=== PATIENT | male | born 1960 | race Hispanic/Latino ===

== ENCOUNTER 2019-04-02 10:08 | Emergency (ER) | payer BC, OTHER ==
--- OUTSIDE RECORDS SUMMARY | 2019-04-02 10:11 | XMS REPORT ---
:1960 [facility] Address [address] [place] [address] Care Team Providers Name Role Phone Unavailable Unavailable Unavailable Payers Payer Name Policy Type Policy Number Effective Date Expiration Date Problems This patient has no known problems. Allergies, Adverse Reactions, Alerts Allergy Allergy Status Severity Reaction(s) Onset Inactive Treating Comments Name Type Date Date Clinician No Known DA Active U 2019-02 00:00:0 0 NKDA DA Active U 2011-06 00:00:0 0 Medications This patient has no known medications. Results Test Description Test Time Test Comments Text Results Atomic Results Result Comments BASIC METABOLIC PANEL 2019-02-25 11:36:00 Test Item Value Reference Range Comments SODIUM (test code=NA) 140 MMOL/L 137-145 POTASSIUM (test code=K) 4.3 MMOL/L 3.5-5.1 CHLORIDE (test code=CL) 102 MMOL/L 98-107 CARBON DIOXIDE (test code=CO2) 27 MMOL/L 22-30 GLUCOSE (test code=GLU) 188 MG/DL 74-106 BLOOD UREA NITROGEN (test 18 MG/DL 9-20 code=BUN) GLOMERULAR FILTRATION RATE (test > 60 Reporting units: ml/min/1.73 m2 code=GFR) (Modified MDRD Formula)Reference Range: > or=60 ml/min/1.73 m2 CREATININE (test code=CREAT) 0.80 MG/DL 0.66-1.25 CALCIUM (test code=CA) 9.5 MG/DL 8.4-10.2 [id number] 11:36:00 Test Item Value Reference Range Comments MAGNESIUM (test code=MAG) 1.9 MG/DL 1.6-2.3 PROTHROMBIN [id number] 11:21:00 Test Item Value Reference Range Comments PROTHROMBIN TIME PATIENT (test 10.6 SECONDS 9.6-11.6 code=PTP) INTERNATIONAL NORMAL RATIO 1.0 0.8-1.1 The INR is to be used only (test code=INR) for monitoring oral anticoagulanttherapy. INDICATION INR VALUE 1. Prophylaxis, deep venous thrombosis, including high risk surgery. 2.0 - 3.0 2. Prophylaxis, deep venous thrombosis, hip surgery, treatment for deep venous thrombosis or pulmonary prevention of systemic embolism in patients with valvular heart disease, atrial fibrillation, tissue heart valve, or acute myocardial infarction. 2.0 - 3.0 3. Mechanical prosthesis heart valves, recurrent systemic embolism. 3.0 - 4.5 PTT [id number] 11:21:00 Test Item Value Reference Range Comments PTT ACTIVATED (test code=APTT) 29.4 SECONDS 22.0-33.0 CBC W/AUTO [id number] 11:07:00 Test Item Value Reference Range Comments WHITE BLOOD CELL (test code=WBC) 8.4 K/MM3 3.8-9.8 RED BLOOD CELL (test code=RBC) 5.14 M/MM3 3.95-5.67 HEMOGLOBIN (test code=HGB) 15.2 G/DL 12.4-16.7 HEMATOCRIT (test code=HCT) 44.4 % 35.9-49.5 MEAN CELL VOLUME (test code=MCV) 86 fL 81.7-96.1 MEAN CELL HGB (test code=MCH) 29.6 pg 27.6-33.2 MEAN CELL HGB CONCETRATION (test code=MCHC) 34.2 % 32.9-35.5 RED CELL DISTRIBUTION WIDTH (test code=RDW) 12.4 % 12.1-15.2 PLATELET COUNT (test code=PLT) 304 K/MM3 129-368 MEAN PLATELET VOLUME (test code=MPV) 9.8 fl 7.4-10.4 NEUTROPHIL % (test code=NT%) 76.5 % 43-75 IMMATURE GRANULOCYTE % (test code=IG%) 0.4 % 0.0-2.0 LYMPHOCYTE % (test code=LY%) 15.5 % 14-44 MONOCYTE % (test code=MO%) 5.8 % 4-13 EOSINOPHIL % (test code=EO%) 1.1 % 0-6 BASOPHIL % (test code=BA%) 0.7 % 0-2 NUCLEATED RBC % (test code=NRBC%) 0.0 % 0-1.0 NEUTROPHIL # (test code=NT#) 6.44 K/mm3 2.0-7.6 IMMATURE GRANULOCYTE # (test code=IG#) 0.03 x10 3/uL 0-0.03 LYMPHOCYTE # (test code=LY#) 1.30 K/mm3 1.0-3.8 MONOCYTE # (test code=MO#) 0.49 K/mm3 0.1-0.8 EOSINOPHIL # (test code=EO#) 0.09 K/mm3 0.0-0.2 BASOPHIL # (test code=BA#) 0.06 K/mm3 0.0-0.2 NUCLEATED RBC # (test code=NRBC#) 0.00 K/mm3 0.0-0.1
[2019-04-02] MEDS ORDERED: NA CHLORIDE 0.9% 1,000 ML ONE (11:48)
--- NOTE | 2019-04-02 11:49 | RAD REPORT ---
EXAM DESCRIPTION: RAD - Ankle Left 3 View -04/02/2019 11:41 am CLINICAL HISTORY: Left ankle pain FINDINGS: No fracture or dislocation is seen. Mild osteoarthritis involves the left ankle consisting joint space narrowing and small osteophytes No acute fracture or dislocation seen Deformity of the calcaneus may be secondary to an old fracture. A 1 centimeter bony density extends off of the mid inferior aspect of the calcaneus Bones appear somewhat osteoporotic.
[2019-04-02 11:56] LABS: Basophils % 0.5 % (0-1.3); Hematocrit 40.2 % (39.6-49.0); Lymphocytes % 10.6 % (15.3-44.8); MPV 8.1 fL (7.6-11.3); RBC Red Blood Cell Count 4.66 M/uL (4.33-5.43)
[2019-04-02 12:13] LABS: Albumin 3.2 g/dL (3.4-5.0); Bilirubin Direct 0.2 mg/dL (0-0.2); Bilirubin Total 0.5 mg/dL (0.2-1.0); Potassium 4.4 mmol/L (3.5-5.1)
[2019-04-02] MEDS ORDERED: HYDROCODONE/APAP 5/325 MG TAB ONE (12:45)
--- NOTE | 2019-04-02 12:53 | EDPHYS ---
Physician Documentation [facility] Name: Nicholas Ruiz Jr Age: 58 yrs Sex: Male : 1960 Arrival Date: 04/02/2019 Time: 10:14 Bed 5 Private MD: ED Physician Abhijeet Mittal HPI: 04/02 12:08 This 58 yrs old Male presents to ER via Ambulatory with complaints of body pm1 aches. 12:08 Generalized body aches. Onset: The symptoms/episode began/occurred 2 day(s) ago. pm1 Severity of symptoms: in the emergency department the symptoms are worse. The patient has not experienced similar symptoms in the past. The patient has not recently seen a physician. No cough, fever, abdominal pain, chest pain , shortness of breath, headache. Patient reports left ankle pain and swelling. Denies trauma or injury. Historical: - Allergies: 12:48 No Known Allergies; sv - PMHx: 11:52 Atrial Fib; Diabetes - NIDDM; High Cholesterol; Hypertension; sg - PSHx: 11:52 pacer/defib; back surg; ankle surg; sg ROS: 12:08 Eyes: Negative for injury, pain, redness, and discharge, ENT: Negative for injury, pm1 pain, and discharge, Neck: Negative for injury, pain, and swelling. 12:08 Cardiovascular: Negative for chest pain, palpitations, and edema, Respiratory: Negative for shortness of breath, cough, wheezing, and pleuritic chest pain, Abdomen/GI: Negative for abdominal pain, nausea, vomiting, diarrhea, and constipation, Back: Negative for injury and pain, : Negative for injury, bleeding, discharge, and swelling, Skin: Negative for injury, rash, and discoloration, Neuro: Negative for headache, weakness, numbness, tingling, and seizure. 12:08 Constitutional: Positive for body aches, Negative for fever, poor PO intake. 12:08 MS/extremity: Positive for pain, swelling, of the left ankle. Exam: 12:08 Constitutional: This is a well developed, well nourished patient who is awake, alert, pm1 and in no acute distress. Head/Face: Normocephalic, atraumatic. Eyes: Pupils equal round and reactive to light, extra-ocular motions intact. Lids and lashes normal. Conjunctiva and sclera are non-icteric and not injected. Cornea within normal limits. Periorbital areas with no swelling, redness, or edema. ENT: Nares patent. No nasal discharge, no septal abnormalities noted. Tympanic membranes are normal and external auditory canals are clear. Oropharynx with no redness, swelling, or masses, exudates, or evidence of obstruction, uvula midline. Mucous membranes moist. Neck: Trachea midline, no thyromegaly or masses palpated, and no cervical lymphadenopathy. Supple, full range of motion without nuchal rigidity, or vertebral point tenderness. No Meningismus. Chest/axilla: Normal chest wall appearance and motion. Nontender with no deformity. No lesions are appreciated. Cardiovascular: Regular rate and rhythm with a normal S1 and S2. No gallops, murmurs, or rubs. Normal PMI, no JVD. No pulse deficits. Respiratory: Lungs have equal breath sounds bilaterally, clear to auscultation and percussion. No rales, rhonchi or wheezes noted. No increased work of breathing, no retractions or nasal flaring. Abdomen/GI: Soft, non-tender, with normal bowel sounds. No distension or tympany. No guarding or rebound. No evidence of tenderness throughout. Back: No spinal tenderness. No costovertebral tenderness. Full range of motion. Skin: Warm, dry with normal turgor. Normal color with no rashes, no lesions, and no evidence of cellulitis. 12:08 Musculoskeletal/extremity: Extremities: grossly normal except: noted in the left ankle: swelling, tenderness, There is no evidence of deformity, ROM: intact in all extremities, Circulation is intact in all extremities. Vital Signs: 10:19 BP 157 / 106; Pulse 106; Resp 16; Temp 99.1(TE); Pulse Ox 98% on R/A; Weight 83.91 kg; ss Height 5 ft. 4 in. (162.56 cm); Pain 10/10; 10:19 Body Mass Index 31.75 (83.91 kg, 162.56 cm) ss MDM: 11:17 Patient medically screened. pm1 12:50 Data reviewed: vital signs. Data interpreted: Pulse oximetry: on room air is 98 %. pm1 Interpretation: normal. Counseling: I had a detailed discussion with the patient and/or guardian regarding: the historical points, exam findings, and any diagnostic results supporting the discharge/admit diagnosis, lab results, radiology results, the need for outpatient follow up, to return to the emergency department if symptoms worsen or persist or if there are any questions or concerns that arise at home. 04/02 10:21 Order name: Flu; Complete Time: 11:11 ss 04/02 11:18 Order name: Basic Metabolic Panel; Complete Time: 12:25 pm1 04/02 11:18 Order name: CBC with Diff; Complete Time: 12:02 pm1 04/02 11:18 Order name: Hepatic Function; Complete Time: 12:25 pm1 04/02 11:18 Order name: Ankle Left 3 View XRAY; Complete Time: 12:02 pm1 04/02 11:18 Order name: IV Saline Lock; Complete Time: 11:35 pm1 04/02 11:18 Order name: Labs collected and sent; Complete Time: 11:35 pm1 Administered Medications: 11:50 Drug: NS 0.9% 1000 ml Route: IV; Rate: 1000 ml; Site: right antecubital; 12:48 Drug: HYDROcodone-acetaminophen (5 mg-500 mg) 1 tabs {Note: RASS +1.} Route: PO; sv Disposition: 15:33 Co-signature as Attending Physician, Abhijeet Mittal MD I agree with the assessment and [facility] plan of care. Disposition: 04/02/19 12:51 Discharged to Home. Impression: Hyperglycemia, unspecified, Pain in left ankle and joints of left foot. - Condition is Stable. - Discharge Instructions: Joint Pain, Arthritis, Hyperglycemia, Blood Glucose Monitoring, Adult, Ankle Pain. - Prescriptions for Tylenol- Codeine #3 300-30 mg Oral Tablet - take 2 tablets by ORAL route every 6 hours As needed; 20 tablet. - Work release form, Medication Reconciliation Form, Thank You Letter, Antibiotic Education, Prescription Opioid Use form. - Follow up: Emergency Department; When: As needed; Reason: Worsening of condition. Follow up: Private Physician; When: 2 - 3 days; Reason: Recheck today's complaints, Continuance of care, Re-evaluation by your physician. - Problem is new. - Symptoms have improved. Signatures: Dispatcher [employer] Britt Bueno RN RN sv Gay, Steven, RN RN sg Anderson, Corey, MD MD cha Marinas, Patrick, WAITER/WAITRESS INFORMAL WAITER/WAITRESS INFORMAL pm1 Angela Rosen dh3 Corrections: (The following items were deleted from the chart) 13:35 12:51 04/02/2019 12:51 Discharged to Home. Impression: Hyperglycemia, unspecified; Pain dh3 in left ankle and joints of left foot. Condition is Stable. Forms are Medication Reconciliation Form, Thank You Letter, Antibiotic Education, Prescription Opioid Use. Follow up: Emergency Department; When: As needed; Reason: Worsening of condition. Follow up: Private Physician; When: 2 - 3 days; Reason: Recheck today's complaints, Continuance of care, Re-evaluation by your physician. Problem is new. Symptoms have improved. pm1
--- NOTE | 2019-04-02 12:53 | ER ---
Nurse's Notes [facility] Name: Nicholas Ruiz Jr Age: 58 yrs Sex: Male : 1960 Arrival Date: 04/02/2019 Time: 10:14 Bed 5 Private MD: Diagnosis: Hyperglycemia, unspecified;Pain in left ankle and joints of left foot Presentation: 04/02 10:19 Presenting complaint: Patient states: body aches that began 2 days ago. Denies fever. ss Transition of care: patient was not received from another setting of care. Onset of symptoms was March 31, 2019. Risk Assessment: Do you want to hurt yourself or someone else? Patient reports no desire to harm self or others. Initial Sepsis Screen: Does the patient meet any 2 criteria? HR > 90 bpm. Does the patient have a suspected source of infection? No. Patient's initial sepsis screen is negative. Care prior to arrival: None. 10:19 Method Of Arrival: Ambulatory 10:19 Acuity: DAVID 3 ss Historical: - Allergies: 12:48 No Known Allergies; sv - PMHx: 11:52 Atrial Fib; Diabetes - NIDDM; High Cholesterol; Hypertension; sg - PSHx: 11:52 pacer/defib; back surg; ankle surg; sg Assessment: 12:49 Reassessment: Patient appears in no apparent distress at this time. No changes from previously documented assessment. Patient and/or family updated on plan of care and expected duration. Pain level reassessed. Patient is alert, oriented x 3, equal unlabored respirations, skin warm/dry/pink. c/o bilateral shoulder pain x 6 weeks. Denies fall or recent injury. Informed Tonny ELLER. Vital Signs: 10:19 BP 157 / 106; Pulse 106; Resp 16; Temp 99.1(TE); Pulse Ox 98% on R/A; Weight 83.91 kg; ss Height 5 ft. 4 in. (162.56 cm); Pain 10/10; 10:19 Body Mass Index 31.75 (83.91 kg, 162.56 cm) ED Course: 10:14 Patient arrived in ED. cf2 10:19 Arm band placed on right wrist. ss 10:21 Triage completed. ss 10:25 Flu Sent. ss 11:09 Sebastian Pollard, NIKKO is Primary Nurse. sg 11:11 Tonny Soto NP is PHCP. pm1 11:11 Abhijeet Mittal MD is Attending Physician. pm1 11:40 X-ray completed. Portable x-ray completed in exam room. Patient tolerated procedure 1 well. 11:42 Ankle Left 3 View XRAY In Process Unspecified. EDMS 11:50 Initial lab(s) drawn, by me, sent to lab. Inserted saline lock: 20 gauge in right sg antecubital area, using aseptic technique. Administered Medications: 11:50 Drug: NS 0.9% 1000 ml Route: IV; Rate: 1000 ml; Site: right antecubital; sg 12:48 Drug: HYDROcodone-acetaminophen (5 mg-500 mg) 1 tabs {Note: RASS +1.} Route: PO; sv Outcome: 12:51 Discharge ordered by . pm1 13:35 Patient left the ED. 3 Signatures: Dispatcher [employer] EDBritt Gilliland RN RN Sebastian Pollard RN RN Zahraa Beasley [facility] Millicent Bruner RN RN Tonny Soto NP WASH[employer]ANKET 1 Angela Rosen 3 Michelet Martini 2 Corrections: (The following items were deleted from the chart) 12:50 12:48 HYDROcodone-acetaminophen (5 mg-500 mg) 1 tabs PO sv sv
== END 2019-04-02 13:35 | disposition home or self-care (01) ==
LOC: ER 10:08
DX: R73.9 Hyperglycemia, unspecified (principal); M25.572 Pain in left ankle and joints of left foot; Z95.0 Presence of cardiac pacemaker
CPT/HCPCS: 85025; 80048; 36415; 80076; 87804 ×2; 73610; 99284; J7030

== ENCOUNTER 2022-10-19 07:27 | Emergency (ER) | payer BC ==
--- OUTSIDE RECORDS SUMMARY | 2022-10-19 07:33 | XMS REPORT | Continuity of Care Document ---
:1960 Author Organization [facility] t Address [address] [facility]. [address] [place] [address] Care Team Providers Name Role Phone MICHELLE VAZQUEZ Primary Care Physician Unavailable Emmett Escalera Attending Clinician Unavailable REID MAURER Attending Clinician Unavailable Reid Maurer MD Attending Clinician Kanika Lee MD Attending Clinician Joselito EL, Susan Alcantara Attending Clinician Unavailable Reid Hollins Attending Clinician Unavailable KANIKA LEE Attending Clinician Unavailable Provider, [facility] Attending Clinician Unavailable Stacey Moreno Attending Clinician Lab, [facility] F[facility] Pob I Attending Clinician Unavailable Michelle Coleman Attending Clinician MICHELLE VAZQUEZ Attending Clinician Unavailable Doctor Unassigned, Cordry [place] Attending Clinician Unavailable Only, [facility] Test Attending Clinician Unavailable Reji Panda MD Attending Clinician BROOKS LINCOLN Attending Clinician Unavailable Emmett Escalera Admitting Clinician Unavailable REID MAURER Admitting Clinician Unavailable Reid Hollins Admitting Clinician Unavailable Payers Payer Name Policy Type Policy Number Effective Date Expiration Date S beti [facility] [id number] 2018 00:00:00 Problems Condition Condition Condition Status Onset Resolution Last Treating Co mments Source Name Details Category Date Date Treatment Clinician Date 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 2-28 ity of mellitus mellitus 00:00: [place] with with 00 Medical microalbum microalbum Br anch inuria, inuria, without without long-term long-term current current use of use of insulin insulin Other Other Disease Active 2017-08 Univers depression depression 2-28 it y of 00:00: Medical Branch Essential Essential Disease Active 2017-08 Uni vers hypertensi hypertensi 2-28 it y of on on 00:00: [place] [facility] Laceration Laceration Disease Active 2017-08 U nivers of left of left 2-28 ity of middle middle 00:00: [place] finger finger 00 Medical without without Branch damage to damage to nail, nail, foreign foreign body body presence presence unspecifie unspecifie d, initial d, initial encounter encounter 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 Added automatic ally from request for surgery [id number] Allergies, Adverse Reactions, Alerts Allergy Allergy Status Severity Reaction(s) Onset Inactive Treating Comm ents Source Name Type Date Date Clinician No Known DA Active U [facility] 00:00: [address] No Known DA Active U [facility] 00:00: [address] NKDA DA Active U 2010-08 [facility] 08-[facility] 00:00: [address] NO KNOWN Drug Active Univers ALLERGIE Class ity of S [facility] Social History Social Habit Start Date Stop Date Quantity Comments Source Exposure to 2022-05-03 2022-05-13 Not sure University of SARS-CoV-2 00:00:00 07:21:00 [facility] (event) Branch Alcohol intake 2022-05-13 2022-05-13 Current University of 00:00:00 00:00:00 non-drinker of [facility] alcohol (finding) [place] Tobacco use and 2018-03-17 2018-03-17 Smokeless tobacco Un iversity of exposure 00:00:00 00:00:00 non-user [facility] Sex Assigned At [birth year] Universit y of 00:00:00 00:00:00 [facility] Smoking Status Start Date Stop Date Source Never smoked tobacco [facility] Medications Ordered Filled Start Stop Current Ordering Indication Dosage Frequency Signature Comments Components Source Medication Medication Date Date Medication? Clinician (SIG) Name Name HEPARIN 2021-08 No 4000U 4,000 Univers SODIUM 0-03 10-03 Units, IV ity of (PORCINE) 14:15: 14:15 Push, [place] 1,000 00 :00 ONCE, 1 Medical UNIT/ML dose, On [place] BOLUS ACS Mon ORDER SET 05/13/22 at 0915, SANGEETHA furosemide 2021-08- No 20mg 20 mg, IV U nivers (LASIX) 0-03 10-03 Push, ity of injection 14:15: 14:34 ONCE, 1 [place] 20 mg 00 :00 dose, On Medical [facility] 05/13/22 at 0915, SANGEETHA heparin 2021-08 Yes 3000U FOR Univers (1,000 0-03 REBOLUSING ity of unit/mL, 10 14:10: , Starting [place] mL vial) 06 on [facility] for 05/13/22 at [place] Rebolusing 0910, Until Discontinu ed, Routine
Dosing based on aPPT testing parameters (refer to continuous heparin drip order).
heparin 2021-08 Yes 12U/kg/ 12 Univers 25,000 0-03 h Units/kg/h ity of Units/250 14:10: r ?79.4 kg [place] mL 06 (9.528 Medical (Premixed mL/hr, Branch Bag) in rounded to 0.45 % NS 9.53 mL/hr), IV Infusion, TITRATE, Parameters in Admin. Instr., Starting on [facility] 05/13/22 at 0910
CA UTION - If LMWH given in ER, AVOID bolus and start next dose/drip 12 hrs after ER dosage.&nb sp; M ust program rate using programmab le infusion pump.&nbsp ; May ck with the ordering provider first prior to any administra tion should the patient be on existing/a dditional anticoagul ant therapy. Rang e, Dosing and Testing: &nbs p;FOR [facility], [facility], AND [facility] ONLY &nbs p; - aPTT < 35: & nbsp;Bolus 5000 units, increase rate 300 units/hr&n bsp; - aPTT 35-44:&nbs p; Raphael sintia 3000 units, increase rate 200 units/hr&n bsp; - aPTT 45-54:&nbs p; In crease rate 100 units/hr&n bsp; - aPTT 55-85:&nbs p; NO CHANGE&nbs p; - aPTT 86-95:&nbs p; De crease rate 100 units/hr&n bsp; - aPTT 96-120:&nb sp; H old 30 minutes, decrease rate 150 units/hr&n bsp; - aPTT > 120: Hold 60 minutes, decrease rate 200 units/hr&n bsp; Check aPTT 6 hours after initiation , then Q6H after every change, aPTT Q12H once therapeuti c levels are reached.&n bsp; &nbs p; __ &n bsp;FOR [facility] ONLY - aPTT < 40: & nbsp;Bolus 5000 units, increase rate 300 units/hr&n bsp; - aPTT 40-49:&nbs p; Raphael sintia 3000 units, increase rate 200 units/hr&n bsp; - aPTT 50-59:&nbs p;&nbs p;Increase rate 100 units/hr&n bsp; - aPTT 60-85:&nbs p; NO CHANGE&nbs p; - aPTT 86-95:&nbs p; De crease rate 100 units/hr&n bsp; - aPTT 96-120:&nb sp; H old 30 minutes, decrease rate 150 units/hr&n bsp; - aPTT > 120: Hold 60 minutes, decrease rate 200 units/hr&n bsp; Check aPTT 6 hours after initiation , then Q6H after every change, aPTT Q12H once therapeuti c levels are reached.&n bsp; DO NOT ADJUST INITIAL BOLUS OR INITIAL INFUSION RATE.
aspirin 2021-08 Yes 325mg 325 mg, Univer s tablet 325 0-03 Oral, ity of mg 14:00: DAILY, [place] [id number] First dose Medical on Fri Branch 05/13/22 at 0900, Until Discontinu ed, Routine SERTRALINE Yes [id number] Take 1 U nivers 100 mg 5-16 tablet by ity of tablet 00:00: mouth once [place] 00 daily Medical Branch SERTRALINE Yes [id number] Take 1 U nivers 100 mg 5-16 tablet by ity of tablet 00:00: mouth once [place] 00 daily Medical Branch atorvastati Yes 40mg Take 40 mg Univers n 40 mg 6-29 by mouth ity of tablet 15:36: at [place] [address] bedtime. Medical Branch aspirin Yes 81mg Take 81 mg Univ ers (ASPIRIN 6-29 by mouth ity of LOW DOSE) 15:36: daily. [place] 81 mg 51 Medical tablet Branch lisinopril Yes 20mg Take 20 mg U nivers 20 mg 6-29 by mouth ity of tablet 15:36: daily. [place] [address] Medical Branch atorvastati 0 Yes 40mg Take 40 mg Univers n 40 mg 6-29 by mouth ity of tablet 15:36: at [place] [address] bedtime. Medical Branch aspirin 2020-0 Yes 81mg Take 81 mg Univ ers (ASPIRIN 6-29 by mouth ity of LOW DOSE) 15:36: daily. [place] 81 mg EC 51 Medical tablet Branch lisinopril 0 Yes 20mg Take 20 mg U nivers 20 mg 6-29 by mouth ity of tablet 15:36: daily. [place] [address] Medical Branch atorvastati 0 Yes 40mg Take 40 mg Univers n 40 mg 6-29 by mouth ity of tablet 10:36: at [place] [address] bedtime. Medical Branch aspirin 2020-0 Yes 81mg Take 81 mg Univ ers (ASPIRIN 6-29 by mouth ity of LOW DOSE) 10:36: daily. [place] 81 mg EC 51 Medical tablet Branch lisinopril 0 Yes 20mg Take 20 mg U nivers 20 mg 6-29 by mouth ity of tablet 10:36: daily. [place] [address] Medical Branch atorvastati 0 Yes 40mg Take 40 mg Univers n 40 mg 6-29 by mouth ity of tablet 10:36: at [place] [address] bedtime. Medical Branch aspirin 2020-0 Yes 81mg Take 81 mg Univ ers (ASPIRIN 6-29 by mouth ity of LOW DOSE) 10:36: daily. [place] 81 mg EC Medical tablet Branch lisinopril 0 Yes 20mg Take 20 mg U nivers 20 mg 6-29 by mouth ity of tablet 10:36: daily. [place] [address] Medical Branch atorvastati 0 Yes 40mg Take 40 mg Univers n 40 mg 6-29 by mouth ity of tablet 10:36: at [place] [address] bedtime. Medical Branch aspirin 2020-0 Yes 81mg Take 81 mg Univ ers (ASPIRIN 6-29 by mouth ity of LOW DOSE) 10:36: daily. [place] 81 mg EC 51 Medical tablet Branch lisinopril 0 Yes 20mg Take 20 mg U nivers 20 mg 6-29 by mouth ity of tablet 10:36: daily. [place] [address] Medical Branch SERTraline 0 Yes [id number] 100mg Take 1 Univers 100 mg 6-29 tablet by ity of tablet 00:00: mouth [place] 00 daily. Medical Branch SERTraline Yes [id number] 100mg Take 1 Univers 100 mg 6-29 tablet by ity of tablet 00:00: mouth [place] 00 daily. Medical Branch SERTraline Yes [id number] 100mg Take 1 Univers 100 mg 6-29 tablet by ity of tablet 00:00: mouth [place] 00 daily. Medical Branch SERTraline 2021- No [id number] 100mg Take 1 Univers 100 mg 6-29 05-16 tablet by ity of tablet 00:00: 00:00 mouth [place] 00 :00 daily. Medical Branch fluconazole 2020- No [id number] 150mg Take 1 Univers (DIFLUCAN) 6-29 06-30 tablet by ity of 150 mg 00:00: 04:59 [place] tablet 00 :00 now for 1 Medical dose. Branch Repeat dose in 7 days fluconazole 2020- No [id number] 150mg Take 1 Univers (DIFLUCAN) 6-29 06-30 tablet by ity of 150 mg 00:00: 04:59 mouth [place] tablet 00 :00 now for 1 Medical dose. Branch Repeat dose in 7 days SERTraline Yes [id number] 50mg Take 1 U nivers (ZOLOFT) 50 7-17 tablet by ity of mg tablet 00:00: mouth [place] 00 daily. Medical Follow-up Branch for refills SERTraline Yes [id number] 50mg Take 1 U nivers (ZOLOFT) 50 7-17 tablet by ity of mg tablet 00:00: mouth [place] 00 daily. Medical Follow-up Branch for refills SERTraline Yes [id number] 50mg Take 1 U nivers (ZOLOFT) 50 7-17 tablet by ity of mg tablet 00:00: mouth [place] 00 daily. Medical Follow-up Branch for refills SERTraline Yes [id number] 50mg Take 1 U nivers (ZOLOFT) 50 7-17 tablet by ity of mg tablet 00:00: mouth [place] 00 daily. Medical Follow-up Branch for refills SERTraline Yes [id number] 50mg Take 1 U nivers (ZOLOFT) 50 7-17 tablet by ity of mg tablet 00:00: mouth [place] 00 daily. Medical Follow-up Branch for refills SERTraline Yes [id number] 50mg Take 1 U nivers (ZOLOFT) 50 7-17 tablet by ity of mg tablet 00:00: mouth [place] 00 daily. Medical Follow-up Branch for refills SERTraline Yes [id number] 50mg Take 1 U nivers (ZOLOFT) 50 7-17 tablet by ity of mg tablet 00:00: mouth [place] 00 daily. Medical Follow-up Branch for refills SERTraline Yes [id number] 50mg Take 1 U nivers (ZOLOFT) 50 7-17 tablet by ity of mg tablet 00:00: mouth [place] 00 daily. Medical Follow-up Branch for refills SERTraline Yes [id number] 50mg Take 1 U nivers (ZOLOFT) 50 7-17 tablet by ity of mg tablet 00:00: mouth [place] 00 daily. Medical Follow-up Branch for refills SERTraline 2020- No [id number] 50mg Take 1 Univers (ZOLOFT) 50 7-17 06-29 tablet by it y of mg tablet 00:00: 00:00 mouth [place] 00 :00 daily. Medical Follow-up Branch for refills SERTraline 2020- No [id number] 50mg Take 1 Univers (ZOLOFT) 50 7-17 06-29 tablet by it y of mg tablet 00:00: 00:00 mouth [place] 00 :00 daily. Medical Follow-up Branch for refills lisinopril 2017-08 Yes 20mg Take 20 mg U nivers 20 mg 2-28 by mouth ity of tablet 19:10: daily. [address] lisinopril 2017-08 Yes 20mg Take 20 mg U nivers 20 mg 2-28 by mouth ity of tablet 19:10: daily. [address] lisinopril 2017-08 Yes 20mg Take 20 mg U nivers 20 mg 2-28 by mouth ity of tablet 19:10: daily. [address] lisinopril 2017-08 Yes 20mg Take 20 mg U nivers 20 mg 2-28 by mouth ity of tablet 19:10: daily. [address] lisinopril 2017-08 Yes 20mg Take 20 mg U nivers 20 mg 2-28 by mouth ity of tablet 19:10: daily. [address] lisinopril 2017-08 Yes 20mg Take 20 mg U nivers 20 mg 2-28 by mouth ity of tablet 19:10: daily. [address] lisinopril 2017-08 Yes 20mg Take 20 mg U nivers 20 mg 2-28 by mouth ity of tablet 19:10: daily. [address] lisinopril 2017-08 Yes 20mg Take 20 mg U nivers 20 mg 2-28 by mouth ity of tablet 19:10: daily. [address] lisinopril 2017-08 Yes 20mg Take 20 mg U nivers 20 mg 2-28 by mouth ity of tablet 19:10: daily. [address] ciclopirox 2017-08 Yes [id number] Apply to Univers 8 % 2-28 area(s) at ity of solution 00:00: bedtime. [place] 00 Apply to Medical Nails at Branch night. On day 7 clean with alcohol pad/trim nails. empaglifloz 2017-08 Yes [id number] 10mg Take 10 mg Univers in 2-28 by mouth ity of (JARDIANCE) 00:00: daily. [place] 10 mg Tab 00 [facility] metFORMIN 2017-08 Yes [id number] 1000mg Take 1 Univers 1,000 mg 2-28 tablet by ity of tablet 00:00: mouth 2 [place] (two) Medical times [place] daily with meals. mupirocin 2 2017-08 Yes [id number] Apply to Univers % ointment 2-28 [id number] area(s) 3 it y of 00:00: (three) [place] 00 times Medical daily. Branch ciclopirox 2017-08 Yes [id number] Apply to Univers 8 % 2-28 area(s) at ity of solution 00:00: bedtime. [place] 00 Apply to Medical Nails at Branch night. On day 7 clean with alcohol pad/trim nails. empaglifloz 2017-08 Yes [id number] 10mg Take 10 mg Univers in 2-28 by mouth ity of (JARDIANCE) 00:00: daily. [place] 10 mg Tab 00 [facility] metFORMIN 2017-08 Yes [id number] 1000mg Take 1 Univers 1,000 mg 2-28 tablet by ity of tablet 00:00: mouth 2 [place] 00 (two) Medical times [place] daily with meals. mupirocin 2 2017-08 Yes [id number] Apply to Univers % ointment 2-28 [id number] area(s) 3 it y of 00:00: (three) [place] 00 times Medical daily. Branch ciclopirox 2017-08 Yes [id number] Apply to Univers 8 % 2-28 area(s) at ity of solution 00:00: bedtime. [place] 00 Apply to Medical Nails at Branch night. On day 7 clean with alcohol pad/trim nails. empaglifloz 2017-08 Yes [id number] 10mg Take 10 mg Univers in 2-28 by mouth ity of (JARDIANCE) 00:00: daily. [place] 10 mg Tab 00 Medical Branch metFORMIN 2017-08 Yes [id number] 1000mg Take 1 Univers 1,000 mg 2-28 tablet by ity of tablet 00:00: mouth 2 00 (two) Medical times [place] daily with meals. mupirocin 2 2017-08 Yes [id number] Apply to Univers % ointment 2-28 [id number] area(s) 3 it y of 00:00: (three) [place] 00 times Medical daily. Branch ciclopirox 2017-08 Yes [id number] Apply to Univers 8 % 2-28 area(s) at ity of solution 00:00: bedtime. [place] 00 Apply to Medical Nails at Branch night. On day 7 clean with alcohol pad/trim nails. empaglifloz 2017-08 Yes [id number] 10mg Take 10 mg Univers in 2-28 by mouth ity of (J[place]IANCE) 00:00: daily. [place] 10 mg Tab 00 Medical Branch metFORMIN 2017-08 Yes [id number] 1000mg Take 1 Univers 1,000 mg 2-28 tablet by ity of tablet 00:00: mouth 2 [place] 00 (two) Medical times [place] daily with meals. mupirocin 2 2017-08 Yes [id number] Apply to Univers % ointment 2-28 [id number] area(s) 3 it y of 00:00: (three) [place] 00 times Medical daily. Branch ciclopirox 2017-08 Yes [id number] Apply to Univers 8 % 2-28 area(s) at ity of solution 00:00: bedtime. [place] 00 Apply to Medical Nails at Branch night. On day 7 clean with alcohol pad/trim nails. empaglifloz 2017- Yes [id number] 10mg Take 10 mg Univers in 2-28 by mouth ity of (J[place]) 00:00: daily. [place] 10 mg Tab 00 Medical Branch metFORMIN 2017-08 Yes [id number] 1000mg Take 1 Univers 1,000 mg 2-28 tablet by ity of tablet 00:00: mouth 2 [place] 00 (two) Medical times Branch daily with meals. mupirocin 2 2017-08 Yes [id number] Apply to Univers % ointment 2-28 [id number] area(s) 3 it y of 00:00: (three) [place] 00 times Medical daily. Branch ciclopirox 2017-08 Yes [id number] Apply to Univers 8 % 2-28 area(s) at ity of solution 00:00: bedtime. [place] 00 Apply to Medical Nails at Branch night. On day 7 clean with alcohol pad/trim nails. empaglifloz 2017-08 Yes [id number] 10mg Take 10 mg Univers in 2-28 by mouth ity of ([place]) 00:00: daily. [place] 10 mg Tab 00 Medical Branch metFORMIN 2017-08 Yes [id number] 1000mg Take 1 Univers 1,000 mg 2-28 tablet by ity of tablet 00:00: mouth 2 (two) Medical times [place] daily with meals. mupirocin 2 2017-08 Yes [id number] Apply to Univers % ointment 2-28 [id number] area(s) 3 it y of 00:00: (three) [place] 00 times Medical daily. Branch ciclopirox 2017-08 Yes [id number] Apply to Univers 8 % 2-28 area(s) at ity of solution 00:00: bedtime. [place] 00 Apply to Medical Nails at Branch night. On day 7 clean with alcohol pad/trim nails. empaglifloz 2017- Yes [id number] 10mg Take 10 mg Univers in 2-28 by mouth ity of ([place]) 00:00: daily. [place] 10 mg Tab 00 Medical Branch metFORMIN 2017- Yes [id number] 1000mg Take 1 Univers 1,000 mg 2-28 tablet by ity of tablet 00:00: mouth 2 [place] (two) Medical times [place] daily with meals. mupirocin 2 2017-08 Yes [id number] Apply to Univers % ointment 2-28 [id number] area(s) 3 it y of 00:00: (three) [place] 00 times Medical daily. Branch ciclopirox 2017-08 Yes [id number] Apply to Univers 8 % 2-28 area(s) at ity of solution 00:00: bedtime. 00 Apply to Medical Nails at Branch night. On day 7 clean with alcohol pad/trim nails. empaglifloz 2017-08 Yes [id number] 10mg Take 10 mg Univers in 2-28 by mouth ity of ([place]) 00:00: daily. [place] 10 mg Tab 00 Medical Branch metFORMIN 2017-08 Yes [id number] 1000mg Take 1 Univers 1,000 mg 2-28 tablet by ity of tablet 00:00: mouth 2 00 (two) Medical times [place] daily with meals. mupirocin 2 2017-08 Yes [id number] Apply to Univers % ointment 2-28 [id number] area(s) 3 it y of 00:00: (three) [place] 00 times Medical daily. Branch ciclopirox 2017-08 Yes [id number] Apply to Univers 8 % 2-28 area(s) at ity of solution 00:00: bedtime. [place] 00 Apply to Medical Nails at Branch night. On day 7 clean with alcohol pad/trim nails. empaglifloz 2017-08 Yes [id number] 10mg Take 10 mg Univers in 2-28 by mouth ity of ([place]) 00:00: daily. [place] 10 mg Tab 00 Medical Branch metFORMIN 2017-08 Yes [id number] 1000mg Take 1 Univers 1,000 mg 2-28 tablet by ity of tablet 00:00: mouth 2 [place] 00 (two) Medical times [place] daily with meals. mupirocin 2 2017-08 Yes [id number] Apply to Univers % ointment 2-28 area(s) 3 ity of 00:00: (three) [place] 00 times Medical daily. Branch ciclopirox 2017-08 Yes [id number] Apply to Univers 8 % 2-28 area(s) at ity of solution 00:00: bedtime. 00 Apply to Medical Nails at Branch night. On day 7 clean with alcohol pad/trim nails. empaglifloz 2017-08 Yes [id number] 10mg Take 10 mg Univers in 2-28 by mouth ity of ([place]) 00:00: daily. [place] 10 mg Tab 00 Medical Branch metFORMIN 2017-08 Yes [id number] 1000mg Take 1 Univers 1,000 mg 2-28 tablet by ity of tablet 00:00: mouth 2 [place] 00 (two) Medical times Branch daily with meals. mupirocin 2 2017-08 Yes [id number] Apply to Univers % ointment 2-28 area(s) 3 ity of 00:00: (three) [place] 00 times Medical daily. Branch ciclopirox 2017-08 Yes [id number] Apply to Univers 8 % 2-28 area(s) at ity of solution 00:00: bedtime. 00 Apply to Medical Nails at Branch night. On day 7 clean with alcohol pad/trim nails. empaglifloz 2017-08 Yes [id number] 10mg Take 10 mg Univers in 2-28 by mouth ity of ([place]) 00:00: daily. [place] 10 mg Tab 00 Medical Branch metFORMIN 2017-08 Yes [id number] 1000mg Take 1 Univers 1,000 mg 2-28 tablet by ity of tablet 00:00: mouth 2 (two) Medical times [place] daily with meals. mupirocin 2 2017-08 Yes [id number] Apply to Univers % ointment 2-28 [id number] area(s) 3 it y of 00:00: (three) [place] 00 times Medical daily. Branch ciclopirox 2017-08 Yes [id number] Apply to Univers 8 % 2-28 area(s) at ity of solution 00:00: bedtime. [place] 00 Apply to Medical Nails at Branch night. On day 7 clean with alcohol pad/trim nails. empaglifloz 2017-08 Yes [id number] 10mg Take 10 mg Univers in 2-28 by mouth ity of ([place]) 00:00: daily. [place] 10 mg Tab 00 Medical Branch metFORMIN 2017-08 Yes [id number] 1000mg Take 1 Univers 1,000 mg 2-28 tablet by ity of tablet 00:00: mouth 2 [place] 00 (two) Medical times Branch daily with meals. mupirocin 2 2017-08 Yes [id number] Apply to Univers % ointment 2-28 [id number] area(s) 3 it y of 00:00: (three) [place] 00 times Medical daily. Branch ciclopirox 2017-08 Yes [id number] Apply to Univers 8 % 2-28 area(s) at ity of solution 00:00: bedtime. [place] 00 Apply to Medical Nails at Branch night. On day 7 clean with alcohol pad/trim nails. empaglifloz 2017-08 Yes [id number] 10mg Take 10 mg Univers in 2-28 by mouth ity of ([place]) 00:00: daily. [place] 10 mg Tab 00 Medical Branch metFORMIN 2017-08 Yes [id number] 1000mg Take 1 Univers 1,000 mg 2-28 tablet by ity of tablet 00:00: mouth 2 00 (two) Medical times [place] daily with meals. mupirocin 2 2017-08 Yes [id number] Apply to Univers % ointment 2-28 [id number] area(s) 3 it y of 00:00: (three) [place] 00 times Medical daily. Branch ciclopirox 2017-08 Yes [id number] Apply to Univers 8 % 2-28 area(s) at ity of solution 00:00: bedtime. [place] 00 Apply to Medical Nails at Branch night. On day 7 clean with alcohol pad/trim nails. empaglifloz 2017-08 Yes [id number] 10mg Take 10 mg Univers in 2-28 by mouth ity of ([place]) 00:00: daily. [place] 10 mg Tab 00 Medical Branch metFORMIN 2017-08 Yes [id number] 1000mg Take 1 Univers 1,000 mg 2-28 tablet by ity of tablet 00:00: mouth 2 [place] 00 (two) Medical times [place] daily with meals. mupirocin 2 2017-08 Yes [id number] Apply to Univers % ointment 2-28 [id number] area(s) 3 it y of 00:00: (three) [place] 00 times Medical daily. Branch atorvastati Yes 40mg Take 40 mg Univers n 40 mg 9-11 by mouth ity of tablet 16:02: at [place] 12 bedtime. Medical Branch aspirin Yes 81mg Take 81 mg Univ ers (ASPIRIN 9-11 by mouth ity of LOW DOSE) 16:02: daily. [place] 81 mg EC 12 Medical tablet Branch atorvastati Yes 40mg Take 40 mg Univers n 40 mg 9-11 by mouth ity of tablet 16:02: at [place] [address] bedtime. Medical Branch aspirin 2018-0 Yes 81mg Take 81 mg Univ ers (ASPIRIN 9-11 by mouth ity of LOW DOSE) 16:02: daily. [place] 81 mg EC 12 Medical tablet Branch atorvastati 0 Yes 40mg Take 40 mg Univers n 40 mg 9-11 by mouth ity of tablet 16:02: at [place] [address] bedtime. Medical Branch aspirin 2018-0 Yes 81mg Take 81 mg Univ ers (ASPIRIN 9-11 by mouth ity of LOW DOSE) 16:02: daily. [place] 81 mg EC 12 Medical tablet Branch atorvastati 0 Yes 40mg Take 40 mg Univers n 40 mg 9-11 by mouth ity of tablet 16:02: at [place] [address] bedtime. Medical Branch aspirin 2018-0 Yes 81mg Take 81 mg Univ ers (ASPIRIN 9-11 by mouth ity of LOW DOSE) 16:02: daily. [place] 81 mg EC 12 Medical tablet Branch atorvastati Yes 40mg Take 40 mg Univers n 40 mg 9-11 by mouth ity of tablet 16:02: at [place] [address] bedtime. Medical Branch aspirin 2017-0 Yes 81mg Take 81 mg Univ ers (ASPIRIN 9-11 by mouth ity of LOW DOSE) 16:02: daily. [place] 81 mg EC 12 Medical tablet Branch atorvastati 0 Yes 40mg Take 40 mg Univers n 40 mg 9-11 by mouth ity of tablet 16:02: at [place] [address] bedtime. Medical Branch aspirin 2018-0 Yes 81mg Take 81 mg Univ ers (ASPIRIN 9-11 by mouth ity of LOW DOSE) 16:02: daily. [place] 81 mg EC 12 Medical tablet Branch atorvastati Yes 40mg Take 40 mg Univers n 40 mg 9-11 by mouth ity of tablet 16:02: at [place] [address] bedtime. Medical Branch aspirin 2018-0 Yes 81mg Take 81 mg Univ ers (ASPIRIN 9-11 by mouth ity of LOW DOSE) 16:02: daily. [place] 81 mg EC 12 Medical tablet Branch atorvastati Yes 40mg Take 40 mg Univers n 40 mg 9-11 by mouth ity of tablet 16:02: at [place] [address] bedtime. Medical Branch aspirin 2018-0 Yes 81mg Take 81 mg Univ ers (ASPIRIN 9-11 by mouth ity of LOW DOSE) 16:02: daily. [place] 81 mg EC 12 Medical tablet Branch atorvastati Yes 40mg Take 40 mg Univers n 40 mg 9-11 by mouth ity of tablet 16:02: at [place] 12 bedtime. Medical Branch aspirin Yes 81mg Take 81 mg Univ ers (ASPIRIN 9-11 by mouth ity of LOW DOSE) 16:02: daily. [place] 81 mg EC 12 Medical tablet Branch metoprolol 2016-08 Yes 50mg Take 1 Unive rs succinate 2-28 tablet by ity o f XL 50 mg 24 00:00: mouth [place] hr tablet 00 daily. Medical Branch metoprolol 2016-08 Yes 50mg Take 1 Unive rs succinate 2-28 tablet by ity o f XL 50 mg 24 00:00: mouth [place] hr tablet 00 daily. Medical Branch metoprolol 2016-08 Yes 50mg Take 1 Unive rs succinate 2-28 tablet by ity o f XL 50 mg 24 00:00: mouth [place] hr tablet 00 daily. Medical Branch metoprolol 2016-08 Yes 50mg Take 1 Unive rs succinate 2-28 tablet by ity o f XL 50 mg 24 00:00: mouth [place] hr tablet 00 daily. Medical Branch metoprolol 2016-08 Yes 50mg Take 1 Unive rs succinate 2-28 tablet by ity o f XL 50 mg 24 00:00: mouth [place] hr tablet 00 daily. Medical Branch metoprolol 2016-08 Yes 50mg Take 1 Unive rs succinate 2-28 tablet by ity o f XL 50 mg 24 00:00: mouth [place] hr tablet 00 daily. Medical Branch metoprolol 2016-08 Yes 50mg Take 1 Unive rs succinate 2-28 tablet by ity o f XL 50 mg 24 00:00: mouth [place] hr tablet 00 daily. Medical Branch metoprolol 2016-08 Yes 50mg Take 1 Unive rs succinate 2-28 tablet by ity o f XL 50 mg 24 00:00: mouth [place] hr tablet 00 daily. Medical Branch metoprolol 2016-08 Yes 50mg Take 1 Unive rs succinate 2-28 tablet by ity o f XL 50 mg 24 00:00: mouth [place] hr tablet 00 daily. Medical Branch metoprolol 2016-08 Yes 50mg Take 1 Unive rs succinate 2-28 tablet by ity o f XL 50 mg 24 00:00: mouth [place] hr tablet [address] [facility] Branch metoprolol 2016-08 Yes 50mg Take 1 Unive rs succinate 2-28 tablet by ity o f XL 50 mg 24 00:00: mouth [place] hr tablet 00 daily. [facility] metoprolol 2016-08 Yes 50mg Take 1 Unive rs succinate 2-28 tablet by ity o f XL 50 mg 24 00:00: mouth [place] hr tablet [address] [facility] Branch metoprolol 2016-08 Yes 50mg Take 1 Unive rs succinate 2-28 tablet by ity o f XL 50 mg 24 00:00: mouth [place] hr tablet [address] [facility] Branch metoprolol 2016-08 Yes 50mg Take 1 Unive rs succinate 2-28 tablet by ity o f XL 50 mg 24 00:00: mouth [place] hr tablet [address] [facility] Branch Immunizations Ordered Filled Immunization Date Status Comments [facility] e Immunization Name Name SARS-COV-2 COVID-19 2020-10-28 Completed Unive rsity of PFIZER VACCINE 00:00:00 [facility] [place] SARS-COV-2 COVID-19 2020-10-28 Completed Unive rsity of PFIZER VACCINE 00:00:00 [facility] [place] SARS-COV-2 COVID-19 2020-10-28 Completed Unive rsity of PFIZER VACCINE 00:00:00 [facility] [place] SARS-COV-2 COVID-19 2020-10-28 Completed Unive rsity of PFIZER VACCINE 00:00:00 [facility] [place] SARS-COV-2 COVID-19 2020-10-28 Completed Unive rsity of PFIZER VACCINE 00:00:00 [facility] [place] SARS-COV-2 COVID-19 2020-10-07 Completed Unive rsity of PFIZER VACCINE 00:00:00 [facility] [place] SARS-COV-2 COVID-19 2020-10-07 Completed Unive rsity of PFIZER VACCINE 00:00:00 [facility] [place] SARS-COV-2 COVID-19 2020-10-07 Completed Unive rsity of PFIZER VACCINE 00:00:00 [facility] [place] SARS-COV-2 COVID-19 2020-10-07 Completed Unive rsity of PFIZER VACCINE 00:00:00 [facility] [place] SARS-COV-2 COVID-19 2020-10-07 Completed Unive rsity of PFIZER VACCINE 00:00:00 [facility] [place] Vital Signs Vital Name Observation Time Observation Value Comments Source Systolic blood 2022-05-13 17:00:00 160 mm[Hg] Univer sity of pressure [facility] Branch Diastolic blood 2022-05-13 17:00:00 117 mm[Hg] Unive rsity of pressure [facility] Heart rate 2022-05-13 17:00:00 98 /min Universi ty of [facility] Respiratory rate 2022-05-13 17:00:00 15 /min Univ ersity of [facility] Branch Oxygen saturation in 2022-05-13 17:00:00 96 /min University of Arterial blood by [facility] Pulse oximetry Branch Body temperature 2022-05-13 12:23:00 36.89 Karon Univ ersity of [facility] Body height 2022-05-13 12:23:00 162.6 cm Universi ty of [facility] Body weight 2022-05-13 12:23:00 79.379 kg Universi ty of [facility] BMI 2022-05-13 12:23:00 30.04 kg/m2 [facility] [place] [facility] Systolic blood 2021-02-06 15:32:00 128 mm[Hg] Univer sity of pressure [facility] Diastolic blood 2021-02-06 15:32:00 79 mm[Hg] Unive rsity of pressure [facility] Heart rate 2021-02-06 15:32:00 75 /min Universi ty of [facility] Body temperature 2021-02-06 15:32:00 36.89 Karon Univ ersity of [facility] Branch Body height 2021-02-06 15:32:00 162.6 cm [facility] [place] [facility] Body weight 2021-02-06 15:32:00 84.823 kg [facility] [place] [facility] BMI 2021-02-06 15:32:00 32.10 kg/m2 Universi ty of [facility] Systolic blood 2020-08-25 20:10:00 181 mm[Hg] Univer sity of pressure [facility] Diastolic blood 2020-08-25 20:10:00 115 mm[Hg] Unive rsity of pressure [facility] Heart rate 2020-08-25 20:06:00 96 /min Universi ty of [facility] Body temperature 2020-08-25 20:06:00 37.17 Karon [facility] of [facility] Body height 2020-08-25 20:06:00 162.6 cm [facility]i ty [facility] [place] [facility] [place] Body weight 2020-08-25 20:06:00 88.905 kg Universi ty of [facility] BMI 2020-08-25 20:06:00 33.64 kg/m2 Universi ty [facility] Oxygen saturation in 2020-08-25 20:06:00 97 /min University of Arterial blood by [facility] Pulse oximetry Branch Systolic blood 2020-08-25 20:10:00 181 mm[Hg] Univer sity of pressure [facility] Diastolic blood 2020-08-25 20:10:00 115 mm[Hg] Unive [facility] Heart rate 2020-08-25 20:06:00 96 /min Universi ty [facility] Body temperature 2020-08-25 20:06:00 37.17 Karon [facility] Body height 2020-08-25 20:06:00 162.6 cm [facility] [place] [facility] [place] Body weight 2020-08-25 20:06:00 88.905 kg Universi ty of [facility] BMI 2020-08-25 20:06:00 33.64 kg/m2 Universi ty [facility] Oxygen saturation in 2020-08-25 20:06:00 97 /min University of Arterial blood by [facility] Pulse oximetry Branch Procedures Procedure Date / Time Performing Clinician Source Performed EKG-12 LEAD 2022-05-13 17:12:42 Reid Maurer [facility] PROTHROMBIN TIME / INR 2022-05-13 14:18:00 Reid Maurer [facility] ACTIVATED PARTIAL 2022-05-13 14:18:00 Reid Maurer [facility] XR CHEST 2 VW 2022-05-13 13:22:37 Reid Maurer [facility] TROPONIN I 2022-05-13 12:36:00 Reid Maurer [facility] COMP. METABOLIC PANEL 2022-05-13 12:36:00 Reid Maurer rsity of [place] ([id number]) [facility] CBC WITH DIFF 2022-05-13 12:36:00 Reid Maurer [facility] RAPID INFLUENZA A/B 2022-05-13 12:36:00 Reid Maurer [facility] N-TERMINAL PRO-BNP 2022-05-13 12:36:00 Reid Maureri ty [facility] COVID-19 (ID NOW RAPID 2022-05-13 12:36:00 Reid Maurer [facility] TESTING) [facility] CONSENT/REFUSAL FOR 2022-05-13 12:15:35 Doctor Unassigned, No [facility] DIAGNOSIS AND TREATMENT Name [facility] ASSIGNMENT OF BENEFITS 2020-06-21 15:09:24 Doctor Unassigned, No [facility] Name [facility] REFERRAL- 2020-03-03 05:01:00 Doctor Unassigned, No [facility] REQUEST/RESPONSE Name [facility] Encounters Start End Encounter Admission Attending Care Care Encounter Source Date/Time Date/Time Type Type Clinicians Facility Department ID 2022-05-13 2022-05-15 Inpatient UR [place], [facility]TE [id number] [facility] 13:36:00 19:42:[address] [facility] 2022-05-13 2022-05-13 Emergency X [facility] ERT [id number] Univers 07:20:00 14:02:00 REID fisher [facility] 2022-05-13 2022-05-13 Emergency [facility] [id number] Univers 07:20:00 14:02:00 Reid HOGAN [id number] ity of [place] [id number] [facility] [phone] [facility] daniela 084 Branch 2021-12-24 2021-12-24 Roseann Lee [facility] [id number] Univers 00:00:00 00:00:00 Kanika HOGAN [id number] i ty of [place] LAND[place] [id number] [facility] PROFESSIO [phone] Nv dical NAL 044 Branch BUILDING 2021-10-03 2021-10-03 Telephone BROOKS Yee [id number] Univers 00:00:00 00:00:00 Susan NUNO [id number] i [facility] [id number] [place] as [phone] [address] 2021-09-24 2021-09-25 Inpatient ABRAHAM GagnonMING TELE [id number] [facility] 08:08:00 11:25:[address] [facility] 2021-03-08 2021-03-08 [facility] [id number] Univers 09:00:00 09:00:00 KANIKA [facility] 2021-02-06 2021-02-[address] [facility] [id number] Univers 10:45:00 10:45:00 KANIKA [facility] 2021-02-06 2021-02-06 [facility] [id number] Univers 10:24:24 10:39:24 Visit [facility] [id number] it y of [place] 4.2.7.2.686 [place] as Professio [phone] [address] One 2020-10-28 2020-10-[address] [facility] [id number] Univers 12:40:00 12:40:[facility] 2020-10-07 2020-10-[address] [facility] [id number] Univers 13:45:00 13:45:00 [facility] 2020-08-25 2020-08-25 Urgent Provider, [facility] [id number] Univers 13:49:03 14:28:29 Care Stacey Holman [facility] [id number] ity of [place] [id number] [place] Professio [phone] [address] One 2020-08-25 2020-08-25 Urgent Provider, [facility] [id number] 13:49:03 14:28:29 Care [facility] [id number] Care [place] [id number] Professio [phone] [place] [address] [address] One 2020-08-25 2020-08-[address] [facility] [id number] Univers 14:00:00 14:00:00 ity [facility] 2020-06-29 2020-06-29 Laboratory Lab, [facility] Fam Pob I [facility] 1.2. [id number] [id number] Univers 09:59:06 10:19:06 Only [facility] [id number] ity of [place] [id number] [place] Professio [phone] Nv dical [address] Office Building [facility] 2020-06-29 2020-06-29 Laboratory Lab, [facility] [id number] 09:59:06 10:19:06 Only Fam Pob I Health 350.1.13.10 [place] 4.2.7.2.686 Professio [phone] [place] [address] [address] One 2020-06-29 2020-06-29 Outpatient R TAYLOR, [facility] [id number] Univers 10:00:00 10:00:00 MICHELLE itfarnaz [facility] 2020-06-29 2020-06-29 Letter Doctor GUY [id number] Univers 00:00:00 00:00:00 (Out) Unassigned, NURYS [id number] ity of [place] [facility] 4.2.7.2.686 [place] [phone] [address] 2020-06-29 2020-06-29 Letter Doctor GUY [id number] 00:00:00 00:00:00 (Out) Unassigned, NURYS 350.1.13.10 [place] [facility] 4.2.7.2.686 [id number] [facility] 2020-06-21 2020-06-21 Laboratory Only, [facility] Test [facility] 1.2.840. 114 [id number] Univers 09:06:45 09:21:45 Only Reji Panda 350.1.13.10 [place]2.686 [place] [phone] [address] 2020-06-21 2020-06-21 Laboratory Only, [facility] [id number] 09:06:45 09:21:45 Only Test [place] 350.1.13.10 [place] 4.2.7.2.686 [place] [id number] [id number] 2020-06-21 2020-06-[address] [facility] [id number] Univers 09:15:00 09:15:00 ity of [facility] 2020-06-21 2020-06-21 Orders Doctor BROOKS [id number] Univers 00:00:00 00:00:00 Only Unassigned, NURYS [id number] ity of [place] [facility] 4.2.7.2.686 [place] [phone] [address] 2020-03-06 2020-03-06 [facility] 1.2.840.114 [id number] Univers 00:00:00 00:00:00 Kanika [place] 350.1.13.10 i ty of [place] 4[place]7.2.686 [place] [facility] [phone] Nv dic[address] 2020-03-03 2020-03-03 Orders Doctor BROOKS 1.2.840.114 [id number] Univers 00:00:00 00:00:00 Only Unassigned, NURYS [id number] ity of [place] [facility] [id number] [place] [phone] [address] 2018-08-20 2018-08-20 [facility] [id number] Univers 08:30:00 08:30:00 BROOKS fisher [facility] Results Test Description Test Time Test Comments Results Result Comments Source GLUCOSE BEDSIDE TESTING 2022-05-15 12:23:00 Test Item Value Reference Range Interpretation Comme nts GLUCOSE BEDSIDE TESTING (test code = GLUBED) 223 MG/DL 60-99 H GLUCOSE BEDSIDE [id number] 07:07:00 Test Item Value Reference Range Interpretation Comments GLUCOSE BEDSIDE TESTING (test code 187 MG/DL 60-99 H = GLUBED) BASIC METABOLIC [id number] 05:42:00 Test Item Value Reference Range Interpretation Comments SODIUM (test code = 135 MMOL/L 137-145 L NA) POTASSIUM (test code = 3.9 MMOL/L 3.5-5.1 N K) CHLORIDE (test code = 100 MMOL/L 98-107 N CL) CARBON DIOXIDE (test 25 MMOL/L 22-30 N code = CO2) ANION GAP (test code = 14 MMOL/L 14-24 N GAP) GLUCOSE (test code = 152 MG/DL 74-106 H GLU) BLOOD UREA NITROGEN 34 MG/DL 9-20 H (test code = BUN) GLOMERULAR FILTRATION > 60 Report ing units: RATE (test code = GFR) ml/mi n/1.73 m2 (Modified MDRD Formula)Referen ce Range: > or = 6 0 ml/min/1.73 m2 CREATININE (test code 1.00 MG/DL 0.66-1.25 N = CREAT) CALCIUM (test code = 10.0 MG/DL 8.4-10.2 N CA) [id number] 05:42:00 Test Item Value Reference Range Interpretation Comments MAGNESIUM (test code = MAG) 2.0 MG/DL 1.6-2.3 N GLUCOSE BEDSIDE [id number] 19:04:00 Test Item Value Reference Range Interpretation Comments GLUCOSE BEDSIDE TESTING (test code 286 MG/DL 60-99 H = GLUBED) GLUCOSE BEDSIDE [id number] 17:13:00 Test Item Value Reference Range Interpretation Comments GLUCOSE BEDSIDE TESTING (test code 162 MG/DL 60-99 H = GLUBED) GLUCOSE BEDSIDE [id number] 15:12:00 Test Item Value Reference Range Interpretation Comments GLUCOSE BEDSIDE TESTING (test code = 80 MG/DL 60-99 N GLUBED) GLUCOSE BEDSIDE [id number] 11:21:00 Test Item Value Reference Range Interpretation Comments GLUCOSE BEDSIDE TESTING (test code 262 MG/DL 60-99 H = GLUBED) GLUCOSE BEDSIDE [id number] 09:03:00 Test Item Value Reference Range Interpretation Comments GLUCOSE BEDSIDE TESTING (test code 336 MG/DL 60-99 HH = GLUBED) COMPREHENSIVE METABOLIC [id number] 05:29:00 Test Item Value Reference Range Interpretation Comments SODIUM (test code 133 MMOL/L 137-145 L = NA) POTASSIUM (test 4.0 MMOL/L 3.5-5.1 N code = K) CHLORIDE (test 100 MMOL/L 98-107 N code = CL) CARBON DIOXIDE 28 MMOL/L 22-30 N (test code = CO2) ANION GAP (test 9 MMOL/L 14-24 L code = GAP) GLUCOSE (test 206 MG/DL 74-106 H code = GLU) BLOOD UREA 25 MG/DL 9-20 H NITROGEN (test code = BUN) GLOMERULAR > 60 Reporting units : FILTRATION RATE ml/min/1.73 m2 (Modified (test code = GFR) MDRD Formu la)Reference Range: > or = 6 0 ml/min/1.73 m2 CREATININE (test 1.00 MG/DL 0.66-1.25 N code = CREAT) TOTAL PROTEIN 6.6 G/DL 6.2-7.6 N [facility] Clinical Diagnostic (test code = has made us veronica re of PROT) newinformation regarding the potential i nterference ofEltrombopag ( a bone marrow stimulan t used to treatthrombocyt onmenia and aplastic anemia ) with specific assays on the Vitros 5600 of which Total Protein is one of thoseassays per formed in our lab.Interfe rence testing perform ed at Ortho determined that Eltrombopag does interfere with Vitros Total Protein asfollowsEltrom bopag Interference fo r Vitros Product Total Protein:======= Eltrombopag Max Observed Av g. BiasConcentrati on Concentration Concentration== ==== 2.5 mg/dl 6.0 g/dl +0.41 +0.34 3.5 mg/dl 6.0 g /dl +0.50 +0.45 5 mg/dl 6 .0 g/dl +0.73 +0.65 2.5 mg/dl 8.0 g/dl +0.44 +0.4 1 3.5 mg/dl 8.0 g/dl +0.55 +0.52 5 mg/dl 8.0 g/dl +0.86 +0.77 ALBUMIN (test 3.5 G/DL 3.5-5.0 N code = ALB) CALCIUM (test 9.0 MG/DL 8.4-10.2 N code = CA) BILIRUBIN TOTAL 0.7 MG/DL 0.2-1.3 N Eltrombopag Interference (test code = for Vitros Prod uct TBil, BILT) BuBc: Assa y Eltrombopag Radha lyte/ Max Observed Avg. B ias Concentration C oncentration Concentration== ====TBil 7mg/dl TBil/ 1. 2mg/dl +0.23mg.dl +0.2 0mg/dlBuBc 3.5mg/dl Bu/0.8 mg/dl +0.25mg/dl +0.2 4mg/dlBuBc 7 mg/dl Bu/14.2mg /dl +0.38mg/dl +0.2 5mg/dlBuBc 5mg/dl Bc/0mg/d l +0.25mg/dl +0.15mg/dlBuBc 3.5mg/dl Bc/2.8mg/dl +0. 25mg/dl +0.23mg/dl SGOT/AST (test 28 UNITS/L 17-59 N code = AST) SGPT/ALT (test 46 UNITS/L 0-49 N code = ALT) ALKALINE 117 UNITS/L 38-126 N PHOSPHATASE (test code = ALKP) [id number] 05:29:00 Test Item Value Reference Range Interpretation Comments TROPONIN-I (test code = TROPI) 0.042 NG/ML 0.012-0.033 H GLYCOSYLATED HEMOGLOBIN [id number] 05:17:00 Test Item Value Reference Range Interpretation Comments GLYCOSYLATED 10.9 % 4.8-5.9 H Any condition t hat HEMOGLOBIN (HA1C) shortens e rythocyte (test code = survival or dec reasesmean GLYHGB) erythrocyte age (e.g., recovery from a cute blood loss,hemolytic anemia) will falsely lo wer HGBA1c resultsregardle ss of the method used. HG BA1c results from brandin smith HbSS, HbCC, and HbSc must be interpreted with cautiongiven th e pathological pr ocesses, including anemia,increase d red cell turnover, trans fusion requirements, thatadversely i mpact HGBA1c as a mar ker of long-term glycemiccontrol . Alternative for ms of testing such as fructosaminesho uld be considered for these patients. MEAN BLOOD GLUCOSE 266 MG/DL 70-110 H (test code = MBG) CBC W/AUTO [id number] 05:04:00 Test Item Value Reference Range Interpretation Comments WHITE BLOOD CELL (test code = 6.9 K/MM3 3.8-9.8 N WBC) RED BLOOD CELL (test code = 4.95 M/MM3 3.95-5.67 N RBC) HEMOGLOBIN (test code = HGB) 14.7 G/DL 12.4-16.7 N HEMATOCRIT (test code = HCT) 42.7 % 35.9-49.5 N MEAN CELL VOLUME (test code = 86 fL 81.7-96.1 N MCV) MEAN CELL HGB (test code = MCH) 29.7 pg 27.6-33.2 N MEAN CELL HGB CONCETRATION 34.4 % 32.9-35.5 N (test code = MCHC) RED CELL DISTRIBUTION WIDTH 12.4 % 12.1-15.2 N (test code = RDW) PLATELET COUNT (test code = 244 K/MM3 129-368 N PLT) MEAN PLATELET VOLUME (test code 10.7 fl 7.4-10.4 H = MPV) NEUTROPHIL % (test code = NT%) 74.6 % 43-75 N IMMATURE GRANULOCYTE % (test 0.3 % 0.0-2.0 N code = IG%) LYMPHOCYTE % (test code = LY%) 15.6 % 14-44 N MONOCYTE % (test code = MO%) 6.8 % 4-13 N EOSINOPHIL % (test code = EO%) 1.7 % 0-6 N BASOPHIL % (test code = BA%) 1.0 % 0-2 N NUCLEATED RBC % (test code = 0.0 % 0-1.0 N NRBC%) NEUTROPHIL # (test code = NT#) 5.12 K/mm3 2.0-7.6 N IMMATURE GRANULOCYTE # (test 0.02 x10 3/uL 0-0.03 N code = IG#) LYMPHOCYTE # (test code = LY#) 1.07 K/mm3 1.0-3.8 N MONOCYTE # (test code = MO#) 0.47 K/mm3 0.1-0.8 N EOSINOPHIL # (test code = EO#) 0.12 K/mm3 0.0-0.2 N BASOPHIL # (test code = BA#) 0.07 K/mm3 0.0-0.2 N NUCLEATED RBC # (test code = 0.00 K/mm3 0.0-0.1 N NRBC#) [id number] 23:00:00 Test Item Value Reference Range Interpretation Comments TROPONIN-I (test code = TROPI) 0.042 NG/ML 0.012-0.033 H GLUCOSE BEDSIDE [id number] 22:05:00 Test Item Value Reference Range Interpretation Comments GLUCOSE BEDSIDE TESTING (test code 243 MG/DL 60-99 H = GLUBED) BASIC METABOLIC [id number] 18:14:00 Test Item Value Reference Range Interpretation Comments SODIUM (test code = 134 MMOL/L 137-145 L NA) POTASSIUM (test code = 4.0 MMOL/L 3.5-5.1 N K) CHLORIDE (test code = 99 MMOL/L 98-107 N CL) CARBON DIOXIDE (test 26 MMOL/L 22-30 N code = CO2) ANION GAP (test code = 13 MMOL/L 14-24 L GAP) GLUCOSE (test code = 273 MG/DL 74-106 H GLU) BLOOD UREA NITROGEN 20 MG/DL 9-20 (test code = BUN) GLOMERULAR FILTRATION > 60 Report ing units: RATE (test code = GFR) ml/mi n/1.73 m2 (Modified MDRD Formula)Referen ce Range: > or = 6 0 ml/min/1.73 m2 CREATININE (test code 0.90 MG/DL 0.66-1.25 N = CREAT) CALCIUM (test code = 8.8 MG/DL 8.4-10.2 N CA) [id number] 18:14:00 Test Item Value Reference Range Interpretation Comments MAGNESIUM (test code = MAG) 1.7 MG/DL 1.6-2.3 N NT PRO-BRAIN NATRIURETIC [id number] 18:14:00 Test Item Value Reference Range Interpretation Comments NT PRO-BRAIN NATRIURETIC PEPTI 875.0 pg/mL 0-125 H (test code = PROBNP) [id number] 18:14:00 Test Item Value Reference Range Interpretation Comments TROPONIN-I (test code = TROPI) 0.039 NG/ML 0.012-0.033 H GLUCOSE BEDSIDE [id number] 15:14:00 Test Item Value Reference Range Interpretation Comments GLUCOSE BEDSIDE TESTING (test code 194 MG/DL 60-99 H = GLUBED) N-TERMINAL [id number] 14:06:02 Test Item Value Reference Range Interpretation Comments NT-proBNP (test code 900 pg/mL See_Comment H [Autom ated = [id number]) message] The system which generated this result transmitted reference range : <=125. The reference range was not used to interpret this result as normal/abnormal . LILLIAN (test code = LILLIAN) Biotin has been reported to cause a negative bias, interpret results relative to patient's use of biotin. Lab Interpretation Abnormal (test code = 97025-7) [id number] 13:29:24 Test Item Value Reference Interpretation Comments Range TROPONIN I (test 0.047 ng/mL See_Comment H [Automated code = [id number]) message] The system which generated this result transmitted reference range : <=0.034. The reference range was not used to interpret this result as normal/abnormal . LILLIAN (test code = Reference (Normal) LILLIAN) Range (defined by the 99th percentile reference limit): <= 0.034 ng/mL Note: Cardiac troponin begins to rise 3-4 hours after the onset of ischemia. Repeat in 4-6 hours if the sample was drawn within 3-4 hours of the onset of the symptom and found normal. Diagnosis of myocardial injury is made with acute changes in cTn concentrations with at least one serial sample above the 99th percentile upper reference limit (URL), taken together with the patient's clinical presentation. Biotin has been reported to cause a negative bias, interpret results relative to patient's use of biotin. Lab Interpretation Abnormal (test code = 00207-6) [facility]. METABOLIC PANEL (07318)2022-05-13 13:24:24 Test Item Value Reference Range Interpretation Comments NA (test code = 135 mmol/L 135-145 [id number]) K (test code = 4.7 mmol/L 3.5-5 1083250055) CL (test code = 100 mmol/L 98-108 9121709580) CO2 TOTAL (test code = 25 mmol/L 23-31 9814348932) AGAP (test code = 2-16 [id number]) BUN (test code = 21 mg/dL 7-23 [id number]) GLUCOSE (test code = 284 mg/dL 70-110 H [id number]) CREATININE (test code = 0.89 mg/dL 0.6-1.25 1547737828) TOTAL BILI (test code = 0.8 mg/dL 0.1-1.3 1240411194) CALCIUM (test code = 8.9 mg/dL 8.6-10.6 2283887570) T PROTEIN (test code = 6.9 g/dL 6.3-8.2 7883520823) ALBUMIN (test code = 4.2 g/dL 3.5-5 6606879735) ALK PHOS (test code = 131 U/L 34-122 H [id number]) ALTv (test code = 65 U/L 5-50 H 1742-6) AST(SGOT) (test code = 43 U/L 13-40 H 6460897772) eGFR (test code = mL/min/1.73m2 9721882548) LILLIAN (test code = LILLIAN) Association of Glomerular Filtration Rate (GFR) and Staging of Kidney Disease* + --+ --+ ------+| GFR (mL/min/1.73 m2) ?| With Kidney Damage ?| ?Without Kidney Damage+ --------+ --------+ +| ?>90 ?| ?Stage one ?| ? Normal ?+ ---+ ---+ -------+| ?60-89 ?| ?Stage two ?| ? Decreased GFR ? + --+ --+ ------+| ?30-59 ?| ?Stage three ?| ? Stage three ? + --+ --+ ------+| ?15-29 ?| ?Stage four ? | ? Stage four ?+ ---+ ---+ -------+| ?<15 (or dialysis) ? ?| ?Stage five ? | ? Stage five ?+ ---+ ---+ -------+ *Each stage assumes the associated GFR level has been in effect for at least three months. ?Stages 1 to 5, with or without kidney disease, indicate chronic kidney disease. Notes: Determination of stages one and two (with eGFR >59mL/min/1.73 m2) requires estimation of kidney damage for at least three months as defined by structural or functional abnormalities of the kidney, manifested by either:Pathological abnormalities or Markers of kidney damage (including abnormalities in the composition of the blood or urine or abnormalities in imaging tests). Lab Interpretation Abnormal (test code = 62272-4) [facility] WITH [id number] 12:58:44 Test Item Value Reference Range Interpretation Comments WBC (test code = See_Comment [Automated message] 6690-2) The system [employer] generated this result transmitted ref erence range: 4.20 - 1 0.70 10*3/?L. The re ference range was not u sed to interpret this result as normal/abnor mal. RBC (test code = See_Comment [Automated message] 789-8) The system [employer] generated this result transmitted ref erence range: 4.26 - 5 .52 10*6/?L. The re ference range was not u sed to interpret this result as normal/abnor mal. HGB (test code = 15.6 g/dL 12.2-16.4 718-7) HCT (test code = 45.3 % 38.4-49.3 4544-3) MCV (test code = 87.3 fL 81.7-95.6 787-2) MCH (test code = 30.1 pg 26.1-32.7 785-6) MCHC (test code = 34.4 g/dL 31.2-35 786-4) RDW-SD (test code 39.0 fL 38.5-51.6 = 94523-3) RDW-CV (test code 12.3 % 12.1-15.4 = 788-0) PLT (test code = See_Comment [Automated message] 777-3) The system whic h generated this result transmitted ref erence range: 150 - 32 8 10*3/?L. The re ference range was not u sed to interpret this result as normal/abnor mal. MPV (test code = 10.3 fL 9.8-13 94302-4) NRBC/100 WBC (test See_Comment [Automat ed message] code = 3788172209) The syste m which generated this result transmitted ref erence range: 0.0 - 10 .0 /100 WBCs. The refer ence range was not u sed to interpret this result as normal/abnor mal. NRBC x10^3 (test See_Comment [Automated message] code = 8133471543) The syste m which generated this result transmitted ref erence range: 10*3/?L. The reference range was not used to interpr et this result as normal/abnormal . GRAN MAT (NEUT) % 77.0 % (test code = 770-8) IMM GRAN % (test 0.20 % code = 4758870670) LYMPH % (test code 14.8 % = 736-9) MONO % (test code 5.3 % = 5905-5) EOS % (test code = 1.6 % 713-8) BASO % (test code 1.1 % = 706-2) GRAN MAT 6.36 10*3/uL 1.99-6.95 x10^3(ANC) (test code = 9617867594) IMM GRAN x10^3 0-0.06 (test code = 1596431479) LYMPH x10^3 (test 1.22 10*3/uL 1.09-3.23 code = 731-0) MONO x10^3 (test 0.44 10*3/uL 0.36-1.02 code = 742-7) EOS x10^3 (test 0.13 10*3/uL 0.06-0.53 code = 711-2) BASO x10^3 (test 0.09 10*3/uL 0.01-0.09 code = 704-7) [facility] [id number] 07:21:00 Test Item Value Reference Range Interpretation Comments GLUCOSE BEDSIDE TESTING (test code 271 MG/DL 60-99 H = GLUBED) BASIC METABOLIC [id number] 06:36:00 Test Item Value Reference Range Interpretation Comments SODIUM (test code = 134 MMOL/L 137-145 L NA) POTASSIUM (test code = 4.6 MMOL/L 3.5-5.1 N K) CHLORIDE (test code = 101 MMOL/L 98-107 N CL) CARBON DIOXIDE (test 28 MMOL/L 22-30 N code = CO2) ANION GAP (test code = 10 MMOL/L 14-24 L GAP) GLUCOSE (test code = 195 MG/DL 74-106 H GLU) BLOOD UREA NITROGEN 24 MG/DL 9-20 H (test code = BUN) GLOMERULAR FILTRATION > 60 Report ing units: RATE (test code = GFR) ml/mi n/1.73 m2 (Modified MDRD Formula)Referen ce Range: > or = 6 0 ml/min/1.73 m2 CREATININE (test code 1.00 MG/DL 0.66-1.25 N = CREAT) CALCIUM (test code = 9.2 MG/DL 8.4-10.2 N CA) CBC W/AUTO [id number] 05:51:00 Test Item Value Reference Range Interpretation Comments WHITE BLOOD CELL (test code = 9.8 K/MM3 3.8-9.8 N WBC) RED BLOOD CELL (test code = 5.01 M/MM3 3.95-5.67 N RBC) HEMOGLOBIN (test code = HGB) 15.0 G/DL 12.4-16.7 N HEMATOCRIT (test code = HCT) 43.1 % 35.9-49.5 N MEAN CELL VOLUME (test code = 86 fL 81.7-96.1 N MCV) MEAN CELL HGB (test code = MCH) 29.9 pg 27.6-33.2 N MEAN CELL HGB CONCETRATION 34.8 % 32.9-35.5 N (test code = MCHC) RED CELL DISTRIBUTION WIDTH 13.2 % 12.1-15.2 N (test code = RDW) PLATELET COUNT (test code = 223 K/MM3 129-368 N PLT) MEAN PLATELET VOLUME (test code 10.3 fl 7.4-10.4 N = MPV) NEUTROPHIL % (test code = NT%) 79.1 % 43-75 H IMMATURE GRANULOCYTE % (test 0.3 % 0.0-2.0 N code = IG%) LYMPHOCYTE % (test code = LY%) 11.7 % 14-44 L MONOCYTE % (test code = MO%) 6.9 % 4-13 N EOSINOPHIL % (test code = EO%) 1.3 % 0-6 N BASOPHIL % (test code = BA%) 0.7 % 0-2 N NUCLEATED RBC % (test code = 0.0 % 0-1.0 N NRBC%) NEUTROPHIL # (test code = NT#) 7.72 K/mm3 2.0-7.6 H IMMATURE GRANULOCYTE # (test 0.03 x10 3/uL 0-0.03 N code = IG#) LYMPHOCYTE # (test code = LY#) 1.14 K/mm3 1.0-3.8 N MONOCYTE # (test code = MO#) 0.67 K/mm3 0.1-0.8 N EOSINOPHIL # (test code = EO#) 0.13 K/mm3 0.0-0.2 N BASOPHIL # (test code = BA#) 0.07 K/mm3 0.0-0.2 N NUCLEATED RBC # (test code = 0.00 K/mm3 0.0-0.1 N NRBC#) GLUCOSE BEDSIDE [id number] 20:19:00 Test Item Value Reference Range Interpretation Comments GLUCOSE BEDSIDE TESTING (test code 311 MG/DL 60-99 HH = GLUBED) GLUCOSE BEDSIDE [id number] 15:43:00 Test Item Value Reference Range Interpretation Comments GLUCOSE BEDSIDE TESTING (test code 268 MG/DL 60-99 H = GLUBED) - XR CHEST [id number] 13:54:00 [facility] : 1960 Sex: M Patient Name: WALTER WELCH Unit No: [id number] EXAMS: CPT CODE: [id number] XR CHEST 1V 28622 B2 EXAM: - XR CHEST 1V DATE: 09/24/2021 1:06 PM HISTORY: S/P ICD COMPARISON: Chest x-ray 06/25/2011 FINDINGS: No airspace consolidation or pleural effusions. No pneumothorax. The cardiovascular silhouette is within normal limits. No bony lesions. Left-sided pacemaker in place with intact leads. IMPRESSION: No acute cardiopulmonary abnormality. at 1354 Reported and signed by: Wolfgang Giang MD CC: Reid Hollins Technologist: Sammie Lanza, RT (R) Transcrpt Date/Tm/Trnsp: 09/24/2021 (6134) tVERA Orig Print D/T: S: 09/24/2021 (5316) [facility] NAME: WALTER WELCH [id number] [address] PHYS: [place] [address] : 1960 AGE: 61 SEX: M LOC: Z.DC5 A PHONE #: [phone] EXAM DATE: 09/24/2021 STATUS: ADM IN FAX #: [phone] RADIOLOGY NO: PAGE 1 Signed ReportCBC W/AUTO [id number] 09:06:00 Test Item Value Reference Range Interpretation Comments WHITE BLOOD CELL (test code = 8.6 K/MM3 3.8-9.8 N WBC) RED BLOOD CELL (test code = 5.38 M/MM3 3.95-5.67 N RBC) HEMOGLOBIN (test code = HGB) 15.9 G/DL 12.4-16.7 N HEMATOCRIT (test code = HCT) 46.7 % 35.9-49.5 N MEAN CELL VOLUME (test code = 87 fL 81.7-96.1 N MCV) MEAN CELL HGB (test code = MCH) 29.6 pg 27.6-33.2 N MEAN CELL HGB CONCETRATION 34.0 % 32.9-35.5 N (test code = MCHC) RED CELL DISTRIBUTION WIDTH 13.0 % 12.1-15.2 N (test code = RDW) PLATELET COUNT (test code = 228 K/MM3 129-368 N PLT) MEAN PLATELET VOLUME (test code 10.3 fl 7.4-10.4 N = MPV) NEUTROPHIL % (test code = NT%) 75.9 % 43-75 H IMMATURE GRANULOCYTE % (test 0.4 % 0.0-2.0 N code = IG%) LYMPHOCYTE % (test code = LY%) 14.8 % 14-44 N MONOCYTE % (test code = MO%) 6.5 % 4-13 N EOSINOPHIL % (test code = EO%) 1.3 % 0-6 N BASOPHIL % (test code = BA%) 1.1 % 0-2 N NUCLEATED RBC % (test code = 0.0 % 0-1.0 N NRBC%) NEUTROPHIL # (test code = NT#) 6.51 K/mm3 2.0-7.6 N IMMATURE GRANULOCYTE # (test 0.03 x10 3/uL 0-0.03 N code = IG#) LYMPHOCYTE # (test code = LY#) 1.27 K/mm3 1.0-3.8 N MONOCYTE # (test code = MO#) 0.56 K/mm3 0.1-0.8 N EOSINOPHIL # (test code = EO#) 0.11 K/mm3 0.0-0.2 N BASOPHIL # (test code = BA#) 0.09 K/mm3 0.0-0.2 N NUCLEATED RBC # (test code = 0.00 K/mm3 0.0-0.1 N NRBC#) PROTHROMBIN [id number] 08:59:00 Test Item Value Reference Range Interpretation Comments PROTHROMBIN TIME 11.1 SECONDS 9.5-12.7 N PATIENT (test code = PTP) INTERNATIONAL NORMAL 1.0 0.86-1.14 N The INR is to be RATIO (test code = used only for INR) monitoring oral anticoagulantth erap y. INDICATION I NR VALUE ---- ---- ---- -------1. Prophylaxis, de ep venous thrombos is, including high risk surgery. 2.0 - 3.0 2. Prophylaxis, deep venous thrombosis, hip surgery, treatm ent for deep venous thrombosis or pulmonary prevention of systemic emboli sm in patients wit h valvular heart disease, atrial fibrillation, tissue heart va lve, or acute myocar dial infarction. 2.0 - 3.0 3. Disaster Recovery Analyst al prosthesis hear t valves, recurre nt systemic emboli sm. 3.0 - 4.5 PTT [id number] 08:59:00 Test Item Value Reference Range Interpretation Comments PTT ACTIVATED (test code = APTT) 38.9 SECONDS 25.1-36.5 H BASIC METABOLIC [id number] 08:59:00 Test Item Value Reference Range Interpretation Comments SODIUM (test code = 135 MMOL/L 137-145 L NA) POTASSIUM (test code = 5.3 MMOL/L 3.5-5.1 H K) CHLORIDE (test code = 98 MMOL/L 98-107 N CL) CARBON DIOXIDE (test 31 MMOL/L 22-30 H code = CO2) GLUCOSE (test code = 258 MG/DL 74-106 H GLU) BLOOD UREA NITROGEN 18 MG/DL 9-20 N (test code = BUN) GLOMERULAR FILTRATION > 60 Report ing units: RATE (test code = GFR) ml/mi n/1.73 m2 (Modified MDRD Formula)Referen ce Range: > or = 6 0 ml/min/1.73 m2 CREATININE (test code 0.90 MG/DL 0.66-1.25 N = CREAT) CALCIUM (test code = 10.0 MG/DL 8.4-10.2 N CA) [id number] 08:59:00 Test Item Value Reference Range Interpretation Comments MAGNESIUM (test code = MAG) 1.8 MG/DL 1.6-2.3 N COVID 19 Asymptomatic IH [id number] 06:59:00 Test Item Value Reference Range Interpretation Comments COVID 19 NEGATIVE Negative "Negative resul ts from Asymptomatic IH AG patients with symptom (test code = onset beyondfiv e days, COVNONPUIAG) should be treat ed as presumptive, andconfirmation with a molecular assay , if necessary forpa tient management may be performed. Nega tive results do notr ule out COVID-19 and sh ould not be used as the sole basisfor treatm ent or patient managem ent decisions, includinginfect ion control decisio ns. Negative result s should beconsidered in the context of a pa tients recent exposure s,history, and the presenc e of clinical signs and symptomsconsist ent with COVID-19.This t est detects both vi able andnon-viable S ARS-CoV and SARS CoV-2. Test performance dep endson the amount of virus (antigen) in the sample." Spec Comments: PRE-OPBASIC METABOLIC [id number] 11:36:00 Test Item Value Reference Range Interpretation Comments SODIUM (test code = 140 MMOL/L 137-145 N NA) POTASSIUM (test code = 4.3 MMOL/L 3.5-5.1 N K) CHLORIDE (test code = 102 MMOL/L 98-107 N CL) CARBON DIOXIDE (test 27 MMOL/L 22-30 N code = CO2) GLUCOSE (test code = 188 MG/DL 74-106 H GLU) BLOOD UREA NITROGEN 18 MG/DL 9-20 N (test code = BUN) GLOMERULAR FILTRATION > 60 Report ing units: RATE (test code = GFR) ml/mi n/1.73 m2 (Modified MDRD Formula)Referen ce Range: > or = 6 0 ml/min/1.73 m2 CREATININE (test code 0.80 MG/DL 0.66-1.25 N = CREAT) CALCIUM (test code = 9.5 MG/DL 8.4-10.2 N CA) [id number] 11:36:00 Test Item Value Reference Range Interpretation Comments MAGNESIUM (test code = MAG) 1.9 MG/DL 1.6-2.3 N PROTHROMBIN [id number] 11:21:00 Test Item Value Reference Range Interpretation Comments PROTHROMBIN TIME 10.6 SECONDS 9.6-11.6 N PATIENT (test code = PTP) INTERNATIONAL NORMAL 1.0 0.8-1.1 N The INR is to be RATIO (test code = used only for INR) monitoring oral anticoagulantth erap y. INDICATION I NR VALUE ---- ---- ---- -------1. Prophylaxis, de ep venous thrombos is, including high risk surgery. 2.0 - 3.0 2. Prophylaxis, deep venous thrombosis, hip surgery, treatm ent for deep venous thrombosis or pulmonary prevention of systemic emboli sm in patients wit h valvular heart disease, atrial fibrillation, tissue heart va lve, or acute myocar dial infarction. 2.0 - 3.0 3. Disaster Recovery Analyst al prosthesis hear t valves, recurr ent systemic emboli sm. 3.0 - 4.5 PTT [id number] 11:21:00 Test Item Value Reference Range Interpretation Comments PTT ACTIVATED (test code = APTT) 29.4 SECONDS 22.0-33.0 N CBC W/AUTO [id number] 11:07:00 Test Item Value Reference Range Interpretation Comments WHITE BLOOD CELL (test code = 8.4 K/MM3 3.8-9.8 N WBC) RED BLOOD CELL (test code = 5.14 M/MM3 3.95-5.67 N RBC) HEMOGLOBIN (test code = HGB) 15.2 G/DL 12.4-16.7 N HEMATOCRIT (test code = HCT) 44.4 % 35.9-49.5 N MEAN CELL VOLUME (test code = 86 fL 81.7-96.1 N MCV) MEAN CELL HGB (test code = MCH) 29.6 pg 27.6-33.2 N MEAN CELL HGB CONCETRATION 34.2 % 32.9-35.5 N (test code = MCHC) RED CELL DISTRIBUTION WIDTH 12.4 % 12.1-15.2 N (test code = RDW) PLATELET COUNT (test code = 304 K/MM3 129-368 N PLT) MEAN PLATELET VOLUME (test code 9.8 fl 7.4-10.4 N = MPV) NEUTROPHIL % (test code = NT%) 76.5 % 43-75 H IMMATURE GRANULOCYTE % (test 0.4 % 0.0-2.0 N code = IG%) LYMPHOCYTE % (test code = LY%) 15.5 % 14-44 N MONOCYTE % (test code = MO%) 5.8 % 4-13 N EOSINOPHIL % (test code = EO%) 1.1 % 0-6 N BASOPHIL % (test code = BA%) 0.7 % 0-2 N NUCLEATED RBC % (test code = 0.0 % 0-1.0 N NRBC%) NEUTROPHIL # (test code = NT#) 6.44 K/mm3 2.0-7.6 N IMMATURE GRANULOCYTE # (test 0.03 x10 3/uL 0-0.03 N code = IG#) LYMPHOCYTE # (test code = LY#) 1.30 K/mm3 1.0-3.8 N MONOCYTE # (test code = MO#) 0.49 K/mm3 0.1-0.8 N EOSINOPHIL # (test code = EO#) 0.09 K/mm3 0.0-0.2 N BASOPHIL # (test code = BA#) 0.06 K/mm3 0.0-0.2 N NUCLEATED RBC # (test code = 0.00 K/mm3 0.0-0.1 N NRBC#)
[2022-10-19] MEDS ORDERED: ASPIRIN 81 MG CHEWABLE TABLET ONE (07:50)
[2022-10-19] MEDS ORDERED: NITROGLYCERIN 0.4 MG/TAB SL ONE (07:50)
[2022-10-19 08:02] LABS: Absolute Lymphocytes (CBC) 1.2 K/uL (0.7-4.9); Hematocrit 46.5 % (39.6-49.0); Lymphocytes % 15.8 % (15.3-44.8); MCV 86.7 fL (80-100); MPV 8.1 fL (7.6-11.3); RBC Red Blood Cell Count 5.36 M/uL (4.33-5.43)
[2022-10-19 08:20] LABS: Albumin 3.4 g/dL (3.4-5.0); Bilirubin Total 0.6 mg/dL (0.2-1.0); Protein, Total 6.9 g/dL (6.4-8.2); Troponin High Sensitivity 50.8 pg/mL (<58.9)
--- NOTE | 2022-10-19 08:52 | RAD REPORT ---
EXAM DESCRIPTION: RAD - Chest Single View - 10/19/2022 8:37 am CLINICAL HISTORY: CHEST PAIN COMPARISON: CHEST SINGLE VIEW dated 01/11/2014; CHEST PA AND LAT 2 VIEW dated 05/29/2011; CHEST SINGLE VIEW dated 05/28/2011; CHEST PA AND LAT 2 VIEW dated 10/05/2010 FINDINGS: Lines: None. Lungs: No evidence of edema or pneumonia. Pleural: No significant pleural effusions or pneumothorax. Cardiac: Mild cardiomegaly. Pacemaker/ICD. Mediastinum: Within normal limits. Bones: No acute fractures. Other: None IMPRESSION: No acute cardiopulmonary disease.
[2022-10-19 11:36] VITALS: TEMP 97.3
[2022-10-19 11:40] VITALS: BP 160/108; O2SAT 97
--- NOTE | 2022-10-21 13:08 | EKG ---
Test Date: 2022-10-19 Test Time: 09:29:56 [employer] Internship: RONALD MEASUREMENT RESULTS: Intervals: Rate: 63 [place]: 160 QRSD: 90 QT: 410 QTc: 419 [place]: P: 137 [place]: 160 QRS: 224 T: 161 INTERPRETIVE STATEMENTS: Suspect arm lead reversal, interpretation assumes no reversal Unusual P axis, possible ectopic atrial rhythm Lateral infarct, age undetermined Abnormal ECG Compared to ECG 10/19/2022 07:42:37 Myocardial infarct finding now present Ventricular-paced complex(es) or rhythm no longer present Electronically Signed On 10-21-22 13:05:05 CDT by Claus Parra
--- NOTE | 2022-10-21 13:08 | EKG ---
Test Date: 2022-10-19 Test Time: 07:42:37 Gear Machinist: RONALD MEASUREMENT RESULTS: Intervals: Rate: 97 [place]: 138 QRSD: 132 QT: 396 QTc: 502 [place]: P: 42 MN: 138 QRS: -25 T: 71 INTERPRETIVE STATEMENTS: Electronic ventricular pacemaker Compared to ECG 06/12/2017 08:55:43 No significant changes Electronically Signed On 10-21-22 13:05:07 CDT by Claus Parra
--- NOTE | 2022-11-01 16:18 | EDPHYS ---
Physician Documentation [facility] Name: Nicholas Ruiz Jr Age: 62 yrs Sex: Male : 1960 Arrival Date: 10/19/2022 Time: 07: Bed 5 Private MD: ED Physician Juan A Harper HPI: 10/19 07:46 This 62 yrs old Male presents to ER via Ambulatory with complaints of Chest rt Pain. 07:46 Patient presents to the ED with 4 days of intermittent chest pain, worsening today. He rt has associated shortness of breath. The patient does not typically chest pains. States that symptoms are worse with lying down. Denies other acute complaints at this time. Symptoms are aching nature, nonradiating, no other aggravating or alleviating factors.. Historical: - Allergies: 07:42 No Known Allergies; ld1 - PMHx: 07:42 Atrial Fib; Diabetes - NIDDM; High Cholesterol; Hypertension; ld1 - PSHx: 07:42 pacemaker; ld1 - Immunization history:: Adult Immunizations up to date, Client reports receiving the 2nd dose of the Covid vaccine. - Social history:: Smoking status: Patient denies any tobacco usage or history of. Patient/guardian denies using alcohol. - Family history:: not pertinent. ROS: 07:46 Constitutional: Negative for fever, chills, and weight loss, MS/Extremity: Negative for rt injury and deformity, Skin: Negative for injury, rash, and discoloration, Neuro: Negative for headache, weakness, numbness, tingling, and seizure, Psych: Negative for depression, anxiety, suicide ideation, homicidal ideation, and hallucinations. 07:46 Cardiovascular: Positive for chest pain, Negative for edema. 07:46 Respiratory: Positive for shortness of breath, Negative for cough. Exam: 07:46 Constitutional: This is a well developed, well nourished patient who is awake, alert, rt and in no acute distress. Head/Face: Normocephalic, atraumatic. Chest/axilla: Normal chest wall appearance and motion. Nontender with no deformity. No lesions are appreciated. Cardiovascular: Regular rate and rhythm with a normal S1 and S2. No gallops, murmurs, or rubs. Normal PMI, no JVD. No pulse deficits. Respiratory: Lungs have equal breath sounds bilaterally, clear to auscultation and percussion. No rales, rhonchi or wheezes noted. No increased work of breathing, no retractions or nasal flaring. Abdomen/GI: Soft, non-tender, with normal bowel sounds. No distension or tympany. No guarding or rebound. No evidence of tenderness throughout. Skin: Warm, dry with normal turgor. Normal color with no rashes, no lesions, and no evidence of cellulitis. MS/ Extremity: Pulses equal, no cyanosis. Neurovascular intact. Full, normal range of motion. Neuro: Awake and alert, GCS 15, oriented to person, place, time, and situation. Cranial nerves II-XII grossly intact. Motor strength 5/5 in all extremities. Sensory grossly intact. Cerebellar exam normal. Normal gait. Psych: Awake, alert, with orientation to person, place and time. Behavior, mood, and affect are within normal limits. 07:46 ECG was reviewed by the Attending Physician. Vital Signs: 07:41 BP 165 / 116; Pulse 97; Resp 18; Temp 97.3(O); Pulse Ox 98% on R/A; Weight 79.38 kg; ld1 Height 5 ft. 4 in. ; Pain 8/10; 08:36 BP 166 / 114; Pulse 72; Resp 20; Pulse Ox 97% on R/A; ld1 09:39 BP 167 / 117; Pulse 80; Resp 18; Pulse Ox 96% on R/A; ld1 09:45 BP 155 / 117; Pulse 94; Resp 21; Pulse Ox 99% on R/A; ld1 10:15 BP 160 / 108; Pulse 80; Resp 14; Pulse Ox 97% on R/A; ld1 07:41 Body Mass Index 30.04 (79.38 kg, 162.56 cm) ld1 07:41 Pain Scale: Adult ld1 MDM: 07:35 Patient medically screened. rt 10:41 Differential diagnosis: acute myocardial infarction, pneumonia, pneumothorax, pulmonary rt embolus, unstable angina. HEART Score: History: Moderately Suspicious (1), ECG: Non specific repolarization disturbance / LBTB / PM (1), Age: > 45 and < 65 years (1), Risk Factors: 1 or 2 risk factors (1), Troponin: < or = 1 x Normal Limit (0), Total Score = 4. The patient was given aspirin in the Emergency Department. Data reviewed: vital signs, nurses notes, lab test result(s), EKG, radiologic studies. Consideration of Admission/Observation Given her risk factors, description of the pain with resolution with nitro, I recommended that the patient be admitted for further restratification, the patient declined stating that he wishes to go home, repeat troponin was ordered, is negative. 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 Patient will return if he changes mind or if he has worsening symptoms. Verbalized understanding.. I considered the following discharge prescriptions or medication management in the emergency department Medications were administered in the Emergency Department. See MAR. Independent interpretation of the following test(s) in the Emergency Department X-Ray: My interpretation is No consolidation seen on my interpretation of the x-ray images. Test considered but Not performed: CT: Low suspicion for pulmonary embolism, CT angiogram not indicated. Care significantly affected by the following chronic conditions: Diabetes, Hypertension. Counseling: I had a detailed discussion with the patient and/or guardian regarding: the historical points, exam findings, and any diagnostic results supporting the discharge/admit diagnosis, lab results, radiology results, to return to the emergency department if symptoms worsen or persist or if there are any questions or concerns that arise at home. Response to treatment: the patient's symptoms have resolved after treatment. 10/19 07:41 Order name: CBC with Diff; Complete Time: 08:24 rt 10/19 07:41 Order name: CMP; Complete Time: 08:24 rt 10/19 07:41 Order name: Troponin High Sensitivity; Complete Time: 08:24 rt 10/19 07:41 Order name: Lipase; Complete Time: 08:24 rt 10/19 09:05 Order name: Troponin High Sensitivity; Complete Time: 10:30 rt 10/19 07:41 Order name: Chest Single View XRAY; Complete Time: 08:53 rt 10/19 07:43 Order name: EKG - Nurse/Tech; Complete Time: 07:43 ld1 EC:46 Rate is 97 beats/min. Rhythm is regular, Paced with ST, T waves, conduction consistent rt with ventricular paced rhythm. No acute ST changes. QT interval is prolonged at 502 msec. No Q waves. Administered Medications: 07:47 Drug: Nitroglycerin Sublingual 0.4 mg Route: Sublingual; ld1 07:47 Drug: Aspirin PO Chewable Tablet 324 mg Route: PO; ld1 Disposition Summary: 10/19/22 10:32 Discharge Ordered Location: Home rt Problem: new rt Symptoms: are resolved rt Condition: Stable rt Diagnosis - Chest pain, unspecified rt Followup: rt - With: Private Physician - When: 2 - 3 days - Reason: Discharge Instructions: - Discharge Summary Sheet rt - Nonspecific Chest Pain, Adult rt Forms: - Medication Reconciliation Form rt - Thank You Letter rt - Antibiotic Education rt - Prescription Opioid Use rt Prescriptions: - Nitrostat 0.4 mg Sublingual Tablet, Sublingual - place 1 tablet by SUBLINGUAL route one time As needed - at the first sign of an rt attack; no more than 3 tablets are recommended within a 15 minute period.; 15 tablet; Refills: 0, Product Selection Permitted Signatures: Dispatcher [employer] Jo Ann Palacios RN RN ld1 Juan A Harper MD MD rt
--- NOTE | 2022-11-01 16:18 | ER ---
Nurse's Notes [facility] Name: Nicholas Ruiz Jr Age: 62 yrs Sex: Male : 1960 Arrival Date: 10/19/2022 Time: 07: Bed 5 Private MD: Diagnosis: Chest pain, unspecified Presentation: 10/19 07:41 Chief complaint: Patient states: Chest pain with SOB x 2 days. Coronavirus screen: At ld1 this time, the client does not indicate any symptoms associated with coronavirus-19. Ebola Screen: No symptoms or risks identified at this time. Initial Sepsis Screen: Does the patient meet any 2 criteria? No. Patient's initial sepsis screen is negative. Does the patient have a suspected source of infection? No. Patient's initial sepsis screen is negative. Risk Assessment: Do you want to hurt yourself or someone else? Patient reports no desire to harm self or others. Onset of symptoms was October 19, 2022. 07:41 Method Of Arrival: Ambulatory ld1 07:41 Acuity: DAVID 3 ld1 Triage Assessment: 07:42 General: Appears in no apparent distress. uncomfortable, Behavior is calm, cooperative, ld1 appropriate for age. Pain: Complains of pain in chest Pain does not radiate. Pain currently is 8 out of 10 on a pain scale. Quality of pain is described as heavy, throbbing. EENT: No signs and/or symptoms were reported regarding the EENT system. Neuro: Level of Consciousness is awake, alert, obeys commands, Oriented to person, place, time, situation. Cardiovascular: Capillary refill < 3 seconds Patient's skin is warm and dry. Cardiovascular: Chest pain is described as mild. Respiratory: Airway is patent Respiratory effort is even, unlabored. GI: Abdomen is flat, non-distended. : No signs and/or symptoms were reported regarding the genitourinary system. Derm: No signs and/or symptoms reported regarding the dermatologic system. Musculoskeletal: Reports pain in chest. Historical: - Allergies: 07:42 No Known Allergies; ld1 - PMHx: :42 Atrial Fib; Diabetes - NIDDM; High Cholesterol; Hypertension; ld1 - PSHx: 07:42 pacemaker; ld1 - Immunization history:: Adult Immunizations up to date, Client reports receiving the 2nd dose of the Covid vaccine. - Social history:: Smoking status: Patient denies any tobacco usage or history of. Patient/guardian denies using alcohol. - Family history:: not pertinent. Screenin:44 [facility] ED Fall Risk Assessment (Adult) History of falling in the last 3 months, ld1 including since admission No falls in past 3 months (0 pts). Abuse screen: Denies threats or abuse. Denies injuries from another. Nutritional screening: No deficits noted. Tuberculosis screening: No symptoms or risk factors identified. Assessment: 07:44 Reassessment: See triage assessment. ERP at bedside assessing patient. ld1 10:43 Pain: Denies pain. Pain began gradually. ko1 Vital Signs: 07:41 BP 165 / 116; Pulse 97; Resp 18; Temp 97.3(O); Pulse Ox 98% on R/A; Weight 79.38 kg; ld1 Height 5 ft. 4 in. ; Pain 8/10; 08:36 BP 166 / 114; Pulse 72; Resp 20; Pulse Ox 97% on R/A; ld1 09:39 BP 167 / 117; Pulse 80; Resp 18; Pulse Ox 96% on R/A; ld1 09:45 BP 155 / 117; Pulse 94; Resp 21; Pulse Ox 99% on R/A; ld1 10:15 BP 160 / 108; Pulse 80; Resp 14; Pulse Ox 97% on R/A; ld1 07:41 Body Mass Index 30.04 (79.38 kg, 162.56 cm) ld1 07:41 Pain Scale: Adult ld1 ED Course: 07:29 Patient arrived in ED. mr 07:33 Juan A Harper MD is Attending Physician. rt 07:40 Jo Ann Rosen RN is Primary Nurse. ld1 07:42 Triage completed. ld1 07:42 Arm band placed on right wrist. EKG completed in triage. Results shown to MD. ld1 07:44 Patient has correct armband on for positive identification. Placed in gown. Bed in low ld1 position. Call light in reach. Side rails up X2. site monitor on. Pulse ox on. NIBP on. Door closed. Noise minimized. Warm blanket given. 07:44 No provider procedures requiring assistance completed. Patient maintains SpO2 ld1 saturation greater than 95% on room air. 07:48 Inserted saline lock: 20 gauge in right forearm, using aseptic technique. Blood ld1 collected. 08:39 Chest Single View XRAY In Process Unspecified. EDMS 10:09 Troponin High Sensitivity Sent. ko1 10:43 IV discontinued, intact, bleeding controlled, No redness/swelling at site. Pressure ko1 dressing applied. Administered Medications: 07:47 Drug: Nitroglycerin Sublingual 0.4 mg Route: Sublingual; ld1 07:47 Drug: Aspirin PO Chewable Tablet 324 mg Route: PO; ld1 Medication: 07:44 VIS not applicable for this client. ld1 Outcome: 10:32 Discharge ordered by . rt 10:43 Discharged to home ambulatory. ko1 10:43 Condition: improved 10:43 Discharge instructions given to patient, Instructed on discharge instructions, follow up and referral plans. medication usage, Demonstrated understanding of instructions, follow-up care, medications, Prescriptions given X 1. 10:53 Patient left the ED. ko1 Signatures: Dispatcher [employer] EDTX Rossy Morales Lauren, RN RN ld1 Lidia Levy RN RN ko1 Juan A Harper MD MD rt
== END 2022-10-19 10:53 | disposition home or self-care (01) ==
LOC: ER 07:27
DX: R07.89 Other chest pain (principal); I10 Essential (primary) hypertension; I48.91 Unspecified atrial fibrillation; Z95.0 Presence of cardiac pacemaker
CPT/HCPCS: 36415; 71045; 80053; 83690; 84484; 85025; 93005; 99285

== ENCOUNTER 2022-12-16 06:43 | Emergency (ER) | payer BC ==
--- OUTSIDE RECORDS SUMMARY | 2022-12-16 06:48 | XMS REPORT | Continuity of Care Document ---
:1960 Author Organization [facility] t Address [address] [place] [address] [address] [place] [address] Care Team Providers Name Role Phone MICHELLE VAZQUEZ Primary Care Physician Unavailable Emmett Escalera Attending Clinician Unavailable REID MAURER Attending Clinician Unavailable Reid Maurer MD Attending Clinician Kanika Lee MD Attending Clinician Susan Yee RN Attending Clinician Unavailable Reid Hollins Attending Clinician Unavailable KANIKA LEE Attending Clinician Unavailable Provider, [facility] Attending Clinician Unavailable Stacey Moreno Attending Clinician Lab, [facility] Attending Clinician Unavailable Michelle Coleman Attending Clinician MICHELLE VAZQUEZ Attending Clinician Unavailable Doctor Unassigned, [place] Attending Clinician Unavailable Only, [facility] Test Attending Clinician Unavailable Reji Panda MD Attending Clinician BROOKS LINCOLN Attending Clinician Unavailable Emmett Escalera Admitting Clinician Unavailable REID MAURER Admitting Clinician Unavailable Reid Hollins Admitting Clinician Unavailable Payers Payer Name Policy Type Policy Number Effective Date Expiration Date Eduin bang [facility] [id number] 2018 00:00:00 Problems Condition Condition Condition Status Onset Resolution Last Treating Co mments Source Name Details Category Date Date Treatment Clinician Date 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 2-28 ity of mellitus mellitus 00:00: [place] with with 00 Medical microalbum microalbum Br anch inuria, inuria, without without long-term long-term current current use of use of insulin insulin Other Other Disease Active 2017-08 Univers depression depression 2- it y of 00:00: [place] [address] Medical Branch Essential Essential Disease Active 2017-08 Uni vers hypertensi hypertensi 2-28 it y of on on 00:00: [place] [facility] Laceration Laceration Disease Active 2017-08 U nivers of left of left 2-28 ity of middle middle 00:00: [place] finger finger 00 Medical without without Branch damage to damage to nail, nail, foreign foreign body body presence presence unspecifie unspecifie d, initial d, initial encounter encounter 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 Added automatic ally from request for surgery [id number] Allergies, Adverse Reactions, Alerts Allergy Allergy Status Severity Reaction(s) Onset Inactive Treating Comm ents Source Name Type Date Date Clinician No Known DA Active U [facility] 00:00: [address] No Known DA Active U [facility] 00:00: [address] NKDA DA Active U 2010-08 [facility] 08[facility] 00:00: [address] NO KNOWN Drug Active Univers ALLERGIE Class ity of S [facility] Social History Social Habit Start Date Stop Date Quantity Comments Source Exposure to 2022-05-03 2022-05-13 Not sure University of SARS-CoV-2 00:00:00 07:21:00 [facility] (event) Branch Alcohol intake 2022-05-13 2022-05-13 Current University of 00:00:00 00:00:00 non-drinker of [facility] alcohol (finding) [place] Tobacco use and 2018-03-17 2018-03-17 Smokeless tobacco Un iversity of exposure 00:00:00 00:00:00 non-user [facility] Sex Assigned At [birth year] Universit y of 00:00:00 00:00:00 [facility] Smoking Status Start Date Stop Date Source Never smoked tobacco [facility] Medications Ordered Filled Start Stop Current Ordering Indication Dosage Frequency Signature Comments Components Source Medication Medication Date Date Medication? Clinician (SIG) Name Name HEPARIN 2021-08 4000U 4,000 Univers SODIUM 0-03 10-03 Units, IV ity of (PORCINE) 14:15: 14:15 Push, [place] 1,000 00 :00 ONCE, 1 Medical UNIT/ML dose, On [place] BOLUS [facility] ORDER SET 05/13/22 at 0915, SANGEETHA furosemide 2021-08- No 20mg 20 mg, IV U nivers (LASIX) 0-03 10-03 Push, ity of injection 14:15: 14:34 ONCE, 1 [place] 20 [place] 00 :00 dose, On [facility] 05/13/22 at 0915, SANGEETHA heparin 2021-08 Yes 3000U FOR Univers (1,000 0-03 REBOLUSING ity of unit/mL, 10 14:10: , Starting [place] mL vial) 06 on [facility] for 05/13/22 at [place] Rebolusing 0910, Until Discontinu ed, Routine
Dosing based on aPPT testing parameters (refer to continuous heparin drip order).
heparin 2021-08 Yes 12U/kg/ 12 Univers 25,000 0-03 h Units/kg/h ity of Units/250 14:10: r ?79.4 kg [place] mL 06 (9.528 Medical (Premixed mL/hr, Branch Bag) in rounded to 0.45 % NS 9.53 mL/hr), IV Infusion, TITRATE, Parameters in Admin. Instr., Starting on [facility] 05/13/22 at 0910
CA UTION - If LMWH given in ER, AVOID bolus and start next dose/drip 12 hrs after ER dosage.&nb sp; M ust program rate using programmab le infusion pump.&nbsp ; May ck with the ordering provider first prior to any administra tion should the patient be on existing/a dditional anticoagul ant therapy. Rang e, Dosing and Testing: &nbs p;FOR [facility] AND [facility] ONLY &nbs p; - aPTT < [...] 0-03 Oral, ity of mg 14:00: DAILY, [place] [address] First dose Medical on Fri Branch 05/13/22 at 0900, Until Discontinu ed, Routine SERTRALINE Yes [id number] Take 1 U nivers 100 mg 5-16 tablet by ity of tablet 00:00: mouth once [place] [address] daily Medical Branch SERTRALINE 0 Yes [id number] Take 1 U nivers 100 mg 5-16 tablet by ity of tablet 00:00: mouth once [place] [address] daily Medical Branch atorvastati Yes 40mg Take 40 mg Univers n 40 mg 6-29 by mouth ity of tablet 15:36: at [place] [address] bedtime. Medical Branch aspirin Yes 81mg Take 81 mg Univ ers (ASPIRIN 6-29 by mouth ity of LOW DOSE) 15:36: daily. [place] 81 mg 51 Medical tablet Branch lisinopril Yes 20mg Take 20 mg U nivers 20 mg 6-29 by mouth ity of tablet 15:36: daily. [place] [address] Medical Branch atorvastati 0 Yes 40mg Take 40 mg Univers n 40 mg 6-29 by mouth ity of tablet 15:36: at [place] [address] bedtime. Medical Branch aspirin 2020-0 Yes 81mg Take 81 mg Univ ers (ASPIRIN 6-29 by mouth ity of LOW DOSE) 15:36: daily. [place] 81 mg EC 51 Medical tablet Branch lisinopril 0 Yes 20mg Take 20 mg U nivers 20 mg 6-29 by mouth ity of tablet 15:36: daily. [place] [address] Medical Branch atorvastati 0 Yes 40mg Take 40 mg Univers n 40 mg 6-29 by mouth ity of tablet 10:36: at [place] [address] bedtime. Medical Branch aspirin 2020-0 Yes 81mg Take 81 mg Univ ers (ASPIRIN 6-29 by mouth ity of LOW DOSE) 10:36: daily. [place] 81 mg EC 51 Medical tablet Branch lisinopril 0 Yes 20mg Take 20 mg U nivers 20 mg 6-29 by mouth ity of tablet 10:36: daily. [place] [address] Medical Branch atorvastati 0 Yes 40mg Take 40 mg Univers n 40 mg 6-29 by mouth ity of tablet 10:36: at [place] [address] bedtime. Medical Branch aspirin 2020-0 Yes 81mg Take 81 mg Univ ers (ASPIRIN 6-29 by mouth ity of LOW DOSE) 10:36: daily. [place] 81 mg EC 51 Medical tablet Branch lisinopril 0 Yes 20mg Take 20 mg U nivers 20 mg 6-29 by mouth ity of tablet 10:36: daily. [place] [address] Medical Branch atorvastati 0 Yes 40mg Take 40 mg Univers n 40 mg 6-29 by mouth ity of tablet 10:36: at [place] [address] bedtime. Medical Branch aspirin 2020-0 Yes 81mg Take 81 mg Univ ers (ASPIRIN 6-29 by mouth ity of LOW DOSE) 10:36: daily. [place] 81 mg EC 51 Medical tablet Branch lisinopril 0 Yes 20mg Take 20 mg U nivers 20 mg 6-29 by mouth ity of tablet 10:36: daily. [place] [address] Medical Branch SERTraline 0 Yes [id number] 100mg Take 1 Univers 100 mg 6-29 tablet by ity of tablet 00:00: mouth [place] 00 daily. Medical Branch SERTraline Yes [id number] 100mg Take 1 Univers 100 mg 6-29 tablet by ity of tablet 00:00: mouth [place] 00 daily. Medical Branch SERTraline Yes [id number] 100mg Take 1 Univers 100 mg 6-29 tablet by ity of tablet 00:00: mouth [place] 00 daily. Medical Branch SERTraline 2021- No [id number] 100mg Take 1 Univers 100 mg 6-29 05-16 tablet by ity of tablet 00:00: 00:00 mouth [place] 00 :00 daily. Medical Branch fluconazole 2020- No [id number] 150mg Take 1 Univers (DIFLUCAN) 6-29 06-30 tablet by ity of 150 mg 00:00: 04:59 [place] tablet 00 :00 now for 1 Medical dose. Branch Repeat dose in 7 days fluconazole 2020- No [id number] 150mg Take 1 Univers (DIFLUCAN) 6-29 06-30 tablet by ity of 150 mg 00:00: 04:59 mouth [place] tablet 00 :00 now for 1 Medical dose. Branch Repeat dose in 7 days SERTraline Yes [id number] 50mg Take 1 U nivers (ZOLOFT) 50 7-17 tablet by ity of mg tablet 00:00: mouth [place] 00 daily. Medical Follow-up Branch for refills SERTraline Yes [id number] 50mg Take 1 U nivers (ZOLOFT) 50 7-17 tablet by ity of mg tablet 00:00: mouth [place] 00 daily. Medical Follow-up Branch for refills SERTraline Yes [id number] 50mg Take 1 U nivers (ZOLOFT) 50 7-17 tablet by ity of mg tablet 00:00: mouth [place] 00 daily. Medical Follow-up Branch for refills SERTraline Yes [id number] 50mg Take 1 U nivers (ZOLOFT) 50 7-17 tablet by ity of mg tablet 00:00: mouth [place] 00 daily. Medical Follow-up Branch for refills SERTraline Yes [id number] 50mg Take 1 U nivers (ZOLOFT) 50 7-17 tablet by ity of mg tablet 00:00: mouth [place] 00 daily. Medical Follow-up Branch for refills SERTraline Yes [id number] 50mg Take 1 U nivers (ZOLOFT) 50 7-17 tablet by ity of mg tablet 00:00: mouth [place] 00 daily. Medical Follow-up Branch for refills SERTraline Yes [id number] 50mg Take 1 U nivers (ZOLOFT) 50 7-17 tablet by ity of mg tablet 00:00: mouth [place] 00 daily. Medical Follow-up Branch for refills SERTraline Yes [id number] 50mg Take 1 U nivers (ZOLOFT) 50 7-17 tablet by ity of mg tablet 00:00: mouth [place] 00 daily. Medical Follow-up Branch for refills SERTraline Yes [id number] 50mg Take 1 U nivers (ZOLOFT) 50 7-17 tablet by ity of mg tablet 00:00: mouth [place] 00 daily. Medical Follow-up Branch for refills SERTraline 2020- No [id number] 50mg Take 1 Univers (ZOLOFT) 50 7-17 06-29 tablet by it y of mg tablet 00:00: 00:00 mouth [place] 00 :00 daily. Medical Follow-up Branch for refills SERTraline 2020- No [id number] 50mg Take 1 Univers (ZOLOFT) 50 7-17 06-29 tablet by it y of mg tablet 00:00: 00:00 mouth [place] 00 :00 daily. Medical Follow-up Branch for refills lisinopril 2017-08 Yes 20mg Take 20 mg U nivers 20 mg 2-28 by mouth ity of tablet 19:10: daily. [address] lisinopril 2017-08 Yes 20mg Take 20 mg U nivers 20 mg 2-28 by mouth ity of tablet 19:10: daily. [address] lisinopril 2017-08 Yes 20mg Take 20 mg U nivers 20 mg 2-28 by mouth ity of tablet 19:10: daily. [address] lisinopril 2017-08 Yes 20mg Take 20 mg U nivers 20 mg 2-28 by mouth ity of tablet 19:10: daily. [address] lisinopril 2017-08 Yes 20mg Take 20 mg U nivers 20 mg 2-28 by mouth ity of tablet 19:10: daily. [address] lisinopril 2017-08 Yes 20mg Take 20 mg U nivers 20 mg 2-28 by mouth ity of tablet 19:10: daily. [address] lisinopril 2017-08 Yes 20mg Take 20 mg U nivers 20 mg 2-28 by mouth ity of tablet 19:10: daily. [address] lisinopril 2017-08 Yes 20mg Take 20 mg U nivers 20 mg 2-28 by mouth ity of tablet 19:10: daily. [address] lisinopril 2017-08 Yes 20mg Take 20 mg U nivers 20 mg 2-28 by mouth ity of tablet 19:10: daily. [address] ciclopirox 2017-08 Yes [id number] Apply to Univers 8 % 2-28 area(s) at ity of solution 00:00: bedtime. [place] 00 Apply to Medical Nails at Branch night. On day 7 clean with alcohol pad/trim nails. empaglifloz 2017-08 Yes [id number] 10mg Take 10 mg Univers in 2-28 by mouth ity of (JARDIANCE) 00:00: daily. [place] 10 mg Tab 00 [facility] metFORMIN 2017-08 Yes [id number] 1000mg Take 1 Univers 1,000 mg 2-28 tablet by ity of tablet 00:00: mouth 2 [place] 00 (two) Medical times [place] daily with meals. mupirocin 2 2017-08 Yes [id number] Apply to Univers % ointment 2-28 [id number] area(s) 3 it y of 00:00: (three) [place] 00 times [facility] daily. Branch ciclopirox 2017-08 Yes [id number] Apply to Univers 8 % 2-28 area(s) at ity of solution 00:00: bedtime. [place] 00 Apply to Medical Nails at Branch night. On day 7 clean with alcohol pad/trim nails. empaglifloz 2017-08 Yes [id number] 10mg Take 10 mg Univers in 2-28 by mouth ity of (JARDIANCE) 00:00: daily. [place] 10 mg Tab 00 [facility] metFORMIN 2017-08 Yes [id number] 1000mg Take 1 Univers 1,000 mg 2-28 tablet by ity of tablet 00:00: mouth 2 [place] 00 (two) Medical times [place] daily with meals. mupirocin 2 2017-08 Yes [id number] Apply to Univers % ointment 2-28 [id number] area(s) 3 it y of 00:00: (three) [place] 00 times Medical daily. Branch ciclopirox 2017-08 Yes [id number] Apply to Univers 8 % 2-28 area(s) at ity of solution 00:00: bedtime. [place] 00 Apply to Medical Nails at Branch night. On day 7 clean with alcohol pad/trim nails. empaglifloz 2017-08 Yes [id number] 10mg Take 10 mg Univers in 2-28 by mouth ity of (JARDIANCE) 00:00: daily. [place] 10 mg Tab 00 Medical Branch metFORMIN 2017-08 Yes [id number] 1000mg Take 1 Univers 1,000 mg 2-28 tablet by ity of tablet 00:00: mouth 2 00 (two) Medical times [place] daily with meals. mupirocin 2 2017-08 Yes [id number] Apply to Univers % ointment 2-28 [id number] area(s) 3 it y of 00:00: (three) [place] 00 times Medical daily. Branch ciclopirox 2017-08 Yes [id number] Apply to Univers 8 % 2-28 area(s) at ity of solution 00:00: bedtime. [place] 00 Apply to Medical Nails at Branch night. On day 7 clean with alcohol pad/trim nails. empaglifloz 2017-08 Yes [id number] 10mg Take 10 mg Univers in 2-28 by mouth ity of (JARDIANCE) 00:00: daily. [place] 10 mg Tab 00 Medical Branch metFORMIN 2017-08 Yes [id number] 1000mg Take 1 Univers 1,000 mg 2-28 tablet by ity of tablet 00:00: mouth 2 00 (two) Medical times [place] daily with meals. mupirocin 2 2017-08 Yes [id number] Apply to Univers % ointment 2-28 [id number] area(s) 3 it y of 00:00: (three) [place] 00 times Medical daily. Branch ciclopirox 2017-08 Yes [id number] Apply to Univers 8 % 2-28 area(s) at ity of solution 00:00: bedtime. [place] 00 Apply to Medical Nails at Branch night. On day 7 clean with alcohol pad/trim nails. empaglifloz 2017-08 Yes [id number] 10mg Take 10 mg Univers in 2-28 by mouth ity of (JARDIANCE) 00:00: daily. [place] 10 mg Tab 00 Medical Branch metFORMIN 2017-08 Yes [id number] 1000mg Take 1 Univers 1,000 mg 2-28 tablet by ity of tablet 00:00: mouth 2 (two) Medical times [place] daily with meals. mupirocin 2 2017-08 Yes [id number] Apply to Univers % ointment 2-28 [id number] area(s) 3 it y of 00:00: (three) [place] 00 times Medical daily. Branch ciclopirox 2017-08 Yes [id number] Apply to Univers 8 % 2-28 area(s) at ity of solution 00:00: bedtime. [place] 00 Apply to Medical Nails at Branch night. On day 7 clean with alcohol pad/trim nails. empaglifloz 2017-08 Yes [id number] 10mg Take 10 mg Univers in 2-28 by mouth ity of (J[place]) 00:00: daily. [place] 10 mg Tab 00 Medical Branch metFORMIN 2017-08 Yes [id number] 1000mg Take 1 Univers 1,000 mg 2-28 tablet by ity of tablet 00:00: mouth 2 (two) Medical times [place] daily with meals. mupirocin 2 2017-08 Yes [id number] Apply to Univers % ointment 2-28 [id number] area(s) 3 it y of 00:00: (three) [place] 00 times Medical daily. Branch ciclopirox 2017-08 Yes [id number] Apply to Univers 8 % 2-28 area(s) at ity of solution 00:00: bedtime. 00 Apply to Medical Nails at Branch night. On day 7 clean with alcohol pad/trim nails. empaglifloz 2017-08 Yes [id number] 10mg Take 10 mg Univers in 2-28 by mouth ity of (J[place]ANCE) 00:00: daily. [place] 10 mg Tab 00 Medical Branch metFORMIN 2017-08 Yes [id number] 1000mg Take 1 Univers 1,000 mg 2-28 tablet by ity of tablet 00:00: mouth 2 (two) Medical times [place] daily with meals. mupirocin 2 2017-08 Yes [id number] Apply to Univers % ointment 2-28 [id number] area(s) 3 it y of 00:00: (three) [place] 00 times Medical daily. Branch ciclopirox 2017-08 Yes [id number] Apply to Univers 8 % 2-28 area(s) at ity of solution 00:00: bedtime. [place] 00 Apply to Medical Nails at Branch night. On day 7 clean with alcohol pad/trim nails. empaglifloz 2017-08 Yes [id number] 10mg Take 10 mg Univers in 2-28 by mouth ity of (J[place]ANCE) 00:00: daily. [place] 10 mg Tab 00 Medical Branch metFORMIN 2017-08 Yes [id number] 1000mg Take 1 Univers 1,000 mg 2-28 tablet by ity of tablet 00:00: mouth 2 (two) Medical times [place] daily with meals. mupirocin 2 2017-08 Yes [id number] Apply to Univers % ointment 2-28 [id number] area(s) 3 it y of 00:00: (three) [place] 00 times Medical daily. Branch ciclopirox 2017-08 Yes [id number] Apply to Univers 8 % 2-28 area(s) at ity of solution 00:00: bedtime. [place] 00 Apply to Medical Nails at Branch night. On day 7 clean with alcohol pad/trim nails. empaglifloz 2017-08 Yes [id number] 10mg Take 10 mg Univers in 2-28 by mouth ity of (J[place]) 00:00: daily. [place] 10 mg Tab 00 Medical Branch metFORMIN 2017- Yes [id number] 1000mg Take 1 Univers 1,000 mg 2-28 tablet by ity of tablet 00:00: mouth 2 [place] 00 (two) Medical times [place] daily with meals. mupirocin 2 2017-08 Yes [id number] Apply to Univers % ointment 2-28 area(s) 3 ity of 00:00: (three) [place] 00 times Medical daily. Branch ciclopirox 2017-08 Yes [id number] Apply to Univers 8 % 2-28 area(s) at ity of solution 00:00: bedtime. [place] 00 Apply to Medical Nails at Branch night. On day 7 clean with alcohol pad/trim nails. empaglifloz 2017-08 Yes [id number] 10mg Take 10 mg Univers in 2-28 by mouth ity of ([place]) 00:00: daily. [place] 10 mg Tab 00 Medical Branch metFORMIN 2017-08 Yes [id number] 1000mg Take 1 Univers 1,000 mg 2-28 tablet by ity of tablet 00:00: mouth 2 [place] 00 (two) Medical times [place] daily with meals. mupirocin 2 2017-08 Yes [id number] Apply to Univers % ointment 2-28 area(s) 3 ity of 00:00: (three) [place] 00 times Medical daily. Branch ciclopirox 2017-08 Yes [id number] Apply to Univers 8 % 2-28 area(s) at ity of solution 00:00: bedtime. [place] 00 Apply to Medical Nails at Branch night. On day 7 clean with alcohol pad/trim nails. empaglifloz 2017-08 Yes [id number] 10mg Take 10 mg Univers in 2-28 by mouth ity of ([place]) 00:00: daily. [place] 10 mg Tab 00 Medical Branch metFORMIN 2017-08 Yes [id number] 1000mg Take 1 Univers 1,000 mg 2-28 tablet by ity of tablet 00:00: mouth 2 [place] (two) Medical times [place] daily with meals. mupirocin 2 2017-08 Yes [id number] Apply to Univers % ointment 2-28 [id number] area(s) 3 it y of 00:00: (three) [place] 00 times Medical daily. Branch ciclopirox 2017-08 Yes [id number] Apply to Univers 8 % 2-28 area(s) at ity of solution 00:00: bedtime. [place] 00 Apply to Medical Nails at Branch night. On day 7 clean with alcohol pad/trim nails. empaglifloz 2017-08 Yes [id number] 10mg Take 10 mg Univers in 2-28 by mouth ity of ([place]) 00:00: daily. [place] 10 mg Tab 00 Medical Branch metFORMIN 2017-08 Yes [id number] 1000mg Take 1 Univers 1,000 mg 2-28 tablet by ity of tablet 00:00: mouth 2 [place] 00 (two) Medical times [place] daily with meals. mupirocin 2 2017-08 Yes [id number] Apply to Univers % ointment 2-28 [id number] area(s) 3 it y of 00:00: (three) [place] 00 times Medical daily. Branch ciclopirox 2017-08 Yes [id number] Apply to Univers 8 % 2-28 area(s) at ity of solution 00:00: bedtime. [place] 00 Apply to Medical Nails at Branch night. On day 7 clean with alcohol pad/trim nails. empaglifloz 2017-08 Yes [id number] 10mg Take 10 mg Univers in 2-28 by mouth ity of ([place]) 00:00: daily. [place] 10 mg Tab 00 Medical Branch metFORMIN 2017-08 Yes [id number] 1000mg Take 1 Univers 1,000 mg 2-28 tablet by ity of tablet 00:00: mouth 2 [place] 00 (two) Medical times [place] daily with meals. mupirocin 2 2017-08 Yes [id number] Apply to Univers % ointment 2-28 [id number] area(s) 3 it y of 00:00: (three) [place] 00 times Medical daily. Branch ciclopirox 2017-08 Yes [id number] Apply to Univers 8 % 2-28 area(s) at ity of solution 00:00: bedtime. [place] 00 Apply to Medical Nails at Branch night. On day 7 clean with alcohol pad/trim nails. empaglifloz 2017-08 Yes [id number] 10mg Take 10 mg Univers in 2-28 by mouth ity of ([place]) 00:00: daily. [place] 10 mg Tab 00 Medical Branch metFORMIN 2017-08 Yes [id number] 1000mg Take 1 Univers 1,000 mg 2-28 tablet by ity of tablet 00:00: mouth 2 [place] 00 (two) Medical times [place] daily with meals. mupirocin 2 2017-08 Yes [id number] Apply to Univers % ointment 2-28 [id number] area(s) 3 it y of 00:00: (three) [place] 00 times Medical daily. Branch atorvastati Yes 40mg Take 40 mg Univers n 40 mg 9-11 by mouth ity of tablet 16:02: at [place] 12 bedtime. Medical Branch aspirin Yes 81mg Take 81 mg Univ ers (ASPIRIN 9-11 by mouth ity of LOW DOSE) 16:02: daily. [place] 81 mg EC 12 Medical tablet Branch atorvastati Yes 40mg Take 40 mg Univers n 40 mg 9-11 by mouth ity of tablet 16:02: at [place] [address] bedtime. Medical Branch aspirin 2018-0 Yes 81mg Take 81 mg Univ ers (ASPIRIN 9-11 by mouth ity of LOW DOSE) 16:02: daily. [place] 81 mg EC 12 Medical tablet Branch atorvastati Yes 40mg Take 40 mg Univers n 40 mg 9-11 by mouth ity of tablet 16:02: at [place] [address] bedtime. Medical Branch aspirin 2018-0 Yes 81mg Take 81 mg Univ ers (ASPIRIN 9-11 by mouth ity of LOW DOSE) 16:02: daily. [place] 81 mg EC 12 Medical tablet Branch atorvastati Yes 40mg Take 40 mg Univers n 40 mg 9-11 by mouth ity of tablet 16:02: at [place] [address] bedtime. Medical Branch aspirin 2017-0 Yes 81mg Take 81 mg Univ ers (ASPIRIN 9-11 by mouth ity of LOW DOSE) 16:02: daily. [place] 81 mg EC 12 Medical tablet Branch atorvastati Yes 40mg Take 40 mg Univers n 40 mg 9-11 by mouth ity of tablet 16:02: at [place] [address] bedtime. Medical Branch aspirin 2017-0 Yes 81mg Take 81 mg Univ ers (ASPIRIN 9-11 by mouth ity of LOW DOSE) 16:02: daily. [place] 81 mg EC 12 Medical tablet Branch atorvastati Yes 40mg Take 40 mg Univers n 40 mg 9-11 by mouth ity of tablet 16:02: at [place] [address] bedtime. Medical Branch aspirin 2018-0 Yes 81mg Take 81 mg Univ ers (ASPIRIN 9-11 by mouth ity of LOW DOSE) 16:02: daily. [place] 81 mg EC 12 Medical tablet Branch atorvastati Yes 40mg Take 40 mg Univers n 40 mg 9-11 by mouth ity of tablet 16:02: at [place] [address] bedtime. Medical Branch aspirin 2018-0 Yes 81mg Take 81 mg Univ ers (ASPIRIN 9-11 by mouth ity of LOW DOSE) 16:02: daily. [place] 81 mg EC 12 Medical tablet Branch atorvastati Yes 40mg Take 40 mg Univers n 40 mg 9-11 by mouth ity of tablet 16:02: at [place] [address] bedtime. Medical Branch aspirin 2017-0 Yes 81mg Take 81 mg Univ ers (ASPIRIN 9-11 by mouth ity of LOW DOSE) 16:02: daily. [place] 81 mg EC 12 Medical tablet Branch atorvastati Yes 40mg Take 40 mg Univers n 40 mg 9-11 by mouth ity of tablet 16:02: at [place] 12 bedtime. Medical Branch aspirin 0 Yes 81mg Take 81 mg Univ ers [...] 00:00: mouth [place] hr tablet 00 daily. [facility] metoprolol 2016-08 Yes 50mg Take 1 Unive rs succinate 2-28 tablet by ity o f XL 50 mg 24 00:00: mouth [place] hr tablet 00 daily. [facility] metoprolol 2016-08 Yes 50mg Take 1 Unive rs succinate 2-28 tablet by ity o f XL 50 mg 24 00:00: mouth [place] hr tablet 00 daily. [facility] metoprolol 2016-08 Yes 50mg Take 1 Unive rs succinate 2-28 tablet by ity o f XL 50 mg 24 00:00: mouth [place] hr tablet 00 daily. [facility] metoprolol 2016-08 Yes 50mg Take 1 Unive rs succinate 2-28 tablet by ity o f XL 50 mg 24 00:00: mouth [place] hr tablet 00 daily. [facility] Immunizations Ordered Filled Immunization Date Status Comments [facility] e Immunization Name Name SARS-COV-2 COVID-19 2020-10-28 Completed Unive rsity of PFIZER VACCINE 00:00:00 [facility] SARS-COV-2 COVID-19 2020-10-28 Completed Unive rsity of PFIZER VACCINE 00:00:00 [facility] SARS-COV-2 COVID-19 2020-10-28 Completed Unive rsity of PFIZER VACCINE 00:00:00 [facility] SARS-COV-2 COVID-19 2020-10-28 Completed Unive rsity of PFIZER VACCINE [facility] [facility] SARS-COV-2 COVID-19 2020-10-28 Completed Unive rsity of PFIZER VACCINE 00:00:00 [facility] SARS-COV-2 COVID-19 2020-10-07 Completed Unive rsity of PFIZER VACCINE 00:00:00 [facility] SARS-COV-2 COVID-19 2020-10-07 Completed Unive rsity of PFIZER VACCINE 00:00:00 [facility] SARS-COV-2 COVID-19 2020-10-07 Completed Unive rsity of PFIZER VACCINE 00:00:00 [facility] SARS-COV-2 COVID-19 2020-10-07 Completed Unive rsity of PFIZER VACCINE 00:00:00 [facility] SARS-COV-2 COVID-19 2020-10-07 Completed Unive rsity of PFIZER VACCINE 00:00:00 [facility] Vital Signs Vital Name Observation Time Observation Value Comments Source Systolic blood 2022-05-13 17:00:00 160 mm[Hg] Univer sity of pressure [facility] Diastolic blood 2022-05-13 17:00:00 117 mm[Hg] Unive rsity of pressure [facility] Heart rate 2022-05-13 17:00:00 98 /min Universi ty of [facility] Respiratory rate 2022-05-13 17:00:00 15 /min Univ ersity of [facility] Oxygen saturation in 2022-05-13 17:00:00 96 /min University of Arterial blood by [facility] Pulse oximetry Branch Body temperature 2022-05-13 12:23:00 36.89 Karon Univ ersity of [facility] Body height 2022-05-13 12:23:00 162.6 cm [facility] Body weight 2022-05-13 12:23:00 79.379 kg Universi ty [facility] BMI 2022-05-13 12:23:00 30.04 kg/m2 [facility] Systolic blood 2021-02-06 15:32:00 128 mm[Hg] Univer sity of pressure [facility] Diastolic blood 2021-02-06 15:32:00 79 mm[Hg] Unive rsity of pressure [facility] Heart rate 2021-02-06 15:32:00 75 /min [facility] Body temperature 2021-02-06 15:32:00 36.89 Karon Univ ersity of [facility] Body height 2021-02-06 15:32:00 162.6 cm [facility]i [facility] Body weight 2021-02-06 15:32:00 84.823 kg [facility] BMI 2021-02-06 15:32:00 32.10 kg/m2 [facility] Systolic blood 2020-08-25 20:10:00 181 mm[Hg] Univer sity of pressure [facility] Diastolic blood 2020-08-25 20:10:00 115 mm[Hg] Unive rsity of pressure [facility] Heart rate 2020-08-25 20:06:00 96 /min [facility] Body temperature 2020-08-25 20:06:00 37.17 Karon [facility] Body height 2020-08-25 20:06:00 162.6 cm [facility] Body weight 2020-08-25 20:06:00 88.905 kg Universi ty of [facility] BMI 2020-08-25 20:06:00 33.64 kg/m2 Universi ty [facility] Oxygen saturation in 2020-08-25 20:06:00 97 /min University of Arterial blood by [facility] Pulse oximetry Branch Systolic blood 2020-08-25 20:10:00 181 mm[Hg] Univer sity of pressure [facility] Diastolic blood 2020-08-25 20:10:00 115 mm[Hg] [facility] Heart rate 2020-08-25 20:06:00 96 /min Universi ty [facility] Body temperature 2020-08-25 20:06:00 37.17 Karon [facility] Body height 2020-08-25 20:06:00 162.6 cm [facility] Body weight 2020-08-25 20:06:00 88.905 kg [facility] BMI 2020-08-25 20:06:00 33.64 kg/m2 Universi ty [facility] Oxygen saturation in 2020-08-25 20:06:00 97 /min University of Arterial blood by [facility] Pulse oximetry Branch Procedures Procedure Date / Time Performing Clinician Source Performed EKG-12 LEAD 2022-05-13 17:12:42 Reid Maurer [facility] PROTHROMBIN TIME / INR 2022-05-13 14:18:00 Reid Maurer [facility] ACTIVATED PARTIAL 2022-05-13 14:18:00 Reid Maurer [facility] XR CHEST 2 VW 2022-05-13 13:22:37 Reid Maurer [facility] TROPONIN I 2022-05-13 12:36:00 Reid Maurer [facility] COMP. METABOLIC PANEL 2022-05-13 12:36:00 Reid Maurer [facility] ([id number]) Medical Branch CBC WITH DIFF 2022-05-13 12:36:00 Reid Maurer [facility] RAPID INFLUENZA A/B 2022-05-13 12:36:00 Reid Maurer [facility] N-TERMINAL PRO-BNP 2022-05-13 12:36:00 Reid Maureri ty [facility] COVID-19 (ID NOW RAPID 2022-05-13 12:36:00 Reid Maurer [facility] TESTING) Medical Branch CONSENT/REFUSAL FOR 2022-05-13 12:15:35 Doctor Unassigned, No [facility] DIAGNOSIS AND TREATMENT Name [facility] ASSIGNMENT OF BENEFITS 2020-06-21 15:09:24 Doctor Unassigned, No [facility] Name [facility] Branch REFERRAL- 2020-03-03 05:01:00 Doctor Unassigned, No [facility] REQUEST/RESPONSE Name [facility] Encounters Start End Encounter Admission Attending Care Care Encounter Source Date/Time Date/Time Type Type Clinicians Facility Department ID 2022-05-13 2022-05-15 Inpatient UR Escalera, [facility] INTE [id number] [facility] 13:36:00 19:42:00 Emmett 82 [facility] 2022-05-13 2022-05-13 Emergency X [facility] ERT [id number] Univers 07:20:00 14:02:00 REID fisher [facility] 2022-05-13 2022-05-13 Emergency [facility] [id number] Univers 07:20:00 14:02:00 Reid HOGAN [id number] ity [place] [id number] [facility] 084 Branch 2021-12-24 2021-12-24 [facility] [id number] Univers 00:00:00 00:00:00 Kanika HOGAN [id number] i ty of [place] [id number] Ca dical NAL 044 Branch BUILDING 2021-10-03 2021-10-03 Telephone BROOKS Yee [id number] Univers 00:00:00 00:00:00 Juancynthiaamrit Alcantara NURYS 350.1.13.10 i ty [facility] 4.2.7.2.686 [place] [phone] [address] 2021-09-24 2021-09-25 Inpatient ABRAHAM GagnonWU TELE [id number] [facility] 08:08:00 11:25:00 Reid 40 [facility] 2021-03-08 2021-03-08 [facility] [id number] Univers 09:00:00 09:00:00 KANIKA [facility] 2021-02-06 2021-02-06 Outpatient Huma LEE [facility] [id number] Univers 10:45:00 10:45:00 KANIKA [facility] 2021-02-06 2021-02-06 [facility] [id number] Univers 10:24:24 10:39:24 Visit [facility] [id number] it y of [place] 4.2.7.2.686 [place] as Professio [id number] Ca dical [address] Office Building One 2020-10-28 2020-10-28 Outpatient [facility] [id number] Univers 12:40:00 12:40:00 [facility] 2020-10-07 2020-10-07 Outpatient [facility] [id number] Univers 13:45:00 13:45:00 [facility] 2020-08-25 2020-08-25 Urgent Provider, [facility] [id number] 13:49:03 14:28:29 Care [facility] [id number] [place] [id number] Professio [phone] nal [facility] Office Building One 2020-08-25 2020-08-25 Urgent Provider, [facility] [id number] Univers 13:49:03 14:28:29 Care Anene, [facility] 350.1.13.10 ity of [place] 4.2.7.2.686 [place] Professio [id number] [address] Office [facility] One 2020-08-25 2020-08-25 Outpatient R [facility] [id number] Univers 14:00:00 14:00:00 ity of [facility] 2020-06-29 2020-06-29 Laboratory Lab, [facility] Fam Pob I [facility] 1.2. [id number] Univers 09:59:06 10:19:06 Only Michelle Vazquez [facility] 350.1.13.10 ity of [place] 4.2.7.2.686 [place] Professio [phone] [address] Office [facility] 2020-06-29 2020-06-29 Laboratory Lab, [facility] 1.2.840.114 [id number] 09:59:06 10:19:06 Only Fam Pob I Health 350.1.13.[address] [place] 4.2.7.2.686 Professio [phone] [place] [address] Office [facility] 2020-06-29 2020-06-29 Outpatient R TAYLOR, [facility] [id number] Univers 10:00:00 10:00:00 MICHELLE ity [facility] 2020-06-29 2020-06-29 Letter Doctor GUY [id number] Univers 00:00:00 00:00:00 (Out) Unassigned, NURYS 350.1.13.10 ity of [place] [facility] 4.2.7.2.686 [place] [phone] [address] 2020-06-29 2020-06-29 Letter Doctor GUY 1.2.840.114 [id number] 00:00:00 00:00:00 (Out) Unassigned, NURYS 350.1.13.10 [place] [facility] 4.2.7.2.686 [phone] [facility] 2020-06-21 2020-06-21 Laboratory Only, [facility] Test [facility] 1.2.840. 114 [id number] Univers 09:06:45 09:21:45 Only Reji Panda 350.1.13.10 ity of [place] [phone] [address] 2020-06-21 2020-06-21 Laboratory Only, [facility] 1.2.840.114 [id number] 09:06:45 09:21:45 Only Test Geeta 350.1.13.10 [place] 4.2.7.2.686 Jean [phone] [id number] 2020-06-21 2020-06-21 Outpatient R [facility] [id number] Univers 09:15:00 09:15:00 ity [facility] 2020-06-21 2020-06-21 Orders Doctor BROOKS 1.2.840.114 [id number] Univers 00:00:00 00:00:00 Only Unassigned, NURYS 350.1.13.10 ity of [place] [facility] 4.2.7.2.686 [place] as [phone] [address] 2020-03-06 2020-03-06 [facility] 1.2.840.114 [id number] Univers 00:00:00 00:00:00 Kanika Geeta 350.1.13.10 i ty of [place] [facility] [phone] Ca dic[address] 2020-03-03 2020-03-03 Orders Doctor BROOKS 1.2.840.114 [id number] Univers 00:00:00 00:00:00 Only Unassigned, NURYS 350.1.13.10 ity of [place] [facility] 4.2.7.2.686 [place] [phone] [address] 2018-08-20 2018-08-20 Outpatient [facility] [id number] Univers 08:30:00 08:30:00 BROOKS fisher [facility] Results Test Description Test Time Test Comments Results Result Comments Source GLUCOSE BEDSIDE TESTING 2022-05-15 12:23:00 Test Item Value Reference Range Interpretation Comme nts GLUCOSE BEDSIDE TESTING (test code = GLUBED) 223 MG/DL 60-99 H GLUCOSE BEDSIDE [id number] 07:07:00 Test Item Value Reference Range Interpretation Comments GLUCOSE BEDSIDE TESTING (test code 187 MG/DL 60-99 H = GLUBED) BASIC METABOLIC [id number] 05:42:00 Test Item Value Reference Range Interpretation [...] code = 10.0 MG/DL 8.4-10.2 N CA) [id number] 05:42:00 Test Item Value Reference Range Interpretation Comments MAGNESIUM (test code = MAG) 2.0 MG/DL 1.6-2.3 N GLUCOSE BEDSIDE [id number] 19:04:00 Test Item Value Reference Range Interpretation Comments GLUCOSE BEDSIDE TESTING (test code 286 MG/DL 60-99 H = GLUBED) GLUCOSE BEDSIDE [id number] 17:13:00 Test Item Value Reference Range Interpretation Comments GLUCOSE BEDSIDE TESTING (test code 162 MG/DL 60-99 H = GLUBED) GLUCOSE BEDSIDE [id number] 15:12:00 Test Item Value Reference Range Interpretation Comments GLUCOSE BEDSIDE TESTING (test code = 80 MG/DL 60-99 N GLUBED) GLUCOSE BEDSIDE [id number] 11:21:00 Test Item Value Reference Range Interpretation Comments GLUCOSE BEDSIDE TESTING (test code 262 MG/DL 60-99 H = GLUBED) GLUCOSE BEDSIDE [id number] 09:03:00 Test Item Value Reference Range Interpretation Comments GLUCOSE BEDSIDE TESTING (test code 336 MG/DL 60-99 HH = GLUBED) COMPREHENSIVE METABOLIC [id number] 05:29:00 Test Item Value Reference Range Interpretation [...] 38-126 N PHOSPHATASE (test code = ALKP) [id number] 05:29:00 Test Item Value Reference Range Interpretation Comments TROPONIN-I (test code = TROPI) 0.042 NG/ML 0.012-0.033 H GLYCOSYLATED HEMOGLOBIN [id number] 05:17:00 Test Item Value Reference Range Interpretation [...] H (test code = MBG) CBC W/AUTO [id number] 05:04:00 Test Item Value Reference Range Interpretation [...] code = 0.00 K/mm3 0.0-0.1 N NRBC#) [id number] 23:00:00 Test Item Value Reference Range Interpretation Comments TROPONIN-I (test code = TROPI) 0.042 NG/ML 0.012-0.033 H GLUCOSE BEDSIDE [id number] 22:05:00 Test Item Value Reference Range Interpretation Comments GLUCOSE BEDSIDE TESTING (test code 243 MG/DL 60-99 H = GLUBED) BASIC METABOLIC [id number] 18:14:00 Test Item Value Reference Range Interpretation [...] code = 8.8 MG/DL 8.4-10.2 N CA) [id number] 18:14:00 Test Item Value Reference Range Interpretation Comments MAGNESIUM (test code = MAG) 1.7 MG/DL 1.6-2.3 N NT PRO-BRAIN NATRIURETIC [id number] 18:14:00 Test Item Value Reference Range Interpretation Comments NT PRO-BRAIN NATRIURETIC PEPTI 875.0 pg/mL 0-125 H (test code = PROBNP) [id number] 18:14:00 Test Item Value Reference Range Interpretation Comments TROPONIN-I (test code = TROPI) 0.039 NG/ML 0.012-0.033 H GLUCOSE BEDSIDE [id number] 15:14:00 Test Item Value Reference Range Interpretation Comments GLUCOSE BEDSIDE TESTING (test code 194 MG/DL 60-99 H = GLUBED) N-TERMINAL [id number] 14:06:02 Test Item Value Reference Range Interpretation Comments NT-proBNP (test code 900 pg/mL See_Comment H [Autom ated = 9775258744) message] The system which generated this result transmitted reference range : <=125. The reference range was not used to interpret this result as normal/abnormal . LILLIAN (test code = LILLIAN) Biotin has been reported to cause a negative bias, interpret results relative to patient's use of biotin. Lab Interpretation Abnormal (test code = 63761-8) [facility] [id number] 13:29:24 Test Item Value Reference Interpretation Comments Range TROPONIN I (test 0.047 ng/mL See_Comment H [Automated code = 7435091336) message] The system which generated this result [...] biotin. Lab Interpretation Abnormal (test code = 86136-0) [facility]. METABOLIC PANEL (76317)2022-05-13 13:24:24 Test Item Value Reference Range Interpretation Comments NA (test code = 135 mmol/L 135-145 5848586862) K (test code = 4.7 mmol/L 3.5-5 5242977776) CL (test code = 100 mmol/L 98-108 7878496757) CO2 TOTAL (test code = 25 mmol/L 23-31 3950096650) AGAP (test code = 2-16 0142772000) BUN (test code = 21 mg/dL 7-23 5150803003) GLUCOSE (test code = 284 mg/dL 70-110 H 0068310867) CREATININE (test code = 0.89 mg/dL 0.6-1.25 4652931823) TOTAL BILI (test code = 0.8 mg/dL 0.1-1.8 8709637757) CALCIUM (test code = 8.9 mg/dL 8.6-10.6 0735169663) T PROTEIN (test code = 6.9 g/dL 6.3-8.2 5677889846) ALBUMIN (test code = 4.2 g/dL 3.5-5 7531703672) ALK PHOS (test code = 131 U/L 34-122 H 3641055156) ALTv (test code = 65 U/L 5-50 H 1742-6) AST(SGOT) (test code = 43 U/L 13-40 H 3918996857) eGFR (test code = mL/min/1.73m2 3558060791) LILLIAN (test code = LILLIAN) Association of [...] tests). Lab Interpretation Abnormal (test code = 49649-3) [facility] WITH [id number] 12:58:44 Test Item Value Reference Range Interpretation Comments WBC (test code = See_Comment [Automated message] 6690-2) The system [employer] generated this result transmitted ref erence range: 4.20 - 1 0.70 10*3/?L. The re ference range was not u sed to interpret this result as normal/abnor mal. RBC (test code = See_Comment [Automated message] 789-8) The system [employer] generated this result transmitted ref erence range: [...] RDW-SD (test code 39.0 fL 38.5-51.6 = 18434-8) RDW-CV (test code 12.3 % 12.1-15.4 = 788-0) PLT (test code = See_Comment [Automated message] 777-3) The system whic h generated this result transmitted ref erence range: 150 - 32 8 10*3/?L. The re ference range was not u sed to interpret this result as normal/abnor mal. MPV (test code = 10.3 fL 9.8-13 44758-5) NRBC/100 WBC (test See_Comment [Automat ed message] code = 5546920157) The syste m which generated this result transmitted ref erence range: 0.0 - 10 .0 /100 WBCs. The refer ence range was not u sed to interpret this result as normal/abnor mal. NRBC x10^3 (test See_Comment [Automated message] code = 4883961719) The syste m which generated this result transmitted ref erence range: 10*3/?L. The reference range was not used to interpr et this result as normal/abnormal . GRAN MAT (NEUT) % 77.0 % (test code = 770-8) IMM GRAN % (test 0.20 % code = 5798604291) LYMPH % (test code 14.8 % = 736-9) MONO % (test code 5.3 % = 5905-5) EOS % (test code = 1.6 % 713-8) BASO % (test code 1.1 % = 706-2) GRAN MAT 6.36 10*3/uL 1.99-6.95 x10^3(ANC) (test code = 0358991188) IMM GRAN x10^3 0-0.06 (test code = 0285568029) LYMPH x10^3 (test 1.22 10*3/uL 1.09-3.23 code = 731-0) MONO x10^3 (test 0.44 10*3/uL 0.36-1.02 code = 742-7) EOS x10^3 (test 0.13 10*3/uL 0.06-0.53 code = 711-2) BASO x10^3 (test 0.09 10*3/uL 0.01-0.09 code = 704-7) [facility] [id number] 07:21:00 Test Item Value Reference Range Interpretation Comments GLUCOSE BEDSIDE TESTING (test code 271 MG/DL 60-99 H = GLUBED) BASIC METABOLIC [id number] 06:36:00 Test Item Value Reference Range Interpretation [...] 9.2 MG/DL 8.4-10.2 N CA) CBC W/AUTO [id number] 05:51:00 Test Item Value Reference Range Interpretation [...] 0.00 K/mm3 0.0-0.1 N NRBC#) GLUCOSE BEDSIDE [id number] 20:19:00 Test Item Value Reference Range Interpretation Comments GLUCOSE BEDSIDE TESTING (test code 311 MG/DL 60-99 HH = GLUBED) GLUCOSE BEDSIDE [id number] 15:43:00 Test Item Value Reference Range Interpretation Comments GLUCOSE BEDSIDE TESTING (test code 268 MG/DL 60-99 H = GLUBED) - XR CHEST [id number] 13:54:00 [facility] 1960 Sex: M Patient Name: WALTER WELCH Unit No: [id number] EXAMS: CPT CODE: [id number] XR CHEST 1V 42612 B2 EXAM: - XR CHEST 1V DATE: [...] Sammie Lanza, RT (R) Transcrpt Date/Tm/Trnsp: 09/24/2021 (0454) tCLAUDIAMOP Orig Print D/T: S: 09/24/2021 (9841) [facility] NAME: WALTER WELCH [address] PHYS: [place] [address] : 1960 AGE: 61 SEX: M LOC: Z.DC5 A PHONE #: [phone] EXAM DATE: 09/24/2021 STATUS: ADM IN FAX #: [phone] RADIOLOGY NO: PAGE 1 Signed ReportCBC W/AUTO [id number] 09:06:00 Test Item Value Reference Range Interpretation [...] = 0.00 K/mm3 0.0-0.1 N NRBC#) PROTHROMBIN [id number] 08:59:00 Test Item Value Reference Range Interpretation Comments PROTHROMBIN TIME 11.1 SECONDS 9.5-12.7 N PATIENT (test code = PTP) INTERNATIONAL NORMAL 1.0 0.86-1.14 N The INR is to be RATIO (test code = used only for INR) monitoring oral anticoagulantth erap y. INDICATION INR VALUE ---- ---- ---- -------1. Prophylaxis, de ep venous thrombos is, including high risk surgery. 2.0 - 3.0 2. Prophylaxis, deep venous thrombosis, hip surgery, treatm ent for deep venous thrombosis or pulmonary prevention of systemic emboli sm in patients wit h valvular heart disease, atrial fibrillation, tissue heart va lve, or acute myocar dial infarction. 2.0 - 3.0 3. Spider Assembler al prosthesis hear t valves, recurre nt systemic emboli sm. 3.0 - 4.5 PTT [id number] 08:59:00 Test Item Value Reference Range Interpretation Comments PTT ACTIVATED (test code = APTT) 38.9 SECONDS 25.1-36.5 H BASIC METABOLIC [id number] 08:59:00 Test Item Value Reference Range Interpretation [...] code = 10.0 MG/DL 8.4-10.2 N CA) [id number] 08:59:00 Test Item Value Reference Range Interpretation Comments MAGNESIUM (test code = MAG) 1.8 MG/DL 1.6-2.3 N COVID 19 Asymptomatic IH [id number] 06:59:00 Test Item Value Reference Range Interpretation [...] virus (antigen) in the sample." Spec Comments: [id number] 11:36:00 Test Item Value Reference Range Interpretation Comments MAGNESIUM (test code = MAG) 1.9 MG/DL 1.6-2.3 N BASIC METABOLIC [id number] 11:36:00 Test Item Value Reference Range Interpretation [...] code = 9.5 MG/DL 8.4-10.2 N CA) PROTHROMBIN [id number] 11:21:00 Test Item Value Reference Range Interpretation Comments PROTHROMBIN TIME 10.6 SECONDS 9.6-11.6 N PATIENT (test code = PTP) INTERNATIONAL NORMAL 1.0 0.8-1.1 N The INR is to be RATIO (test code = used only for INR) monitoring oral anticoagulantth erap y. INDICATION INR VALUE ---- ---- ---- -------1. Prophylaxis, de ep venous thrombos is, including high risk surgery. 2.0 - 3.0 2. Prophylaxis, deep venous thrombosis, hip surgery, treatm ent for deep venous thrombosis or pulmonary prevention of systemic emboli sm in patients wit h valvular heart disease, atrial fibrillation, tissue heart va lve, or acute myocar dial infarction. 2.0 - 3.0 3. Spider Assembler al prosthesis hear t valves, recurre nt systemic emboli sm. 3.0 - 4.5 PTT [id number] 11:21:00 Test Item Value Reference Range Interpretation Comments PTT ACTIVATED (test code = APTT) 29.4 SECONDS 22.0-33.0 N CBC W/AUTO [id number] 11:07:00 Test Item Value Reference Range Interpretation [...]
[2022-12-16 07:13] LABS: Absolute Lymphocytes (CBC) 1.4 K/uL (0.7-4.9); Hematocrit 42.9 % (39.6-49.0); Lymphocytes % 20.5 % (15.3-44.8); MCV 86.4 fL (80-100); MPV 8.1 fL (7.6-11.3); RBC Red Blood Cell Count 4.97 M/uL (4.33-5.43)
[2022-12-16 07:14] LABS: Protime INR 0.97
[2022-12-16 07:31] LABS: Albumin 3.5 g/dL (3.4-5.0); Bilirubin Direct 0.1 mg/dL (0-0.2); Bilirubin Total 0.4 mg/dL (0.2-1.0); Magnesium 1.7 mg/dL (1.6-2.4); Potassium 3.9 mEq/L (3.5-5.1); Protein, Total 6.8 g/dL (6.4-8.2)
--- NOTE | 2022-12-16 08:27 | RAD REPORT ---
EXAM DESCRIPTION: RAD - Chest Single View - 12/16/2022 7:36 am CLINICAL HISTORY: CHEST PAIN Chest pain. COMPARISON: Chest Single View dated 10/19/2022; CHEST SINGLE VIEW dated 01/11/2014; CHEST PA AND LAT 2 VIEW dated 05/29/2011; CHEST SINGLE VIEW dated 05/28/2011 FINDINGS: Portable technique limits examination quality. The lungs are grossly clear. The heart is normal in size. No displaced fractures.Multi lead pacer/def ibrillator device. IMPRESSION: No acute intrathoracic process suspected.
--- NOTE | 2022-12-16 10:38 | ER ---
Nurse's Notes [facility] Name: Nicholas Ruiz Jr Age: 62 yrs Sex: Male : 1960 Arrival Date: 12/16/2022 Time: 06:43 Bed 13 Private MD: Diagnosis: Chest pain, unspecified Presentation: 12/16 06:52 Chief complaint: Patient states: I have been having chest pain on and off. I have a kd3 defibrillator. It is like a 7 out of 10 for pain. Its in the center of my chest. Coronavirus screen: Vaccine status:. Ebola Screen: No symptoms or risks identified at this time. Initial Sepsis Screen: Does the patient meet any 2 criteria? No. Patient's initial sepsis screen is negative. Does the patient have a suspected source of infection? No. Patient's initial sepsis screen is negative. Risk Assessment: Do you want to hurt yourself or someone else? Patient reports no desire to harm self or others. Onset of symptoms was December 16, 2022. 06:52 Method Of Arrival: Ambulatory kd3 06:52 Acuity: DAVID 3 kd3 Triage Assessment: 06:55 General: Appears uncomfortable, Behavior is calm, cooperative. Pain: Complains of pain kd3 in chest. Cardiovascular: Patient's skin is warm and dry. Historical: - Allergies: 11:16 No Known Allergies; ld1 - PMHx: 06:55 Hypertension; High Cholesterol; Diabetes - NIDDM; Atrial Fib; kd3 - PSHx: 06:55 pacemaker; kd3 - Immunization history:: Adult Immunizations up to date. - Social history:: Smoking status: Patient denies any tobacco usage or history of. Screenin:10 [facility] ED Fall Risk Assessment (Adult) History of falling in the last 3 months, kc6 including since admission No falls in past 3 months (0 pts) Confusion or Disorientation No (0 pts) Intoxicated or Sedated No (0 pts) Impaired Gait No (0 pts) Mobility Assist Device Used No (0 pt) Altered Elimination No (0 pt) Score/Fall Risk Level 0 - 2 = Low Risk Oriented to surroundings, Maintained a safe environment, Educated pt \T\ family on fall prevention, incl call for assistance when getting out of bed, Assessed \T\ reinforced patient's understanding of fall precautions, Hourly rounding (assess needs \T\ fall precautionary measures) done. Abuse screen: Denies threats or abuse. Denies injuries from another. Nutritional screening: No deficits noted. Tuberculosis screening: No symptoms or risk factors identified. Assessment: 07:10 General: Appears in no apparent distress. comfortable, Behavior is calm, cooperative, kc6 appropriate for age. Pain: Complains of pain in chest Pain does not radiate. Pain began 2-3 days ago. Neuro: Connors Agitation-Sedation Scale (RASS): 0 - Alert and Calm Level of Consciousness is awake, alert, obeys commands, Oriented to person, place, time, situation, Appropriate for age. Cardiovascular: Reports chest pain, Heart tones S1 S2 present Capillary refill < 3 seconds Rhythm is sinus rhythm. Respiratory: Airway is patent Trachea midline Respiratory effort is even, unlabored, Respiratory pattern is regular, symmetrical, Denies shortness of breath. GI: No signs and/or symptoms were reported involving the gastrointestinal system. : No signs and/or symptoms were reported regarding the genitourinary system. EENT: No signs and/or symptoms were reported regarding the EENT system. Derm: No signs and/or symptoms reported regarding the dermatologic system. Skin is intact, Skin is pink, warm \T\ dry. Musculoskeletal: No signs and/or symptoms reported regarding the musculoskeletal system. Circulation, motion, and sensation intact. Capillary refill < 3 seconds, Range of motion: intact in all extremities. 08:10 Reassessment: Patient appears in no apparent distress at this time. No changes from kc6 previously documented assessment. Patient and/or family updated on plan of care and expected duration. Pain level reassessed. Patient is alert, oriented x 3, equal unlabored respirations, skin warm/dry/pink. 09:10 Reassessment: Patient appears in no apparent distress at this time. No changes from kc6 previously documented assessment. Patient and/or family updated on plan of care and expected duration. Pain level reassessed. Patient is alert, oriented x 3, equal unlabored respirations, skin warm/dry/pink. 11:15 Reassessment: Patient appears in no apparent distress at this time. No changes from ld1 previously documented assessment. Patient and/or family updated on plan of care and expected duration. Pain level reassessed. Patient is alert, oriented x 3, equal unlabored respirations, skin warm/dry/pink. Patient denies pain at this time. Vital Signs: 06:52 BP 129 / 87; Pulse 65; Resp 19; Temp 98.2(O); Pulse Ox 99% on R/A; Weight 74.84 kg; kd3 Height 5 ft. 4 in. ; 07:53 BP 122 / 79; Pulse 60; Resp 13; Pulse Ox 99% on R/A; kc6 08:59 BP 137 / 88; Pulse 69; Resp 18 S; Pulse Ox 98% on R/A; kc6 09:56 BP 146 / 88; Pulse 60; Resp 14 S; Pulse Ox 97% on R/A; kc6 11:15 BP 165 / 84; Pulse 63; Resp 18; Pulse Ox 100% on R/A; Pain 0/10; ld1 06:52 Body Mass Index 28.32 (74.84 kg, 162.56 cm) kd3 11:15 Pain Scale: Adult ld1 ED Course: 06:44 Patient arrived in ED. ja2 06:54 Triage completed. kd3 06:55 Arm band placed on right wrist. kd3 06:57 Finesse Adams MD is Attending Physician. sp4 06:59 Inserted saline lock: 20 gauge in right forearm, using aseptic technique. Blood lg3 collected. Patient maintains SpO2 saturation greater than 95% on room air. 07:00 Magnesium Sent. lg3 07:00 Basic Metabolic Panel Sent. lg3 07:00 CBC with Diff Sent. lg3 07:00 LFT's Sent. lg3 07:00 Magnesium Sent. lg3 07:00 NT PRO-BNP Sent. lg3 07:00 PT-INR Sent. lg3 07:00 Troponin HS Sent. lg3 07:10 Patient has correct armband on for positive identification. Placed in gown. Bed in low kc6 position. Call light in reach. Side rails up X 1. Client placed on continuous cardiac and pulse oximetry monitoring. NIBP monitoring applied. monitoring analyst on. 07:19 Shamika Coleman, NIKKO is Primary Nurse. kc6 07:23 Attending Physician role handed off by Finesse Adams MD kdr 07:23 Daniel Howard MD is Attending Physician. kdr 07:38 XRAY Chest (1 view) In Process Unspecified. EDMS 07:57 EKG done, by ED staff, reviewed by Daniel Howard MD. ap3 10:05 Primary Nurse role handed off by Shamika Coleman RN ld1 10:05 Jo Ann Oswald, RN is Primary Nurse. ld1 11:15 No provider procedures requiring assistance completed. IV discontinued, intact, ld1 bleeding controlled, No redness/swelling at site. Administered Medications: No medications were administered Medication: 11:15 VIS not applicable for this client. ld1 Outcome: 10:37 Discharge ordered by . kdr 11:15 Discharged to home ambulatory. ld1 11:15 Condition: stable 11:15 Discharge instructions given to patient, Instructed on discharge instructions, follow up and referral plans. Demonstrated understanding of instructions, follow-up care. 11:16 Patient left the ED. ld1 Signatures: Dispatcher [employer] EDMS Daniel Howard MD MD kdr Rosita Romero RN RN ap3 Ambika Cochran, RN RN lg3 Jo Ann Oswald RN RN ld1 Margaret Oates Kyli, RN RN kd3 Shamika Coleman, NIKKO RN kc6 Finesse Adams MD MD sp4
--- NOTE | 2022-12-16 10:38 | EDPHYS ---
Physician Documentation [facility] Name: Nicholas Ruiz Jr Age: 62 yrs Sex: Male : 1960 Arrival Date: 12/16/2022 Time: 06:43 Bed 13 Private MD: ED Physician Daniel Howard HPI: 12/16 07:35 This 62 yrs old Male presents to ER via Ambulatory with complaints of Chest kdr Pain. 07:35 Patient complains of intermittent chest pain since Friday. 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 Perez) last week and had some test done. He indicated that his cardiac condition has worsened over the interval of his most recent testing. Friday he woke around 1 AM with some chest discomfort but did not seek treatment at that time. This morning he also awoke with chest discomfort at around the same time. He subsequently attempted to go to work but once he got there he continue with the chest discomfort and decided to come to the hospital. Patient currently has some mild to minor chest discomfort (2 out of 10). Otherwise she denies any nausea. He does have a cough that is nonproductive but denies fever or any other respiratory symptoms. Patient otherwise appears comfortable and nontoxic. Onset: The symptoms/episode began/occurred suddenly, this morning, at 01:00. Severity of symptoms: At their worst the symptoms were mild. The patient has experienced similar episodes in the past, multiple times. The patient has not recently seen a physician. Historical: - Allergies: 11:16 No Known Allergies; ld1 - PMHx: 06:55 Hypertension; High Cholesterol; Diabetes - NIDDM; Atrial Fib; kd3 - PSHx: 06:55 pacemaker; kd3 - Immunization history:: Adult Immunizations up to date. - Social history:: Smoking status: Patient denies any tobacco usage or history of. ROS: 07:35 Constitutional: Negative for fever, chills, and weight loss, Eyes: Negative for injury, kdr pain, redness, and discharge, ENT: Negative for injury, pain, and discharge, Neck: Negative for injury, pain, and swelling, Respiratory: Negative for shortness of breath, cough, wheezing, and pleuritic chest pain, Abdomen/GI: Negative for abdominal pain, nausea, vomiting, diarrhea, and constipation, Back: Negative for injury and pain, : Negative for injury, bleeding, discharge, and swelling, MS/Extremity: Negative for injury and deformity, Skin: Negative for injury, rash, and discoloration, Neuro: Negative for headache, weakness, numbness, tingling, and seizure activity. Psych: Negative for depression, anxiety, suicide ideation, homicidal ideation, and hallucinations, Allergy/Immunology: Negative for hives, rash, and allergies, Endocrine: Negative for neck swelling, polydipsia, polyuria, polyphagia, and marked weight changes, Hematologic/Lymphatic: Negative for swollen nodes, abnormal bleeding, and unusual bruising. 07:35 Cardiovascular: Positive for chest pain, Negative for edema, orthopnea, palpitations, paroxysmal nocturnal dyspnea, acute changes. Exam: 07:35 Constitutional: This is a well developed, well nourished patient who is awake, alert, kdr and in no acute distress. Head/Face: Normocephalic, atraumatic. Eyes: Pupils equal round and reactive to light, extra-ocular motions intact. Lids and lashes normal. Conjunctiva and sclera are non-icteric and not injected. Cornea within normal limits. Periorbital areas with no swelling, redness, or edema. Neck: Trachea midline, no thyromegaly or masses palpated, and no cervical lymphadenopathy. Supple, full range of motion without nuchal rigidity, or vertebral point tenderness. No Meningismus. Chest/axilla: Normal chest wall appearance and motion. Nontender with no deformity. No lesions are appreciated. Cardiovascular: Regular rate and rhythm with a normal S1 and S2. No gallops, murmurs, or rubs. Normal PMI, no JVD. No pulse deficits. Respiratory: Lungs have equal breath sounds bilaterally, clear to auscultation and percussion. No rales, rhonchi or wheezes noted. No increased work of breathing, no retractions or nasal flaring. Abdomen/GI: Soft, non-tender, with normal bowel sounds. No distension or tympany. No guarding or rebound. No evidence of tenderness throughout. Back: No spinal tenderness. No costovertebral tenderness. Full range of motion. Skin: Warm, dry with normal turgor. Normal color with no rashes, no lesions, and no evidence of cellulitis. MS/ Extremity: Pulses equal, no cyanosis. Neurovascular intact. Full, normal range of motion. Neuro: Awake and alert, GCS 15, oriented to person, place, time, and situation. Cranial nerves II-XII grossly intact. Motor strength 5/5 in all extremities. Sensory grossly intact. Cerebellar exam normal. Normal gait. Psych: Awake, alert, with orientation to person, place and time. Behavior, mood, and affect are within normal limits. 07:57 ECG was reviewed by the Attending Physician. kdr Vital Signs: 06:52 BP 129 / 87; Pulse 65; Resp 19; Temp 98.2(O); Pulse Ox 99% on R/A; Weight 74.84 kg; kd3 Height 5 ft. 4 in. ; 07:53 BP 122 / 79; Pulse 60; Resp 13; Pulse Ox 99% on R/A; kc6 08:59 BP 137 / 88; Pulse 69; Resp 18 S; Pulse Ox 98% on R/A; kc6 09:56 BP 146 / 88; Pulse 60; Resp 14 S; Pulse Ox 97% on R/A; kc6 11:15 BP 165 / 84; Pulse 63; Resp 18; Pulse Ox 100% on R/A; Pain 0/10; ld1 06:52 Body Mass Index 28.32 (74.84 kg, 162.56 cm) kd3 11:15 Pain Scale: Adult ld1 MDM: 06:57 Patient medically screened. sp4 07:35 Data reviewed: vital signs, nurses notes, lab test result(s), radiologic studies. kdr 07:59 ED course: A repeat EKG did not evidence any changes from the initial study. Patient kdr continues to be in a paced rhythm without ectopy or evidence of ischemia. 10:41 Scoring Tools HEART Score: History: Slightly Suspicious (0) ECG: Non specific kdr repolarization disturbance/ LBTB/ PM (1) Age: > 45 and < 65 years (1) Risk Factors: > or = 3 Risks factors for Atherosclerotic disease (2) Troponin: < or = 1 x Normal limit (0). 10:48 ED course: I discussed with the patient his overall lab results and his heart score. He kdr indicated that his was just getting dialysis and she is 74 years old and they take care of 1 another and that he is not able to stay in the hospital at this time I offered admission but he refused. He stated he would come back if anything got worse. I discussed the risk factors in the 12 to 17% risk of an adverse event given his score. Patient otherwise remained stable and was happy with the care provided the plan for discharge and follow-up. 12/16 06:57 Order name: Basic Metabolic Panel; Complete Time: 07:47 sp4 12/16 06:57 Order name: CBC with Diff; Complete Time: 07:47 sp4 12/16 06:57 Order name: LFT's; Complete Time: 07:47 sp4 12/16 06:57 Order name: Magnesium; Complete Time: 07:47 sp4 12/16 06:57 Order name: NT PRO-BNP; Complete Time: 07:47 sp4 12/16 06:57 Order name: PT-INR; Complete Time: 07:47 sp4 12/16 06:57 Order name: Troponin HS; Complete Time: 07:47 sp4 12/16 07:52 Order name: Troponin High Sensitivity: Repeat troponin 2 hours after initial draw; kdr Complete Time: 10:24 05 06:57 Order name: XRAY Chest (1 view); Complete Time: 08:30 sp4 12/16 06:57 Order name: EKG; Complete Time: 06:58 sp4 12/16 11:00 Order name: EKG Electrocardiogram EDMS 12/16 06:57 Order name: Cardiac monitoring; Complete Time: 07:00 sp4 12/16 06:57 Order name: EKG - Nurse/Tech; Complete Time: 07:00 sp4 12/16 06:57 Order name: IV Saline Lock; Complete Time: 07:00 sp4 12/16 06:57 Order name: Labs collected and sent; Complete Time: 07:00 sp4 12/16 06:57 Order name: O2 Per Protocol; Complete Time: 07:00 sp4 12/16 06:57 Order name: O2 Sat Monitoring; Complete Time: 07:00 sp4 12/16 07:53 Order name: EKG - Nurse/Tech; Complete Time: 07:56 kdr EC:57 Rate is 61 beats/min. Rhythm is regular, Paced with No ectopy. QRS [place] is Normal. [place] kdr interval is normal. QRS interval is normal. Clinical impression: Paced rhythm. Administered Medications: No medications were administered Disposition Summary: 12/16/22 10:37 Discharge Ordered Location: Home kdr Problem: an acute exacerbation kdr Symptoms: are resolved kdr Condition: Stable kdr Diagnosis - Chest pain, unspecified kdr Followup: kdr - With: Private Physician - When: 2 - 3 days - Reason: If symptoms return, Further diagnostic work-up, Recheck today's complaints, Continuance of care, Re-evaluation by your physician Discharge Instructions: - Discharge Summary Sheet kdr - Nonspecific Chest Pain, Adult kdr - Pain Without a Known Cause kdr - Hypertension, Adult, [id number] kdr Forms: - Medication Reconciliation Form kdr - Thank You Letter kdr - Work release form em1 Signatures: Dispatcher [employer] Daniel Cleary MD MD kdr Jo Ann Oswald RN RN ld1 Prachi Chen RN RN kd3 Finesse Adams MD MD sp4
[2022-12-16 11:38] VITALS: TEMP 98.2
[2022-12-16 11:43] VITALS: BP 165/84; O2SAT 100
--- NOTE | 2022-12-17 07:54 | EKG ---
Test Date: 2022-12-16 Test Time: 06:56:15 Tableman: RIC MEASUREMENT RESULTS: Intervals: Rate: 65 OR: 140 QRSD: 140 QT: 448 QTc: 465 [place]: P: 29 OR: 140 QRS: 225 T: 117 INTERPRETIVE STATEMENTS: Suspect unspecified pacemaker failure Atrial-sensed ventricular-paced rhythm Abnormal ECG Compared to ECG 10/19/2022 09:29:56 Myocardial infarct finding no longer present Electronically Signed On 12-17-22 07:52:57 CDT by René Marie
--- NOTE | 2022-12-17 07:54 | EKG ---
Test Date: 2022-12-16 Test Time: 06:57:30 Cook Short Order: RIC MEASUREMENT RESULTS: Intervals: Rate: 65 HI: 146 QRSD: 138 QT: 440 QTc: 457 [place]: P: 22 HI: 146 QRS: 199 T: 115 INTERPRETIVE STATEMENTS: Atrial-sensed ventricular-paced rhythm Abnormal ECG Compared to ECG 10/19/2022 09:29:56 Myocardial infarct finding no longer present Electronically Signed On 12-17-22 07:52:55 CDT by René Marie
== END 2022-12-16 11:16 | disposition home or self-care (01) ==
LOC: ER 06:43
DX: R07.89 Other chest pain (principal); I10 Essential (primary) hypertension; I48.91 Unspecified atrial fibrillation; Z95.0 Presence of cardiac pacemaker
CPT/HCPCS: 36415; 71045; 80048; 80076; 83735; 83880; 84484; 85025; 85610; 93005; 99285

== ENCOUNTER 2023-05-17 18:20 | Emergency (ER) | payer BC ==
--- OUTSIDE RECORDS SUMMARY | 2023-05-17 18:25 | XMS REPORT | Continuity of Care Document ---
:[address] [facility] t Address [address] [place] [address] Care Team Providers Name Role Phone Pcp, Patient Does Not Have A Primary Care Physician +[id number] Michelle Coleman Attending Clinician Lab, Ang - Db Attending Clinician Unavailable MICHELLE VAZQUEZ Attending Clinician Unavailable Doctor Unassigned, [place] Attending Clinician Unavailable DERIC LACEY Attending Clinician Unavailable Deric Lacey NP Attending Clinician Emmett Escalera Attending Clinician Unavailable REID MAURER Attending Clinician Unavailable Reid Maurer MD Attending Clinician Kanika Lee MD Attending Clinician Susan Yee RN Attending Clinician Unavailable Reid Hollins Attending Clinician Unavailable KANIKA LEE Attending Clinician Unavailable Provider, [facility] Attending Clinician Unavailable Stacey Moreno Attending Clinician Lab, Adc Fam Pob I Attending Clinician Unavailable Only, Adc Test Attending Clinician Unavailable Reji Panda MD Attending Clinician BROOKS LINCOLN Attending Clinician Unavailable DERIC LACEY Admitting Clinician Unavailable Emmett Escalera Admitting Clinician Unavailable REID MAURER Admitting Clinician Unavailable Reid Hollins Admitting Clinician Unavailable Payers Payer Name Policy Type Policy Number Effective Date Expiration Date S beti Problems Condition Condition Condition Status Onset Resolution Last Treating Co mments Source Name Details Category Date Date Treatment Clinician Date 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 2-28 ity of mellitus mellitus 00:00: [place] with with 00 Medical microalbum microalbum Br anch inuria, inuria, without without long-term long-term current current use of use of insulin insulin Other Other Disease Active 2017-08 Univers depression depression 10-08 it y of 00:00: [place] [address] Medical Branch Essential Essential Disease Active 2017-08 Uni vers hypertensi hypertensi - it y of on on 00:00: [place] [address] Medical Branch Laceration Laceration Disease Active 2017-08 U nivers of left of left 2-28 ity of middle middle 00:00: [place] finger finger 00 Medical without without Branch damage to damage to nail, nail, foreign foreign body body presence presence unspecifie unspecifie d, initial d, initial encounter encounter 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 Added automatic ally from request for surgery [id number] Allergies, Adverse Reactions, Alerts Allergy Allergy Status Severity Reaction(s) Onset Inactive Treating Comm ents Source Name Type Date Date Clinician No Known DA Active U [facility]ie 02-[facility] s 00:00: [address] No Known DA Active U [facility] Allergie 02-22 s 00:00: [address] NKDA DA Active U 2010-08 [facility] 08-25 00:00: [address] NO KNOWN Drug Active Univers ALLERGIE Class ity of S [facility] Social History Social Habit Start Date Stop Date Quantity Comments Source Gender identity Universit y of [facility] Sexual orientation Univer sity of [facility] Alcohol intake 2023-04-04 2023-04-04 Current University of 00:00:00 00:00:00 non-drinker of [facility] alcohol [place] (finding) History of Social 2023-04-04 2023-04-04 Univers ity of function 00:00:00 00:00:00 [facility] Tobacco use and 2023-04-04 2023-04-04 Smokeless Universit y of exposure 00:00:00 00:00:00 tobacco non-user [facility] dical [place] Exposure to 2022-05-03 2022-05-13 Not sure [facility] SARS-CoV-2 (event) 00:00:00 07:21:00 [facility] Sex Assigned At [birth year] Universit y of 00:00:00 00:00:00 [facility] Smoking Status Start Date Stop Date Source Never smoked tobacco [facility] Medications Ordered Filled Start Stop Current Ordering Indication Dosage Frequency Signature Comments Components Source Medication Medication Date Date Medication? Clinician (SIG) Name Name metFORMIN Yes [id number] 500mg Take 1 U nivers 500 mg 8-31 tablet by ity of tablet 00:00: mouth in [place] [address] the Medical morning Branch and 1 tablet in the evening. Take with meals. metFORMIN Yes [id number] 500mg Take 1 U nivers 500 mg 8-31 tablet by ity of tablet 00:00: mouth in [place] [address] the Medical morning Branch and 1 tablet in the evening. Take with meals. LISINOPRIL Yes Take by Univ ers ORAL 8-25 mouth. ity of 12:53: [place] [facility] Branch atorvastati Yes Take by Uni vers n calcium 8-25 mouth. ity of (LIPITOR 12:53: [place] ORAL) [facility] LISINOPRIL Yes Take by Univ ers ORAL 8-25 mouth. ity of 12:53: [place] [facility] atorvastati Yes Take by Uni vers n calcium 8-25 mouth. ity of (LIPITOR 12:53: [place] ORAL) [facility] LISINOPRIL 2023-0 Yes Take by Univ ers ORAL 8-25 mouth. ity of 12:53: [place] Medical Branch atorvastati Yes Take by Un april n calcium 8-25 mouth. ity of (LIPITOR 12:53: [place] ORAL) Medical Branch LISINOPRIL Yes Take by Univ ers ORAL 8-25 mouth. ity of 12:53: [place] Medical Branch atorvastati Yes Take by Uni vers n calcium 8-25 mouth. ity of (LIPITOR 12:53: [place] ORAL) Medical Branch LISINOPRIL Yes Take by Univ ers ORAL 8-25 mouth. ity of 12:53: [place] Medical Branch atorvastati Yes Take by Uni vers n calcium 8-25 mouth. ity of (LIPITOR 12:53: [place] ORAL) Medical Branch KCL 20 mEq 2022- No Univer s tablet 04-04 08-25 ity of 12:37: 00:00 [place] 38 :00 Medical Branch KCL 20 mEq 2022- No Univer s tablet 04-04 08-25 ity of 12:37: 00:00 [place] 38 :00 Medical Branch lisinopril 2022- No 20mg Take 20 mg Univers 20 mg 04-04 08-25 by mouth ity of tablet 12:37: 00:00 daily. [place] 28 :00 Medical Branch lisinopril 2022- No 20mg Take 20 mg Univers 20 mg 04-04 08-25 by mouth ity of tablet 12:37: 00:00 daily. [place] 28 :00 Medical Branch losartan 25 2022- No Unive rs mg tablet 04-04-25 ity of 12:37: 00:00 [place] 13 :00 Medical Branch losartan 25 2022-0 2022- No Unive rs mg tablet 04-04-25 ity of 12:37: 00:00 [place] 13 :00 Medical Branch furosemide 2022-0 2022- No Univer s 40 mg -04 04-25 ity of tablet 12:36: 00:00 [place] 15 :00 Medical Branch furosemide 2022-0 2022- No Univer s 40 mg - 08-25 ity of tablet 12:36: 00:00 [place] 15 :00 Medical Branch glipiZIDE 5 2022- No Unive rs mg tablet 04-04 ity of 12:36: 00:00 [place] 00 :00 Medical Branch glipiZIDE 5 2022- No Unive rs mg tablet 04-04 ity of 12:36: 00:00 [place] 00 :00 Medical Branch carvediloL 2022-0 2022- No Univer s 12.5 mg 04-04 ity of tablet 12:35: 00:00 [place] 29 :00 Medical Branch carvediloL 2022-2022- No Univer s 12.5 mg 04-04 ity of tablet 12:35: 00:00 [place] 29 :00 Medical Branch aspirin 2022-2022- No 81mg Take 81 mg Uni vers (ASPIRIN 04-04 by mouth ity of LOW DOSE) 12:35: 00:00 daily. [place] 81 mg EC 20 :00 Medical tablet Branch aspirin 2022-2022- No 81mg Take 81 mg Uni vers (ASPIRIN 04-04 by mouth ity of LOW DOSE) 12:35: 00:00 daily. [place] 81 mg EC 20 :00 Medical tablet Branch atorvastati 2022- No 40mg Take 40 mg Univers n 40 mg 04-04 by mouth ity of tablet 12:35: 00:00 at [place] 11 :00 bedtime. Medical Branch atorvastati 2022-2022- No 40mg Take 40 mg Univers n 40 mg 04-04 by mouth ity of tablet 12:35: 00:00 at [place] 11 :00 bedtime. Medical Branch amLODIPine 2022-2022- No 5mg Take 1 Univ ers 5 mg tablet 04-04 tablet by it y of 12:35: 00:00 mouth in [place] 02 :00 the Medical morning. Branch amLODIPine 2022-2022- No 5mg Take 1 Univ ers 5 mg tablet 04-04 tablet by it y of 12:35: 00:00 mouth in [place] 02 :00 the Medical morning. Branch naproxen 2022-2022- No 500mg 500 mg, Univ ers (NAPROSYN) 02-20 07-13 Oral, ONCE it y of tablet 500 19:15: 18:33 NOW, 1 [place] mg [place] :00 dose, On Medical [place]i [place] 02/20/23 at 1415, Routine methocarbam 2022-0 2022- No 1000mg 1,000 mg, Univers oL 02-20 07-13 Oral, ity of (ROBAXIN) 18:30: 18:33 ONCE, 1 [place] tablet 00 :00 dose, On Medical 1,000 mg [facility] 02/20/23 at 1330, SANGEETHA amLODIPine 2022-0 Yes 5mg Take 1 Unive rs 5 mg tablet 7-13 tablet by ity of 16:27: mouth in [place] [address] the Medical morning. [place] carvediloL 0 Yes Univers 12.5 mg 7-13 ity of tablet 16:27: [address] furosemide 0 Yes Univers 40 mg 7-13 ity of tablet 16:27: [address] glipiZIDE 5 2022-0 Yes Univer s mg tablet 7-13 ity of 16:27: [address] losartan 25 0 Yes Univer s mg tablet 7-13 ity of 16:27: [address] KCL 20 mEq 2022-0 Yes Univers tablet 7-13 ity of 16:27: [address] amLODIPine 2022-0 Yes 5mg Take 1 Unive rs 5 mg tablet 7-13 tablet by ity of 16:27: mouth in [place] [address] the Medical morning. [place] carvediloL 0 Yes Univers 12.5 mg 7-13 ity of tablet 16:27: [address] furosemide 0 Yes Univers 40 mg 7-13 ity of tablet 16:27: [address] glipiZIDE 5 0 Yes Univer s mg tablet 7-13 ity of 16:27: [address] losartan 25 2022-0 Yes Univer s mg tablet 7-13 ity of 16:27: [address] KCL 20 mEq 2022-0 Yes Univers tablet 7-13 ity of 16:27: [address] gabapentin 2022-0 Yes [id number] 300mg Take 1 Univers 300 mg 7- capsule by ity of capsule 00:00: mouth 3 [place] [address] (three) Medical times [place] daily as needed for Pain (scale 4-6) or Pain (scale 7-10). gabapentin Yes [id number] 300mg Take 1 Univers 300 mg - capsule by ity of capsule 00:00: mouth 3 [place] 00 (three) Medical times Branch daily as needed for Pain (scale 4-6) or Pain (scale 7-10). gabapentin 2022- No [id number] 300mg Take 1 Univers 300 mg 02-20-25 capsule by ity of capsule 00:00: 00:00 mouth 3 [place] 00 :00 (three) Medical times Branch daily as needed for Pain (scale 4-6) or Pain (scale 7-10). gabapentin 2022- No [id number] 300mg Take 1 Univers 300 mg 02-20- capsule by ity of capsule 00:00: 00:00 mouth 3 [place] 00 :00 (three) Medical times Branch daily as needed for Pain (scale 4-6) or Pain (scale 7-10). naproxen 2022- Yes [id number] 500mg Take 1 Univers 500 mg 02-20-19 tablet by ity of tablet 00:00: 04:59 mouth in [place] 00 :00 the Medical morning Branch and 1 tablet in the evening. Take with meals. Do all this for 5 days. methocarbam 2022- Yes [id number] 1000mg Take 2 Univers oL 500 mg 02-20-17 tablets by ity of tablet 00:00: 04:59 mouth 4 [place] 00 :00 (four) Medical times Branch daily for 3 days. HEPARIN 2021-08- No 4000U 4,000 Univers SODIUM 0-03 10-03 Units, IV ity of (PORCINE) 14:15: 14:15 Push, [place] 1,000 00 :00 ONCE, 1 Medical UNIT/ML dose, On Branch BOLUS ACS Mon ORDER SET 05/13/22 at 0915, SANGEETHA furosemide 2021-08- No 20mg 20 mg, IV U nivers (LASIX) 0-03 10-03 Push, ity of injection 14:15: 14:34 ONCE, 1 [place] 20 mg 00 :00 dose, On Medical Mon Branch 05/13/22 at 0915, SANGEETHA heparin 2021-08 Yes 3000U FOR Univers (1,000 0-03 REBOLUSING ity of unit/mL, 10 14:10: , Starting [place] mL vial) 06 on Mon Medical for 05/13/22 at Branch Rebolusing 0910, Until Discontinu ed, Routine
Dosing based on aPPT testing parameters (refer to continuous heparin drip order).
heparin 2021-08 Yes 12U/kg/ 12 Univers 25,000 0-03 h Units/kg/h ity of Units/250 14:10: r ?79.4 kg [place] mL 06 (9.528 Medical (Premixed mL/hr, Branch Bag) in rounded to 0.45 % NS 9.53 mL/hr), IV Infusion, TITRATE, Parameters in Admin. Instr., Starting on 05/13/22 at 0910
CA UTION - If LMWH given in ER, AVOID bolus and start next dose/drip 12 hrs after ER dosage.&nb sp; M ust program rate using programmab le infusion pump.&nbsp ; May ck with the ordering provider first prior to any administra tion should the patient be on existing/a dditional anticoagul ant therapy. Rang e, Dosing and Testing: &nbs p;FOR [place], [facility], AND [facility] ONLY &nbs p; - aPTT < 35: [...] 0-03 Oral, ity of mg 14:00: DAILY, [place] 00 First dose Medical on Fri05/13/22 at 0900, Until Discontinu ed, Routine SERTRALINE Yes [id number] Take 1 U nivers 100 mg 5-16 tablet by ity of tablet 00:00: mouth once [place] 00 daily Medical Branch SERTRALINE 0 Yes [id number] Take 1 U nivers 100 mg 5-16 tablet by ity of tablet 00:00: mouth once [place] 00 daily Medical Branch SERTRALINE 0 Yes [id number] Take 1 U nivers 100 mg 5-16 tablet by ity of tablet 00:00: mouth once [place] daily Medical Branch SERTRALINE 0 Yes [id number] Take 1 U nivers 100 mg 5-16 tablet by ity of tablet 00:00: mouth once [place] daily Medical Branch SERTRALINE 0 3- No [id number] Take 1 Univers 100 mg 5-16 08-25 tablet by ity of tablet 00:00: 00:00 mouth [place] 00 :00 daily Medical Branch SERTRALINE 0 3- No [id number] Take 1 Univers 100 mg 5-16 08-25 tablet by ity of tablet 00:00: 00:00 mouth once [place] 00 :00 daily Medical Branch atorvastati 0 Yes 40mg Take 40 mg Univers n 40 mg 6-29 by mouth ity of tablet 15:36: at [place] [address] bedtime. Medical Branch aspirin 0 Yes 81mg Take 81 mg Univ ers (ASPIRIN 6-29 by mouth ity of LOW DOSE) 15:36: daily. [place] 81 mg EC Medical tablet Branch lisinopril 0 Yes 20mg Take 20 mg U nivers 20 mg 6-29 by mouth ity of tablet 15:36: daily. [place] [address] Medical Branch atorvastati 0 Yes 40mg Take 40 mg Univers n 40 mg 6-29 by mouth ity of tablet 15:36: at [place] [address] bedtime. Medical Branch aspirin 0 Yes 81mg Take 81 mg Univ ers (ASPIRIN 6-29 by mouth ity of LOW DOSE) 15:36: daily. [place] 81 mg EC 51 Medical tablet Branch lisinopril 0 Yes 20mg Take 20 mg U nivers 20 mg 6-29 by mouth ity of tablet 15:36: daily. [place] [address] Medical Branch atorvastati 0 Yes 40mg Take 40 mg Univers n 40 mg 6-29 by mouth ity of tablet 10:36: at [place] [address] bedtime. Medical Branch aspirin 2020-0 Yes 81mg Take 81 mg Univ ers (ASPIRIN 6-29 by mouth ity of LOW DOSE) 10:36: daily. [place] 81 mg EC 51 Medical tablet Branch lisinopril 0 Yes 20mg Take 20 mg U nivers 20 mg 6-29 by mouth ity of tablet 10:36: daily. [place] [address] Medical Branch atorvastati 2020-0 Yes 40mg Take 40 mg Univers n 40 mg 6-29 by mouth ity of tablet 10:36: at [place] [address] bedtime. Medical Branch aspirin 2020-0 Yes 81mg Take 81 mg Univ ers (ASPIRIN 6-29 by mouth ity of LOW DOSE) 10:36: daily. [place] 81 mg EC 51 Medical tablet Branch lisinopril 0 Yes 20mg Take 20 mg U nivers 20 mg 6-29 by mouth ity of tablet 10:36: daily. [place] [address] Medical Branch atorvastati 2020-0 Yes 40mg Take 40 mg Univers n 40 mg 6-29 by mouth ity of tablet 10:36: at [place] [address] bedtime. Medical Branch aspirin 2020-0 Yes 81mg Take 81 mg Univ ers (ASPIRIN 6-29 by mouth ity of LOW DOSE) 10:36: daily. [place] 81 mg EC 51 Medical tablet Branch lisinopril 0 Yes 20mg Take 20 mg U nivers 20 mg 6-29 by mouth ity of tablet 10:36: daily. [place] [address] Medical Branch atorvastati 2020-0 Yes 40mg Take 40 mg Univers n 40 mg 6-29 by mouth ity of tablet 10:36: at [place] [address] bedtime. Medical Branch aspirin 2020-0 Yes 81mg Take 81 mg Univ ers (ASPIRIN 6-29 by mouth ity of LOW DOSE) 10:36: daily. [place] 81 mg EC 51 Medical tablet Branch lisinopril 0 Yes 20mg Take 20 mg U nivers 20 mg 6-29 by mouth ity of tablet 10:36: daily. [place] [address] Medical Branch atorvastati 2020-0 Yes 40mg Take 40 mg Univers n 40 mg 6-29 by mouth ity of tablet 10:36: at [place] [address] bedtime. Medical Branch aspirin 2020-0 Yes 81mg Take 81 mg Univ ers (ASPIRIN 6-29 by mouth ity of LOW DOSE) 10:36: daily. [place] 81 mg 51 Medical tablet Branch lisinopril Yes 20mg Take 20 mg U nivers 20 mg 6-29 by mouth ity of tablet 10:36: daily. [place] 51 Medical Branch SERTraline Yes [id number] 100mg Take 1 Univers 100 mg 6-29 tablet by ity of tablet 00:00: mouth [place] 00 daily. Medical Branch SERTraline Yes [id number] 100mg Take 1 Univers 100 mg 6-29 tablet by ity of tablet 00:00: mouth [place] 00 daily. Medical Branch SERTraline Yes [id number] 100mg Take 1 Univers 100 mg 6-29 tablet by ity of tablet 00:00: mouth [place] 00 daily. Medical Branch SERTraline 2021- No [id number] 100mg Take 1 Univers 100 mg 6-29 05-16 tablet by ity of tablet 00:00: 00:00 mouth [place] 00 :00 daily. Medical Branch fluconazole 2020- No [id number] 150mg Take 1 Univers (DIFLUCAN) 6-29 06-30 tablet by ity of 150 mg 00:00: 04:59 mouth [place] tablet 00 :00 now for 1 Medical dose. Branch Repeat dose in 7 days fluconazole 2020- No [id number] 150mg Take 1 Univers (DIFLUCAN) 6-29 06-30 tablet by ity of 150 mg 00:00: 04:59 mouth once [place] tablet 00 :00 now for 1 Medical dose. Branch Repeat dose in 7 days SERTraline Yes [id number] 50mg Take 1 U nivers (ZOLOFT) 50 7-17 tablet by ity of mg tablet 00:00: mouth [place] 00 daily. Medical Follow-up Branch for refills SERTraline Yes [id number] 50mg Take 1 U nivers (ZOLOFT) 50 7-17 tablet by ity of mg tablet 00:00: mouth [place] 00 daily. Medical Follow-up Branch for refills SERTraline Yes [id number] 50mg Take 1 U nivers (ZOLOFT) 50 7-17 tablet by ity of mg tablet 00:00: mouth [place] 00 daily. Medical Follow-up Branch for refills SERTraline Yes [id number] 50mg Take 1 U nivers (ZOLOFT) 50 7-17 tablet by ity of mg tablet 00:00: mouth [place] 00 daily. Medical Follow-up Branch for refills SERTraline Yes [id number] 50mg Take 1 U nivers (ZOLOFT) 50 7-17 tablet by ity of mg tablet 00:00: mouth [place] 00 daily. Medical Follow-up Branch for refills SERTraline Yes [id number] 50mg Take 1 U nivers (ZOLOFT) 50 7-17 tablet by ity of mg tablet 00:00: mouth [place] 00 daily. Medical Follow-up Branch for refills SERTraline Yes [id number] 50mg Take 1 U nivers (ZOLOFT) 50 7-17 tablet by ity of mg tablet 00:00: mouth [place] 00 daily. Medical Follow-up Branch for refills SERTraline Yes [id number] 50mg Take 1 U nivers (ZOLOFT) 50 7-17 tablet by ity of mg tablet 00:00: mouth [place] 00 daily. Medical Follow-up Branch for refills SERTraline Yes [id number] 50mg Take 1 U nivers (ZOLOFT) 50 7-17 tablet by ity of mg tablet 00:00: mouth [place] 00 daily. Medical Follow-up Branch for refills SERTraline 2020- No [id number] 50mg Take 1 Univers (ZOLOFT) 50 7-17 06-29 tablet by it y of mg tablet 00:00: 00:00 mouth [place] 00 :00 daily. Medical Follow-up Branch for refills SERTraline 2020- No [id number] 50mg Take 1 Univers (ZOLOFT) 50 7-17 06-29 tablet by it y of mg tablet 00:00: 00:00 mouth [place] 00 :00 daily. Medical Follow-up Branch for refills lisinopril 2017-08 Yes 20mg Take 20 mg U nivers 20 mg 2-28 by mouth ity of tablet 19:10: daily. [address] lisinopril 2017-08 Yes 20mg Take 20 mg U nivers 20 mg 2-28 by mouth ity of tablet 19:10: daily. [address] lisinopril 2017-08 Yes 20mg Take 20 mg U nivers 20 mg 2-28 by mouth ity of tablet 19:10: daily. [address] lisinopril 2017-08 Yes 20mg Take 20 mg U nivers 20 mg 2-28 by mouth ity of tablet 19:10: daily. [address] lisinopril 2017-08 Yes 20mg Take 20 mg U nivers 20 mg 2-28 by mouth ity of tablet 19:10: daily. [address] lisinopril 2017-08 Yes 20mg Take 20 mg U nivers 20 mg 2-28 by mouth ity of tablet 19:10: daily. [address] lisinopril 2017-08 Yes 20mg Take 20 mg U nivers 20 mg 2-28 by mouth ity of tablet 19:10: daily. [address] lisinopril 2017-08 Yes 20mg Take 20 mg U nivers 20 mg 2-28 by mouth ity of tablet 19:10: daily. [address] lisinopril 2017-08 Yes 20mg Take 20 mg U nivers 20 mg 2-28 by mouth ity of tablet 19:10: daily. [address] ciclopirox 2017-08 Yes [id number] Apply to Univers 8 % 2-28 area(s) at ity of solution 00:00: bedtime. Apply to Medical Nails at Branch night. On day 7 clean with alcohol pad/trim nails. empaglifloz 2017-08 Yes [id number] 10mg Take 10 mg Univers in 2-28 by mouth ity of ([place]) 00:00: [place] [address] metFORMIN 2017-08 Yes [id number] 1000mg Take 1 Univers 1,000 mg 2-28 tablet by ity of tablet 00:00: mouth 2 [place] 00 (two) Medical times [place] daily with meals. mupirocin 2 2017-08 Yes [id number] Apply to Univers % ointment 2-28 [id number] area(s) 3 it y of 00:00: (three) [place] times Medical daily. Branch ciclopirox 2017-08 Yes [id number] Apply to Univers 8 % 2-28 area(s) at ity of solution 00:00: bedtime. 00 Apply to Medical Nails at Branch night. On day 7 clean with alcohol pad/trim nails. empaglifloz 2017-08 Yes [id number] 10mg Take 10 mg Univers in 2-28 by mouth ity of (JARDIANCE) 00:00: daily. [place] 10 mg Tab 00 Medical Branch metFORMIN 2017-08 Yes [id number] 1000mg Take 1 Univers 1,000 mg 2-28 tablet by ity of tablet 00:00: mouth 2 (two) Medical times [place] daily with meals. mupirocin 2 2017-08 Yes [id number] Apply to Univers % ointment 2-28 [id number] area(s) 3 it y of 00:00: (three) [place] 00 times Medical daily. Branch ciclopirox 2017-08 Yes [id number] Apply to Univers 8 % 2-28 area(s) at ity of solution 00:00: bedtime. [place] 00 Apply to Medical Nails at Branch night. On day 7 clean with alcohol pad/trim nails. empaglifloz 2017-08 Yes [id number] 10mg Take 10 mg Univers in 2-28 by mouth ity of ([place]) 00:00: daily. [place] 10 mg Tab 00 Medical Branch metFORMIN 2017-08 Yes [id number] 1000mg Take 1 Univers 1,000 mg 2-28 tablet by ity of tablet 00:00: mouth 2 (two) Medical times [place] daily with meals. mupirocin 2 2017-08 Yes [id number] Apply to Univers % ointment 2-28 [id number] area(s) 3 it y of 00:00: (three) [place] 00 times Medical daily. Branch ciclopirox 2017-08 Yes [id number] Apply to Univers 8 % 2-28 area(s) at ity of solution 00:00: bedtime. 00 Apply to Medical Nails at Branch night. On day 7 clean with alcohol pad/trim nails. empaglifloz 2017-08 Yes [id number] 10mg Take 10 mg Univers in 2-28 by mouth ity of ([place]) 00:00: daily. [place] 10 mg Tab 00 Medical Branch metFORMIN 2017-08 Yes [id number] 1000mg Take 1 Univers 1,000 mg 2-28 tablet by ity of tablet 00:00: mouth 2 (two) Medical times [place] daily with meals. mupirocin 2 2017-08 Yes [id number] Apply to Univers % ointment 2-28 [id number] area(s) 3 it y of 00:00: (three) [place] 00 times Medical daily. Branch ciclopirox 2017-08 Yes [id number] Apply to Univers 8 % 2-28 area(s) at ity of solution 00:00: bedtime. [place] 00 Apply to Medical Nails at Branch night. On day 7 clean with alcohol pad/trim nails. empaglifloz 2017-08 Yes [id number] 10mg Take 10 mg Univers in 2-28 by mouth ity of ([place]) 00:00: daily. [place] 10 mg Tab 00 Medical Branch metFORMIN 2017-08 Yes [id number] 1000mg Take 1 Univers 1,000 mg 2-28 tablet by ity of tablet 00:00: mouth 2 [place] 00 (two) Medical times [place] daily with meals. mupirocin 2 2017-08 Yes [id number] Apply to Univers % ointment 2-28 [id number] area(s) 3 it y of 00:00: (three) [place] 00 times Medical daily. Branch ciclopirox 2017-08 Yes [id number] Apply to Univers 8 % 2-28 area(s) at ity of solution 00:00: bedtime. [place] 00 Apply to Medical Nails at Branch night. On day 7 clean with alcohol pad/trim nails. empaglifloz 2017-08 Yes [id number] 10mg Take 10 mg Univers in 2-28 by mouth ity of ([place]ANCE) 00:00: daily. [place] 10 mg Tab 00 Medical Branch metFORMIN 2017- Yes [id number] 1000mg Take 1 Univers 1,000 mg 2-28 tablet by ity of tablet 00:00: mouth 2 [place] 00 (two) Medical times [place] daily with meals. mupirocin 2 2017-08 Yes [id number] Apply to Univers % ointment 2-28 [id number] area(s) 3 it y of 00:00: (three) [place] 00 times Medical daily. Branch ciclopirox 2017-08 Yes [id number] Apply to Univers 8 % 2-28 area(s) at ity of solution 00:00: bedtime. [place] 00 Apply to Medical Nails at Branch night. On day 7 clean with alcohol pad/trim nails. empaglifloz 2017-08 Yes [id number] 10mg Take 10 mg Univers in 2-28 by mouth ity of ([place]ANCE) 00:00: daily. [place] 10 mg Tab 00 Medical Branch metFORMIN 2017-08 Yes [id number] 1000mg Take 1 Univers 1,000 mg 2-28 tablet by ity of tablet 00:00: mouth 2 [place] 00 (two) Medical times [place] daily with meals. mupirocin 2 2017-08 Yes [id number] Apply to Univers % ointment 2-28 [id number] area(s) 3 it y of 00:00: (three) [place] 00 times Medical daily. Branch ciclopirox 2017-08 Yes [id number] Apply to Univers 8 % 2-28 area(s) at ity of solution 00:00: bedtime. [place] 00 Apply to Medical Nails at Branch night. On day 7 clean with alcohol pad/trim nails. empaglifloz 2017-08 Yes [id number] 10mg Take 10 mg Univers in 2-28 by mouth ity of ([place] 10 [place] Tab 00 [place] metFORMIN 2017-08 Yes [id number] 1000mg Take 1 Univers 1,000 mg 2-28 tablet by ity of tablet 00:00: mouth 2 [place] 00 (two) Medical times [place] daily with meals. mupirocin 2 2017-08 Yes [id number] Apply to Univers % ointment 2-28 [id number] area(s) 3 it y of 00:00: (three) [place] 00 times Medical daily. Branch ciclopirox 2017-08 Yes [id number] Apply to Univers 8 % 2-28 area(s) at ity of solution 00:00: bedtime. [place] 00 Apply to Medical Nails at Branch night. On day 7 clean with alcohol pad/trim nails. ciclopirox 2017- Yes [id number] Apply to Univers 8 % 2-28 area(s) at ity of solution 00:00: bedtime. [place] 00 Apply to Medical Nails at Branch night. On day 7 clean with alcohol pad/trim nails. empaglifloz 2017-08 Yes [id number] 10mg Take 10 mg Univers in 2-28 by mouth ity of ([place] 00:[place] 10 [place] Tab 00 [facility] empaglifloz 2017-08 Yes [id number] 10mg Take 10 mg Univers in 2-28 by mouth ity of ([place] 00:[place] daily. [place] 10 mg Tab 00 Medical Branch metFORMIN 2017-08 Yes [id number] 1000mg Take 1 Univers 1,000 mg 2-28 tablet by ity of tablet 00:00: mouth 2 [place] 00 (two) Medical times [place] daily with meals. mupirocin 2 2017-08 Yes [id number] Apply to Univers % ointment 2-28 [id number] area(s) 3 it y of 00:00: (three) [place] 00 times Medical daily. Branch metFORMIN 2017-08 Yes [id number] 1000mg Take 1 Univers 1,000 mg 2-28 tablet by ity of tablet 00:00: mouth 2 [place] (two) Medical times [place] daily with meals. mupirocin 2 2017-08 Yes [id number] Apply to Univers % ointment 2-28 area(s) 3 ity of 00:00: (three) [place] 00 times Medical daily. Branch ciclopirox 2017-08 Yes [id number] Apply to Univers 8 % 2-28 area(s) at ity of solution 00:00: bedtime. [place] 00 Apply to Medical Nails at Branch night. On day 7 clean with alcohol pad/trim nails. empaglifloz 2017-08 Yes [id number] 10mg Take 10 mg Univers in 2-28 by mouth ity of ([place]) 00:[place] daily. [place] 10 mg Tab 00 Medical Branch metFORMIN 2017-08 Yes [id number] 1000mg Take 1 Univers 1,000 mg 2-28 tablet by ity of tablet 00:00: mouth 2 [place] 00 (two) Medical times [place] daily with meals. mupirocin 2 2017-08 Yes [id number] Apply to Univers % ointment 2-28 [id number] area(s) 3 it y of 00:00: (three) [place] 00 times Medical daily. Branch ciclopirox 2017-08 Yes [id number] Apply to Univers 8 % 2-28 area(s) at ity of solution 00:00: bedtime. [place] 00 Apply to Medical Nails at Branch night. On day 7 clean with alcohol pad/trim nails. empaglifloz 2017-08 Yes [id number] 10mg Take 10 mg Univers in 2-28 by mouth ity of ([place]) 00:00: daily. [place] 10 mg Tab 00 Medical Branch metFORMIN 2017-08 Yes [id number] 1000mg Take 1 Univers 1,000 mg 2-28 tablet by ity of tablet 00:00: mouth 2 (two) Medical times [place] daily with meals. mupirocin 2 2017-08 Yes [id number] Apply to Univers % ointment 2-28 area(s) 3 ity of 00:00: (three) [place] 00 times Medical daily. Branch ciclopirox 2017-08 Yes [id number] Apply to Univers 8 % 2-28 area(s) at ity of solution 00:00: bedtime. [place] 00 Apply to Medical Nails at Branch night. On day 7 clean with alcohol pad/trim nails. empaglifloz 2017-08 Yes [id number] 10mg Take 10 mg Univers in 2-28 by mouth ity of ([place]) 00:00: daily. [place] 10 mg Tab 00 Medical Branch metFORMIN 2017-08 Yes [id number] 1000mg Take 1 Univers 1,000 mg 2-28 tablet by ity of tablet 00:00: mouth 2 [place] (two) Medical times [place] daily with meals. mupirocin 2 2017-08 Yes [id number] Apply to Univers % ointment 2-28 [id number] area(s) 3 it y of 00:00: (three) [place] 00 times Medical daily. Branch ciclopirox 2017-08 Yes [id number] Apply to Univers 8 % 2-28 area(s) at ity of solution 00:00: bedtime. [place] 00 Apply to Medical Nails at Branch night. On day 7 clean with alcohol pad/trim nails. empaglifloz 2017-08 Yes [id number] 10mg Take 10 mg Univers in 2-28 by mouth ity of ([place]) 00:00: daily. [place] 10 mg Tab 00 Medical Branch metFORMIN 2017-08 Yes [id number] 1000mg Take 1 Univers 1,000 mg 2-28 tablet by ity of tablet 00:00: mouth 2 [place] (two) Medical times [place] daily with meals. mupirocin 2 2017-08 Yes [id number] Apply to Univers % ointment 2-28 [id number] area(s) 3 it y of 00:00: (three) [place] 00 times Medical daily. Branch ciclopirox 2017-08 Yes [id number] Apply to Univers 8 % 2-28 area(s) at ity of solution 00:00: bedtime. [place] 00 Apply to Medical Nails at Branch night. On day 7 clean with alcohol pad/trim nails. empaglifloz 2017-08 Yes [id number] 10mg Take 10 mg Univers in 2-28 by mouth ity of ([place]) 00:00: daily. [place] 10 mg Tab 00 Medical Branch metFORMIN 2017-08 Yes [id number] 1000mg Take 1 Univers 1,000 mg 2-28 tablet by ity of tablet 00:00: mouth 2 [place] 00 (two) Medical times [place] daily with meals. mupirocin 2 2017-08 Yes [id number] Apply to Univers % ointment 2-28 [id number] area(s) 3 it y of 00:00: (three) [place] 00 times Medical daily. Branch ciclopirox 2017-08 Yes [id number] Apply to Univers 8 % 2-28 area(s) at ity of solution 00:00: bedtime. [place] 00 Apply to Medical Nails at Branch night. On day 7 clean with alcohol pad/trim nails. empaglifloz 2017-08 Yes [id number] 10mg Take 10 mg Univers in 2-28 by mouth ity of ([place]) 00:00: daily. [place] 10 mg Tab 00 Medical Branch metFORMIN 2017-08 Yes [id number] 1000mg Take 1 Univers 1,000 mg 2-28 tablet by ity of tablet 00:00: mouth 2 [place] 00 (two) Medical times [place] daily with meals. mupirocin 2 2017-08 Yes [id number] Apply to Univers % ointment 2-28 [id number] area(s) 3 it y of 00:00: (three) [place] 00 times Medical daily. Branch ciclopirox 2017-08- No [id number] Apply to Univers 8 % 2-28 08-25 area(s) at ity of solution 00:00: 00:00 [place]. [place] 00 :00 Apply to Medical Nails at Branch night. On day 7 clean with alcohol pad/trim nails. empaglifloz 2017-08- No [id number] 10mg Take 10 mg Univers in 2-28 08-25 by mouth ity of ([place]) 00:00: 00:00 daily. [place] 10 mg Tab 00 :00 Medical Branch metFORMIN 2017-08- No [id number] 1000mg Take 1 Univers 1,000 mg 10-08 tablet by ity o f tablet 00:00: 00:00 mouth 2 [place] 00 :00 (two) Medical times Branch daily with meals. mupirocin 2 2017-08- No [id number] Apply to Univers % ointment 10-08 [id number] area(s) 3 i ty of 00:00: 00:00 (three) [place] 00 :00 times Medical daily. Branch ciclopirox 2017-08- No [id number] Apply to Univers 8 % 10-08 area(s) at ity of solution 00:00: 00:00 [place]. [place] 00 :00 Apply to Medical Nails at Branch night. On day 7 clean with alcohol pad/trim nails. empaglifloz 2017-08- No [id number] 10mg Take 10 mg Univers in 10-08 by mouth ity of ([place]) 00:00: 00:00 daily. [place] 10 mg Tab 00 :00 Medical Branch metFORMIN 2017-08- No [id number] 1000mg Take 1 Univers 1,000 mg 10-08 tablet by ity o f tablet 00:00: 00:00 mouth 2 [place] 00 :00 (two) Medical times Branch daily with meals. mupirocin 2 2017-08- No [id number] Apply to Univers % ointment 10-08 [id number] area(s) 3 i ty of 00:00: 00:00 (three) [place] 00 :00 times Medical daily. Branch atorvastati Yes 40mg Take 40 mg Univers n 40 mg 9-11 by mouth ity of tablet 16:02: at [place] 12 bedtime. Medical Branch aspirin Yes 81mg Take 81 mg Univ ers (ASPIRIN 9-11 by mouth ity of LOW DOSE) 16:02: daily. [place] 81 mg EC 12 Medical tablet Branch atorvastati Yes 40mg Take 40 mg Univers n 40 mg 9-11 by mouth ity of tablet 16:02: at [place] 12 bedtime. Medical Branch aspirin Yes 81mg Take 81 mg Univ ers (ASPIRIN 9-11 by mouth ity of LOW DOSE) 16:02: daily. [place] 81 mg EC 12 Medical tablet Branch atorvastati 2018-0 Yes 40mg Take 40 mg Univers n 40 mg 9-11 by mouth ity of tablet 16:02: at [place] [address] bedtime. Medical Branch aspirin 2018-0 Yes 81mg Take 81 mg Univ ers (ASPIRIN 9-11 by mouth ity of LOW DOSE) 16:02: daily. [place] 81 mg EC 12 Medical tablet Branch atorvastati 0 Yes 40mg Take 40 mg Univers n 40 mg 9-11 by mouth ity of tablet 16:02: at [place] [address] bedtime. Medical Branch aspirin 2018-0 Yes 81mg Take 81 mg Univ ers (ASPIRIN 9-11 by mouth ity of LOW DOSE) 16:02: daily. [place] 81 mg EC 12 Medical tablet Branch atorvastati 0 Yes 40mg Take 40 mg Univers n 40 mg 9-11 by mouth ity of tablet 16:02: at [place] [address] bedtime. Medical Branch aspirin 2018-0 Yes 81mg Take 81 mg Univ ers (ASPIRIN 9-11 by mouth ity of LOW DOSE) 16:02: daily. [place] 81 mg EC 12 Medical tablet Branch atorvastati 0 Yes 40mg Take 40 mg Univers n 40 mg 9-11 by mouth ity of tablet 16:02: at [place] [address] bedtime. Medical Branch aspirin 2018-0 Yes 81mg Take 81 mg Univ ers (ASPIRIN 9-11 by mouth ity of LOW DOSE) 16:02: daily. [place] 81 mg EC 12 Medical tablet Branch atorvastati 0 Yes 40mg Take 40 mg Univers n 40 mg 9-11 by mouth ity of tablet 16:02: at [place] [address] bedtime. Medical Branch aspirin 2018-0 Yes 81mg Take 81 mg Univ ers (ASPIRIN 9-11 by mouth ity of LOW DOSE) 16:02: daily. [place] 81 mg EC 12 Medical tablet Branch atorvastati 2017-0 Yes 40mg Take 40 mg Univers n 40 mg 9-11 by mouth ity of tablet 16:02: at [place] [address] bedtime. Medical Branch aspirin 2018-0 Yes 81mg Take 81 mg Univ ers (ASPIRIN 9-11 by mouth ity of LOW DOSE) 16:02: daily. [place] 81 mg EC 12 Medical tablet Branch atorvastati 0 Yes 40mg Take 40 mg Univers n 40 mg 9-11 by mouth ity of tablet 16:02: at [place] 12 bedtime. Medical Branch aspirin 2018-0 Yes 81mg Take 81 mg Univ ers (ASPIRIN 9-11 by mouth ity of LOW DOSE) 16:02: daily. [place] 81 mg EC 12 Medical [facility] Branch metoprolol 2016-08 Yes 50mg Take 1 [...] 00:00: mouth [place] hr tablet 00 daily. [facility] Branch metoprolol 2016-08 Yes 50mg Take 1 Unive rs succinate 2-28 tablet by ity o f XL 50 mg 24 00:00: mouth [place] hr tablet 00 daily. [facility] Branch metoprolol 2016-08 Yes 50mg Take 1 Unive rs succinate 2-28 tablet by ity o f XL 50 mg 24 00:00: mouth [place] hr tablet 00 daily. [facility] Branch metoprolol 2016-08 Yes 50mg Take 1 Unive rs succinate 2-28 tablet by ity o f XL 50 mg 24 00:00: mouth [place] hr tablet 00 daily. [facility] Branch metoprolol 2016-08 Yes 50mg Take 1 Unive rs succinate 2-28 tablet by ity o f XL 50 mg 24 00:00: mouth [place] hr tablet 00 daily. [facility] metoprolol 2016-08 Yes 50mg Take 1 Unive rs succinate 2-28 tablet by ity o f XL 50 mg 24 00:00: mouth [place] hr tablet 00 daily. [facility] metoprolol 2016-08- No 50mg Take 1 Univ ers succinate 2-28 08-25 tablet by ity of XL 50 mg 24 00:00: 00:00 [place] hr tablet 00 :00 daily. [facility] metoprolol 2016-08- No 50mg Take 1 Univ ers succinate 2-28 08-25 tablet by ity of XL 50 mg 24 00:00: 00:00 mouth [place] hr tablet 00 :00 daily. [facility] Immunizations Ordered Filled Date Status Comments Source Immunization Name Immunization Name TDAP 2023-04-04 Completed University 00:00:00 [facility] TDAP 2023-04-04 Completed University of 00:00:00 [facility] TDAP 2023-04-04 Completed University 00:00:00 [facility] SARS-COV-2 COVID-19 2020-10-28 Completed Unive rsity of PFIZER VACCINE 00:00:00 [facility] SARS-COV-2 COVID-19 2020-10-28 Completed Unive rsity of PFIZER VACCINE 00:00:00 [facility] SARS-COV-2 COVID-19 2020-10-28 Completed Unive rsity of PFIZER VACCINE 00:00:00 [facility] SARS-COV-2 COVID-19 2020-10-28 Completed Unive rsity of PFIZER VACCINE 00:00:00 [facility] Branch SARS-COV-2 COVID-19 2020-10-28 Completed Unive rsity of PFIZER VACCINE 00:00:00 [facility] Branch SARS-COV-2 COVID-19 2020-10-28 Completed Unive rsity of PFIZER VACCINE 00:00:00 [facility] Branch SARS-COV-2 COVID-19 2020-10-28 Completed Unive rsity of PFIZER VACCINE 00:00:00 [facility] Branch SARS-COV-2 COVID-19 2020-10-28 Completed Unive rsity of PFIZER VACCINE 00:00:00 [facility] Branch SARS-COV-2 COVID-19 2020-10-28 Completed Unive rsity of PFIZER VACCINE 00:00:00 [facility] Branch SARS-COV-2 COVID-19 2020-10-28 Completed Unive rsity of PFIZER VACCINE 00:00:00 [facility] Branch SARS-COV-2 COVID-19 2020-10-28 Completed Unive rsity of PFIZER VACCINE 00:00:00 [facility] Branch SARS-COV-2 COVID-19 2020-10-07 Completed Unive rsity of PFIZER VACCINE 00:00:00 [facility] Branch SARS-COV-2 COVID-19 2020-10-07 Completed Unive rsity of PFIZER VACCINE 00:00:00 [facility] Branch SARS-COV-2 COVID-19 2020-10-07 Completed Unive rsity of PFIZER VACCINE 00:00:00 [facility] Branch SARS-COV-2 COVID-19 2020-10-07 Completed Unive rsity of PFIZER VACCINE 00:00:00 [facility] Branch SARS-COV-2 COVID-19 2020-10-07 Completed Unive rsity of PFIZER VACCINE 00:00:00 [facility] Branch SARS-COV-2 COVID-19 2020-10-07 Completed Unive rsity of PFIZER VACCINE 00:00:00 [facility] Branch SARS-COV-2 COVID-19 2020-10-07 Completed Unive rsity of PFIZER VACCINE 00:00:00 [facility] SARS-COV-2 COVID-19 2020-10-07 Completed Unive rsity of PFIZER VACCINE 00:00:00 [facility] SARS-COV-2 COVID-19 2020-10-07 Completed Unive rsity of PFIZER VACCINE 00:00:00 [facility] SARS-COV-2 COVID-19 2020-10-07 Completed Unive rsity of PFIZER VACCINE 00:00:00 [facility] SARS-COV-2 COVID-19 2020-10-07 Completed Unive rsity of PFIZER VACCINE 00:00:00 [facility] SARS-COV-2 COVID-19 Unknown Completed Unive rsity of PFIZER VACCINE [facility] SARS-COV-2 COVID-19 Unknown Completed Unive rsity of PFIZER VACCINE [facility] TDAP Unknown Completed [facility] Vital Signs Vital Name Observation Time Observation Value Comments Source Systolic blood 2023-04-04 17:33:00 151 mm[Hg] Univer sity of pressure [facility] Diastolic blood 2023-04-04 17:33:00 104 mm[Hg] Unive rsity of [facility] Heart rate 2023-04-04 17:27:00 93 /min [facility] Body temperature 2023-04-04 17:27:00 36.89 [place] [facility] height 2023-04-04 17:27:00 162.6 cm [facility] Body weight 2023-04-04 17:27:00 79.833 kg [facility] BMI 2023-04-04 17:27:00 30.21 kg/m2 [facility] Oxygen saturation in 2023-04-04 17:27:00 97 /min [facility] Arterial blood by [facility] Pulse oximetry Branch Systolic blood 2023-02-20 21:00:00 138 mm[Hg] Univer sity of pressure [facility] Diastolic blood 2023-02-20 21:00:00 85 mm[Hg] Unive rsity of pressure [facility] Heart rate 2023-02-20 21:00:00 82 /min [facility] Body temperature 2023-02-20 21:00:00 36.78 Karon [facility] ersity of [facility] Respiratory rate 2023-02-20 21:00:00 20 /min [facility] Oxygen saturation in 2023-02-20 21:00:00 100 /min University of Arterial blood by [facility] daniela Pulse oximetry Branch Body height 2023-02-20 17:35:00 162.6 cm Universi ty of [place] [facility] Body weight 2023-02-20 17:35:00 74.844 kg Universi ty of [place] [facility] BMI 2023-02-20 17:35:00 28.32 kg/m2 Universi ty of [place] [facility] Systolic blood 2022-05-13 17:00:00 160 mm[Hg] Univer sity of pressure [place] [facility] Diastolic blood 2022-05-13 17:00:00 117 mm[Hg] Unive rsity of pressure [place] [facility] Heart rate 2022-05-13 17:00:00 98 /min Universi ty of [place] [facility] Respiratory rate 2022-05-13 17:00:00 15 /min Univ ersity of [place] [facility] Oxygen saturation in 2022-05-13 17:00:00 96 /min University of Arterial blood by [facility] Pulse oximetry Branch Body temperature 2022-05-13 12:23:00 36.89 Karon Univ ersity of [place] [facility] Body height 2022-05-13 12:23:00 162.6 cm Universi ty of [place] [facility] Body weight 2022-05-13 12:23:00 79.379 kg Universi ty of [place] [facility] BMI 2022-05-13 12:23:00 30.04 kg/m2 Universi ty of [place] [facility] Systolic blood 2021-02-06 15:32:00 128 mm[Hg] Univer sity of pressure [place] [facility] Diastolic blood 2021-02-06 15:32:00 79 mm[Hg] Unive rsity of pressure [place] [facility] Heart rate 2021-02-06 15:32:00 75 /min Universi ty of [place] [facility] Body temperature 2021-02-06 15:32:00 36.89 Karon Univ ersity of [place] [facility] Body height 2021-02-06 15:32:00 162.6 cm Universi ty of [place] [facility] Body weight 2021-02-06 15:32:00 84.823 kg Universi ty of [place] [facility] BMI 2021-02-06 15:32:00 32.10 kg/m2 Universi ty of [place] [facility] Systolic blood 2020-08-25 20:10:00 181 mm[Hg] Univer sity of pressure [facility] Diastolic blood 2020-08-25 20:10:00 115 mm[Hg] Unive rsity of [facility] Heart rate 2020-08-25 20:06:00 96 /min Universi ty of [facility] Body temperature 2020-08-25 20:06:00 37.17 Karon [facility] Body height 2020-08-25 20:06:00 162.6 cm Universi ty of [facility] Body weight 2020-08-25 20:06:00 88.905 kg Universi ty of [facility] BMI 2020-08-25 20:06:00 33.64 kg/m2 Universi ty [facility] Oxygen saturation in 2020-08-25 20:06:00 97 /min University of Arterial blood by [facility] Pulse oximetry Branch Systolic blood 2020-08-25 20:10:00 181 mm[Hg] Univer sity of [facility] Diastolic blood 2020-08-25 20:10:00 115 mm[Hg] Unive rsity of [facility] Heart rate 2020-08-25 20:06:00 96 /min Universi ty of [facility] Body temperature 2020-08-25 20:06:00 37.17 Karon [facility] Body height 2020-08-25 20:06:00 162.6 cm Universi ty of [facility] Body weight 2020-08-25 20:06:00 88.905 kg Universi ty of [facility] BMI 2020-08-25 20:06:00 33.64 kg/m2 Universi ty [facility] Oxygen saturation in 2020-08-25 20:06:00 97 /min University of Arterial blood by [facility] Pulse oximetry Branch Procedures Procedure Date / Time Performing Clinician Source Performed TDAP VACCINE, >11 YRS, 2023-04-04 18:04:36 Michelle Vazquez [facility] ASSIGNMENT OF BENEFITS 2023-04-04 15:13:26 Doctor Unassigned, No [facility] Branch XR CHEST 1 VW 2023-02-20 19:29:00 Deric Lacey [facility] XR SKULL <4 VW 2023-02-20 19:29:00 Deric Lacey [facility] XR STERNUM PA AND 2023-02-20 19:29:00 Deric Lacey [facility] LATERAL [facility] XR LUMBAR SPINE 2 VW 2023-02-20 19:29:00 Deric [facility] SPINE THORACIC 2 VW 2023-02-20 19:29:00 Deric Lacey [facility] XR CERVICAL SPINE 3 VW 2023-02-20 19:29:00 Deric Lacey [facility] XR SHOULDER 2+ VW 2023-02-20 19:29:00 Deric Lacey [facility] BILATERAL [facility] ASSIGNMENT OF BENEFITS 2023-02-20 19:28:19 Doctor Unassigned, No [facility] CONSENT/REFUSAL FOR 2023-02-20 17:24:33 Doctor Unassigned, No [facility] DIAGNOSIS AND TREATMENT [facility] EKG-12 LEAD 2022-05-13 17:12:42 Reid Maurer [facility] PROTHROMBIN TIME / INR 2022-05-13 14:18:00 Reid Maurer [facility] ACTIVATED PARTIAL 2022-05-13 14:18:00 Reid [facility]urer [facility]ST 2 VW 2022-05-13 13:22:37 Reid Maurer [facility] TROPONIN I 2022-05-13 12:36:00 Reid Maurer [facility] COMP. METABOLIC PANEL 2022-05-13 12:36:00 Reid Maurer [facility] ([id number]) [facility] CBC WITH DIFF 2022-05-13 12:36:00 Reid Maurer [facility] RAPID INFLUENZA A/B 2022-05-13 12:36:00 Reid Maurer [facility] N-TERMINAL PRO-BNP 2022-05-13 12:36:00 Reid Maurer [facility] COVID-19 (ID NOW RAPID 2022-05-13 12:36:00 Reid Maurer [facility] TESTING) [facility] CONSENT/REFUSAL FOR 2022-05-13 12:15:35 Doctor Unassigned, No [facility] DIAGNOSIS AND TREATMENT Name Medical [place] ASSIGNMENT OF BENEFITS 2020-06-21 15:09:24 Doctor Unassigned, No [facility] Name Medical Branch REFERRAL- 2020-03-03 05:01:00 Doctor Unassigned, No [facility] REQUEST/RESPONSE Name Medical [place] Encounters Start End Encounter Admission Attending Care Care Encounter Source Date/Time Date/Time Type Type Clinicians Facility Department ID 2023-05-09 2023-05-09 [facility] [id number] Univers 00:00:00 00:00:00 Michelle A HEALTH [id number] i ty of [place] [id number] [place] as TRISTAN?BLEA [id number] [facility] 044 [place] MEDICAL OFFICE [facility] 2023-04-10 2023-04-10 [facility] [id number] Univers 00:00:00 00:00:00 Michelle A HEALTH [id number] i ty of [place] [id number] [place] as TRISTAN?BLEA [id number] [facility] 044 [place] MEDICAL OFFICE [facility] 2023-04-04 2023-04-04 Card [facility], Ang - Db [facility] [id number] Univers 13:15:00 13:22:39 Visit Michelle Vazquez HEALTH [id number] [facility] [id number] [place] TRISTAN?BLEA [id number] [facility] 353 [place] MEDICAL OFFICE [facility] 2023-04-04 2023-04-04 Outpatient R TAYLOR [facility] [id number] Univers 12:30:00 13:07:07 MICHELLE ity of [facility] 2023-04-04 2023-04-04 Office [facility] [id number] Univers 12:30:00 13:07:07 Visit Michelle Alcantara HEALTH [id number] i ty of [place] [id number] [place] TRISTAN?BLEA [id number] Sc dical ANNA 044 [place] MEDICAL OFFICE BUILDING 2023-04-04 2023-04-04 Orders Doctor BROOKS [id number] Univers 00:00:00 00:00:00 Only Unassigned, NURYS [id number] ity of [place] [facility] [id number] [place] [id number] [address] 2023-02-20 2023-02-20 Emergency X [facility] ERT [id number] Univers 12:36:00 16:34:00 DERIC farnaz [facility] 2023-02-20 2023-02-20 Emergency [facility] [id number] Univers 12:36:00 16:34:00 Deric HOGAN 350.1.13.10 ity of [place] 4[place]2.7.2.[place] [id number] [address] 2022-05-13 2022-05-15 Inpatient UR Escalera, [facility] INTE [id number] [facility] 13:36:00 19:42:00 Emmett 82 [facility] 2022-05-13 2022-05-13 Emergency X [facility] ERT [id number] Univers 07:20:00 14:02:00 REID fisher [facility] 2022-05-13 2022-05-13 Emergency [facility] [id number] Univers 07:20:00 14:02:00 Reid HOGAN [id number] [place]y [place] [id number] [address] 2021-12-24 2021-12-24 Roseann Lee [facility] 1.2.840.114 [id number] Univers 00:00:00 00:00:00 Kanika HOGAN 350.1.13.10 i ty of [place] [phone] [address] 2021-10-03 2021-10-03 Telephone BROOKS Yee [id number] Univers 00:00:00 00:00:00 Susan Alcantara NURYS 350.1.13.10 i [facility] 4.2.7.2.686 [place] as [phone] [address] 2021-09-24 2021-09-25 Inpatient ABRAHAM GagnonWU TELE [id number] [facility] 08:08:00 11:25:00 Reid 40 [facility] 2021-03-08 2021-03-08 Outpatient [facility] [id number] Univers 09:00:00 09:00:00 KANIKA [facility] 2021-02-06 2021-02-06 Outpatient H[facility] [id number] Univers 10:45:00 10:45:00 [facility] 2021-02-06 2021-02-06 [facility] 1.2.840.114 [id number] Univers 10:24:24 10:39:24 Visit [facility] 350.1.13.10 it y of [place] 4.2.7.2.686 [place] Professio [phone] [address] One 2020-10-28 2020-10-28 Outpatient [facility] [id number] Univers 12:40:00 12:40:00 [facility] 2020-10-07 2020-10-07 Outpatient [facility] [id number] Univers 13:45:00 13:45:00 [facility] 2020-08-25 2020-08-25 Urgent Provider, [facility] [id number] 13:49:03 14:28:29 Care [facility] 350.1.13.10 Care Samira 4.2.7.2.686 Professio [phone] [place] [address] Office [facility] One 2020-08-25 2020-08-25 Urgent Provider, [facility] 1.2.840.114 [id number] Univers 13:49:03 14:28:29 Care AneStacey marie Health 350.1.13.10 ity of [place] 4.2.7.2.686 [place] Professio [phone] [address] Office Building One 2020-08-25 2020-08-25 Outpatient R [facility] [id number] Univers 14:00:00 14:00:00 ity of [facility] 2020-06-29 2020-06-29 Laboratory Lab, [facility] I [facility] 1.2. 840.114 [id number] Univers 09:59:06 10:19:06 Only Michelle V[facility] 350.1.13.10 ity of [place] 4.2.7.2.686 [place] Professio [phone] [address] Office Building One 2020-06-29 2020-06-29 Laboratory Lab, [facility] 1.2.840.114 [id number] 09:59:06 10:19:06 Only Bal Carrb I Health 350.1.13.10 [place] 4.2.7.2.686 Professio [phone] [place] [address] Office [facility] One 2020-06-29 2020-06-29 Outpatient R TAYLOR, [facility] [id number] Univers 10:00:00 10:00:00 MICHELLE itfarnaz [facility] 2020-06-29 2020-06-29 Letter Doctor GUY 1.2.840.114 [id number] Univers 00:00:00 00:00:00 (Out) Unassigned, NURYS 350.1.13.10 ity of [place] [facility] 4.2.7.2.686 [place] as [phone] [address] 2020-06-29 2020-06-29 Letter Doctor GUY 1.2.840.114 [id number] 00:00:00 00:00:00 (Out) Unassigned, NURYS 350.1.13.10 [place] [facility] 4.2.7.2.686 [phone] [facility] 2020-06-21 2020-06-21 Laboratory Only, [facility] 1.2.840. 114 [id number] Univers 09:06:45 09:21:45 Only Reji Panda 350.1.13.10 it[place] [phone] [address] 2020-06-21 2020-06-21 Laboratory Only, [facility] 1.2.840.114 [id number] 09:06:45 09:21:45 Only Test [place] 350.1.13.10 [place] 4.2.7.2.686 [place] [phone] [id number] 2020-06-21 2020-06-21 Outpatient R [facility] [id number] Univers 09:15:00 09:15:00 ity of [facility] 2020-06-21 2020-06-21 Orders Doctor BROOKS 1.2.840.114 [id number] [facility] 00:00:00 00:00:00 Only Unassigned, NURYS 350.1.13.10 ity of [place] [facility] 4.2.7.2.686 [place] as [phone] [address] 2020-03-06 2020-03-06 [facility] 1.2.840.114 [id number] [facility] 00:00:00 00:00:00 Kanika Hogan 350.1.13.10 i ty of [place].2.[address] [place] [facility] [phone] [address] 2020-03-03 2020-03-03 Orders Doctor BROOKS 1.2.840.114 [id number] Univers 00:00:00 00:00:00 Only Unassigned, NURYS 350.1.13.10 ity of [place] [facility] 4.2.7.2.686 [place] as [phone] [address] 2018-08-20 2018-08-20 [facility] [id number] Univers 08:30:00 08:30:00 BROOKS fisher [facility] Results Test Description Test Time Test Comments Results Result Comments Source GLUCOSE BEDSIDE TESTING 2022-05-15 12:23:00 Test Item Value Reference Range Interpretation Comme nts GLUCOSE BEDSIDE TESTING (test code = GLUBED) 223 MG/DL 60-99 H GLUCOSE BEDSIDE [id number] 07:07:00 Test Item Value Reference Range Interpretation Comments GLUCOSE BEDSIDE TESTING (test code 187 MG/DL 60-99 H = GLUBED) BASIC METABOLIC [id number] 05:42:00 Test Item Value Reference Range Interpretation [...] code = 10.0 MG/DL 8.4-10.2 N CA) [id number] 05:42:00 Test Item Value Reference Range Interpretation Comments MAGNESIUM (test code = MAG) 2.0 MG/DL 1.6-2.3 N GLUCOSE BEDSIDE [id number] 19:04:00 Test Item Value Reference Range Interpretation Comments GLUCOSE BEDSIDE TESTING (test code 286 MG/DL 60-99 H = GLUBED) GLUCOSE BEDSIDE [id number] 17:13:00 Test Item Value Reference Range Interpretation Comments GLUCOSE BEDSIDE TESTING (test code 162 MG/DL 60-99 H = GLUBED) GLUCOSE BEDSIDE [id number] 15:12:00 Test Item Value Reference Range Interpretation Comments GLUCOSE BEDSIDE TESTING (test code = 80 MG/DL 60-99 N GLUBED) GLUCOSE BEDSIDE [id number] 11:21:00 Test Item Value Reference Range Interpretation Comments GLUCOSE BEDSIDE TESTING (test code 262 MG/DL 60-99 H = GLUBED) GLUCOSE BEDSIDE [id number] 09:03:00 Test Item Value Reference Range Interpretation Comments GLUCOSE BEDSIDE TESTING (test code 336 MG/DL 60-99 HH = GLUBED) COMPREHENSIVE METABOLIC [id number] 05:29:00 Test Item Value Reference Range Interpretation [...] anemia ) with specific assays on the [employer] of which Total Protein is one [...] 38-126 N PHOSPHATASE (test code = ALKP) [id number] 05:29:00 Test Item Value Reference Range Interpretation Comments TROPONIN-I (test code = TROPI) 0.042 NG/ML 0.012-0.033 H GLYCOSYLATED HEMOGLOBIN [id number] 05:17:00 Test Item Value Reference Range Interpretation [...] H (test code = MBG) CBC W/AUTO [id number] 05:04:00 Test Item Value Reference Range Interpretation [...] code = 0.00 K/mm3 0.0-0.1 N NRBC#) [id number] 23:00:00 Test Item Value Reference Range Interpretation Comments TROPONIN-I (test code = TROPI) 0.042 NG/ML 0.012-0.033 H GLUCOSE BEDSIDE [id number] 22:05:00 Test Item Value Reference Range Interpretation Comments GLUCOSE BEDSIDE TESTING (test code 243 MG/DL 60-99 H = GLUBED) BASIC METABOLIC [id number] 18:14:00 Test Item Value Reference Range Interpretation [...] code = 8.8 MG/DL 8.4-10.2 N CA) [id number] 18:14:00 Test Item Value Reference Range Interpretation Comments MAGNESIUM (test code = MAG) 1.7 MG/DL 1.6-2.3 N NT PRO-BRAIN NATRIURETIC [id number] 18:14:00 Test Item Value Reference Range Interpretation Comments NT PRO-BRAIN NATRIURETIC PEPTI 875.0 pg/mL 0-125 H (test code = PROBNP) [id number] 18:14:00 Test Item Value Reference Range Interpretation Comments TROPONIN-I (test code = TROPI) 0.039 NG/ML 0.012-0.033 H GLUCOSE BEDSIDE [id number] 15:14:00 Test Item Value Reference Range Interpretation Comments GLUCOSE BEDSIDE TESTING (test code 194 MG/DL 60-99 H = GLUBED) N-TERMINAL [id number] 14:06:02 Test Item Value Reference Range Interpretation Comments NT-proBNP (test code 900 pg/mL See_Comment H [Autom ated = 6577143258) message] The system which generated this result transmitted reference range : <=125. The reference range was not used to interpret this result as normal/abnormal . LILLIAN (test code = LILLIAN) Biotin has been reported to cause a negative bias, interpret results relative to patient's use of biotin. Lab Interpretation Abnormal (test code = 24897-6) [id number] 13:29:24 Test Item Value Reference Interpretation Comments Range TROPONIN I (test 0.047 ng/mL See_Comment H [Automated code = 7495712359) message] The system which generated this result [...] biotin. Lab Interpretation Abnormal (test code = 94176-6) [facility]. METABOLIC PANEL (83579)2022-05-13 13:24:24 Test Item Value Reference Range Interpretation Comments NA (test code = 135 mmol/L 135-145 2227918893) K (test code = 4.7 mmol/L 3.5-5 6398065689) CL (test code = 100 mmol/L 98-108 4136196038) CO2 TOTAL (test code = 25 mmol/L 23-31 6022254972) AGAP (test code = 2-16 5040168067) BUN (test code = 21 mg/dL 7-23 3436313129) GLUCOSE (test code = 284 mg/dL 70-110 H 1426995383) CREATININE (test code = 0.89 mg/dL 0.6-1.25 9089899046) TOTAL BILI (test code = 0.8 mg/dL 0.1-1.9 8526567024) CALCIUM (test code = 8.9 mg/dL 8.6-10.6 6188844978) T PROTEIN (test code = 6.9 g/dL 6.3-8.2 5878057822) ALBUMIN (test code = 4.2 g/dL 3.5-5 8846525368) ALK PHOS (test code = 131 U/L 34-122 H 8151928062) ALTv (test code = 65 U/L 5-50 H 1742-6) AST(SGOT) (test code = 43 U/L 13-40 H 1071043490) eGFR (test code = mL/min/1.73m2 0773385328) LILLIAN (test code = LILLIAN) Association of [...] tests). Lab Interpretation Abnormal (test code = 88738-5) [facility] WITH [id number] 12:58:44 Test Item Value Reference Range Interpretation Comments WBC (test code = See_Comment [Automated message] 6690-2) The system [employer] generated this result transmitted ref erence range: 4.20 - 1 0.70 10*3/?L. The re ference range was not u sed to interpret this result as normal/abnor mal. RBC (test code = See_Comment [Automated message] 789-8) The system [employer] generated this result transmitted ref erence range: [...] RDW-SD (test code 39.0 fL 38.5-51.6 = 56321-0) RDW-CV (test code 12.3 % 12.1-15.4 = 788-0) PLT (test code = See_Comment [Automated message] 777-3) The system whic h generated this result transmitted ref erence range: 150 - 32 8 10*3/?L. The re ference range was not u sed to interpret this result as normal/abnor mal. MPV (test code = 10.3 fL 9.8-13 90810-7) NRBC/100 WBC (test See_Comment [Automat ed message] code = 4557027558) The syste m which generated this result transmitted ref erence range: 0.0 - 10 .0 /100 WBCs. The refer ence range was not u sed to interpret this result as normal/abnor mal. NRBC x10^3 (test See_Comment [Automated message] code = 5904786768) The syste m which generated this result transmitted ref erence range: 10*3/?L. The reference range was not used to interpr et this result as normal/abnormal . GRAN MAT (NEUT) % 77.0 % (test code = 770-8) IMM GRAN % (test 0.20 % code = 2117275056) LYMPH % (test code 14.8 % = 736-9) MONO % (test code 5.3 % = 5905-5) EOS % (test code = 1.6 % 713-8) BASO % (test code 1.1 % = 706-2) GRAN MAT 6.36 10*3/uL 1.99-6.95 x10^3(ANC) (test code = 9908110436) IMM GRAN x10^3 0-0.06 (test code = 1921007724) LYMPH x10^3 (test 1.22 10*3/uL 1.09-3.23 code = 731-0) MONO x10^3 (test 0.44 10*3/uL 0.36-1.02 code = 742-7) EOS x10^3 (test 0.13 10*3/uL 0.06-0.53 code = 711-2) BASO x10^3 (test 0.09 10*3/uL 0.01-0.09 code = 704-7) [facility] [id number] 07:21:00 Test Item Value Reference Range Interpretation Comments GLUCOSE BEDSIDE TESTING (test code 271 MG/DL 60-99 H = GLUBED) BASIC METABOLIC [id number] 06:36:00 Test Item Value Reference Range Interpretation [...] 9.2 MG/DL 8.4-10.2 N CA) CBC W/AUTO [id number] 05:51:00 Test Item Value Reference Range Interpretation [...] 0.00 K/mm3 0.0-0.1 N NRBC#) GLUCOSE BEDSIDE [id number] 20:19:00 Test Item Value Reference Range Interpretation Comments GLUCOSE BEDSIDE TESTING (test code 311 MG/DL 60-99 HH = GLUBED) GLUCOSE BEDSIDE [id number] 15:43:00 Test Item Value Reference Range Interpretation Comments GLUCOSE BEDSIDE TESTING (test code 268 MG/DL 60-99 H = GLUBED) - XR CHEST [id number] 13:54:00 [facility] 1960 Sex: M Patient Name: WALTER WELCH Unit No: [id number] EXAMS: CPT CODE: [id number] XR CHEST 1V 96944 B2 EXAM: - XR CHEST 1V DATE: 09/24/2021 1:06 PM HISTORY: S/P ICD COMPARISON: Chest x-ray 06/25/2011 FINDINGS: No airspace consolidation or pleural effusions. No pneumothorax. The cardiovascular silhouette is within normallimits. No bony lesions. Left-sided pacemaker in place with intact leads. IMPRESSION: No acute cardiopulmonary abnormality. at 1354 Reported and signed by: Wolfgang Giang MD CC: Reid Hollins Technologist: Sammie Lanza, RT (R) Transcrpt Date/Tm/Trnsp: 09/24/2021 (1184) tVERA Orig Print D/T: S: 09/24/2021 (7019) [facility] NAME: WALTER WELCH [address] [address] PHYS: [place] [address] : 1960 AGE: 61 SEX: M LOC: Z.DC5 A PHONE #: [phone] EXAM DATE: 09/24/2021 STATUS: ADM IN FAX #: [phone] RADIOLOGY NO: PAGE 1 Signed ReportCBC W/AUTO [id number] 09:06:00 Test Item Value Reference Range Interpretation [...] = 0.00 K/mm3 0.0-0.1 N NRBC#) PROTHROMBIN [id number] 08:59:00 Test Item Value Reference Range Interpretation [...] va lve, or acute myocar dial infarction. 2. 0 - 3.0 3. Finishing Department Supervisor al prosthesis hear t valves, recurre nt systemic emboli sm. 3.0 - 4.5 PTT [id number] 08:59:00 Test Item Value Reference Range Interpretation Comments PTT ACTIVATED (test code = APTT) 38.9 SECONDS 25.1-36.5 H BASIC METABOLIC [id number] 08:59:00 Test Item Value Reference Range Interpretation [...] code = 10.0 MG/DL 8.4-10.2 N CA) [id number] 08:59:00 Test Item Value Reference Range Interpretation Comments MAGNESIUM (test code = MAG) 1.8 MG/DL 1.6-2.3 N COVID 19 Asymptomatic IH [id number] 06:59:00 Test Item Value Reference Range Interpretation [...] virus (antigen) in the sample." Spec Comments: [id number] 11:36:00 Test Item Value Reference Range Interpretation Comments MAGNESIUM (test code = MAG) 1.9 MG/DL 1.6-2.3 N BASIC METABOLIC [id number] 11:36:00 Test Item Value Reference Range Interpretation [...] = 9.5 MG/DL 8.4-10.2 N CA) PROTHROMBIN [id number] 11:21:00 Test Item Value Reference Range Interpretation [...] myocar dial infarction. 2.0 - 3.0 3. Finishing Department Supervisor al prosthesis hear t valves, recurre nt systemic emboli sm. 3.0 - 4.5 PTT [id number] 11:21:00 Test Item Value Reference Range Interpretation Comments PTT ACTIVATED (test code = APTT) 29.4 SECONDS 22.0-33.0 N CBC W/AUTO [id number] 11:07:00 Test Item Value Reference Range Interpretation [...]
[2023-05-17 18:51] LABS: Hematocrit 38.1 % (39.6-49.0); Lymphocytes % 13.9 % (15.3-44.8); MCV 88.6 fL (80-100); MPV 8.1 fL (7.6-11.3); Platelets 256 thou/uL (152-406)
[2023-05-17 18:57] LABS: Protime INR 1.14
[2023-05-17] MEDS ORDERED: ONDANSETRON 4 MG/2 ML VIAL ONE (18:59)
[2023-05-17] MEDS ORDERED: ASPIRIN 81 MG CHEWABLE TABLET ONE (18:59)
[2023-05-17] MEDS ORDERED: MORPHINE 4 MG/ML SYR ONE (18:59)
[2023-05-17 19:10] LABS: ALT/SGPT 56 U/L (16-61); AST/SGOT 24 U/L (15-37); Albumin 3.1 g/dL (3.4-5.0); Alkaline Phosphatase 111 U/L (45-117); BUN Blood Urea Nitrogen 23 mg/dL (7-18); Bicarbonate 26 mEq/L (21-32); Bilirubin Total 0.3 mg/dL (0.2-1.0); Glomerular Filtration Rate 81 ml/min (=/>90); Glucose Level 294 mg/dL (74-106); Magnesium 1.9 mg/dL (1.6-2.4); NT PRO-BNP 1078 pg/mL (<125); Potassium 4.9 mEq/L (3.5-5.1); Protein, Total 6.4 g/dL (6.4-8.2); Sodium Level 138 mEq/L (136-145); Troponin High Sensitivity 52.6 pg/mL (<58.9)
[2023-05-17 19:18] LABS: Bilirubin Direct < 0.1 mg/dL (0-0.2); Bilirubin Indirect, Calculated ND mg/dL (0.2-0.8)
--- NOTE | 2023-05-17 19:24 | RAD REPORT ---
EXAM DESCRIPTION: RAD - Chest Single View - 05/17/2023 7:16 pm CLINICAL HISTORY: Chest pain;SOB Chest pain. COMPARISON: Chest Single View dated 05/10/2023; Chest Single View dated 12/16/2022; Chest Single View d ated 10/19/2022; CHEST SINGLE VIEW dated 01/11/2014 FINDINGS: Portable technique limits examination quality. The lungs are grossly clear. The heart is mildly enlarged in size. No displaced fractures.Multi lead pacer/defibrillator device is present. IMPRESSION: No acute intrathoracic process suspected.
[2023-05-17] MEDS ORDERED: NITROGLYCERIN 0.4 MG/TAB SL ONE (20:12)
--- NOTE | 2023-05-17 21:46 | EDPHYS ---
Physician Documentation [facility] Name: Nicholas Ruiz Jr Age: 62 yrs Sex: Male : 1960 Arrival Date: 05/17/2023 Time: 18:20 Bed 7 Private MD: ED Physician Juan A Harper HPI: 05/17 18:40 This 62 yrs old Male presents to ER via Ambulatory with complaints of Chest sb4 Pain, Breathing Difficulty. 18:48 Onset: The symptoms/episode began/occurred 6 day(s) ago. Associated signs and symptoms: sb4 Pertinent positives: chest pain, shortness of breath, Pertinent negatives: vomiting. Modifying factors: The patient symptoms are alleviated by nothing, the patient symptoms are aggravated by exertion. The patient has experienced similar episodes in the past. The patient has been recently seen at the [facility] Emergency Department. Patient was seen here 6 days ago for chest pain and diagnosed with an NSTEMI but left AMA because he states that he had family issues to deal with. He states that since then, he has had continual chest pain. His abrasive mixer had previously prescribed him nitro but he states that he lost the pills. He endorses shortness of breath that is associated with the chest pain. He denies any radiating pain, nausea, vomiting, diaphoresis. He has not had his blood pressure medicine in a few months. Historical: - Allergies: 18:30 No Known Allergies; hb - PMHx: 18:30 Diabetes - NIDDM; High Cholesterol; Atrial Fib; Hypertension; hb - PSHx: 18:30 pacemaker; hb - Immunization history:: Adult Immunizations up to date. - Social history:: Smoking status: . ROS: 18:48 Constitutional: Negative for fever, chills, and weight loss, sb4 18:48 Cardiovascular: Positive for chest pain, 18:48 Respiratory: Positive for shortness of breath, 18:48 All other systems are negative, Exam: 18:48 Head/Face: Normocephalic, atraumatic. Eyes: Extra-ocular motions intact. Periorbital sb4 areas with no swelling, redness, or edema. ENT: Mucous membranes moist. Respiratory: Lungs have equal breath sounds bilaterally, clear to auscultation and percussion. No rales, rhonchi or wheezes noted. No increased work of breathing, no retractions or nasal flaring. Abdomen/GI: Soft, non-tender, no distension. Skin: Warm, dry with normal turgor. Normal color with no rashes, no lesions, and no evidence of cellulitis. MS/ Extremity: Pulses equal, no cyanosis. Neurovascular intact. Full, normal range of motion. 18:48 Constitutional: The patient appears alert, awake, pale, uncomfortable, 18:48 Cardiovascular: Rate: tachycardic, Rhythm: regular, Pulses: no pulse deficits are appreciated, Heart sounds: normal, Edema: is not appreciated, Vital Signs: 18:29 BP 155 / 114; Pulse 106; Resp 23; Temp 98; Pulse Ox 97% on R/A; Weight 77.11 kg; Height hb 5 ft. 4 in. ; Pain 9/10; 18:43 BP 155 / 98; Pulse 102; Resp 16; Pulse Ox 98% on R/A; iw 20:07 BP 141 / 97; Pulse 97 MON; Resp 17; Pulse Ox 97% ; rv 21:00 BP 123 / 79; Pulse 89; Resp 15; Pulse Ox 99% ; jj7 21:49 BP 112 / 70; Pulse 90; Resp 16; Pulse Ox 96% ; jj7 21:54 BP 134 / 89; Pulse 95; Resp 15; Pulse Ox 99% ; Pain 0/10; jj7 18:29 Body Mass Index 29.18 (77.11 kg, 162.56 cm) hb 20:07 Paced rv 18:29 Pain Scale: Adult hb 21:54 Pain Scale: Adult jj7 Renea Coma Score: 20:07 Eye Response: spontaneous(4). Motor Response: obeys commands(6). Verbal Response: rv oriented(5). Total: 15. MDM: 18:24 Patient medically screened. sb4 18:48 Differential diagnosis: MA, unstable angina, stable angina, PE. sb4 23:59 Data reviewed: vital signs, nurses notes, lab test result(s), EKG, radiologic studies, sb4 I have discussed the patient's presentation/case with the attending Emergency Department Physician; and as a result, I will discharge patient. Consideration of Admission/Observation Escalation of care including admission/observation considered. Care significantly affected by the following chronic conditions: Diabetes, Hypertension. Scoring Tools HEART Score: History: ECG: Age: Risk Factors: > or = 3 Risk factors for atherosclerotic disease (2), Troponin: Total Score = 5. Counseling: I had a detailed discussion with the patient and/or guardian regarding the historical points, exam findings, and any diagnostic results supporting the discharge/admit diagnosis, the presence of at least one elevated blood pressure reading (>120/80) during this emergency department visit, lab results, radiology results, the need for further work-up and treatment in the hospital. Refusal of service: The patient/guardian displays adequate decision making capability and despite a detailed discussion of alternatives, benefits, risks, and consequences refuses: Admission to the hospital for further work-up and treatment. ED course: I counseled patient on the need for admission for further work-up. We do not have cardiology available at this time and he would have to be transferred. He is refusing to be transferred. He has follow-up with a abrasive mixer, Dr. Lewis, next week. Strict return precautions were given. He understands. 05/17 18:29 Order name: Basic Metabolic Panel; Complete Time: 19:24 sb4 05/17 18:29 Order name: CBC with Diff; Complete Time: 18:55 sb4 05/17 18:29 Order name: LFT's; Complete Time: 19:24 sb4 05/17 18:29 Order name: Magnesium; Complete Time: 19:24 sb4 05/17 18:29 Order name: NT PRO-BNP; Complete Time: 19:24 sb4 05/17 18:29 Order name: PT-INR; Complete Time: 18:59 sb4 05/17 18:29 Order name: Troponin HS; Complete Time: 19:24 sb4 05/17 19:57 Order name: Troponin High Sensitivity: draw at 8:45 pls; Complete Time: 21:11 sb4 05/17 18:29 Order name: XRAY Chest (1 view); Complete Time: 19:25 sb4 05/17 18:29 Order name: EKG; Complete Time: 18:29 sb4 05/17 18:29 Order name: Cardiac monitoring; Complete Time: 18:40 sb4 05/17 18:29 Order name: EKG - Nurse/Tech; Complete Time: 18:40 sb4 05/17 18:29 Order name: IV Saline Lock; Complete Time: 18:40 sb4 05/17 18:29 Order name: Labs collected and sent; Complete Time: 18:40 sb4 05/17 18:29 Order name: O2 Per Protocol; Complete Time: 18:41 sb4 05/17 18:29 Order name: O2 Sat Monitoring; Complete Time: 18:41 sb4 EC:42 Rate is 102 beats/min. Rhythm is regular, Paced. AK interval is normal at 140 msec. QRS sb4 interval is normal at 126 msec. QT interval is normal at [address] changes noted. Clinical impression: Abnormal EKG without significant change. Interpreted by me. Reviewed by me. Administered Medications: 18:52 Drug: morphine IVP or IV 4 mg IVP once over 4 mins Route: IVP; Infused Over: 4 mins; iw Site: left forearm; 18:52 Drug: Ondansetron IVP 4 mg IVP once; over 2 minutes Route: IVP; Site: left forearm; iw 18:53 Drug: Aspirin PO Chewable Tablet 324 mg PO once; 81 mg tablets x 4 Route: PO; iw 20:01 Drug: Nitroglycerin Sublingual 0.4 mg Sublingual once Route: Sublingual; rv Disposition Summary: 05/17/23 21:44 Discharge Ordered Notes: Location: Home sb4 Problem: an ongoing problem sb4 Symptoms: have improved sb4 Condition: Stable sb4 Diagnosis - Chest pain, unspecified sb4 Followup: sb4 - With: Emergency Department - When: As needed - Reason: Recheck today's complaints, Re-evaluation by your physician Discharge Instructions: - Discharge Summary Sheet sb4 - Nonspecific Chest Pain, Adult sb4 Forms: - Medication Reconciliation Form sb4 - Thank You Letter sb4 - Antibiotic Education sb4 - Prescription Opioid Use sb4 - Patient Portal Instructions sb4 - Leadership Thank You Letter sb4 Prescriptions: - Nitrostat 0.4 mg Sublingual Tablet, Sublingual - place 1 tablet SUBLINGUAL route one time As needed - at the first sign of an sb4 attack; no more than 3 tablets are recommended within a 15 minute period.; 25 tablet; Refills: 0, Product Selection Permitted Addendum: 05/19/2023 10:16 Co-signature as Attending Physician, Juan A Harper MD I reviewed the patient's care r t provided by the Advanced Practice Provider and agree with the diagnosis and treatment plan. Signatures: Dispatcher [employer] Ciera Weller RN RN Olive Bullock, RN RN Minor Pritchett, RN RN Arlyn Muller, KI EMERSON sb4 Juan A Harper MD MD rt
--- NOTE | 2023-05-17 21:46 | ER ---
Nurse's Notes [facility] Name: Nicholas Ruiz Jr Age: 62 yrs Sex: Male : 1960 Arrival Date: 05/17/2023 Time: 18:20 Bed 7 Private MD: Diagnosis: Chest pain, unspecified Presentation: 05/17 18:29 Chief complaint: Midsternal chest pain and SOB x 5 days. Seen in ED on 05/11 for NSTEMI, hb left AMA. Coronavirus screen: At this time, the client does not indicate any symptoms associated with coronavirus-19. Ebola Screen: No symptoms or risks identified at this time. Initial Sepsis Screen: Does the patient meet any 2 criteria? No. Patient's initial sepsis screen is negative. Does the patient have a suspected source of infection? No. Patient's initial sepsis screen is negative. Risk Assessment: Do you want to hurt yourself or someone else? Patient reports no desire to harm self or others. Onset of symptoms was May 11, 2023. 18:29 Method Of Arrival: Ambulatory hb 18:29 Acuity: DAVID 2 hb Historical: - Allergies: 18:30 No Known Allergies; hb - PMHx: 18:30 Diabetes - NIDDM; High Cholesterol; Atrial Fib; Hypertension; hb - PSHx: 18:30 pacemaker; hb - Immunization history:: Adult Immunizations up to date. - Social history:: Smoking status: . Screenin:43 [facility] ED Fall Risk Assessment (Adult) Score/Fall Risk Level 0 - 2 = Low Risk. Abuse iw screen: Denies threats or abuse. Denies injuries from another. Nutritional screening: No deficits noted. Tuberculosis screening: No symptoms or risk factors identified. Assessment: 18:41 General: Appears in no apparent distress. Behavior is calm, cooperative. Pain: iw Complains of pain in anterior aspect of left upper chest and left breast Pain: Pain currently is 9 out of 10 on a pain scale. Pain began 2-3 days ago. Neuro: Level of Consciousness is awake, alert, obeys commands, Oriented to person, place, time, situation, Moves all extremities. Full function. Cardiovascular: Capillary refill < 3 seconds in bilateral fingers Patient's skin is warm and dry. Respiratory: Respiratory effort is even, unlabored, Respiratory pattern is regular, symmetrical. Derm: Skin is intact, is healthy with good turgor. Musculoskeletal: Range of motion: intact in all extremities. Vital Signs: 18:29 BP 155 / 114; Pulse 106; Resp 23; Temp 98; Pulse Ox 97% on R/A; Weight 77.11 kg; Height hb 5 ft. 4 in. ; Pain 9/10; 18:43 BP 155 / 98; Pulse 102; Resp 16; Pulse Ox 98% on R/A; iw 20:07 BP 141 / 97; Pulse 97 MON; Resp 17; Pulse Ox 97% ; rv 21:00 BP 123 / 79; Pulse 89; Resp 15; Pulse Ox 99% ; jj7 21:49 BP 112 / 70; Pulse 90; Resp 16; Pulse Ox 96% ; jj7 21:54 BP 134 / 89; Pulse 95; Resp 15; Pulse Ox 99% ; Pain 0/10; jj7 18:29 Body Mass Index 29.18 (77.11 kg, 162.56 cm) hb 20:07 Paced rv 18:29 Pain Scale: Adult hb 21:54 Pain Scale: Adult jj7 [place] Coma Score: 20:07 Eye Response: spontaneous(4). Motor Response: obeys commands(6). Verbal Response: rv oriented(5). Total: 15. ED Course: 18:22 Patient arrived in ED. rg4 18:22 Arlyn David PA-C is PHCP. sb4 18:22 Juan A Harper MD is Attending Physician. sb4 18:30 Triage completed. hb 18:31 Arm band placed on left wrist. hb 18:40 Ciera Lundberg, RN is Primary Nurse. iw 18:43 Initial lab(s) drawn, by me, sent to lab. Inserted saline lock: 22 gauge in left iw forearm, using aseptic technique. Blood collected. Patient maintains SpO2 saturation greater than 95% on room air. 19:10 Patient has correct armband on for positive identification. Placed in gown. Bed in low jj7 position. Call light in reach. Side rails up X2. Provided Education on: ED TIMES. Client placed on continuous cardiac and pulse oximetry monitoring. NIBP monitoring applied. youth nutritional monitor on. Pulse ox on. NIBP on. 19:16 XRAY Chest (1 view) In Process Unspecified. EDMS 20:50 Troponin High Sensitivity: draw at 8:45 pls Sent. jj7 21:54 No provider procedures requiring assistance completed. IV discontinued, intact, jj7 bleeding controlled, No redness/swelling at site. Pressure dressing applied. Administered Medications: 18:52 Drug: morphine IVP or IV 4 mg IVP once over 4 mins Route: IVP; Infused Over: 4 mins; iw Site: left forearm; 18:52 Drug: Ondansetron IVP 4 mg IVP once; over 2 minutes Route: IVP; Site: left forearm; iw 18:53 Drug: Aspirin PO Chewable Tablet 324 mg PO once; 81 mg tablets x 4 Route: PO; iw 20:01 Drug: Nitroglycerin Sublingual 0.4 mg Sublingual once Route: Sublingual; rv Medication: 18:43 VIS not applicable for this client. iw Outcome: 21:44 Discharge ordered by . faraz 21:54 Discharged to home ambulatory, jj7 21:54 Condition: improved 21:54 Discharge instructions given to patient, Instructed on discharge instructions, follow up and referral plans. medication usage, Demonstrated understanding of instructions, follow-up care, medications, Prescriptions given X 1, 21:57 Patient left the ED. jj7 Signatures: Dispatcher [employer] EDMS Ciera Lundberg RN RN iw Olive Sim, RN Aileen Liu rg4 Minor Pritchett RN RN rv Johnson, Juwairiyah, RN RN jj7 Brown, Sophia, PA-Mariana PA-C faraz
[2023-05-17 22:09] VITALS: TEMP 98
[2023-05-17 22:15] VITALS: BP 134/89; O2SAT 99
--- NOTE | 2023-05-19 12:19 | EKG ---
Test Date: 2023-05-17 Test Time: 18:29:59 Timber Trimmer: ROBERT MEASUREMENT RESULTS: Intervals: Rate: 102 NE: 140 QRSD: 126 QT: 368 QTc: 479 [place]: P: 44 NE: 140 QRS: 57 T: 102 INTERPRETIVE STATEMENTS: Electronic ventricular pacemaker Compared to ECG 05/10/2023 22:40:25 Sinus tachycardia no longer present Fusion complex(es) no longer present Ventricular premature complex(es) no longer present Left bundle-branch block no longer present Electronically Signed On 05-19-23 12:15:41 CDT by Claus Parra
== END 2023-05-17 21:57 | disposition home or self-care (01) ==
LOC: ER 18:20
DX: R07.9 Chest pain, unspecified (principal); I48.91 Unspecified atrial fibrillation; E11.9 Type 2 diabetes mellitus without complications; I10 Essential (primary) hypertension; E78.00 Pure hypercholesterolemia, unspecified
CPT/HCPCS: 93005; 85025; 80048; 36415; 83735; 85610; 80076; 84484 ×2; 83880; 71045; 96375; 96374; 99285; J2405

== ENCOUNTER 2023-12-21 10:33 | Emergency (ER) | payer BC ==
--- OUTSIDE RECORDS SUMMARY | 2023-12-21 10:36 | XMS REPORT | Continuity of Care Document ---
Author Name Unknown Address [address] [facility] [address] [place] [address] [facility] Address [address] [facility] 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 Name Role Phone Pcp, Patient Does Not Have A Primary Care Physic gideon Stephanie Bell Attending Clinician Unavailable Rocky Francis Attending Clinician UnavailMichelle Quintana Attending Clinician [phone] [facility] - Db Attending Clinician Unavailable MICHELLE VAZQUEZ Attending Clinician Unavailable Doctor Unassigned, Winter Attending Clinician U navailable ALEXANDRA LACEY Attending Clinician Unavailable Alexandra Lacey NP Attending Clinician [phone] Emmett Escalera Attending Clinician Unavailable GEOFF MAURER Attending Clinician Unavailable Geoff Maurer MD Attending Clinician [phone] Kanika Lee MD Attending Clinician + [phone] Susan Yee RN Attending Clinician Unavailab Geoff Abdul Attending Clinician UnavailKANIKA Bhatia Attending Clinician João warren [facility] Attending Clinician Un available Stacey Moreno Attending Clinician [phone] Lab, Adc Fam Pob I Attending Clinician Unavailab le Only, Adc Test Attending Clinician Unavailable Alycia Panda MD Attending Clinician [phone] BROOKS LINCOLN Attending Clinician Unavailable Beba Fuentes Admitting Clinician Unavailable Geoff Hollins Admitting Clinician UnavailALEXANDRA Kelly Admitting Clinician Unavailable Emmett Escalera Admitting Clinician Unavailable GEOFF MAURER Admitting Clinician Unavailable Payers Payer Name Policy Type Policy Number Effective Date Expirati on Date Source Problems Condition Name Condition Details Condition Category Status Onset Date Resolution Date Last Treatment Date Treating Clinician Comments Source Type 2 diabetes mellitus with microalbum inuria, without long-term current use of insulin Type 2 diabetes mellitus with microalbum inuria, without long-term current use of insulin Disease Active 2017-08 00:00: 00 [facility] Other depression Other depression Disease Active 2017-08 00:00: 00 [facility] Essential hypertensi on Essential hypertensi on Disease Active 2017-08 00:00: 00 [facility] Laceration of left middle finger without damage to nail, foreign body presence unspecifie d, initial encounter Laceration of left middle finger without damage to nail, foreign body presence unspecifie d, initial encounter Disease Active 2017-08 00:00: 00 [facility] Onychomyco sis Onychomyco sis Disease Active 2017-08 00:00: 00 [facility] Laceration of left middle finger without damage to nail, foreign body presence unspecifie d, initial encounter Laceration of left middle finger without damage to nail, foreign body presence unspecifie d, initial encounter Disease Active 2017-08 00:00: 00 [facility] Screening for colorectal cancer Screening for colorectal cancer Disease Active 04-01 00:00: 00 Overview: Formatbyron g of this note might be different from the original. Added automatic ally from request for surgery [id number] [facility] Allergies, Adverse Reactions, Alerts Allergy Name Allergy Type Status Severity Reaction(s) Onset Date Inactive Date Treating Clinician Comments Source No Known Allergie s DA Active U 02-22 00:00: 00 [facility] No Known Allergie s DA Active U 02-22 00:00: 00 [facility] NKDA DA Active U 2010-08 00:00: 00 [facility] NO KNOWN ALLERGIE S Drug Class Active [facility] Social History Social Habit Start Date Stop Date Quantity Comments Source Gender [facility] Alcohol intake 2023-04-04 00:00:00 2023-04-04 00:00:00 Current non-drinker of alcohol (finding) [facility] History of Social function 2023-04-04 00:00:00 2023-04-04 00:00:00 [facility] Tobacco use and exposure 2023-04-04 00:00:00 2023-04-04 00:00:00 Smokeless tobacco non-user [facility] Exposure to SARS-CoV-2 (event) 2022-05-03 00:00:00 2022-05-13 07:21:00 Not sure [facility] Sex Assigned At 1960 00:00:00 1960 00:00:00 [facility] Smoking Status Start Date Stop Date Source Never smoked tobacco [facility] Medications Ordered Medication Name Filled Medication Name Start Date Stop Date Current Medication? Ordering Clinician Indication Dosage Frequency Signature (SIG) Comments Components Source metFORMIN 500 mg tablet 04-10 00:00: 00 Yes [id number] 500mg Take 1 tablet by mouth in the morning and 1 tablet in the evening. Take with meals. [facility] LISINOPRIL ORAL 04-04 12:53: 01 Yes Take by mouth. [facility] KCL 20 mEq tablet 04-04 12:37: 38 04-04 00:00 :00 No [facility] lisinopril 20 mg tablet 04-04 12:37: 28 04-04 00:00 :00 No 20mg Take 20 mg by mouth daily. [facility] losartan 25 mg tablet 04-04 12:37: 13 04-04 00:00 :00 No [facility] furosemide 40 mg tablet 04-04 12:36: 15 04-04 00:00 :00 No [facility] glipiZIDE 5 mg tablet 04-04 12:36: 00 04-04 00:00 :00 No [facility] carvediloL 12.5 mg tablet 04-04 12:35: 29 04-04 00:00 :00 No [facility] aspirin (ASPIRIN LOW DOSE) 81 mg EC tablet 04-04 12:35: 20 04-04 00:00 :00 No 81mg Take 81 mg by mouth daily. [facility] atorvastati n 40 mg tablet 04-04 12:35: 11 04-04 00:00 :00 No 40mg Take 40 mg by mouth at bedtime. [facility] amLODIPine 5 mg tablet 04-04 12:35: 02 04-04 00:00 :00 No 5mg Take 1 tablet by mouth in the morning. [facility] naproxen (NAPROSYN) tablet 500 mg 02-20 19:15: 00 02-20 18:33 :00 No 500mg 500 mg, Oral, ONCE NOW, 1 dose, On [facility] 02/20/23 at 1415, Routine [facility] methocarbam oL (ROBAXIN) tablet 1,000 mg 02-20 18:30: 00 02-20 18:33 :00 No 1000mg 1,000 mg, Oral, ONCE, 1 dose, On [facility] 02/20/23 at 1330, SANGEETHA [facility] amLODIPine 5 mg tablet 02-20 16:27: 32 Yes 5mg Take 1 tablet by mouth in the morning. [facility] carvediloL 12.5 mg tablet 02-20 16:27: 32 Yes [facility] furosemide 40 mg tablet 02-20 16:27: 32 Yes [facility] glipiZIDE 5 mg tablet 02-20 16:27: 32 Yes [facility] losartan 25 mg tablet 02-20 16:27: 32 Yes [facility] KCL 20 mEq tablet 02-20 16:27: 32 Yes [facility] gabapentin 300 mg capsule 02-20 00:00: 00 04-04 00:00 :00 No [id number] 300mg Take 1 capsule by mouth 3 (three) times daily as needed for Pain (scale 4-6) or Pain (scale 7-10). [facility] naproxen 500 mg tablet 02-20 00:00: 00 02-26 04:59 :00 No [id number] 500mg Take 1 tablet by mouth in the morning and 1 tablet in the evening. Take with meals. Do all this for 5 days. [facility] methocarbam oL 500 mg tablet 02-20 00:00: 00 02-24 04:59 :00 No [id number] 1000mg Take 2 tablets by mouth 4 (four) times daily for 3 days. [facility] HEPARIN SODIUM (PORCINE) 1,000 UNIT/ML BOLUS ACS ORDER SET 2021-08 14:15: 00 05-13 14:15 :00 No 4000U 4,000 Units, IV Push, ONCE, 1 dose, On Fri05/13/22 at 0915, SANGEETHA [facility] furosemide (LASIX) injection 20 mg 2021-08 14:15: 00 05-13 14:34 :00 No 20mg 20 mg, IV Push, ONCE, 1 dose, On Fri05/13/22 at 0915, SANGEETHA [facility] heparin (1,000 unit/mL, 10 mL vial) for Rebolusing 2021-08 14:10: 06 Yes 3000U FOR REBOLUSING , Starting on Fri05/13/22 at 0910, Until Discontinu ed, Routine
Dosing based on aPPT testing parameters (refer to continuous heparin drip order).
[facility] heparin 25,000 Units/250 mL (Premixed Bag) in 0.45 % NS 2021-0803 14:10: 06 Yes 12U/kg/ h 12 Units/kg/h r ?79.4 kg (9.528 mL/hr, rounded to 9.53 mL/hr), IV Infusion, TITRATE, Parameters in Admin. Instr., Starting on Fri05/13/22 at 0910
CA UTION - If LMWH given in ER, AVOID bolus and start next dose/drip 12 hrs after ER dosage.&nb sp; M ust program rate using programmab le infusion pump.&nbsp ; May ck with the ordering provider first prior to any administra tion should the patient be on existing/a dditional anticoagul ant therapy. Rang e, Dosing and Testing: &nbs p;FOR [place], [facility], AND [facility] ONLY &nbs p; - aPTT < 35: [...] 300 units/hr&n bsp; - aPTT 40-49:&nbs p; [place]ahel sintia 3000 units, increase rate 200 units/hr&n bsp; - aPTT 50-59:&nbs p; In crease rate 100 units/hr&n bsp; - aPTT 60-85:&nbs [...] Q12H once therapeuti c levels are reached.&n bsp;&n bsp; DO NOT ADJUST INITIAL BOLUS OR INITIAL INFUSION RATE.
[facility] aspirin tablet 325 mg 2021-08 0 14:00: 00 Yes 325mg 325 mg, Oral, DAILY, First dose on Fri05/13/22 at 0900, Until Discontinu ed, Routine [facility] SERTRALINE 100 mg tablet 12-24 00:00: 00 04-04 00:00 :00 No [id number] Take 1 tablet by mouth once daily [facility] atorvastati n 40 mg tablet 02-06 15:36: 51 Yes 40mg Take 40 mg by mouth at bedtime. [facility] aspirin (ASPIRIN LOW DOSE) 81 mg EC tablet 02-06 15:36: 51 Yes 81mg Take 81 mg by mouth daily. [facility] lisinopril 20 mg tablet 02-06 15:36: 51 Yes 20mg Take 20 mg by mouth daily. [facility] atorvastati n 40 mg tablet 02-06 10:36: 51 Yes 40mg Take 40 mg by mouth at bedtime. [facility] aspirin (ASPIRIN LOW DOSE) 81 mg EC tablet 02-06 10:36: 51 Yes 81mg Take 81 mg by mouth daily. [facility] lisinopril 20 mg tablet 02-06 10:36: 51 Yes 20mg Take 20 mg by mouth daily. [facility] SERTraline 100 mg tablet 02-06 00:00: 00 12-24 00:00 :00 No [id number] 100mg Take 1 tablet by mouth daily. [facility] fluconazole (DIFLUCAN) 150 mg tablet 02-06 00:00: 00 02-07 04:59 :00 No [id number] 150mg Take 1 tablet by mouth once now for 1 dose. Repeat dose in 7 days [facility] SERTraline (ZOLOFT) 50 mg tablet 02-24 00:00: 00 02-06 00:00 :00 No [id number] 50mg Take 1 tablet by mouth daily. Follow-up for refills [facility] lisinopril 20 mg tablet 2017-08 19:10: 33 Yes 20mg Take 20 mg by mouth daily. [facility] ciclopirox 8 % solution 2017-08 00:00: 00 04-04 00:00 :00 No [id number] Apply to area(s) at bedtime. Apply to Nails at night. On day 7 clean with alcohol pad/trim nails. [facility] empaglifloz in (JARDIANCE) 10 mg Tab 2017-08 00:00: 00 04-04 00:00 :00 No [id number] 10mg Take 10 mg by mouth daily. [facility] metFORMIN 1,000 mg tablet 2017-08 00:00: 00 04-04 00:00 :00 No [id number] 1000mg Take 1 tablet by mouth 2 (two) times daily with meals. [facility] mupirocin 2 % ointment 2017-08 00:00: 00 04-04 00:00 :00 No [id number] Apply to area(s) 3 (three) times daily. [facility] atorvastati n 40 mg tablet 04-21 16:02: 12 Yes 40mg Take 40 mg by mouth at bedtime. [facility] aspirin (ASPIRIN LOW DOSE) 81 mg EC tablet 04-21 16:02: 12 Yes 81mg Take 81 mg by mouth daily. [facility] metoprolol succinate XL 50 mg 24 hr tablet 2016-08 00:00: 00 04-04 00:00 :00 No 50mg Take 1 tablet by mouth daily. [facility] Immunizations Ordered Immunization Name Filled Immunization Name Date Status Comments Source TD 2023-04-04 00:00:00 Completed [facility] TDAP 2023-04-04 00:00:00 Completed [facility] TDAP 2023-04-04 00:00:00 Completed [facility] SARS-COV-2 COVID-19 PFIZER VACCINE 2020-10-28 00:00:00 Completed [facility] SARS-COV-2 COVID-19 PFIZER VACCINE 2020-10-28 00:00:00 Completed [facility] SARS-COV-2 COVID-19 PFIZER VACCINE 2020-10-28 00:00:00 Completed [facility] SARS-COV-2 COVID-19 PFIZER VACCINE 2020-10-28 00:00:00 Completed [facility] SARS-COV-2 COVID-19 PFIZER VACCINE 2020-10-28 00:00:00 Completed [facility] SARS-COV-2 COVID-19 PFIZER VACCINE 2020-10-28 00:00:00 Completed [facility] SARS-COV-2 COVID-19 PFIZER VACCINE 2020-10-28 00:00:00 Completed [facility] SARS-COV-2 COVID-19 PFIZER VACCINE 2020-10-28 00:00:00 Completed [facility] SARS-COV-2 COVID-19 PFIZER VACCINE 2020-10-28 00:00:00 Completed [facility] SARS-COV-2 COVID-19 PFIZER VACCINE 2020-10-28 00:00:00 Completed [facility] SARS-COV-2 COVID-19 PFIZER VACCINE 2020-10-28 00:00:00 Completed [facility] SARS-COV-2 COVID-19 PFIZER VACCINE 2020-10-07 00:00:00 Completed [facility] SARS-COV-2 COVID-19 PFIZER VACCINE 2020-10-07 00:00:00 Completed [facility] SARS-COV-2 COVID-19 PFIZER VACCINE 2020-10-07 00:00:00 Completed [facility] SARS-COV-2 COVID-19 PFIZER VACCINE 2020-10-07 00:00:00 Completed [facility] SARS-COV-2 COVID-19 PFIZER VACCINE 2020-10-07 00:00:00 Completed [facility] SARS-COV-2 COVID-19 PFIZER VACCINE 2020-10-07 00:00:00 Completed [facility] SARS-COV-2 COVID-19 PFIZER VACCINE 2020-10-07 00:00:00 Completed [facility] SARS-COV-2 COVID-19 PFIZER VACCINE 2020-10-07 00:00:00 Completed [facility] SARS-COV-2 COVID-19 PFIZER VACCINE 2020-10-07 00:00:00 Completed [facility] SARS-COV-2 COVID-19 PFIZER VACCINE 2020-10-07 00:00:00 Completed [facility] SARS-COV-2 COVID-19 PFIZER VACCINE 2020-10-07 00:00:00 Completed [facility] SARS-COV-2 COVID-19 PFIZER VACCINE Unknown Completed [facility] SARS-COV-2 COVID-19 PFIZER VACCINE Unknown Completed [facility] TDAP Unknown Completed [facility] Vital Signs Vital Name Observation Time Observation Value Comments S beti Systolic blood pressure 2023-04-04 17:33:00 151 mm[Hg] [facility] Diastolic blood pressure 2023-04-04 17:33:00 104 mm[Hg] [facility] Heart rate 2023-04-04 17:27:00 93 /min [facility] Body temperature 2023-04-04 17:27:00 36.89 Karon [facility] Body height 2023-04-04 17:27:00 162.6 cm [facility] Body weight 2023-04-04 17:27:00 79.833 kg [facility] BMI 2023-04-04 17:27:00 30.21 kg/m2 [facility] Oxygen saturation in Arterial blood by Pulse oximetry 2023-04-04 17:27:00 97 /min [facility] Systolic blood pressure 2023-02-20 21:00:00 138 mm[Hg] [facility] Diastolic blood pressure 2023-02-20 21:00:00 85 mm[Hg] [facility] Heart rate 2023-02-20 21:00:00 82 /min [facility] Body temperature 2023-02-20 21:00:00 36.78 Karon [facility] Respiratory rate 2023-02-20 21:00:00 20 /min [facility] Oxygen saturation in Arterial blood by Pulse oximetry 2023-02-20 21:00:00 100 /min [facility] Body height 2023-02-20 17:35:00 162.6 cm [facility] Body weight 2023-02-20 17:35:00 74.844 kg [facility] BMI 2023-02-20 17:35:00 28.32 kg/m2 [facility] Systolic blood pressure 2022-05-13 17:00:00 160 mm[Hg] [facility] Diastolic blood pressure 2022-05-13 17:00:00 117 mm[Hg] [facility] Heart rate 2022-05-13 17:00:00 98 /min [facility] Respiratory rate 2022-05-13 17:00:00 15 /min [facility] Oxygen saturation in Arterial blood by Pulse oximetry 2022-05-13 17:00:00 96 /min [facility] Body temperature 2022-05-13 12:23:00 36.89 Karon [facility] Body height 2022-05-13 12:23:00 162.6 cm [facility] Body weight 2022-05-13 12:23:00 79.379 kg [facility] BMI 2022-05-13 12:23:00 30.04 kg/m2 [facility] Systolic blood pressure 2021-02-06 15:32:00 128 mm[Hg] [facility] Diastolic blood pressure 2021-02-06 15:32:00 79 mm[Hg] [facility] Heart rate 2021-02-06 15:32:00 75 /min [facility] Body temperature 2021-02-06 15:32:00 36.89 Karon [facility] Body height 2021-02-06 15:32:00 162.6 cm [facility] Body weight 2021-02-06 15:32:00 84.823 kg [facility] BMI 2021-02-06 15:32:00 32.10 kg/m2 [facility] Systolic blood pressure 2020-08-25 20:10:00 181 mm[Hg] [facility] Diastolic blood pressure 2020-08-25 20:10:00 115 mm[Hg] [facility] Heart rate 2020-08-25 20:06:00 96 /min [facility] Body temperature 2020-08-25 20:06:00 37.17 Karon [facility] Body height 2020-08-25 20:06:00 162.6 cm [facility] Body weight 2020-08-25 20:06:00 88.905 kg [facility] BMI 2020-08-25 20:06:00 33.64 kg/m2 [facility] Oxygen saturation in Arterial blood by Pulse oximetry 2020-08-25 20:06:00 97 /min [facility] Systolic blood pressure 2020-08-25 20:10:00 181 mm[Hg] [facility] Diastolic blood pressure 2020-08-25 20:10:00 115 mm[Hg] [facility] Heart rate 2020-08-25 20:06:00 96 /min [facility] Body temperature 2020-08-25 20:06:00 37.17 Karon [facility] Body height 2020-08-25 20:06:00 162.6 cm [facility] Body weight 2020-08-25 20:06:00 88.905 kg [facility] BMI 2020-08-25 20:06:00 33.64 kg/m2 [facility] Oxygen saturation in Arterial blood by Pulse oximetry 2020-08-25 20:06:00 97 /min [facility] Procedures Procedure Date / Time Performed Performing Clinician Source TDAP VACCINE, >11 YRS, IM 2023-04-04 18:04:36 Michelle Vazquez [facility] ASSIGNMENT OF BENEFITS 2023-04-04 15:13:26 Docto r Unassigned, Winter [facility] XR CHEST 1 VW 2023-02-20 19:29:00 Alexandra Lacey [facility] XR SKULL <4 VW 2023-02-20 19:29:00 [facility] X[facility] STERNUM PA AND LATERAL 2023-02-20 19:29:00 Alexandra Lacey [facility] XR LUMBAR SPINE 2 VW 2023-02-20 19:29:00 Raj Lacey [facility] XR SPINE THORACIC 2 VW 2023-02-20 19:29:00 Yasmin Lacey ala [facility] XR CERVICAL SPINE 3 VW 2023-02-20 19:29:00 Yasmin Lacey ala [facility] XR SHOULDER 2+ VW BILATERAL 2023-02-20 19:29:00 Alexandra Lacey [facility] ASSIGNMENT OF BENEFITS 2023-02-20 19:28:19 Docto r Unassigned, Winter [facility] CONSENT/REFUSAL FOR DIAGNOSIS AND TREATMENT 2023-02-20 17:24:33 Doctor Unassigned, Winter [facility] EKG-12 LEAD 2022-05-13 17:12:42 Geoff Maurer [facility] PROTHROMBIN TIME / INR 2022-05-13 14:18:00 Miguel Maurer [facility] ACTIVATED PARTIAL THRMPLAS HOMERO 2022-05-13 14:18:00 Geoff Maurer [facility] XR CHEST 2 VW 2022-05-13 13:22:37 Geoff Maurer [facility] TROPONIN I 2022-05-13 12:36:00 Geoff Maurer [facility] COMP. METABOLIC PANEL ([id number]) 2022-05-13 12:36:00 Geoff Maurer [facility] CBC WITH DIFF 2022-05-13 12:36:00 Geoff Maurer [facility] RAPID INFLUENZA A/B 2022-05-13 12:36:00 Geoff Maurer [facility] N-TERMINAL PRO-BNP 2022-05-13 12:36:00 Geoff Maurer [facility] COVID-19 (ID NOW RAPID TESTING) 2022-05-13 12:36:00 Geoff Maurer [facility] CONSENT/REFUSAL FOR DIAGNOSIS AND TREATMENT 2022-05-13 12:15:35 Doctor Unassigned, [place] [facility] ASSIGNMENT OF BENEFITS 2020-06-21 15:09:24 Docto r Unassigned, Winter [facility] REFERRAL- REQUEST/RESPONSE 2020-03-03 05:01:00 Doctor Unassigned, Winter [facility] Encounters Start Date/Time End Date/Time Encounter Type Admission Type Attending Clinicians Care Facility Care Department Encounter ID Source 2023-12-19 11:48:00 2023-12-20 15:17:00 Inpatient EM Le, Stephanie [facility].01 [id number] [facility] 2023-12-19 06:22:00 2023-12-19 11:06:00 Emergency EM Rocky Francis [facility] [id number] [facility] 2023-05-09 00:00:00 2023-05-09 00:00:00 Telephone Michelle Vazquez [facility] [id number] 350.1.13.10 [id number] [id number] [facility] 2023-04-10 00:00:00 2023-04-10 00:00:00 Telephone Michelle Vazquez [facility] [id number] 350.1.13.10 4.2.7.2.686 [id number] [facility] 2023-04-04 13:15:00 2023-04-04 13:22:39 Donations Attendant Visit Lab, Ang - Saqib Michelle Vazquez [facility] [id number] 350.1.13.10 4.2.7.2.686 [id number] [facility] 2023-04-04 12:30:00 2023-04-04 13:07:07 Outpatient R TAYLORMICHELLE AGUILAR [facility] [id number] [facility] 2023-04-04 12:30:00 2023-04-04 13:07:07 [facility] [id number] 350.1.13.10 4.2.7.2.686 [id number] [facility] 2023-04-04 00:00:00 2023-04-04 00:00:00 Orders Only Doctor Unassigned, Winter [facility] [id number] 350.1.13.10 4.2.7.2.686 [id number] [facility] 2023-02-20 12:36:00 2023-02-20 16:34:00 Emergency X ALEXANDRA LACEY [facility] ERT [id number] [facility] 2023-02-20 12:36:00 2023-02-20 16:34:00 Emergency Alexandra Lacey [facility] [id number] 350.1.13.10 4.2.7.2.686 [id number] [facility] 2022-05-13 13:36:00 2022-05-15 19:42:00 Inpatient LUISANA CunninghamEscaleraDerrick coleh [facility] [id number] [facility] 2022-05-13 07:20:00 2022-05-13 14:02:00 Emergency X GEOFF MAURER [facility] ERT [id number] [facility] 2022-05-13 07:20:00 2022-05-13 14:02:00 Emergency Geoff Maurer E [facility] [id number] 350.1.13.10 4.2.7.2.686 [id number] [facility] 2021-12-24 00:00:00 2021-12-24 00:00:00 [facility] [id number] 350.1.13.10 4.2.7.2.686 [id number] [facility] 2021-10-03 00:00:00 2021-10-03 00:00:00 Telephone Susan Yee [facility] [id number] 350.1.13.10 4.2.7.2.686 [id number] [facility] 2021-09-24 08:08:00 2021-09-25 11:25:00 In[facility] [id number] [facility] 2021-03-08 09:00:00 2021-03-08 09:00:00 Outpatient R KANIKA LEE [facility] [id number] [facility] 2021-02-06 10:45:00 2021-02-06 10:45:00 Outpatient R KANIKA LEE [facility] [id number] [facility] 2021-02-06 10:24:24 2021-02-06 10:39:24 Office Visit Kanika Lee [facility] Office [address] .84.114 350.1.13.10 4.2.7.2.686 [id number] [facility] 2020-10-28 12:40:00 2020-10-28 12:40:00 Outpatient [facility] [id number] [facility] 2020-10-07 13:45:00 2020-10-07 13:45:00 Outpatient [facility] [id number] [facility] 2020-08-25 13:49:03 2020-08-25 14:28:29 Urgent Care Provider, [facility] St[facility] Holman [facility] ..114 350.1.13.10 4.2.7.2.686 [id number] [facility] 2020-08-25 13:49:03 2020-08-25 14:28:29 Urgent Care Provider, [facility] .84.114 350.1.13.10 4.2.7.2.686 [id number] 2020-08-25 14:00:00 2020-08-25 14:00:00 Outpatient R [facility] [id number] [facility] 2020-06-29 09:59:06 2020-06-29 10:19:06 Laboratory Only Lab, Adc Fam Pob I [facility] 1.2.840.114 350.1.13.10 4.2.7.2.686 [id number] 2020-06-29 09:59:06 2020-06-29 10:19:06 Laboratory Only Lab, Adc Fam Pob Michelle Figueroa [facility] 1.2840.114 350.1.13.10 4.2.7.2.686 [id number] [facility] 2020-06-29 10:00:00 2020-06-29 10:00:00 Outpatient R TAYLORANDRÉS AGUILARLIE [facility] [id number] [facility] 2020-06-29 00:00:00 2020-06-29 00:00:00 Letter (Out) Doctor Unassigned, Winter [facility] 1.2.840.114 350.1.13.10 4.2.7.2.686 [id number] 2020-06-29 00:00:00 2020-06-29 00:00:00 Letter (Out) Doctor Unassigned, Winter [facility] 1.2840.114 350.1.13.10 4.2.7.2.686 [id number] [facility] 2020-06-21 09:06:45 2020-06-21 09:21:45 Laboratory Only Only, Adc Test [facility] 1.2.840.114 350.1.13.10 4.2.7.2.686 [id number] 2020-06-21 09:06:45 2020-06-21 09:21:45 Laboratory Only Only, Adc Test JcarlosnathanlinhAlycia [facility] 1.2.840.114 350.1.13.10 4.2.7.2.686 [id number] [facility] 2020-06-21 09:15:00 2020-06-21 09:15:00 Outpatient R [facility] [id number] [facility] 2020-06-21 00:00:00 2020-06-21 00:00:00 Orders Only Doctor Unassigned, Winter [facility] 1.2.840.114 350.1.13.10 4.2.7.2.686 [id number] [facility] 2020-03-06 00:00:00 2020-03-06 00:00:00 Telephone DilciaKanika Jose Alejandrobharat [facility] Geeta Herreraessio [facility] 1..840.114 350.1.13.10 4.2.7.2.686 [id number] [facility] 2020-03-03 00:00:00 2020-03-03 00:00:00 Orders Only Doctor Unassigned, Winter [facility] 1.2.840.114 350.1.13.10 4.2.7.2.686 [id number] [facility] 2018-08-20 08:30:00 2018-08-20 08:30:00 Outpatient Huma BROOKS [facility] [id number] [facility] Results Test Description Test Time Test Comments Results Resul t Comments Source - CT HEAD/BRAIN W/O CONT 2023-12-20 08:40:00 [facility] : 1960 Sex: M Name: NICHOLAS RUI[facility] : 1960 Age/S: 63 / M [address] [place] [address] Bl Unit #: [id number] Loc: [place] [address] Phys: Courtney MoralesP Acct: [id number] Dis Date: Status: ADM IN PHONE #: [phone] Exam Date: 12/20/2023735 FAX #: [phone] Reason: LEFT-SIDED WEAKNESS EXAMS: CPT CODE: [id number] CT HEAD/BRAIN W/O CONT 55337 EXAM: - CT HEAD/BRAIN W/O CONT HISTORY: LEFT-SIDED WEAKNESS Location: C3 TECHNIQUE: Axial tomograms through the brain were obtained without intravenous contrast. Coronal and sagittal reformatted images are provided. One or more of the following dose reduction techniques were used: Automated exposure control, adjustment of the mA and/or kV according to patient size, and/or utilization of iterative reconstruction technique in compliance with ACR [employer]. COMPARISON: Head CT 12/19/2023 FINDINGS: There is no intracranial hemorrhage, mass, or mass effect. The ventricular system and sulci are Prominent most consistent with generalized cerebral atrophy.. Stable small arachnoid cyst in the posterior fossa. There is no evidence of acute infarction. There is decreased attenuation in the periventricular white matter compatible with chronic small vessel white matter ischemic disease. The osseous structures and orbits, show no significant abnormalities. The visualized sinuses are relatively clear. The soft tissues are unremarkable. IMPRESSION: No significant change in mild cerebral atrophy and chronic small vessel white matter ischemic disease is present without acute intracranial abnormality. at 0840 Reported and signed by: Suzie Thomas M.D. PAGE 1 Signed Report (CONTINUED) Name: NICHOLAS RUIZ [facility] : 1960 Age/S: 63 / M [address] [place] [address] Unit #: [id number] Loc: [place] [address] Phys: Courtney Morales Acct: [id number] Dis Date: Status: ADM IN PHONE #: [phone] Exam Date: 12/20/2023735 FAX #: [phone] Reason: LEFT-SIDED WEAKNESS EXAMS: CPT CODE: [id number] CT HEAD/BRAIN W/O CONT 03254 (Continued) CC: Courtney Morales; Geoff Hollins MD; Beba Fuentes MD Technologist:Jose Yuen, RT(R); Tesha Cunningham CTDI: DLP: Trnscb Date/Time: 12/20/2023 (839) [email or web address] Orig Print D/T: S: 12/20/2023 (4747) PAGE 2 Signed Report TROP-I HIGH [id number] 07:31:00* Test Item Value Reference Range Interpretation Comme [facility] TROP-I HIGH SENSITIVITY (test code = TROPIHS) 47.5 ng/L 0-78 N CAUTION: Units o f the current test methodology (ng/L) differfrom the prior test methodology (ng/mL) by a factor of 1000. 99th Percentile Upper Reference Limit (URL):Females: 54 ng/LMales: 79 ng/L In order to distinguish acute elevations of high sensitivitytroponin from other clinical conditions, the FourthUniversal Definition of Myocardial Infarction stressesclinical assessment and the demonstration of a rise and/orfall in serial troponin results above the URL. Results from different methodologies should not be comparedto one another as quantitative results and URLs may varyby method. THROMBOPLASTIN TIME [id number] 07:25:00* Test Item Value Reference Range Interpretation Comme [facility] THROMBOPLASTIN TIME PARTIAL (test code = PTT) 36.5 SECONDS 26-35 H PROTHROMBIN [id number] 07:25:00* Test Item Value Reference Range Interpretation Comme [facility] PT PATIENT (test code = PTP) 12.0 SECONDS 9.3-12.9 N INTERNATIONAL NORMAL RATIO (test code = INR) 1.07 INR Unit 0.8-1.2 N TARGET INR BY INDICATION Indication INR1. Prophylaxis of venous thrombosis 2.0 - 3.0 (orthopedic surgery), Prophylaxis of venous thrombosis (other than high-risk surgery), Treatment of Deep Vein Thrombosis/Pulmonary Embolism, Prevention of systemic embolism - Tissue heart valves, Acute Myocardial Infarction (to prevent systemic embolism), Valvular heart disease, Acute Myocardial Infarction (to prevent systemic embolism), Valvular heart disease, Atrial Fibrillation, Bileaflet mechanical valve in aortic position.2. Mechanical prosthetic valves (high risk), 2.5 - 3.5 Presence of Lupus Anticoagulant or Antiphospholipid Antibodies, Prevention of systemic embolism - Acute Myocardial Infarction (to prevent recurrent infarct). CBC W/AUTO [id number] 06:57:00* Test Item Value Reference Range Interpretation Comme nts WHITE BLOOD CELL (test code = WBC) 5.9 K/mm3 3.5-11.0 N RED BLOOD CELL (test code = RBC) 4.75 M/mm3 4.70-6.10 N HEMOGLOBIN (test code = HGB) 14.2 G/DL 12.3-15.9 N HEMATOCRIT (test code = HCT) 41.4 % 35.8-46.7 N MEAN CELL VOLUME (test code = MCV) 87.2 Fl 86.3-98.9 N MEAN CELL HGB (test code = MCH) 29.9 pg 28.9-34.4 N MEAN CELL HGB CONCETRATION (test code = MCHC) 34.3 G/DL 32.1-34.5 N RED CELL DISTRIBUTION WIDTH (test code = RDW) 12.1 SD 11.5-14.5 N PLATELET COUNT (test code = PLT) 249 K/mm3 150-450 N MEAN PLATELET VOLUME (test c ode = MPV) 9.80 fL 7.0-9.6 H NEUTROPHIL % (test code = NT%) 71.2 % 40-76 N IMMATURE GRANULOCYTE % (test code = IG%) 0.3 % 0.0-5.0 N LYMPHOCYTE % (test code = LY%) 17.3 % 20.5-51.1 L MONOCYTE % (test code = MO%) 8.3 % 1.7-9.3 N EOSINOPHIL % (test code = EO%) 1.9 % 0.0-6.0 N BASOPHIL % (test code = BA%) 1.0 % 0.0-2.0 N NUCLEATED RBC % (test code = NRBC%) 0.0 /100WBC% 0.0-1.0 N NEUTROPHIL # (test code = NT#) 4.2 K/mm3 1.8-7.6 N IMMATURE GRANULOCYTE # (test code = IG#) 0.02 x10 3/uL 0.00-0.03 N LYMPHOCYTE # (test code = LY#) 1.0 K/mm3 0.6-3.0 N MONOCYTE # (test code = MO#) 0.5 K/mm3 0.2-1.5 N EOSINOPHIL # (test code = EO#) 0.1 K/mm3 0.0-0.4 N BASOPHIL # (test code = BA#) 0.1 K/mm3 0.0-0.2 N NUCLEATED RBC # (test code = NRBC#) 0.0 K/mm3 0.00-0.01 N - CTA [id number] 06:56:00 [facility] 1960 Sex: M Name: NICHOLAS RUIZ [facility] : 1960 Age/S: 63 / M [id number] Unit #: [id number] Loc: [place] [address] Phys: Rocky Francis MD Acct: [id number] Dis Date: Status: REG ER PHONE #: [phone] Exam Date: 12/19/2023 0646 FAX #: Reason: cva EXAMS: CPT: [id number] CTA HEAD 67507 H ISTORY: CVA Technique: Axial tomograms through the neck and brain were obtained after intravenous contrast utilizing a CTA protocol. Three-dimensional and multiplanar reformatted images are provided.Degree of stenosis is calculated based on NASCET criteria. One or more of the following dose reduction techniques were used: Automated exposure control, adjustment of the mA and/or kV according to patient size, and/or utilization of iterative reconstruction technique. Location: C3 COMPARISON:None FINDINGS: CTA NECK: Visualized lung apices are clear. Aortic calcifications are present. The origins of the great vessels are patent. The common carotid arteries are patent throughout the course bilate rally. On the right the carotid bifurcation is patent with mild atherosclerotic changes. No significant stenosis demonstrated. The right internal carotid artery is patent throughout its course to theneck. On the left carotid bifurcation is patent with mild atherosclerotic changes. No significant stenosis. The left internal carotid artery is patent throughout its course. Both vertebral artery origins are demonstrated and patent. The vertebral arteries are patent throughout their course bilaterally. Multilevel degenerative changes of the cervical spine are present. A few scattered small lymph nodes are noted without PAGE 1 Signed Report (CONTINUED) Name: NICHOLAS RUIZ [facility] [place] : [birth year] Age/S: 63 / M [address] Unit #: [id number] Loc: [place] [address] Phys: Rocky Francis MD Acct: [id number] Dis Date: Status: REG ER PHONE #: [phone] Exam Date: 12/19/2023 0646 FAX #: Reason: cva EXAMS: CPT: [id number] CTA HEAD 41516 (Continued) CTA BRAIN: The visualized intracranial internal carotid arteries are patent. Carotid siphon calcifications are present. The anterior cerebral arteries and middle cerebral arteries are patent bilaterally. No aneurysm identified. No no intracranial large vessel occlusion. Scattered areas of narrowing are demonstrated involvingthe anterior cerebral arteries and middle cerebral arteries bilaterally most compatible with intracr anial atherosclerotic disease. An anterior communicating artery is demonstrated. The distal vertebral arteries, basilar artery, and posterior cerebral arteries are patent. The major intracranial venous sinuses are patent. IMPRESSION: 1. Scattered atherosclerotic plaque. No area of high-grade stenosis. No intracranial large vessel occlusion. at 0656 Reported and signed by: Javier Montesinos M.D. CC: Rocky Francis MD; Geoff Hollins MD Technologist:Alycia Lundberg, RT(R)(CT) CTDI: DLP: Trnscb Date/Time: 12/19/2023 (0656) [email or web address].[email or web address] Orig Print D/T: S: 12/19/2023 (0659) PAGE 2 Signed Report- CTA [id number] 06:56:00 [facility] 1960 Sex: M Name: NICHOLAS RUIZ [facility] : 1960 Age/S: 63 / M [address] Unit #: [id number] Loc: [place] [address] Phys: Rocky Francis MD Acct: [id number] Dis Date: Status: REG ER PHONE #: [phone] Exam Date: 12/19/202346 FAX #: Reason: cva EXAMS: CPT: [id number] CTA NECK 91576 H ISTORY: CVA Technique: Axial tomograms through the neck and brain were obtained after intravenous contrast utilizing a CTA protocol. Three-dimensional and multiplanar reformatted images are provided.Degree of stenosis is calculated based on NASCET criteria. One or more of the following dose reduction techniques were used: Automated exposure control, adjustment of the mA and/or kV according to patient size, and/or utilization of iterative reconstruction technique. Location: C3 COMPARISON:None FINDINGS: CTA NECK: Visualized lung apices are clear. Aortic calcifications are present. The origins of the great vessels are patent. The common carotid arteries are patent throughout the course bilate rally. On the right the carotid bifurcation is patent with mild atherosclerotic changes. No significant stenosis demonstrated. The right internal carotid artery is patent throughout its course to theneck. On the left carotid bifurcation is patent with mild atherosclerotic changes. No significant stenosis. The left internal carotid artery is patent throughout its course. Both vertebral artery origins are demonstrated and patent. The vertebral arteries are patent throughout their course bilaterally. Multilevel degenerative changes of the cervical spine are present. A few scattered small lymphnodes are noted without PAGE 1 Signed Report (CONTINUED) Name: NICHOLAS RUIZ [facility] : [birth year] Age/S: 63 / M [address] Unit #: [id number] Loc: [place] [address] Phys: Rocky Francis MD Acct: [id number] Dis Date: Status: REG ER PHONE #: [phone] Exam Date: 12/19/2023 0646 FAX #: Reason: cva EXAMS: CPT: [id number] CTA NECK 37094 (Continued) CTA BRAIN: The visualized intracranial internal carotid arteries are patent. Carotid siphon calcifications are present. The anterior cerebral arteries and middle cerebral arteries are patent bilaterally. No aneurysm identified. No no intracranial large vessel occlusion. Scattered areas of narrowing are demonstrated involvingthe anterior cerebral arteries and middle cerebral arteries bilaterally most compatible with intracr anial atherosclerotic disease. An anterior communicating artery is demonstrated. The distal vertebral arteries, basilar artery, and posterior cerebral arteries are patent. The major intracranial venous sinuses are patent. IMPRESSION: 1. Scattered atherosclerotic plaque. No area of high-grade stenosis. No intracranial large vessel occlusion. at 0656 Reported and signed by: Javier Montesinos M.D. CC: Rocky Francis MD; Geoff Hollins MD Technologist:Alycia Lundberg, RT(R)(CT) CTDI: DLP: Trnscb Date/Time: 12/19/2023 (0656) [email or web address] Orig Print D/T: S: 12/19/2023 (0659) PAGE 2 Signed Report- XR CHEST 1 [id number] 06:53:00 [facility] 1960 Sex: M Name: NICHOLAS RUIZ [place] : 1960 Age/S: 63 / M [id number] Unit #: [id number] Loc: [place] [address] Phys: Rocky Francis MD Acct: [id number] Dis Date: Status: PRE ER PHONE #: [phone] Exam Date: 12/19/2023 0650 FAX #: Reason: Code Stroke EXAMS: CPT: [id number] XR CHEST1 V 82130 Fluoro Time: DAP (Gy m2): Air Kerma (mGy): HISTORY: CVA Location: C3 COMPARISON:09/24/2021 FINDINGS: Aortic calcifications are present. Left subclavian pacemaker/AICD is present. Heart sizeand vascularity are within normal limits. The lungs are clear of focal consolidation. No effusion, p neumothorax, or acute osseous abnormality. IMPRESSION: 1. No focal consolidation. No other acute abnormalities. at 0653 Reported and signed by: Javier Motnesinos M.D. CC: Rocky Francis MD; Geoff Hollins MD PAGE 1 Signed Report Name: NICHOLAS RUIZ [place] : 1960 Age/S: 63 / M [address] Unit #: [id number] Loc: [place] [address] Phys: Rocky Francis MD Acct: [id number] Dis Date: Status: PREER PHONE #: [phone] Exam Date: 12/19/2023 0650 FAX #: Reason: Code Stroke EXAMS: CPT: [id number] XR CHEST 1 V 74886 Fluoro Time: DAP (Gy m2): Air Kerma (mGy): (Continued) Technologist: David Alvarado RT(R)(CT) Trnscb Date/Time: 12/19/2023 (0653) [email or web address] Orig Print D/T: S: 12/19/2023 (0656) PAGE 2 Signed Report- CT HEAD/BRAIN W/O CONT 2023-12-19 06:40:00 [facility] 1960 Sex: M Name: NICHOLAS RUIZ [facility] : 1960 Age/S: 63 / M [address] Unit #: [id number] Loc: [place] [address] Phys: Rocky Francis MD Acct: [id number] Dis Date: Status: PRE ER PHONE #: [phone] Exam Date: 12/19/2023628 FAX #: Reason: cva EXAMS: CPT: [id number] CT HEAD/BRAIN W/O CONT 44764 EXAM: - CT HEAD/BRAIN W/O CONT Location code:C3 HISTORY: 63 years -old Male with cva TECHNIQUE: Axial CT images from the skull base to the vertex without intravenous contrast. Coronal and sagittal reformatted images were created from the data set. One or more of the following dose reduction techniques were used: Automated exposure control, adjustment of the mA and/or kV according to patient size, and/or utilization of iterative reconstruction technique. COMPARISON: None FINDINGS: Intracranial: No abnormal brain parenchymal density. No evidence of acute infarction, intracranial hemorrhage, mass or mass effect, or abnormal extra-axial fluid collection. The ventricular system andsulci are prominent compatible cerebral volume loss. There is mild diminished attenuation involvingthe periventricular and subcortical white matter compatible with mild microvascular chronic ischemic changes. The density in the larger dural sinuses is grossly normal. Bones: There is no evidence ofacute displaced calvarial fracture. Sinuses: The visualized portions of the paranasal sinuses demonstrate no significant opacification.The mastoid air cells are clear. Orbits/Soft Tissues: The visualized orbits show no significant abnormalities. The visualized soft tissues are unremarkable. IMPRESSION: 1. Cerebral volume loss and mild microvascular chronic white matter ischemic changes. No intracranial hemorrhage. No acute intracranial abnormality. PAGE 1 Signed Report (CONTINUED) Name: NICHOLAS RUIZ : 1960 Age/S: 63 / M [address] Unit #: [id number] Loc: [place] [address] Phys: Rocky Francis MD Acct: [id number] Dis Date: Status: PRE ER PHONE #: [phone] Exam Date: 12/19/2023 06 FAX #: Reason: cva EXAMS: CPT: [id number] CT HEAD/BRAIN W/O CONT 42072 (Continued) at 0640 Reported and signed by: Javier Montesinos M.D. CC: Rocky Francis MD; Geoff Hollins MD Technologist:Alycia Lundberg, RT(R)(CT) CTDI: DLP: Trnscb Date/Time: 12/19/2023 (0640) [email or web address] Orig Print D/T: S: 12/19/2023 (0643) PAGE 2 Signed ReportGLUCOSE BEDSIDE TESTING 2022-05-15 12:23:00* Test Item Value Reference Range Interpretation Comme nts GLUCOSE BEDSIDE TESTING (lorraine t code = GLUBED) 223 MG/DL 60-99 H GLUCOSE BEDSIDE [id number] 07:07:00* Test Item Value Reference Range Interpretation Comme nts GLUCOSE BEDSIDE TESTING (lorraine t code = GLUBED) 187 MG/DL 60-99 H BASIC METABOLIC [id number] 05:42:00* Test Item Value Reference Range Interpretation Comme nts SODIUM (test code = NA) 135 MMOL/L 137-145 L POTASSIUM (test code = K) 3.9 MMOL/L 3.5-5.1 N CHLORIDE (test code = CL) 100 MMOL/L 98-107 N CARBON DIOXIDE (test code = CO2) 25 MMOL/L 22-30 N ANION GAP (test code = GAP) 14 MMOL/L 14-24 N GLUCOSE (test code = GLU) 152 MG/DL 74-106 H BLOOD UREA NITROGEN (test code = BUN) 34 MG/DL 9-20 H GLOMERULAR FILTRATION RATE (test code = GFR) > 60 Reporting units: ml/min/1.73 m2 (Modified MDRD Formula)Reference Range: > or = 60 ml/min/1.73 m2 CREATININE (test code = CREAT) 1.00 MG/DL 0.66-1.25 N CALCIUM (test code = CA) 10.0 MG/DL 8.4-10.2 N [id number] 05:42:00* Test Item Value Reference Range Interpretation Comme nts MAGNESIUM (test code = MAG) 2.0 MG/DL 1.6-2.3 N GLUCOSE BEDSIDE [id number] 19:04:00* Test Item Value Reference Range Interpretation Comme nts GLUCOSE BEDSIDE TESTING (lorraine t code = GLUBED) 286 MG/DL 60-99 H GLUCOSE BEDSIDE [id number] 17:13:00* Test Item Value Reference Range Interpretation Comme nts GLUCOSE BEDSIDE TESTING (lorraine t code = GLUBED) 162 MG/DL 60-99 H GLUCOSE BEDSIDE [id number] 15:12:00* Test Item Value Reference Range Interpretation Comme nts GLUCOSE BEDSIDE TESTING (lorraine t code = GLUBED) 80 MG/DL 60-99 N GLUCOSE BEDSIDE [id number] 11:21:00* Test Item Value Reference Range Interpretation Comme nts GLUCOSE BEDSIDE TESTING (lorraine t code = GLUBED) 262 MG/DL 60-99 H GLUCOSE BEDSIDE [id number] 09:03:00* Test Item Value Reference Range Interpretation Comme nts GLUCOSE BEDSIDE TESTING (lorraine t code = GLUBED) 336 MG/DL 60-99 HH COMPREHENSIVE METABOLIC [id number] 05:29:00* Test Item Value Reference Range Interpretation Comme nts SODIUM (test code = NA) 133 MMOL/L 137-145 L POTASSIUM (test code = K) 4.0 MMOL/L 3.5-5.1 N CHLORIDE (test code = CL) 100 MMOL/L 98-107 N CARBON DIOXIDE (test code = CO2) 28 MMOL/L 22-30 N ANION GAP (test code = GAP) 9 MMOL/L 14-24 L GLUCOSE (test code = GLU) 206 MG/DL 74-106 H BLOOD UREA NITROGEN (test code = BUN) 25 MG/DL 9-20 H GLOMERULAR FILTRATION RATE (test code = GFR) > 60 Reporting unit s: ml/min/1.73 m2 (Modified MDRD Formula)Reference Range: > or = 60 ml/min/1.73 m2 CREATININE (test code = CREAT) 1.00 MG/DL 0.66-1.25 N TOTAL PROTEIN (test code = PROT) 6.6 G/DL 6.2-7.6 N [facility] Clinical D iagnostic has made us aware of newinformation regarding the potential interference ofEltrombopag (a bone marrow stimulant used to treatthrombocytonmenia and aplastic anemia) with specific assayson the [employer] of which Total Protein is one of thoseassays performed in our lab.Interference testing performed at Ortho determined thatEltrombopag does interfere with Vitros Total Protein asfollowsEltrombopag Interference for Vitros Product Total Protein: Eltrombopag Max Observed Avg. BiasConcentration Concentration Concentration 2.5 mg/dl 6.0 g/dl +0.41 +0.34 3.5 mg/dl 6.0 g/dl +0.50 +0.45 5 mg/dl 6.0 g/dl +0.73 +0.65 2.5 mg/dl 8.0 g/dl +0.44 +0.41 3.5 mg/dl 8.0 g/dl +0.55 +0.52 5 mg/dl 8.0 g/dl +0.86 +0.77 ALBUMIN (test code = ALB) 3.5 G/DL 3.5-5.0 N CALCIUM (test code = CA) 9.0 MG/DL 8.4-10.2 N BILIRUBIN TOTAL (test code = BILT) 0.7 MG/DL 0.2-1.3 N Eltrombopag Inte rference for Vitros Product TBil, BuBc: Assay Eltrombopag Analyte/ Max Observed Avg. Bias Concentration Concentration Concentration TBil 7mg/dl TBil/ 1.2mg/dl +0.23mg.dl +0.20mg/dlBuBc 3.5mg/dl Bu/0.8mg/dl +0.25mg/dl +0.24mg/dlBuBc 7 mg/dl Bu/14.2mg/dl +0.38mg/dl +0.25mg/dlBuBc 5mg/dl Bc/0mg/dl +0.25mg/dl +0.15mg/dlBuBc 3.5mg/dl Bc/2.8mg/dl +0.25mg/dl +0.23mg/dl SGOT/AST (test code = AST) 28 UNITS/L 17-59 N SGPT/ALT (test code = ALT) 46 UNITS/L 0-49 N ALKALINE PHOSPHATASE (test code = ALKP) 117 UNITS/L 38-126 N [id number] 05:29:00* Test Item Value Reference Range Interpretation Comme nts TROPONIN-I (test code = TROPI) 0.042 NG/ML 0.012-0.033 H GLYCOSYLATED HEMOGLOBIN [id number] 05:17:00* Test Item Value Reference Range Interpretation Comme nts GLYCOSYLATED HEMOGLOBIN (HA1C) (test code = GLYHGB) 10.9 % 4.8-5.9 H Any condition th at shortens erythocyte survival or decreasesmean erythrocyte age (e.g., recovery from acute blood loss,hemolytic anemia) will falsely lower HGBA1c resultsregardless of the method used. HGBA1c results from patientswith HbSS, HbCC, and HbSc must be interpreted with cautiongiven the pathological processes, including anemia,increased red cell turnover, transfusion requirements, thatadversely impact HGBA1c as a marker of long-term glycemiccontrol. Alternative forms of testing such as fructosamineshould be considered for these patients. MEAN BLOOD GLUCOSE (test code = MBG) 266 MG/DL 70-110 H CBC W/AUTO [id number] 05:04:00* Test Item Value Reference Range Interpretation Comme nts WHITE BLOOD CELL (test code = WBC) 6.9 K/MM3 3.8-9.8 N RED BLOOD CELL (test code = RBC) 4.95 M/MM3 3.95-5.67 N HEMOGLOBIN (test code = HGB) 14.7 G/DL 12.4-16.7 N HEMATOCRIT (test code = HCT) 42.7 % 35.9-49.5 N MEAN CELL VOLUME (test code = MCV) 86 fL 81.7-96.1 N MEAN CELL HGB (test code = MCH) 29.7 pg 27.6-33.2 N MEAN CELL HGB CONCETRATION (test code = MCHC) 34.4 % 32.9-35.5 N RED CELL DISTRIBUTION WIDTH (test code = RDW) 12.4 % 12.1-15.2 N PLATELET COUNT (test code = PLT) 244 K/MM3 129-368 N MEAN PLATELET VOLUME (test c ode = MPV) 10.7 fl 7.4-10.4 H NEUTROPHIL % (test code = NT%) 74.6 % 43-75 N IMMATURE GRANULOCYTE % (test code = IG%) 0.3 % 0.0-2.0 N LYMPHOCYTE % (test code = LY%) 15.6 % 14-44 N MONOCYTE % (test code = MO%) 6.8 % 4-13 N EOSINOPHIL % (test code = EO%) 1.7 % 0-6 N BASOPHIL % (test code = BA%) 1.0 % 0-2 N NUCLEATED RBC % (test code = NRBC%) 0.0 % 0-1.0 N NEUTROPHIL # (test code = NT#) 5.12 K/mm3 2.0-7.6 N IMMATURE GRANULOCYTE # (test code = IG#) 0.02 x10 3/uL 0-0.03 N LYMPHOCYTE # (test code = LY#) 1.07 K/mm3 1.0-3.8 N MONOCYTE # (test code = MO#) 0.47 K/mm3 0.1-0.8 N EOSINOPHIL # (test code = EO#) 0.12 K/mm3 0.0-0.2 N BASOPHIL # (test code = BA#) 0.07 K/mm3 0.0-0.2 N NUCLEATED RBC # (test code = NRBC#) 0.00 K/mm3 0.0-0.1 N [id number] 23:00:00* Test Item Value Reference Range Interpretation Comme nts TROPONIN-I (test code = TROPI) 0.042 NG/ML 0.012-0.033 H GLUCOSE BEDSIDE [id number] 22:05:00* Test Item Value Reference Range Interpretation Comme nts GLUCOSE BEDSIDE TESTING (lorraine t code = GLUBED) 243 MG/DL 60-99 H BASIC METABOLIC [id number] 18:14:00* Test Item Value Reference Range Interpretation Comme nts SODIUM (test code = NA) 134 MMOL/L 137-145 L POTASSIUM (test code = K) 4.0 MMOL/L 3.5-5.1 N CHLORIDE (test code = CL) 99 MMOL/L 98-107 N CARBON DIOXIDE (test code = CO2) 26 MMOL/L 22-30 N ANION GAP (test code = GAP) 13 MMOL/L 14-24 L GLUCOSE (test code = GLU) 273 MG/DL 74-106 H BLOOD UREA NITROGEN (test code = BUN) 20 MG/DL 9-20 GLOMERULAR FILTRATION RATE (test code = GFR) > 60 Reporting units: ml/min/1.73 m2 (Modified MDRD Formula)Reference Range: > or = 60 ml/min/1.73 m2 CREATININE (test code = CREAT) 0.90 MG/DL 0.66-1.25 N CALCIUM (test code = CA) 8.8 MG/DL 8.4-10.2 N [id number] 18:14:00* Test Item Value Reference Range Interpretation Comme nts MAGNESIUM (test code = MAG) 1.7 MG/DL 1.6-2.3 N NT PRO-BRAIN NATRIURETIC [id number] 18:14:00* Test Item Value Reference Range Interpretation Comme nts NT PRO-BRAIN NATRIURETIC PEP TI (test code = PROBNP) 875.0 pg/mL 0-125 H [id number] 18:14:00* Test Item Value Reference Range Interpretation Comme nts TROPONIN-I (test code = TROPI) 0.039 NG/ML 0.012-0.033 H GLUCOSE BEDSIDE [id number] 15:14:00* Test Item Value Reference Range Interpretation Comme nts GLUCOSE BEDSIDE TESTING (lorraine t code = GLUBED) 194 MG/DL 60-99 H N-TERMINAL [id number] 14:06:02* Test Item Value Reference Range Interpretation Comme nts NT-proBNP (test code = 5473031061) 900 pg/mL See_Comment H [Automated message] The system which generated this result transmitted reference range: <=125. The reference range was not used to interpret this result as normal/abnormal. LILLIAN (test code = LILLIAN) Biotin has been reported to cause a negative bias, interpret results relative to patient's use of biotin. Lab Interpretation (test code = 57875-3) [id number] 13:29:24* Test Item Value Reference Range Interpretation Comments TROPONIN I (test code = 9616909086) 0.047 ng/mL See_Comment H [Automated message] The system which generated this result transmitted reference range: <=0.034. The reference range was not used to interpret this result as normal/abnormal. LILLIAN (test code = LILLIAN) Reference (Normal) Range (defined by the 99th percentile reference [...] to patient's use of biotin. Lab Interpretation (test code = 63511-4) Abnormal [facility]. METABOLIC PANEL (18199)2022-05-13 13:24:24* Test Item Value Reference Range Interpretation Comme nts NA (test code = 0340620769) 135 mmol/L 135-145 K (test code = 2923856177) 4.7 mmol/L 3.5-5 CL (test code = 9626981785) 100 mmol/L 98-108 CO2 TOTAL (test code = 8829056271) 25 mmol/L 23-31 AGAP (test code = 7307424362) 2-16 BUN (test code = 5774534183) 21 mg/dL 7-23 GLUCOSE (test code = 2327181462) 284 mg/dL 70-110 H CREATININE (test code = 7312929546) 0.89 mg/dL 0.6-1.25 TOTAL BILI (test code = 2755661916) 0.8 mg/dL 0.1-1.1 CALCIUM (test code = 3036547813) 8.9 mg/dL 8.6-10.6 T PROTEIN (test code = 3547213425) 6.9 g/dL 6.3-8.2 ALBUMIN (test code = 7882351402) 4.2 g/dL 3.5-5 ALK PHOS (test code = 6071849660) 131 U/L 34-122 H ALTv (test code = 1742-6) 65 U/L 5-50 H AST(SGOT) (test code = 3677221940) 43 U/L 13-40 H eGFR (test code = 6177225519) mL/min/1.73m2 LILLIAN (test code = LILLIAN) Association of [...] or abnormalities in imaging tests). Lab Interpretation (test code = 72375-6) Abnormal [facility] WITH [id number] 12:58:44* Test Item Value Reference Range Interpretation Comme nts WBC (test code = 6690-2) See_Comment [Automated ivWatch] The system which generated this result transmitted reference range: 4.20 - 10.70 10*3/?L. The reference range was not used to interpret this result as normal/abnormal. RBC (test code = 789-8) See_Comment [Automated ivWatch] The system which generated this result transmitted reference range: 4.26 - 5.52 10*6/?L. The reference range was not used to interpret this result as normal/abnormal. HGB (test code = 718-7) 15.6 g/dL 12.2-16.4 HCT (test code = 4544-3) 45.3 % 38.4-49.3 MCV (test code = 787-2) 87.3 fL 81.7-95.6 MCH (test code = 785-6) 30.1 pg 26.1-32.7 MCHC (test code = 786-4) 34.4 g/dL 31.2-35 RDW-SD (test code = 70966-4) 39.0 fL 38.5-51.6 RDW-CV (test code = 788-0) 12.3 % 12.1-15.4 PLT (test code = 777-3) See_Comment [Automated ivWatch] The system which generated this result transmitted reference range: 150 - 328 10*3/?L. The reference range was not used to interpret this result as normal/abnormal. MPV (test code = 82045-3) 10.3 fL 9.8-13 NRBC/100 WBC (test code = 6868127982) See_Comment [Automated me ssage] The system which generated this result transmitted reference range: 0.0 - 10.0 /100 WBCs. The reference range was not used to interpret this result as normal/abnormal. NRBC x10^3 (test code = 3419169361) See_Comment [Automated me ssage] The system which generated this result transmitted reference range: 10*3/?L. The reference range was not used to interpret this result as normal/abnormal. GRAN MAT (NEUT) % (test code = 770-8) 77.0 % IMM GRAN % (test code = 6943243617) 0.20 % LYMPH % (test code = 736-9) 14.8 % MONO % (test code = 5905-5) 5.3 % EOS % (test code = 713-8) 1.6 % BASO % (test code = 706-2) 1.1 % GRAN MAT x10^3(ANC) (test code = 7553599998) 6.36 10*3/uL 1.99-6.95 IMM GRAN x10^3 (test code = 9842549783) 0-0.06 LYMPH x10^3 (test code = 731-0) 1.22 10*3/uL 1.09-3.23 MONO x10^3 (test code = 742-7) 0.44 10*3/uL 0.36-1.02 EOS x10^3 (test code = 711-2) 0.13 10*3/uL 0.06-0.53 BASO x10^3 (test code = 704-7) 0.09 10*3/uL 0.01-0.09 [facility] [id number] 07:21:00* Test Item Value Reference Range Interpretation Comme nts GLUCOSE BEDSIDE TESTING (lorraine t code = GLUBED) 271 MG/DL 60-99 H BASIC METABOLIC [id number] 06:36:00* Test Item Value Reference Range Interpretation Comme nts SODIUM (test code = NA) 134 MMOL/L 137-145 L POTASSIUM (test code = K) 4.6 MMOL/L 3.5-5.1 N CHLORIDE (test code = CL) 101 MMOL/L 98-107 N CARBON DIOXIDE (test code = CO2) 28 MMOL/L 22-30 N ANION GAP (test code = GAP) 10 MMOL/L 14-24 L GLUCOSE (test code = GLU) 195 MG/DL 74-106 H BLOOD UREA NITROGEN (test code = BUN) 24 MG/DL 9-20 H GLOMERULAR FILTRATION RATE (test code = GFR) > 60 Reporting units: ml/min/1.73 m2 (Modified MDRD Formula)Reference Range: > or = 60 ml/min/1.73 m2 CREATININE (test code = CREAT) 1.00 MG/DL 0.66-1.25 N CALCIUM (test code = CA) 9.2 MG/DL 8.4-10.2 N CBC W/AUTO [id number] 05:51:00* Test Item Value Reference Range Interpretation Comme nts WHITE BLOOD CELL (test code = WBC) 9.8 K/MM3 3.8-9.8 N RED BLOOD CELL (test code = RBC) 5.01 M/MM3 3.95-5.67 N HEMOGLOBIN (test code = HGB) 15.0 G/DL 12.4-16.7 N HEMATOCRIT (test code = HCT) 43.1 % 35.9-49.5 N MEAN CELL VOLUME (test code = MCV) 86 fL 81.7-96.1 N MEAN CELL HGB (test code = MCH) 29.9 pg 27.6-33.2 N MEAN CELL HGB CONCETRATION (test code = MCHC) 34.8 % 32.9-35.5 N RED CELL DISTRIBUTION WIDTH (test code = RDW) 13.2 % 12.1-15.2 N PLATELET COUNT (test code = PLT) 223 K/MM3 129-368 N MEAN PLATELET VOLUME (test c ode = MPV) 10.3 fl 7.4-10.4 N NEUTROPHIL % (test code = NT%) 79.1 % 43-75 H IMMATURE GRANULOCYTE % (test code = IG%) 0.3 % 0.0-2.0 N LYMPHOCYTE % (test code = LY%) 11.7 % 14-44 L MONOCYTE % (test code = MO%) 6.9 % 4-13 N EOSINOPHIL % (test code = EO%) 1.3 % 0-6 N BASOPHIL % (test code = BA%) 0.7 % 0-2 N NUCLEATED RBC % (test code = NRBC%) 0.0 % 0-1.0 N NEUTROPHIL # (test code = NT#) 7.72 K/mm3 2.0-7.6 H IMMATURE GRANULOCYTE # (test code = IG#) 0.03 x10 3/uL 0-0.03 N LYMPHOCYTE # (test code = LY#) 1.14 K/mm3 1.0-3.8 N MONOCYTE # (test code = MO#) 0.67 K/mm3 0.1-0.8 N EOSINOPHIL # (test code = EO#) 0.13 K/mm3 0.0-0.2 N BASOPHIL # (test code = BA#) 0.07 K/mm3 0.0-0.2 N NUCLEATED RBC # (test code = NRBC#) 0.00 K/mm3 0.0-0.1 N GLUCOSE BEDSIDE [id number] 20:19:00* Test Item Value Reference Range Interpretation Comme nts GLUCOSE BEDSIDE TESTING (lorraine t code = GLUBED) 311 MG/DL 60-99 HH GLUCOSE BEDSIDE [id number] 15:43:00* Test Item Value Reference Range Interpretation Comme nts GLUCOSE BEDSIDE TESTING (lorraine t code = GLUBED) 268 MG/DL 60-99 H - XR CHEST [id number] 13:54:00 [facility] : 1960 Sex: M PatientName: YURINICHOLAS Unit No: [id number] EXAMS: CPT CODE: [id number] XR CHEST 1V 20421 B2 EXAM: - XRCHEST 1V DATE: 09/24/2021 1:06 PM HISTORY: S/P ICD COMPARISON: Chest x-ray 06/25/2011 FINDINGS: No airspace consolidation or pleural effusions. No pneumothorax. The cardiovascular silhouette is within normal limits. No bony lesions. Left-sided pacemaker in place with intact leads. IMPRESSION: No acute cardiopulmonary abnormality. at 1354 Reported and signed by: Delia Giang MD CC: Geoff Hollins Technologist: Sammie Lanza, RT (R) Transcrpt Date/Tm/Trnsp: 09/24/2021 (5790) t.SDR.MOP Orig Print D/T: S: 09/24/2021 (0306) [facility] NAME: NICHOLAS RUIZ [address] PHYS: [place] [address] : 1960 AGE: 61 SEX: M LOC: Z.DC5 A PHONE #: [phone] EXAM DATE: 09/24/2021 STATUS: ADM IN FAX #: [phone] RADIOLOGY NO: PAGE 1 Signed ReportCBC W/AUTO [id number] 09:06:00* Test Item Value Reference Range Interpretation Comme nts WHITE BLOOD CELL (test code = WBC) 8.6 K/MM3 3.8-9.8 N RED BLOOD CELL (test code = RBC) 5.38 M/MM3 3.95-5.67 N HEMOGLOBIN (test code = HGB) 15.9 G/DL 12.4-16.7 N HEMATOCRIT (test code = HCT) 46.7 % 35.9-49.5 N MEAN CELL VOLUME (test code = MCV) 87 fL 81.7-96.1 N MEAN CELL HGB (test code = MCH) 29.6 pg 27.6-33.2 N MEAN CELL HGB CONCETRATION (test code = MCHC) 34.0 % 32.9-35.5 N RED CELL DISTRIBUTION WIDTH (test code = RDW) 13.0 % 12.1-15.2 N PLATELET COUNT (test code = PLT) 228 K/MM3 129-368 N MEAN PLATELET VOLUME (test c ode = MPV) 10.3 fl 7.4-10.4 N NEUTROPHIL % (test code = NT%) 75.9 % 43-75 H IMMATURE GRANULOCYTE % (test code = IG%) 0.4 % 0.0-2.0 N LYMPHOCYTE % (test code = LY%) 14.8 % 14-44 N MONOCYTE % (test code = MO%) 6.5 % 4-13 N EOSINOPHIL % (test code = EO%) 1.3 % 0-6 N BASOPHIL % (test code = BA%) 1.1 % 0-2 N NUCLEATED RBC % (test code = NRBC%) 0.0 % 0-1.0 N NEUTROPHIL # (test code = NT#) 6.51 K/mm3 2.0-7.6 N IMMATURE GRANULOCYTE # (test code = IG#) 0.03 x10 3/uL 0-0.03 N LYMPHOCYTE # (test code = LY#) 1.27 K/mm3 1.0-3.8 N MONOCYTE # (test code = MO#) 0.56 K/mm3 0.1-0.8 N EOSINOPHIL # (test code = EO#) 0.11 K/mm3 0.0-0.2 N BASOPHIL # (test code = BA#) 0.09 K/mm3 0.0-0.2 N NUCLEATED RBC # (test code = NRBC#) 0.00 K/mm3 0.0-0.1 N PROTHROMBIN [id number] 08:59:00* Test Item Value Reference Range Interpretation Comme nts PROTHROMBIN TIME PATIENT (test code = PTP) 11.1 SECONDS 9.5-12.7 N INTERNATIONAL NORMAL RATIO (test code = INR) 1.0 0.86-1.14 N The INR is to be used only for monitoring oral anticoagulanttherap y. INDICATION INR VALUE -------1. Prophylaxis, deep venous thrombosis, including high risk surgery. 2.0 - 3.0 2. Prophylaxis, deep venous thrombosis, hip surgery, treatment for deep venous thrombosis or pulmonary prevention of systemic embolism in patients with valvular heart disease, atrial fibrillation, tissue heart valve, or acute myocardial infarction. 2.0 - 3.0 3. Mechanical prosthesis heart valves, recurrent systemic embolism. 3.0 - 4.5 PTT [id number] 08:59:00* Test Item Value Reference Range Interpretation Comme nts PTT ACTIVATED (test code = APTT) 38.9 SECONDS 25.1-36.5 H BASIC METABOLIC [id number] 08:59:00* Test Item Value Reference Range Interpretation Comme nts SODIUM (test code = NA) 135 MMOL/L 137-145 L POTASSIUM (test code = K) 5.3 MMOL/L 3.5-5.1 H CHLORIDE (test code = CL) 98 MMOL/L 98-107 N CARBON DIOXIDE (test code = CO2) 31 MMOL/L 22-30 H GLUCOSE (test code = GLU) 258 MG/DL 74-106 H BLOOD UREA NITROGEN (test code = BUN) 18 MG/DL 9-20 N GLOMERULAR FILTRATION RATE (test code = GFR) > 60 Reporting units: ml/min/1.73 m2 (Modified MDRD Formula)Reference Range: > or = 60 ml/min/1.73 m2 CREATININE (test code = CREAT) 0.90 MG/DL 0.66-1.25 N CALCIUM (test code = CA) 10.0 MG/DL 8.4-10.2 N [id number] 08:59:00* Test Item Value Reference Range Interpretation Comme nts MAGNESIUM (test code = MAG) 1.8 MG/DL 1.6-2.3 N COVID 19 Asymptomatic IH [id number] 06:59:00* Test Item Value Reference Range Interpretation Comme nts COVID 19 Asymptomatic IH AG (test code = COVNONPUIAG) NEGATIVE Negative "Negative result s from patients with symptom onset beyondfive days, should be treated as presumptive, andconfirmation with a molecular assay, if necessary forpatient management may be performed. Negative results do notrule out COVID-19 and should not be used as the sole basisfor treatment or patient management decisions, includinginfection control decisions. Negative results should beconsidered in the context of a patients recent exposures,history, and the presence of clinical signs and symptomsconsistent with COVID-19.This test detects both viable andnon-viable SARS-CoV and SARS CoV-2.Test performance dependson the amount of virus (antigen) in the sample." Spec Comments: PRE-OPBASIC METABOLIC [id number] 11:36:00* Test Item Value Reference Range Interpretation Comme nts SODIUM (test code = NA) 140 MMOL/L 137-145 N POTASSIUM (test code = K) 4.3 MMOL/L 3.5-5.1 N CHLORIDE (test code = CL) 102 MMOL/L 98-107 N CARBON DIOXIDE (test code = CO2) 27 MMOL/L 22-30 N GLUCOSE (test code = GLU) 188 MG/DL 74-106 H BLOOD UREA NITROGEN (test code = BUN) 18 MG/DL 9-20 N GLOMERULAR FILTRATION RATE (test code = GFR) > 60 Reporting units: ml/min/1.73 m2 (Modified MDRD Formula)Reference Range: > or = 60 ml/min/1.73 m2 CREATININE (test code = CREAT) 0.80 MG/DL 0.66-1.25 N CALCIUM (test code = CA) 9.5 MG/DL 8.4-10.2 N [id number] 11:36:00* Test Item Value Reference Range Interpretation Comme nts MAGNESIUM (test code = MAG) 1.9 MG/DL 1.6-2.3 N PROTHROMBIN [id number] 11:21:00* Test Item Value Reference Range Interpretation Comme nts PROTHROMBIN TIME PATIENT (test code = PTP) 10.6 SECONDS 9.6-11.6 N INTERNATIONAL NORMAL RATIO (test code = INR) 1.0 0.8-1.1 N The INR is to be used only for monitoring oral anticoagulanttherap y. INDICATION INR VALUE -------1. Prophylaxis, deep venous thrombosis, including high risk surgery. 2.0 - 3.0 2. Prophylaxis, deep venous thrombosis, hip surgery, treatment for deep venous thrombosis or pulmonary prevention of systemic embolism in patients with valvular heart disease, atrial fibrillation, tissue heart valve, or acute myocardial infarction. 2.0 - 3.0 3. Mechanical prosthesis heart valves, recurrent systemic embolism. 3.0 - 4.5 PTT [id number] 11:21:00* Test Item Value Reference Range Interpretation Comme nts PTT ACTIVATED (test code = APTT) 29.4 SECONDS 22.0-33.0 N CBC W/AUTO [id number] 11:07:00* Test Item Value Reference Range Interpretation Comme nts WHITE BLOOD CELL (test code = WBC) 8.4 K/MM3 3.8-9.8 N RED BLOOD CELL (test code = RBC) 5.14 M/MM3 3.95-5.67 N HEMOGLOBIN (test code = HGB) 15.2 G/DL 12.4-16.7 N HEMATOCRIT (test code = HCT) 44.4 % 35.9-49.5 N MEAN CELL VOLUME (test code = MCV) 86 fL 81.7-96.1 N MEAN CELL HGB (test code = MCH) 29.6 pg 27.6-33.2 N MEAN CELL HGB CONCETRATION (test code = MCHC) 34.2 % 32.9-35.5 N RED CELL DISTRIBUTION WIDTH (test code = RDW) 12.4 % 12.1-15.2 N PLATELET COUNT (test code = PLT) 304 K/MM3 129-368 N MEAN PLATELET VOLUME (test c ode = MPV) 9.8 fl 7.4-10.4 N NEUTROPHIL % (test code = NT%) 76.5 % 43-75 H IMMATURE GRANULOCYTE % (test code = IG%) 0.4 % 0.0-2.0 N LYMPHOCYTE % (test code = LY%) 15.5 % 14-44 N MONOCYTE % (test code = MO%) 5.8 % 4-13 N EOSINOPHIL % (test code = EO%) 1.1 % 0-6 N BASOPHIL % (test code = BA%) 0.7 % 0-2 N NUCLEATED RBC % (test code = NRBC%) 0.0 % 0-1.0 N NEUTROPHIL # (test code = NT#) 6.44 K/mm3 2.0-7.6 N IMMATURE GRANULOCYTE # (test code = IG#) 0.03 x10 3/uL 0-0.03 N LYMPHOCYTE # (test code = LY#) 1.30 K/mm3 1.0-3.8 N MONOCYTE # (test code = MO#) 0.49 K/mm3 0.1-0.8 N EOSINOPHIL # (test code = EO#) 0.09 K/mm3 0.0-0.2 N BASOPHIL # (test code = BA#) 0.06 K/mm3 0.0-0.2 N NUCLEATED RBC # (test code = NRBC#) 0.00 K/mm3 0.0-0.1 N Notes Date/Time Note Provider Source 2023-12-20 08:49:00 [id number]/[id number]:49:00 [facility]Hospital[facility] Progress NoteREPORT#:[id number] REPORT STATUS: SignedREPORT INITIALIZATION DATE:12/20/23 TIME: 08 PATIENT: NICHOLAS RUIZ UNIT #: [id number]#: [id number] ROOM/BED: [place] [id number]: [birth year] AGE: 63 SEX: M ATTEND: Stephanie Bell DOADM AUTHOR: Stephanie Bell DOREPT SERVICE DT/TIME: 12/20/23 0849* ALL edits or amendments must be made on the electronic/computer document * SubjectiveChief complaint:Left-sided weakness, slurred speechHPI:Nicholas Ruiz is a 63-year-old male with past history of hypertension, diabetes mellitus, hyperlipidemia, CHF/dilated cardiomyopathy, AICD placement. Last known well was 12/18/20231999 prior to patient going to bed patient had onset of left-sided weakness, slurred speech, some left facial weakness, he went to [facility] for further evaluation, he was outside of [facility] window, was referred to this facility for further neurological evaluation. He does report that he had a headache as well. He denies any past history of stroke or neurological changes. Currently denies chest pain, palpitations, shortness of breath, cough,fever, nausea, vomiting, diarrhea, confusion, seizure activity, sick contacts, recent illness. Patient seen and examined. No new issues or complaints. Denies any deficits Review of Systems Free Text ROS NotesFree Text ROS Notes:Complaint of left-sided weakness, dysarthria. Currently denies any headaches ordizziness, fevers or chills, neck pain or stiffness, chest pain or pressure, shortness of breath, palpitations, abdominal pain, no changes in bowel or bladder habits, no depression or anxiety, and all systems have been reviewed andare negative except as listed above. Objective GeneralVS/I O:Vital Signs: Date Time Temp Pulse Resp B/P B/P Pulse O2 O2 Flow FiO2 Mean Ox Delivery Rate 12/19 0756 98.4 95 20 159/98 117.9 99 12/19 0102 96 12 143/85 103.9 97 12/18 2020 98.1 111 141/85 103.8 95 12/18 1803 97.5 98 18 172/100 124 98 12/18 1630 97 165/97 125 96 12/18 1400 95 160/102 125 98 12/18 1300 92 140/95 112 98 12/18 1154 97.9 95 17 167/95 119 95 Room air 24 hour I O ending at 0700: 12/19 0700 12/18 1900 Intake Total Output Total Balance Patient 79.091 kg Weight Weight Stated/Reported Measurement Method PATIENT WEIGHT: Weight (lb): Weight (oz): Weight (kg): 79.091 Free Text Obj NotesFree Text Obj Notes:General: awake, alertHEENT: normocephalic, atraumaticNeck: no JVD/lymphadenopathyLungs: clear to auscultationCV: regular rate and rhythmAbdomen: soft, non-tender, non-distended, normal bowel soundsSkin: no rashesExtremities: no clubbing, cyanosisNeuro: Intact without focal deficitsPsych: normal affect, oriented x 3 Diagnosis, Assessment PlanConsultants: neurology Free Text DxA P NotesFree text DxA P notes:- Acute left-sided weakness, dysarthria TIA/stroke rule out- Diabetes mellitus- Hypertension- Hyperlipidemia- Hx CHF unspecified type- Hx AICD PLAN:- Resume home medications when available- Diabetic diet if passed dysphagia screen- Fall precautions- Neurochecks per nursing- PT/OT/ST- Neurology consultation appreciated- Permissive hypertension x 24 hours- Get lipid panel/A1c- Dual antiplatelet therapy- Get echocardiogram PFO/VSD rule out- CT head showing no acute intracranial changes/hemorrage- CTA head/neck showing no LVO, no high grade stenosis, no hemorrage or significant acute intracranial vascular stenosis- MRI if AICD compatible pending- Follow-up CT head tomorrow in a.m. per neurology- Follow blood pressure trend, adjust medications as needed- As needed antihypertensive- DVT prophylaxis, lovenox- Further interventions will be dependent on patient's clinical course- Plan discussed with patient 12/20/[facility]23[facility] codePT/OT/ST evalPain controlFall precautionsNeurology consulted/recommendations pendingLovenox for DVT prophylaxisMRI of the brain pendingDC planning for home today once cleared by neurologySupportive care at 0851 RPT #:[id number] OF REPORTPRProgress uqsx6409-39-83E23:49:00G.[id number] ble for patient iamoLSLYUMCBVKBPNA1707-87-98D06:51:25 [facility] 2023-12-19 19:04:00 [id number] eo+wDiUrL7 yeRnTIH4Trq0Ew7U5nRpoi83HJ3544-17-34K57:04:00 [facility])Hospitalist History PhysicalREPORT#:[id number] REPORT STATUS: SignedREPORT INITIALIZATION DATE:12/19/23 TIME: 1903 PATIENT: NICHOLAS RUIZ UNIT #: [id number]#: [id number] [address] AGE: 63 SEX: M ATTEND: Beba Fuentes MDA AUTHOR: Freddie Park APRNREPT SERVICE DT/TIME: 12/19/231903* ALL edits or amendments must be made on the electronic/computer document * History of Present Illness HPIChief complaint:Left-sided weakness, slurred speechPCP:PCP: Geoff Hollins MD HPI:Nicholas Ruiz is a 63-year-old male with past history of hypertension, diabetes mellitus, hyperlipidemia, CHF/dilated cardiomyopathy, AICD placement. Last known well was 12/18/20231999 prior to patient going to bed patient had onset of left-sided weakness, slurred speech, some left facial weakness, he went to [facility] for further evaluation, he was outside of [facility] window, was referred to this facility for further neurological evaluation. He does report that he had a headache as well. He denies any past history of stroke or neurological changes. Currently denies chest pain, palpitations, shortness of breath, cough,fever, nausea, vomiting, diarrhea, confusion, seizure activity, sick contacts, recent illness. History Past Medical Surgical HxAdditional medical history:HTN,CHF, DM2, dilated cardiomyopathyAdditional surgical history:Back fusion (1996) Ankle Fusion (1971) Bilateral carpal tunnel release (1988) Family HistoryFamily history:Reports: Heart disease, Hypertension. Social HistoryAlcohol use: Denies EtOH useDrug use: Denies recreational drugsSmoking status for patients 13 years old or older: Never Smoker Medication/Allergy-Vaccine HxAllergies:Coded Allergies:No Known Allergies (02/22/19) Review of Systems Free Text ROS NotesFree Text ROS Notes:Complaint of left-sided weakness, dysarthria. Currently denies any headaches ordizziness, fevers or chills, neck pain or stiffness, chest pain or pressure, shortness of breath, palpitations, abdominal pain, no changes in bowel or bladder habits, no depression or anxiety, and all systems have been reviewed andare negative except as listed above. OBJECTIVEVS/I O:Vital Signs Date Temp Pulse Resp B/P B/P Mean Pulse Ox FiO2 12/18 97.5-97.9 92-98 17-18 140-172/95-102 112-125 95-98 Last Documented: Result Date Time Pulse Ox 98 12/18 1803 B/P 172/100 / 1803 B/P Mean 124 12/18 1803 Temp 97.5 12/18 1803 Pulse 98 12/18 1803 Resp 18 12/18 1803 O2 Delivery Room air 12/18 1154 Patient Weight and BMI Weight (kg): 79.091 BMI: 29.9 Medications:Active Meds + DC'd Last 24 HrsAspirin (ASPIRIN) 81 MG DAILY PO Clopidogrel Bisulfate (Plavix) 75 MG DAILY PO Enoxaparin Sodium (lovENOX) 40 MG DAILY SUBQ Atorvastatin Calcium (LIPITOR) 40 MG 2100 PO Aspirin (ASPIRIN) 325 MG ONCE ONE PO (CAN) Clopidogrel Bisulfate (CLOPIDOGREL BISULFATE) 300 MG ONCE ONE PO (DC) Sodium Chloride (SODIUM CHLORIDE 0.9%) 250 ML BOLUS PRN IV Aspirin (ASPIRIN) 325 MG ONCE ONE PO (DC) Hydralazine HCl (APRESOLINE) 10 MG Q2H PRN PRN IV Ondansetron HCl (ZOFRAN) 4 MG Q6H PRN PRN IV ResultsFindings/Data:Laboratory Tests: 12/18 1509 Chemistry Troponin I High Sens (0 - 54 ng/L) 53 Free Text PE NotesFree Text PE Notes:General: awake, alertHEENT: normocephalic, atraumaticNeck: no JVD/lymphadenopathyLungs: clear to auscultationCV: regular rate and rhythmAbdomen: soft, non-tender, non-distended, normal bowel soundsSkin: no rashesExtremities: no clubbing, cyanosisNeuro: CN 2-12 intact, dysarthria, left-sided weaknessPsych: normal affect, oriented x 3 Diagnosis, Assessment PlanFree Text A P:- Acute left-sided weakness, dysarthria TIA/stroke rule out- Diabetes mellitus- Hypertension- Hyperlipidemia- Hx CHF unspecified type- Hx AICD PLAN:- Resume home medications when available- Diabetic diet if passed dysphagia screen- Fall precautions- Neurochecks per nursing- PT/OT/ST- Neurology consultation appreciated- Permissive hypertension x 24 hours- Get lipid panel/A1c- Dual antiplatelet therapy- Get echocardiogram PFO/VSD rule out- CT head showing no acute intracranial changes/hemorrage- CTA head/neck showing no LVO, no high grade stenosis, no hemorrage or significant acute intracranial vascular stenosis- MRI if AICD compatible pending- Follow-up CT head tomorrow in a.m. per neurology- Follow blood pressure trend, adjust medications as needed- As needed antihypertensive- DVT prophylaxis, lovenox- Further interventions will be dependent on patient's clinical course- Plan discussed with patient at 1929 at 0625 [facility] #:[id number] OF REPORTHPHistory and physical fllqqmpndze8753-66-86J83:04:00G.LSVN72057467-9580H VAvailable for patient klgcGALUHRIGQDWUFC5781-88-45P40:30:03 [facility] 2023-12-19 17:23:00 [id number]/H+wskmK+XVVy66smwYdu5t yKFhEXp5cq SKrvz37VWG3W9xOlDaa1XB9hYH7747-53-67Q16:23:00 [facility])Neurology Consultation NoteREPORT#:[id number] REPORT STATUS: SignedREPORT INITIALIZATION DATE:12/19/23 TIME: 1722 PATIENT: NICHOLAS RUIZ UNIT #: [id number]#: [id number] [address] AGE: 63 SEX: M ATTEND: Beba Fuenets MDA AUTHOR: Courtney Morales APRNNPREPT SERVICE DT/TIME: 12/19/23 1610* ALL edits or amendments must be made on the electronic/computer document * Courtney Morales 12/19/23 1723:History of Present Illness Time At Bedside)( Time at bedside: 1630 HPIHand dominance: rightRequesting clinician: Sebastián Anderson MDReason for consult:CVA outside MSK window transferChief complaint:Left-sided weaknessPCP:PCP: Geoff Hollins MDHPI:Patient is a 63-year-old male with past medical history of diabetes, hypertension, hyperlipidemia congestive heart failure, dilated cardiomyopathy status post AICD (Chandler) who presented as a transfer from [facility] to our ED for evaluation of left-sided weakness. Patient reports that he went to bed last night around 8pm and woke up this morning around 3am with the left upper extremity numbness and weakness. Later around 5am patient drove to work, he stopped to get breakfast from a taco place where the staff noticed him with left-facial weakness, slurred speech, left-sided weakness, and unsteadiness and theyactivated EMS. Patient says that he called family and they took him to the [facility] for further evaluation. Patient reports that he stopped all of his medications 2 years ago and currently only taking daily baby aspirin at home. Currently, patient reports mild right-sided intermittent headache, left facial weakness, mild dysarthria and mild left-sided weakness. Patient denies nausea, vomiting, dizziness, numbness, tingling, or vision changes. In [place] ED initial NIHSS 2, blood pressure 161/94mmHg, BG 163. Patient was outside the window for TNK given the last known well was 12/18/2023 around 8pm. Neurology consult is requsted for further stroke work-up and management.Hx Obtained From Patient, Prior medical records History - Adult longitudinalAdditional medical history:HTN,CHF, DM2, dilated cardiomyopathyLeft lower extremity poliomyelitisAdditional surgical history:Back fusion (1996)Ankle Fusion (1971)Bilateral carpal tunnel release (1988)AICD (Chandler)Left shoulder rotator cuff surgeryFamily history:Reports: Heart disease, Hypertension. Additional family history:Mother- stroke, diceased in her 50sFather-Kidney failure and hemodialysis in his 60s.Alcohol use: Denies EtOH useDrug use: Denies recreational drugsSmoking status for patients 13 years old or older: Former SmokerAllergies:Coded Allergies:No Known Allergies (02/22/19) Ambulatory status: Independent Review of Systems Free Text ROS NotesFree Text ROS Notes:A 12 point review of systems was reviewed with the patient and negative other than noted in HPI. Objective GeneralVS:Last Documented: Result Date Time Pulse Ox 96 12/18 1630 B/P 165/97 12/18 1630 B/P Mean 125 12/18 1630 Pulse 97 12/18 1630 O2 Delivery Room air 12/18 1154 Temp 97.9 12/18 1154 Resp 17 12/18 1154 PATIENT WEIGHT: Weight (lb): Weight (oz): Weight (kg): 79.091 MedicationsCurrent Home MedicationsATORVASTATIN (LIPITOR) 40 MG PO DAILY LOSARTAN 25 MG PO DAILY CARVEDILOL (carvediloL) 12.5 MG PO BID ASPIRIN EC (ECOTRIN) 81 MG PO DAILY INSULIN GLARGINE (LANTUS SOLOSTAR (15mL)) 15 UNITS SUBQ BEDTIME glipiZIDE (GLUCOTROL) 5 MG PO BID AC metFORMIN 500 MG PO BID MEALS FUROSEMIDE (LASIX) 40 MG PO BID SPIRONOLACTONE (ALDACTONE) 25 MG PO QAM Active Meds + DC'd Last 24 HrsAspirin (ASPIRIN) 81 MG DAILY PO Clopidogrel Bisulfate (Plavix) 75 MG DAILY PO Enoxaparin Sodium (lovENOX) 40 MG DAILY SUBQ Atorvastatin Calcium (LIPITOR) 40 MG 2100 PO Aspirin (ASPIRIN) 325 MG ONCE ONE PO (PEND) Clopidogrel Bisulfate (CLOPIDOGREL BISULFATE) 300 MG ONCE ONE PO (DC) Sodium Chloride (SODIUM CHLORIDE 0.9%) 250 ML BOLUS PRN IV Aspirin (ASPIRIN) 325 MG ONCE ONE PO (DC) Hydralazine HCl (APRESOLINE) 10 MG Q2H PRN PRN IV Ondansetron HCl (ZOFRAN) 4 MG Q6H PRN PRN IV Dietitian nutrition assessmentThe data set between the solid lines has been imported from the dietitian's assessment. BMI Calculated: 29.9Nutrition related diagnosis: Nutrition diagnosis details: Nutrition problem: Nutrition etiology: Nutrition signs and symptoms: Nutrition prescription: Dietitian name: Assessment completed: Physical ExamNeuro comment:GEN: NAD, calm and CooperativeHEENT: NC/AT, Anicteric Sclera, Mucous Membranes are moistCV: Brisk Cap Refill/Palpable peripheral pulsesRESP: Chest Expansion is symmetric, non-labored breathingEXTREM: No peripheral EdemaNeuro Exam:Mental Status: A, A, O x3, cooperative, good fund of knowledge. Follow simple verbal commandsLanguage: Fluent in [place] tongue, no aphasia, mild dysarthriaCranial Nerves:II: Pupils equal and symmetric, Brisk and reactive to light bilaterallyIII, IV, : EOM intact, No gaze preference, No visual field deficit, No nystagmusV, VII: Normal Sensation to V1, V2, V3 distribution bilaterally, Normal facial expression, left nasolabial fold flattening.VIII: Hearing is intact to speechIX, X: Soft palate elevates normally, Uvula to the midlineXI, XII: Normal strength to SCM bilaterally. Tongue protrudes to the midlineMotor: Normal Tone and muscle bulk in all extremitiesRUE: 5/5 Strength with Shoulder Abductors/Adductors, Elbowflexors/extensors, wrist flexors/extensors and Finger abductors/adductorsLUE: 4-/5 Strength with Shoulder Abductors/Adductors, Elbowflexors/extensors, wrist flexors/extensors and Finger abductors/adductorsRLE: 5/5 Strength with hip flexors/extensors, knee flexors/extensors,ankle dorsiflexors and plantar flexorsLLE: 4/5 Strength with hip flexors/extensors, knee flexors/extensors,ankle dorsiflexors and plantar flexorsSensory: Normal Sensation to Light touch, Pinprick, in all extremities andlower abdomen bilaterallyDeep Tendon Reflexes:+1 and symmetric to Biceps, Triceps, Brachioradialis, Knees and AnklesAnkle Clonus: Negative, Gallo's negativePlantar Responses: Flexor right, extensor leftCOORD: Normal finger to nose and heel to glover, abnormal on left upper and lower extremity, no tremorGait /Station: Deferred ResultsFindings/Data:Laboratory Tests 12/18 1509 Chemistry Troponin I High Sens (0 - 54 ng/L) 53 Results: labs reviewed, vital signs reviewed, CT results reviewed Diagnosis, Assessment PlanConsultants: neurologyPlan discussed with: patient Free Text DxA P NotesFree text DxA P notes:Patient is a 63-year-old male with past medical history of diabetes, hypertension, hyperlipidemia congestive heart failure, dilated cardiomyopathy status post AICD (Chandler) who presented as a transfer from [facility] to our ED for evaluation of left-sided weakness. Patient went to bed last night around 8pm and woke up this morning around 3am with the left upper extremity numbness and weakness. In [place] ED initial NIHSS 2, blood pressure 161/94mmHg, BG 163.Patient was outside the window for TNK given the last known well was 12/18/2023 around 8pm. Patient is transferred here for further stroke work-up and management. OSH CTH 12/19/2023: Cerebral volume loss and mild microvascular chronic white matter ischemic changes. No intracranial hemorrhage. No acute intracranial abnormality. OSH CTA head and neck 12/19/2023: Scattered atherosclerotic plaque. No area of high-grade stenosis. No intracranial large vessel occlusion. CXR: No focal consolidation. No other acute abnormalities. Suspected AISIntracranial atherosclerosisLeft-sided weaknessLeft facial weaknessDysarthriaHypertensionDiabetesHyperlipidem iaNoncompliance with home medicationsCongestive heart failureDilated cardiomyopathy s/p AICDEx smoker -CTH/CTA H N reviewed by neurologist-MRI brain if AICD compatible-Will repeat f/u CTH tomorrow am-Frequent Neuro-checks (q4h)-Permissive HTN for 24 hrs-Baseline EKG and CXR-Basic Labs: CBC, CMP, Coagulation panel and troponin-Intravenous hydration with normal saline at 75cc per hour until no longer PRT-Lfgov-kkxwaryq echocardiogram-Continuous cardiac telemetry to monitor for arrhythmia-Stroke labwork: HgbA1C, Lipid panel, urine drug screen-Aspirin 325mg once-Plavix 300mg one-Aspirin 81 mg daily-Plavix 75mg daily-Recommend continuing dual antiplatelet therapy 21 days followed by aspirin monotherapy-Atorvastatin 40mg daily (Long-term goal LDL <70mg/dl)-Tight glucose control (Long-term goal HgbA1c < 6%)-Stroke education and counseling-Physical Therapy, Occupational therapy, Speech Therapy consults-Consult case management to help initiate discharge planning DVT Prophylaxis: Lovenox. Disp: Neurology will follow. Neurologist examined the patient, personally reviewed all pertinent data including imaging and formulated the plan of care together. ROBERT distinctive service time: 38 minutes. ROBERT and Physician shared service Time: 5 minutes discussing diagnosis, Exam and plan of care. Courtney Morales APRN-CIGARETTE MACHINE OPERATOR for [facility] Neurology Hospitalist. [facility] 12/20/23 0625:Attestations Physician AttestationReviewed findings plan:Reviewed the findings and plan as documented by Courtney Morales NP. Patient is a 63-year-old male with past medical history as noted above who states he has been off all prescribed medications since around 2021 presenting with acute onset left hemiparesis. Patient was transferred from an outside hospital for continued care after initial stroke evaluation due to capacity limits. He was not a thrombolytic candidate as he was outside the window. The patient woke with symptoms involving his LUE and LLE and also notes some facial asymmetry. AIS suspectedHemiparesis and hemiplegia of the left non dominant sideCerebral atherosclerosis- load ASA, plavix- 21d on DAPT then ASA- statin for LDL <70- A1c, BG control. SSI to control hyperglycemia to 140-180mg/dL- TTE- PT/OT- permissive BP overnight then normalize in AM with outpatient goal <130/80mmHg- home BP monitoring, exercise, diet discussed with patient. DVT ppx: SQH vs LMWH until ambulatory Physician specific service time 40min at 0643 RPT #:[id number] OF REPORTJTTrllzbtsueot4220-74-11P89:23:00G.PDOC20 [id number] for patient gwrrGWWGBKDQCZGOBI0353-97-73M48:44:07 [facility] 2023-12-19 06:23:00 [id number] A+BOkUrU4T 8IAl/wk61XxgBcqkNqxmWxzm2S4876-71-71H73:23:00 [facility] ([facility])EMERGENCY PROVIDER REPORTREPORT#:[id number] REPORT STATUS: SignedDATE:12/19/23 TIME:622 PATIENT: RUIZNICHOLAS ZUNIGA UNIT #: [id number]#: [id number] ROOM/BED:: 61 AGE: 63 SEX: M PCP PHYS: Geoff Hollins MDSERVICE AUTHOR: Rocky Francis MD * ALL edits or amendments must be made on the electronic/computer document * Rocky Francis 12/19/23622:HPI-General Illness Free Text HPI NotesFree Text HPI NotesPT presents with L sided weakness, and L facial droop. Pt states he woke up at 3am not feeling well. Per family, pt was himself last night when he spoke to son on the phone around 20:00. FSG 163 GeneralInitial Greet Date/Time 12/19/23622 PresentationChief Complaint facial asymmetry, L sided weakness Risk-Stroke/CVA Risk Stratification)( Initial NIH Stroke Scale )( Initial NIH Stroke Scale Response Value NIHSS Applicable? Yes 0 Level of Consciousness Alert and responsive (0) 0 Ask Month Age Both questions right (0) 0 Blink Eyes/Squeeze Hands Performs both tasks (0) 0 Horizontal EOM NL side/side eye mvmt (0) 0 Visual Jay No visual loss (0) 0 Facial Palsy Partial, lower (2) 2 Right Arm Motor Drift (10s) No drift 10 sec (0) 0 Left Arm Motor Drift (10s) No drift 10 sec (0) 0 Right Leg Motor Drift (5s) No drift 5 sec (0) 0 Left Leg Motor Drift (5s) No drift 5 sec (0) 0 Limb Ataxia FNF/Heel-Glover No ataxia (0) 0 Sensation (Arms/Legs/Face) No sensory loss (0) 0 Language Aphasia No aphasia, normal (0) 0 Dysarthria No dysarthria (0) 0 Extinction/Inattention No extinct/inattent (0) 0 Total 2 NIH Stroke Score Timing Time 0633 Date 12/19/23 Past Medical History - AdultStated Complaint STROKE SYP.AllergiesCoded Allergies:No Known Allergies (02/22/19) Home MedicationsActive ScriptsATORVASTATIN (LIPITOR) 40 MG PO DAILY ATORVASTATIN (LIPITOR) 40 MG PO DAILY #30 TAB Prov: 05/15/22LOSARTAN 25 MG PO DAILY LOSARTAN 25 MG PO DAILY #30 TAB Prov: 05/15/22CARVEDILOL (carvediloL) 12.5 MG PO BID CARVEDILOL (carvediloL) 12.5 MG PO BID #60 TAB Prov: 05/15/22ASPIRIN EC (ECOTRIN) 81 MG PO DAILY ASPIRIN EC (ECOTRIN) 81 MG PO DAILY #60 TAB Prov: 05/15/22INSULIN GLARGINE (LANTUS SOLOSTAR (15mL)) 15 UNITS SUBQ BEDTIME INSULIN GLARGINE (LANTUS SOLOSTAR (15mL)) 15 UNITS SUBQ BEDTIME #3 ML Prov: 05/15/22glipiZIDE (GLUCOTROL) 5 MG PO BID AC glipiZIDE (GLUCOTROL) 5 MG PO BID AC #60 TAB Prov: 05/15/22metFORMIN 500 MG PO BID MEALS metFORMIN 500 MG PO BID MEALS #60 TAB Prov: 05/15/22FUROSEMIDE (LASIX) 40 MG PO BID FUROSEMIDE (LASIX) 40 MG PO BID #60 TABS Prov: 05/15/22SPIRONOLACTONE (ALDACTONE) 25 MG PO QAM SPIRONOLACTONE (ALDACTONE) 25 MG PO QAM #30 TABS Prov: 05/15/22 Additional Medical HistoryHTN,CHF, DM2, dilated cardiomyopathyAdditional Surgical HistoryBack fusion (1996) Ankle Fusion (1971) Bilateral carpal tunnel release (1988)Family History:Reports: Heart disease, Hypertension. Alcohol Use Denies EtOH useDrug Use Denies recreational drugs Physical Exam Vital SignsVital SignsFirst Documented: Result Date Time Pulse Ox 97 12/18 0531 B/P 161/94 12/18 0531 B/P Mean 116 12/18 0631 O2 Delivery Room air 12/18 630 Temp 36.7 12/18 0631 Pulse 75 12/18 0631 Resp 18 12/18 0531 Last Documented: Result Date Time Pulse Ox 99 12/18 0736 B/P 151/91 12/18 0630 B/P Mean 116 12/18 0730 Pulse 69 12/18 0730 Resp 15 12/18 0730 O2 Delivery Room air 12/18 630 Temp 36.7 12/18 0631 Review of Vital Signs Reviewed Physical ExamGeneral/Const General/Const Awake, AlertEyes Eyes AtraumaticEars/Nose/Throat Ears/Nose/Throat L facial asymmetryResp/Chest Respiratory/Chest No respiratory distressNeurologic Neurologic Oriented X3, Speech NL, Memory NL Interpretation Diagnostics Lab Results InterpretationResultsLaboratory Tests 12/19/23 0645:[Embedded Image Not Available]Laboratory Tests: 12/18 644 Chemistry Sodium (136 - 145 mmol/L) 139 Potassium (3.4 - 5.0 mmol/L) 4.2 Chloride (98 - 107 mmol/L) 104 Carbon Dioxide (21 - 32 mmol/L) 28 Anion Gap (4 - 15 GAP calc) 7 BUN (7 - 18 MG/DL) 29 H Creatinine (0.6 - 1.0 MG/DL) 1.1 H Glomerular Filtr Rate (>60 estGFR) >=60 max estimate Glucose (70 - 110 MG/DL) 152 H Calcium (8.5 - 10.1 MG/DL) 8.7 Troponin I High Sens (0 - 78 ng/L) 47.5 Coagulation INR (0.8 - 1.2 INR Unit) 1.07 PTT (Steffi) (26 - 35 SECONDS) 36.5 H PT Patient/Control Mix (9.3 - 12.9 SECONDS) 12.0 Hematology WBC (3.5 - 11.0 K/mm3) 5.9 RBC (4.70 - 6.10 M/mm3) 4.75 Hgb (12.3 - 15.9 G/DL) 14.2 Hct (35.8 - 46.7 %) 41.4 MCV (86.3 - 98.9 Fl) 87.2 MCH (28.9 - 34.4 pg) 29.9 MCHC (32.1 - 34.5 G/DL) 34.3 RDW (11.5 - 14.5 SD) 12.1 Plt Count (150 - 450 K/mm3) 249 MPV (7.0 - 9.6 fL) 9.80 H Neut % (Auto) (40 - 76 %) 71.2 Lymph % (Auto) (20.5 - 51.1 %) 17.3 L [place] % (Auto) (1.7 - 9.3 %) 8.3 Eos % (Auto) (0.0 - 6.0 %) 1.9 Baso % (Auto) (0.0 - 2.0 %) 1.0 Neut # (Auto) (1.8 - 7.6 K/mm3) 4.2 Lymph # (Auto) (0.6 - 3.0 K/mm3) 1.0 [place] # (Auto) (0.2 - 1.5 K/mm3) 0.5 Eos # (Auto) (0.0 - 0.4 K/mm3) 0.1 Baso # (Auto) (0.0 - 0.2 K/mm3) 0.1 Abs Immat Gran (auto) (0.00 - 0.03 x10 3/uL) 0.02 Immature Gran % (0.0 - 5.0 %) 0.3 Nucleated RBC % (0.0 - 1.0 /100WBC%) 0.0 Recent Impressions:CAT SCAN - CT HEAD/BRAIN W/O CONT 12/19 623 Report Impression - Status: SIGNED Entered: 12/19/2023 0643 IMPRESSION: 1. Cerebral volume loss and mild microvascular chronic white matterischemic changes. No intracranial hemorrhage. No acute intracranialabnormality.Impression By: Keith Montesinos M.D.CAT SCAN - CTA NECK 12/19 635 Report Impression - Status: SIGNED Entered: 12/19/2023658 IMPRESSION: 1. Scattered atherosclerotic plaque. No area of high-grade stenosis. No intracranial large vessel occlusion.Impression By: Keith Montesinos M.D.CAT SCAN - CTA HEAD 12/19 635 Report Impression - Status: SIGNED Entered: 12/19/2023658 IMPRESSION: 1. Scattered atherosclerotic plaque. No area of high-grade stenosis. No intracranial large vessel occlusion.Impression By: Keith Montesinos M.D.RADIOLOGY - XR CHEST 1 V 12/18 644 Report Impression - Status: SIGNED Entered: 12/19/2023 06 IMPRESSION: 1. No focal consolidation. No other acute abnormalities.Impression By: Keith Montesinos M.D. ECG #1 InterpretationText/Dict NoteNSR, no stemi, qtc 494 msec, HR 78Date 12/19/23Time 0653Interpreted by and reviewed by me, Independently interpreted, ED physician Re-Evaluation MDM Free Text MDM NotesFree Text MDM Notes63 yo M presents with facial asymmetry. Additional Textpt to be stroke activation ED CourseMedication(s) OrderedMedication(s) Ordered:Diagnostic Agents Sig/Haim Start time Last Medication Dose Route Stop Time Status Admin Iopamidol 0 .STK-MED ONE 12/18 06 DC 12/18 .ROUTE 0654 Electrolytic, Caloric, And Isai Sig/Haim Start time Last Medication Dose Route Stop Time Status Admin Sodium Chloride 100 ML .STK-MED ONE 12/18 0634 DC 12/18 IV 0654 Patient Discharge Departure Vital Signs/ConditionVital SignsFirst Documented: Result Date Time Pulse Ox 97 12/18 0631 B/P 161/94 / 0631 B/P Mean 116 12/18 0631 O2 Delivery Room air 12/18 0531 Temp 36.7 / 0631 Pulse 75 12/18 0631 Resp 18 12/18 0531 Last Documented: Result Date Time Pulse Ox 99 12/18 0736 B/P 151/91 05/ 0730 B/P Mean 116 / 0730 Pulse 69 / 0730 Resp 15 12/18 0730 O2 Delivery Room air 12/18 0531 Temp 36.7 12/18 0531 All vital signs available at the time of this entry have been reviewed. Pt/Provider Handoff Shift Change NoteThis patient's care has been transferred to the incoming physician. We discussed: the patient's chief complaint; labs and imaging that have been completed and those that are still pending; procedures that have been completed and those remaining to be done; any treatment provided and the patient's response to treatment; input from consultants (if any); the remaining treatment plan. The incoming physician will follow up on all pending labs and imaging, make any necessary changes to the current impression and/or treatment plan and provide a final disposition. [facility] Transfer[facility] at 0735Discussed Complaint(s) Yes Alf Echevarria 12/19/23 0741:Re-Evaluation MDM Free Text MDM NotesFree Text MDM NotesPatient signed out pending placement for CVA. Patient outside the window for TNK. Patient with TNK not given given the last known well was 12/18/2023 at 8 PM (1999). Patient with symptoms that were noticed upon waking at 3 AM. Patient did not receive TNK does not have large vessel occlusion. This facility is at capacity and we are unable to admit due to capacity. Patient transferred to [facility] on ROS Separate for continued treatment. Patient remains with NIH stroke scale of 3 given left-sided facial asymmetry as well as mild dysarthria. Patient to undergo further evaluation with neurology. Did attempt to complete MRI however was told the patient's pacemaker is not compatible with MRI here. Patient to be transferred Patient Discharge Departure Vital Signs/ConditionCondition Stable, Guarded Clinical ImpressionClinical ImpressionPrimary Impression: Facial droopSecondary Impressions: CVA (cerebral vascular accident) Disposition DecisionTransfer )( Request Time 07 )( Request Date 12/19/23 Call Returned Time 075 Spoke with: Improvement Director [facility] Transfer Accepted Yes Accepted by:Auto Accept Dr. Hines )( Acceptance Time 075 )( Acceptance Date 12/19/23 Transfer Reason capacity Neurology needed Patient Status Stable w/in capabilities Patient Informed Yes Consent Obtained yes Consent Signed by: patient at 0737 RPT #: [id number] OF REPORTEDEmerbaptist [facility] department xypguw6097-81-49O00:23:00L.HOIL76911816-1761HATohs lable for patient dpxbPANEATLRNCKOSU2625-72-69B35:37:15 [facility] 2023-04-04 13:15:00 82062qNnWYwcP+/bM/Piy+4MsKIE8JbrGttMmYaJ iJM9mOd+ja iXKpa/Ji70VpGe8536-66-65T35:15:00 Images from the original note were not included.PT is here for all orders for Michelle Vazquez PA. Dannie C Aguilar 04/04/2023 1:10 PMVenipuncture collection performed by clean technique on the left anticubitus. Total of 2 attempts were made. Slight pressure and a bandage/dressing were applied to the site(s). The patient experienced no complications. The following specimens were processed according to instructions and sent to [facility] laboratories per lab order on 04/04/2023: LT BLUE SST 2 RED LAV 2 PPT DK GREEN (LiHep) DK GREEN (SodH) YAP DK BLUE (K2) DK BLUE (S) ACD Blood Culture NIPT/NTD Patient has been identified by and name and was provided with cup, antiseptic towelette, and clean catch instructions. 1 urine specimen(s) sent. Unpreserved 1 Urine Culture Aptima tube Other urine [id number] MllqZP1875-85-83B56:24:30Nurse NoteTXT1.2.840.131736.1.13.104.2.7.2.038330|[id number] 8483AVAvailable for patient nlsg66613-5Iwlva NoteLN[address] StreetKc[id number] ZDLFDIJU9816-06-70Q64:24:301.2.840.263189.1.72.3.1 5|1.2.840.446043.1.13.104.2.7.2.727879_[id number] [facility] 2022-05-15 15:42:00 [id number]Sle5 24n8CABCvW T0HWBa0I3E70Ekbr9aV8yuW9ev3847-61-55F51:42:00 [facility] ([facility])Discharge SummaryREPORT#:[id number] REPORT STATUS: SignedDATE:05/15/22 TIME: 1541 PATIENT: NICHOLAS RUIZ UNIT #: [id number]#: [id number] [facility]: [facility] AGE: 61 SEX: M ATTEND: Emmett Escalera [facility] AUTHOR: Emmett Escalera MD * ALL edits or amendments must be made on the electronic/computer document * General InformationProblem List/A P: 1. Acute on chronic systolic CHF (congestive heart failure), NYHA class 3 2. Chest pain, exertional 3. Diabetes mellitus type 2, uncontrolled 4. HTN, goal below 130/80 5. Noncompliance w/medication treatment due to intermit use of medication Free Text A P:Pt reports his dyspnea and orthopnea has resolved. He's no longer feeling dyspneac with activities of daily living. 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 His BP has tolerated increased coreg dose 12.5 mg bid. D/w Dr Hollins, will d/c pt home today to f/u with his director payer Dr Lewis in 1-2 weeks. Medications compliance re-emphasizedDate of admission:Observation Start Date: Date of admission: 05/13/22 Discharge date: 05/15/22Discharge diagnosis:1. Acute on chronic systolic CHF exacerbation due to medications noncompliance.2. Exertional chest pain without evidence of NSTEMI3. Uncontrolled HTN and DM24. Noncompliance with medications regimenHospital course:61 yoM with long h/o CHF w/ reduced EF s/p AICD, HTN, and DM2 admitted from [place] [facility] with c/o worsening exertional dyspnea, chest pain, and orthopnea. Pthas stopped taking all his medications for the past year and was found in acute on chronic systolic heart failure with fluid overload state. He's ruled out for ACS with serial negative troponins. His symptoms responded to aggressive IV lasix, and after 48 hrs, pt's dyspnea begin to improved and he reports less orthopnea and able to perform his ADL without feeling sob. He's optimized on medical treatment for his CHF and his diabetes mellitus 2. Pt started on insulin, metformin, and glipizide. He's discharged home in stable condition and will f/u with his director payer Dr Falk in 1-2 weeks. Medications compliance re-emphasizedConsultants: cardiologyPt. condition on discharge: fair, improved, stable Med Rec PCPPCP:PCP: Geoff Hollins MD Med RecDischarge meds:Stop taking the following medications:LISINOPRIL (ZESTRIL) 20 MG TAB 20 MILLIGRAM ORAL DAILY. metFORMIN (GLUCOPHAGE) 1,000 MG TAB DAILY. SERTRALINE (ZOLOFT) 50 MG TAB 50 MILLIGRAM ORAL DAILY. METOPROLOL SUCC XL (TOPROL XL) 100 MG TAB.SA 100 MILLIGRAM ORAL DAILY. HYDROCHLOROTHIAZIDE (HCTZ) 12.5 MG CAP 12.5 MILLIGRAM ORAL DAILY. amLODIPine (NORVASC) 5 MG TAB 5 MILLIGRAM ORAL DAILY. CEPHALEXIN (KEFLEX) 500 MG CAP 500 MILLIGRAM ORAL THREE TIMES A DAY. Qty = 15 Continue taking these medications:ATORVASTATIN (LIPITOR) 40 MG TAB 40 MILLIGRAM ORAL DAILY. Qty = 30 This prescription has been renewed ASPIRIN EC (ECOTRIN) 81 MG TAB.EC 81 MILLIGRAM ORAL DAILY. Qty = 60 This prescription has been renewed Start taking the following new medications:LOSARTAN (COZAAR) 25 MG TAB 25 MILLIGRAM ORAL DAILY. Qty = 30 No Refills CARVEDILOL (COREG) 12.5 MG TAB 12.5 MILLIGRAM ORAL TWICE DAILY. Qty = 60 No Refills INSULIN GLARGINE (LANTUS SOLOSTAR (15mL)) 100 UNIT/ML (3 ML) PEN.INJCTR 15 UNITS SUBCUTANEOUS BEDTIME. Qty = 3 No Refills Instructions: DISPENSE QS FOR 1 MONTH WITH INJECTION NEEDLE glipiZIDE (GLUCOTROL) 5 MG TAB 5 MILLIGRAM ORAL TWICE DAILY BEFORE MEALS. Qty = 60 No Refills metFORMIN (GLUCOPHAGE) 500 MG TAB 500 MILLIGRAM ORAL TWICE DAILY WITH MEALS. Qty = 60 No Refills FUROSEMIDE (LASIX) 40 MG TAB 40 MILLIGRAM ORAL TWICE DAILY. Qty = 60 No Refills SPIRONOLACTONE (ALDACTONE) 25 MG TAB 25 MILLIGRAM ORAL EVERY MORNING. Qty = 30 No Refills ObjectiveVS/I OLast Documented: Result Date Time Temp 98.0 05/15 1218 Pulse Ox 96 05/15 1117 B/P 91/64 05/15 1117 B/P Mean 73.1 05/15 1117 Pulse 83 05/15 1117 Resp 16 05/15 1117 O2 Delivery Room air 05/14 1512 24 hour I O ending at 0700: 05/15 0700 05/14 1900 Intake Total 400 400 Output Total Balance 400 400 Intake, Oral 400 400 Number Voids 2 PATIENT WEIGHT: Weight (lb): 175Weight (oz): 0.05Weight (kg): 79.380 General appearance: alert, awakeHead/Eyes: clear cornea, normal conjunctiva/scleraENT: moist mucosal membranesNeck: non-tender, no masses or swellingCardiovascular: regular rate rhythm, normal heart sounds, no murmurRespiratory: clear to auscultation, no tenderness, aerating wellGI: soft, non-tender, no mass/organomegalyExtremities: moves all, no edema-all extremities, no calf tendernessMusculoskeletal: full range of motion, normal inspection, no muscle spasmNeuro/PEER EDUCATOR: alert, oriented X 3, normal speech, no motor deficits ResultsFindings/Data:Laboratory Tests: 05/15 05/15 05/15 05/14 05/14 1059 0649 0420 1903 1712 Chemistry Sodium (137 - 145 MMOL/L) 135 L Potassium (3.5 - 5.1 MMOL/L) 3.9 Chloride (98 - 107 MMOL/L) 100 Carbon Dioxide (22 - 30 MMOL/L) 25 Anion Gap (14 - 24 MMOL/L) 14 BUN (9 - 20 MG/DL) 34 H Creatinine (0.66 - 1.25 MG/DL) 1.00 Glomerular Filtr Rate > 60 Glucose (74 - 106 MG/DL) 152 H POC Glucose (60 - 99 MG/DL) 223 H 187 H 286 H 162 H Calcium (8.4 - 10.2 MG/DL) 10.0 Magnesium (1.6 - 2.3 MG/DL) 2.0 Discharge Instructions PCPPCP:PCP: Geoff Hollins MD )( Discharge to: Home/Self Care Discharge InstructionsAdditional Discharge Routines: Saw Offbearer Follow-Up)( Diet: Diabetic, Cardiac)( Fluid restriction(mls/day):1500)( Weight monitoring: Weekly)( Activity: As ToleratedDischarge management: greater than 30 mins, face to face encounterTime spent: Time spent on patient care (minutes): 40 Follow-up AppointmentsConsulting provider 1: Provider 1: Yue Lewis MD Cardiology Specialty: CardiologyInterventional Consult follow up timeframe: In 1-2 weeks Quality: Discharge Current MedicationsCurrent medication review:I attest that the foregoing medication list in the medical record is true, accurate, and complete to the best of my knowledge. at 1555 [facility] #:[id number] OF REPORTDSDischarge [id number]:42:00Z.[id number] ilable for patient fsszFQWKJRYIWHBTLH9042-05-38D83:55:37 [facility] 2022-05-15 06:29:00 [id number]+Wpy/GF3Y6Fdmy0pxi iPKE4NZ/ B3DiScl5hZzSRyHTS/cbIbp1UU7254-30-00N04:29:00 [facility] ([facility])Cardiology Progress NoteREPORT#:[id number] REPORT STATUS: SignedDATE:05/15/22 TIME: 628 PATIENT: NICHOLAS RUIZ UNIT #: [id number]#: [id number] [facility] [birth year] AGE: 61 SEX: M ATTEND: Emmett Escalera MDADM AUTHOR: Geoff Hollins MD * ALL edits or amendments must be made on the electronic/computer document * SubjectiveChief complaint:Chest painPatient reports:No: chest pain, palpitations, shortness of breath. Objective GeneralVS/I O:24 hour I O ending at 0700: 05/15 0700 05/14 1900 Intake Total 400 400 Output Total Balance 400 400 Intake, Oral 400 400 Number Voids 2 Vital Signs: Date Time Temp Pulse Resp B/P B/P Pulse O2 O2 Flow FiO2 Mean Ox Delivery Rate 05/15 0331 97.7 78 122/79 93.0 98 05/14 2324 98.6 79 120/75 90.3 98 05/14 1901 98.2 90 155/92 113.1 97 05/14 1512 98.2 82 16 134/86 101.8 98 Room air 05/14 1120 98.2 81 18 131/85 100.1 97 Room air 05/14 0831 98.1 83 18 143/81 101.8 98 Room air PATIENT WEIGHT: Weight (lb): Weight (oz): Weight (kg): Medications:Active Meds + DC'd Last 24 HrsCarvedilol (COREG) 12.5 MG Q12HR PO Glipizide (GLUCOTROL TAB) 5 MG BID AC PO Insulin Glargine (Lantus/Semglee) 15 UNITS NOW ONE SUBQ (DC) Metformin HCl (GLUCOPHAGE) 500 MG BID MEALS PO Carvedilol (COREG) 6.25 MG Q12HR PO (DC) Atorvastatin Calcium (LIPITOR) 40 MG BEDTIME PO Insulin Glargine (Lantus/Semglee) 15 UNITS BEDTIME SUBQ Aspirin (CHILDREN'S ASPIRIN) 81 MG DAILY PO Enoxaparin Sodium (LOVENOX) 40 MG Q24H SUBQ Famotidine (PEPCID) 20 MG DAILY PO Furosemide (LASIX) 40 MG BID@0900,1700 IV Losartan Potassium (COZAAR) 25 MG DAILY PO Potassium Chloride (KLOR-CON M20) 20 MEQ BID 9A 5P PO Insulin Human Lispro (HumaLOG) MEDIUM DOSE SLIDING SCALE AC HS SUBQ Bisacodyl (DULCOLAX) 10 MG BID PRN PRN PO Acetaminophen (TYLENOL) 650 MG Q6H PRN PRN PO Dextrose/Water (DEXTROSE 50% IN WATER) 12.5 GM ASDIR PRN IV Dextrose/Water (DEXTROSE 50% IN WATER) 25 GM ASDIR PRN IV Hydralazine HCl (APRESOLINE) 10 MG Q4H PRN PRN IV Morphine Sulfate (morphine SULFATE (C-II)) 2 MG Q4H PRN PRN IV Ondansetron HCl (ZOFRAN ODT) 4 MG Q6H PRN PRN PO Physical ExamGeneral appearance: alert, awake, orientedHead/Eyes: atraumatic, normocephalicENT: moist mucosal membranesNeck: no JVDCardiovascular: CV assessment: regular rate and rhythmRespiratory: clear to auscultationLower extremity: LE assessment: no edemaNeuro/PEER EDUCATOR: alert, oriented X 3, CN II-XII intactSkin: dry, intactPsychiatry: normal affect, normal judgment/insight, normal mood ResultsFindings/Data:Laboratory Tests 05/15 05/14 05/14 05/14 05/14 0420 1903 1712 1511 1120 Chemistry Sodium (137 - 145 MMOL/L) 135 L Potassium (3.5 - 5.1 MMOL/L) 3.9 Chloride (98 - 107 MMOL/L) 100 Carbon Dioxide (22 - 30 MMOL/L) 25 Anion Gap (14 - 24 MMOL/L) 14 BUN (9 - 20 MG/DL) 34 H Creatinine (0.66 - 1.25 MG/DL) 1.00 Glomerular Filtr Rate > 60 Glucose (74 - 106 MG/DL) 152 H POC Glucose (60 - 99 MG/DL) 286 H 162 H 80 262 H Calcium (8.4 - 10.2 MG/DL) 10.0 Magnesium (1.6 - 2.3 MG/DL) 2.0 05/14 09 Chemistry POC Glucose (60 - 99 MG/DL) 336 *H Laboratory Tests 05/15 042 Chemistry Magnesium (1.6 - 2.3 MG/DL) 2.0 Diagnosis, Assessment Plan Free Text DxA P NotesFree Text DxA P Notes:IMP:1. Chest pain. No clear evidence of myocardial infarction. The patient isasymptomatic now.2. Hypertension.3. Diabetes.4. Chronic systolic heart failure, status post Medtronic biventricular pacingAICD. LVEF 30-34% by echo 05/14/22. RECOMMENDATIONS:1. Continue current medications and titrate up carvedilol and losartan as tolerated.2. Glucose control. at 0540 RPT #:[id number] OF REPORTPRProgress kjba6133-41-45V25:29:00Z.[id number] ble for patient tppqORCRQQEOGWRVRZ6672-66-11Y48:41:08 [facility] 2022-05-14 17:18:00 [id number] GV0ApBSKBy 9duAf0zYaHuzNz6V6S+WBIZHAZ8233-30-99Y50:18:00 [facility] ([facility])Hospitalist Progress NoteREPORT#:[id number] REPORT STATUS: SignedDATE:05/14/22 TIME: 1718 PATIENT: NICHOLAS RUIZ UNIT #: [id number]#: [id number] ROOM/BED: [place]-ADOB: [birth year] AGE: 61 SEX: M ATTEND: Emmett Escalera AUTHOR: Emmett Escaelra MD * ALL edits or amendments must be made on the electronic/computer document * SubjectiveChief complaint:acute on chronic systolic CHF exacerbationHPI:pt feeling and breathing a little better, less orthopneic but still c/o exertional dyspnea with ADL such as taking shower. He denies cp and has been diuresing well on IV lasix. BP has tolerated increased in coreg dose. Echo stillpending Review of SystemsConstitutional:Denies: chills, fatigue, fever, generalized weakness, lethargy, malaise, recent wt loss, other. Respiratory:Reports: CROWE (dyspnea on exertion). Denies: hemoptysis, non productive cough, parox nocturnal dyspnea, pleurisy, pleuritic pain, pneumonia, productive cough (sputum), SOB, wheezing, other. Cardiovascular:Reports: CROWE (dyspnea on exertion). Denies: chest pain, edema, orthopnea, palpitations, parox nocturnal dyspnea, other. GI:Denies: abdominal pain, anorexia, constipation, diarrhea, dysphagia, GERD, hematemesis, hematochezia, hiatal hernia, melena, nausea, rectal pain, vomiting,other. :Denies: dysuria, flank pain, frequency, hematuria, nocturia, penile discharge, penile lesion, testicular pain, testicular swelling, urgency, urinary retention,other. All systems rev neg: except as marked Objective GeneralVS/I O:Vital Signs: Date Time Temp Pulse Resp B/P B/P Pulse O2 O2 Flow FiO2 Mean Ox Delivery Rate 05/14 1512 98.2 82 16 134/86 101.8 98 Room air 05/14 1120 98.2 81 18 131/85 100.1 97 Room air 05/14 0831 98.1 83 18 143/81 101.8 98 Room air 05/14 0338 97.9 86 16 131/85 100.0 97 05/13 2334 98.4 76 16 127/80 95.4 94 Room air 05/13 1937 98.4 95 14 136/90 105.4 96 Room air 24 hour I O ending at 0700: 05/14 0700 05/13 1900 Intake Total 240 354 Output Total 850 Balance -610 354 Intake, Oral 240 354 Number Voids 2 Output, Urine 850 PATIENT WEIGHT: Weight (lb): Weight (oz): Weight (kg): Medications:Active Meds + DC'd Last 24 HrsCarvedilol (COREG) 12.5 MG Q12HR PO Glipizide (GLUCOTROL TAB) 5 MG BID AC PO Insulin Glargine (Lantus/Semglee) 15 UNITS NOW ONE SUBQ (DC) Metformin HCl (GLUCOPHAGE) 500 MG BID MEALS PO Carvedilol (COREG) 6.25 MG Q12HR PO (DC) Atorvastatin Calcium (LIPITOR) 40 MG BEDTIME PO Carvedilol (COREG) 3.125 MG Q12HR PO (DC) Insulin Glargine (Lantus/Semglee) 15 UNITS BEDTIME SUBQ Aspirin (CHILDREN'S ASPIRIN) 81 MG DAILY PO Enoxaparin Sodium (LOVENOX) 40 MG Q24H SUBQ Famotidine (PEPCID) 20 MG DAILY PO Furosemide (LASIX) 40 MG BID@0900,1700 IV Losartan Potassium (COZAAR) 25 MG DAILY PO Potassium Chloride (KLOR-CON M20) 20 MEQ BID 9A 5P PO Insulin Human Lispro (HumaLOG) MEDIUM DOSE SLIDING SCALE AC HS SUBQ Bisacodyl (DULCOLAX) 10 MG BID PRN PRN PO Acetaminophen (TYLENOL) 650 MG Q6H PRN PRN PO Dextrose/Water (DEXTROSE 50% IN WATER) 12.5 GM ASDIR PRN IV Dextrose/Water (DEXTROSE 50% IN WATER) 25 GM ASDIR PRN IV Hydralazine HCl (APRESOLINE) 10 MG Q4H PRN PRN IV Morphine Sulfate (morphine SULFATE (C-II)) 2 MG Q4H PRN PRN IV Ondansetron HCl (ZOFRAN ODT) 4 MG Q6H PRN PRN PO Physical ExamGeneral appearance: alert, awake, no acute distress, conversationalHead/Eyes: atraumatic, clear corneaENT: moist mucosal membranes, normal dentitionNeck: full range of motion, non-tender, no masses or swellingCardiovascular: normal heart sounds, regular rate rhythmRespiratory: rales, aerating well, symmetric expansionAbdomen: non-tender, no distentionGenitourinary: no bladder distention, no flank painExtremities: normal range of motion, no edemaMusculoskeletal: normal inspectionNeuro/PEER EDUCATOR: alert, oriented X 3Skin: intact, normal color, normal temperature, no rashPsychiatry: normal judgment/insight, normal mood ResultsFindings/Data:Laboratory Tests 05/14 05/14 05/14 05/14 05/14 1712 1511 1120 0902 0400 Chemistry POC Glucose (60 - 99 MG/DL) 162 H 80 262 H 336 *H Mean Blood Glucose (70 - 110 MG/DL) 266 H Hemoglobin A1c (4.8 - 5.9 %) 10.9 H 05/14 05/13 05/13 0400 2213 2201 Chemistry Sodium (137 - 145 MMOL/L) 133 L Potassium (3.5 - 5.1 MMOL/L) 4.0 Chloride (98 - 107 MMOL/L) 100 Carbon Dioxide (22 - 30 MMOL/L) 28 Anion Gap (14 - 24 MMOL/L) 9 L BUN (9 - 20 MG/DL) 25 H Creatinine (0.66 - 1.25 MG/DL) 1.00 Glomerular Filtr Rate > 60 Glucose (74 - 106 MG/DL) 206 H POC Glucose (60 - 99 MG/DL) 243 H Calcium (8.4 - 10.2 MG/DL) 9.0 Total Bilirubin (0.2 - 1.3 MG/DL) 0.7 AST (17 - 59 UNITS/L) 28 ALT (0 - 49 UNITS/L) 46 Total Alk Phosphatase (38 - 126 UNITS/L) 117 Troponin I (0.012 - 0.033 NG/ML) 0.042 H 0.042 H Total Protein (6.2 - 7.6 G/DL) 6.6 Albumin (3.5 - 5.0 G/DL) 3.5 Laboratory Tests 05/14 0400 Hematology WBC (3.8 - 9.8 K/MM3) 6.9 RBC (3.95 - 5.67 M/MM3) 4.95 Hgb (12.4 - 16.7 G/DL) 14.7 Hct (35.9 - 49.5 %) 42.7 MCV (81.7 - 96.1 fL) 86 MCH (27.6 - 33.2 pg) 29.7 MCHC (32.9 - 35.5 %) 34.4 RDW (12.1 - 15.2 %) 12.4 Plt Count (129 - 368 K/MM3) 244 MPV (7.4 - 10.4 fl) 10.7 H Neut % (Auto) (43 - 75 %) 74.6 Lymph % (Auto) (14 - 44 %) 15.6 [place] % (Auto) (4 - 13 %) 6.8 Eos % (Auto) (0 - 6 %) 1.7 Baso % (Auto) (0 - 2 %) 1.0 Neut # (Auto) (2.0 - 7.6 K/mm3) 5.12 Lymph # (Auto) (1.0 - 3.8 K/mm3) 1.07 [place] # (Auto) (0.1 - 0.8 K/mm3) 0.47 Eos # (Auto) (0.0 - 0.2 K/mm3) 0.12 Baso # (Auto) (0.0 - 0.2 K/mm3) 0.07 Immature Gran % (0.0 - 2.0 %) 0.3 Nucleated RBC % (0 - 1.0 %) 0.0 Nucleated RBCs # (Man) (0.0 - 0.1 K/mm3) 0.00 Diagnosis, Assessment PlanProblem List/A P: 1. Acute on chronic systolic CHF (congestive heart failure), NYHA class 3 2. Chest pain, exertional 3. Diabetes mellitus type 2, uncontrolled 4. HTN, goal below 130/80 5. Noncompliance w/medication treatment due to intermit use of medication Free Text DxA P NotesFree text DxA P notes:Pt clinically improved but still having exertional dyspnea with ADL. FSBG bettercontrolled on combination of insulin and oral hypoglycemics started today.- Will continue IV lasix diuresis, fluid restriction- agree with titrating coreg dose up as BP tolerates- Continue with asa, statin, and losartan- F/u Echo Quality: Gen Med Crit Care VTE ProphylaxisVTE prophylaxis initiated: yes Current MedicationsCurrent medication review:I attest that the foregoing medication list in the medical record is true, accurate, and complete to the best of my knowledge. at 1738 RPT #:[id number] OF REPORTPRProgress [id number]:18:00Z.[id number] ble for patient hesrJHIQTOJELSYNNH4122-23-87V43:39:51 [facility] 2022-05-14 15:22:00 [id number]++[id number] 9SdKOB1SsS xtN2glZlksrmkNMe7Gs1XnODre9130-33-61X83:22:00 [facility] ([facility])Cardiology Progress NoteREPORT#:[id number] REPORT STATUS: SignedDATE:05/14/22 TIME: 1522 PATIENT: NICHOLAS RUIZ UNIT #: [id number]#: [id number] ROOM/BED: 360-ADOB: [birth year] AGE: 61 SEX: M ATTEND: Emmett Escalera MDADM AUTHOR: Geoff Hollins MD * ALL edits or amendments must be made on the electronic/computer document * SubjectiveChief complaint:Chest painPatient reports:No: chest pain, palpitations, shortness of breath. Objective GeneralVS/I O:24 hour I O ending at 0700: 05/14 0700 05/13 1900 Intake Total 240 354 Output Total 850 Balance -610 354 Intake, Oral 240 354 Number Voids 2 Output, Urine 850 Vital Signs: Date Time Temp Pulse Resp B/P B/P Pulse O2 O2 Flow FiO2 Mean Ox Delivery Rate 05/14 1512 98.2 82 16 134/86 101.8 98 Room air 05/14 1120 98.2 81 18 131/85 100.1 97 Room air 05/14 0831 98.1 83 18 143/81 101.8 98 Room air 05/14 0338 97.9 86 16 131/85 100.0 97 05/13 2334 98.4 76 16 127/80 95.4 94 Room air 05/13 1937 98.4 95 14 136/90 105.4 96 Room air PATIENT WEIGHT: Weight (lb): Weight (oz): Weight (kg): Medications:Active Meds + DC'd Last 24 HrsGlipizide (GLUCOTROL TAB) 5 MG BID AC PO Insulin Glargine (Lantus/Semglee) 15 UNITS NOW ONE SUBQ (DC) Metformin HCl (GLUCOPHAGE) 500 MG BID MEALS PO Carvedilol (COREG) 6.25 MG Q12HR PO Atorvastatin Calcium (LIPITOR) 40 MG BEDTIME PO Carvedilol (COREG) 3.125 MG Q12HR PO (DC) Insulin Glargine (Lantus/Semglee) 15 UNITS BEDTIME SUBQ Aspirin (CHILDREN'S ASPIRIN) 81 MG DAILY PO Enoxaparin Sodium (LOVENOX) 40 MG Q24H SUBQ Famotidine (PEPCID) 20 MG DAILY PO Furosemide (LASIX) 40 MG BID@0900,1700 IV Losartan Potassium (COZAAR) 25 MG DAILY PO Potassium Chloride (KLOR-CON M20) 20 MEQ BID 9A 5P PO Insulin Human Lispro (HumaLOG) MEDIUM DOSE SLIDING SCALE AC HS SUBQ Bisacodyl (DULCOLAX) 10 MG BID PRN PRN PO Acetaminophen (TYLENOL) 650 MG Q6H PRN PRN PO Dextrose/Water (DEXTROSE 50% IN WATER) 12.5 GM ASDIR PRN IV Dextrose/Water (DEXTROSE 50% IN WATER) 25 GM ASDIR PRN IV Hydralazine HCl (APRESOLINE) 10 MG Q4H PRN PRN IV Morphine Sulfate (morphine SULFATE (C-II)) 2 MG Q4H PRN PRN IV Ondansetron HCl (ZOFRAN ODT) 4 MG Q6H PRN PRN PO Physical ExamGeneral appearance: alert, awake, orientedHead/Eyes: atraumatic, normocephalicENT: moist mucosal membranesNeck: no JVDCardiovascular: CV assessment: regular rate and rhythmRespiratory: clear to auscultationLower extremity: LE assessment: no edemaNeuro/PEER EDUCATOR: alert, oriented X 3, CN II-XII intactSkin: dry, intactPsychiatry: normal affect, normal judgment/insight, normal mood ResultsFindings/Data:Laboratory Tests 05/14 05/14 05/14 05/14 05/14 1511 1120 0902 0400 0400Chemistry Sodium (137 - 145 MMOL/L) 133 L Potassium (3.5 - 5.1 MMOL/L) 4.0 Chloride (98 - 107 MMOL/L) 100 Carbon Dioxide (22 - 30 MMOL/L) 28 Anion Gap (14 - 24 MMOL/L) 9 L BUN (9 - 20 MG/DL) 25 H Creatinine (0.66 - 1.25 MG/DL) 1.00 Glomerular Filtr Rate > 60 Glucose (74 - 106 MG/DL) 206 H POC Glucose (60 - 99 MG/DL) 80 262 H 336 *H Mean Blood Glucose (70 - 110 MG/DL) 266 H Hemoglobin A1c (4.8 - 5.9 %) 10.9 H Calcium (8.4 - 10.2 MG/DL) 9.0 Total Bilirubin (0.2 - 1.3 MG/DL) 0.7 AST (17 - 59 UNITS/L) 28 ALT (0 - 49 UNITS/L) 46 Total Alk Phosphatase (38 - 126 117UNITS/L) Troponin I (0.012 - 0.033 NG/ML) 0.042 H Total Protein (6.2 - 7.6 G/DL) 6.6 Albumin (3.5 - 5.0 G/DL) 3.5 05/13 05/13 05/13 2213 2201 1721 Chemistry Sodium (137 - 145 MMOL/L) 134 L Potassium (3.5 - 5.1 MMOL/L) 4.0 Chloride (98 - 107 MMOL/L) 99 Carbon Dioxide (22 - 30 MMOL/L) 26 Anion Gap (14 - 24 MMOL/L) 13 L BUN (9 - 20 MG/DL) 20 Creatinine (0.66 - 1.25 MG/DL) 0.90 Glomerular Filtr Rate > 60 Glucose (74 - 106 MG/DL) 273 H POC Glucose (60 - 99 MG/DL) 243 H Calcium (8.4 - 10.2 MG/DL) 8.8 Magnesium (1.6 - 2.3 MG/DL) 1.7 Troponin I (0.012 - 0.033 NG/ML) 0.042 H 0.039 H NT-Pro-B Natriuret Pep (0 - 125 pg/mL) 875.0 H Laboratory Tests 05/14 0400 Hematology WBC (3.8 - 9.8 K/MM3) 6.9 RBC (3.95 - 5.67 M/MM3) 4.95 Hgb (12.4 - 16.7 G/DL) 14.7 Hct (35.9 - 49.5 %) 42.7 MCV (81.7 - 96.1 fL) 86 MCH (27.6 - 33.2 pg) 29.7 MCHC (32.9 - 35.5 %) 34.4 RDW (12.1 - 15.2 %) 12.4 Plt Count (129 - 368 K/MM3) 244 MPV (7.4 - 10.4 fl) 10.7 H Neut % (Auto) (43 - 75 %) 74.6 Lymph % (Auto) (14 - 44 %) 15.6 [place] % (Auto) (4 - 13 %) 6.8 Eos % (Auto) (0 - 6 %) 1.7 Baso % (Auto) (0 - 2 %) 1.0 Neut # (Auto) (2.0 - 7.6 K/mm3) 5.12 Lymph # (Auto) (1.0 - 3.8 K/mm3) 1.07 [place] # (Auto) (0.1 - 0.8 K/mm3) 0.47 Eos # (Auto) (0.0 - 0.2 K/mm3) 0.12 Baso # (Auto) (0.0 - 0.2 K/mm3) 0.07 Immature Gran % (0.0 - 2.0 %) 0.3 Nucleated RBC % (0 - 1.0 %) 0.0 Nucleated RBCs # (Man) (0.0 - 0.1 K/mm3) 0.00 Laboratory Tests 05/14 05/13 05/13 0400 2213 1721 Chemistry Magnesium (1.6 - 2.3 MG/DL) 1.7 Troponin I (0.012 - 0.033 NG/ML) 0.042 H 0.042 H 0.039 H Diagnosis, Assessment Plan Free Text DxA P NotesFree Text DxA P Notes:1. Chest pain. No clear evidence of myocardial infarction. The patient isasymptomatic now.2. Hypertension.3. Diabetes.4. Chronic systolic heart failure, status post Medtronic biventricular pacingAICD. LVEF 30-34% by echo 05/14/22. RECOMMENDATIONS:1. Continue current medications and titrate up carvedilol as tolerated. at 0540 RPT #:[id number] OF REPORTPRProgress [id number]:22:00Z.[id number] ble for patient clloXDNCMBODLNKOKZ2085-91-91B87:40:58 [facility] 2022-05-14 13:51:00 [id number]+eYPLxHNx1/ OLNXRWUsVf wWYi+1vxDr6iPWrk0JhtDsYCO86386-80-22X46:51:446981- [address] [address] PATIENT NAME: NICHOLAS RUIZ ADMIT DATE: 05/13/22ACCOUNT NO: [id number] ROOM NO: [place] AGE: 61 REPORT TYPE: ECHOCARDIOGRAM SEX: M ADMITTING PHYSICIAN:Emmett Escalera MD ATTENDING PHYSICIAN:Emmett Escalera MD *[facility]*[address] [place], [place] [id number] Transthoracic Echocardiogram Patient: Nicholas RuizStudy Date: 05/14/2022 BP: 131 / 85 Location: [facility]: [id number] : 1960 Age: 61 Height: / Gender: M Weight: /BMI/BSA: / *Ordering Physician: * Yue Lewis MD *Interpreting Physician: * Yue Lewis MD*Associate Professor Of Philosophy: * Lidia Torres RVT Indications: Congestive Heart Failure. CMP. Study data: Transthoracic echocardiogram. Procedure: Transthoracicechocardiography was performed. Images were obtained using a [employer] cardiacultrasound machine. Image quality was adequate. M-mode, complete 2D,complete spectral Doppler, and color Doppler. Location: Bedside.Patient status: Inpatient. Patient room number: 360. Study status:Routine. Rhythm: Normal sinus rhythm. Findings Left ventricle: The cavity size is mildly dilated. Wall thickness isnormal. The estimated ejection fraction is 30-34%. Regional wall motionabnormalities: Moderate hypokinesis. Pulmonary venous flow is notrecorded. Doppler parameters are consistent with abnormal leftventricular relaxation (grade 1 diastolic dysfunction).Right ventricle: The cavity size is normal. Defibrillator wire noted inthe right ventricle. Systolic function is normal.Left atrium: The atrium is mildly dilated. PATIENT NAME: NICHOLAS RUIZ Right atrium: The atrium is normal in size. Defibrillator wire noted inright atrium.Atrial septum: No defect or patent foramen ovale is identified.Aorta: The aortic root is not dilated.Aortic valve: The valve is trileaflet. The leaflets are mildlycalcified. Cusp separation is normal. Transvalvular velocity is withinthe normal range. There is no evidence of stenosis. There is mildregurgitation.Mitral valve: The leaflets are mildly thickened. There is mild tomoderate regurgitation.Tricuspid valve: Not well visualized. There is mild-moderateregurgitation.Pulmonic valve: The leaflets are normal thickness. There is trivialregurgitation.Pericardium: A small pericardial effusion is identified. No evidence ofpleural fluid accumulation.Systemic veins:Inferior vena cava: The vessel is normal in size. Measurements Left ventricle Value Ref LLUVIA, LAX 6.3 cm 4.2 - 5.8 ESD, LAX 5.2 cm 2.5 - 4.0 FS, LAX 17 % 25 - 43 PW, ED 1.0 cm 0.6 - 1.0 PW, ES 1.8 cm IVS/PW, ED 0.92 EF 35 % 52 - 72 IVRT 129 ms E', lat rebecca, TDI 4.0 cm/sec >=10.0 E/e', lat rebecca, TDI 18 E', med rebecca, TDI 4.0 cm/sec >=7.0 E/e', med rebecca, TDI 18 E', avg, TDI 4.0 cm/sec E/e', avg, TDI 18 <=14 LVOT Value Ref Diam, S 2.02 cm Area 3.2 cm 2 Peak karla, S 0.78 m/sec Mean karla, S 0.52 m/sec VTI, S 13.7 cm Peak grad, S 2 mm Hg Mean grad, S 1 mm Hg SV 44 ml Qs 2.97 L/min Ventricular septum Value Ref IVS, ED 1.0 cm 0.6 - 1.0 IVS, ES 1.2 cm Right ventricle Value Ref PATIENT NAME: NICHOLAS RUIZ LLUVIA, LAX 2.6 cm Pressure, S 27 mm Hg S' lateral 16.0 cm/sec 6.0 - 13.4 RVOT Value Ref Peak v, S 0.7 m/sec Peak grad, S 2 mm Hg Left atrium Value Ref AP dim, ES 5.08 cm 3.00 - 4.00 Area ES, A4C 21 cm 2 <=20 AP dim, ES MM 4.7 cm 3.0 - 4.0 LA/Ao root ratio, MM 1.74 Right atrium Value Ref Area, ES, A4C 15 cm 2 10 - 18 Aortic valve Value Ref Leaflet sep, MM 1.62 cm Peak v, S 1.19 m/sec Mean v, S 0.88 m/sec VTI, S 17.6 cm Mean grad, S 3.4 mm Hg Peak grad, S 5.6 mm Hg LVOT/AV, VTI ratio 0.78 JASMINA, VTI 2.28 cm 2 LVOT/AV, Vpeak ratio 0.66 JASMINA, Vmax 2.12 cm 2 Mitral valve Value Ref Peak E 0.72 m/sec Peak A 1.08 m/sec Mean v, D 0.67 m/sec VTI leaflet coapt 31.8 cm Decel time 204 ms PHT 86 ms Mean grad, D 1.9 mm Hg Peak grad, D 3.5 mm Hg Peak E/A ratio 0.67 MVA, PHT 2.6 cm 2 MR peak v 4.6 m/sec Pulmonic valve Value Ref GA v, ED 0.68 m/sec Tricuspid valve Value Ref TR peak v 2.33 m/sec <=2.8 Peak RV-RA grad, S 22 mm Hg Aortic root Value Ref Root diam 2.7 cm Root diam, ED MM 2.70 cm Pulmonary artery Value Ref PATIENT NAME: NICHOLAS RUIZ Pressure, S 24.6 mm Hg Systemic veins Value Ref Estimated CVP 5 mm Hg Conclusions Summary: 1. Left ventricle: The cavity size is mildly dilated. Wall thickness is normal. The estimated ejection fraction is 30-34%. Moderate hypokinesis. Doppler parameters are consistent with abnormal left ventricular relaxation (grade 1 diastolic dysfunction).2. Right ventricle: The cavity size is normal. Systolic function is normal. The RV pressure during systole by Doppler is 27 mm Hg.3. Left atrium: The atrium is mildly dilated.4. Mitral valve: There is mild to moderate regurgitation.5. Tricuspid valve: There is mild-moderate regurgitation.6. Pericardium, extracardiac: A small pericardial effusion is identified. Prepared and electronically signed by Yue Lewis MD05/14/2022 13:51 at 1351 PATIENT NAME: NICHOLAS RUIZ :51:00 [id number] for patient uwynMLKRSDMNQJKTGX0317-72-66P44:51:59 [facility] 2022-05-14 06:36:00 [id number]/tCbI xtSA0+DGPK jSAzzXdqvPvKNBrMqWu171YA521593-26-79P43:36:526504- [address] [address] PATIENT NAME: NICHOLAS RIUZ ADMIT DATE: 05/13/22ACCOUNT NO: [id number] ROOM NO: Z.360 AGE: 61 REPORT TYPE: ELECTROCARDIOGRAM SEX: M ADMITTING PHYSICIAN:Emmett Escalera MD ATTENDING PHYSICIAN:Emmett Escalera MD Order:[id number] Reason : CHF/AICD Test Date/Time Stamp:FriMay 14 2022 06:36:20Blood Pressure : / mmHGVent. Rate : 084 BPM Atrial Rate : 084 BPM P-R Int : 140 ms QRS Dur : 132 ms QT Int : 426 ms P-R-T Axes : 039 -86 096 degrees QTc Int : 503 ms Atrial-sensed ventricular-paced rhythmAbnormal ECGWhen compared with ECG of 14-MAY-2022 06:32,No significant change was foundConfirmed by YUE LEWIS ([id number]) on 05/14/2022 7:13:12 AM Referred By: Emmett Escalera Confirmed by:YUE LEWIS at 0713 PATIENT NAME: NICHOLAS RUIZ .[id number] VAvailable for patient qjbeNCXDSEXNENNSYY8633-03-78E36:13:44 [facility] 2022-05-14 06:36:00 [id number] i0ueWgwzSO 30Dvrv1tX2BF7aF8vIwwaSeJj54636-76-62U69:36:467487- [address] [address] PATIENT NAME: NICHOLAS RUIZ ADMIT DATE: 05/13/22ACCOUNT NO: [id number] ROOM NO: Z.360 AGE: 61 REPORT TYPE: ELECTROCARDIOGRAM SEX: M ADMITTING PHYSICIAN:Emmett Escalera MD ATTENDING PHYSICIAN:Emmett Escalera MD Order:[id number] Reason : CHF/AICD Test Date/Time Stamp:FriMay 14 2022 06:36:20Blood Pressure : / mmHGVent. Rate : 084 BPM Atrial Rate : 084 BPM P-R Int : 140 ms QRS Dur : 132 ms QT Int : 426 ms P-R-T Axes : 039 -86 096 degrees QTc Int : 503 ms Atrial-sensed ventricular-paced rhythmAbnormal ECGWhen compared with ECG of 14-MAY-2022 06:32,No significant change was foundConfirmed by YUE LEWIS ([id number]) on 05/14/2022 1:53:49 PM Referred By: Emmett Escalera Confirmed by:YUE LEWIS at 1353 PATIENT NAME: NICHOLAS RUIZ .[id number] VAvailable for patient ufsoZLVFXDWRRWYRBL9644-50-88N74:54:20 [facility] 2022-05-13 20:45:00 [id number]zR CSEtVNeU22 bgDzLFt3FaAMK8KuFV7X7zXBgk9167-50-77I24:45:829930- [address] [address] PATIENT NAME: NICHOLAS RUIZ ADMIT DATE: 05/13/22ACCOUNT NO: [id number] ROOM NO: Z.360 AGE: 61 REPORT TYPE: CONSULTATION REPORT SEX: M ADMITTING PHYSICIAN:Emmett Escalera MD ATTENDING PHYSICIAN:Emmett Escalera MD CONSULTATION DATE: 05/13/2022 REFERRING PHYSICIAN: Cnocha Castaneda MD REASON FOR CONSULTATION: We were asked to evaluate this patient for chest pain. HISTORY OF PRESENT ILLNESS: This is a 61-year-old male with a history of ischemic cardiomyopathy, status post Medtronic biventricular pacing, AICD, who presented to the Emergency Room in [place] with complaints of severe chest pain. The pain was rated 10/10. Pain initially began approximately 3 days ago and became significantly worse the night before presentation. He states he had some excessive mucus as well as fatigue and shortness of breath. Currently, feeling better with no chest pain. PAST MEDICAL HISTORY:1. Chronic systolic heart failure.2. Diabetes.3. Dilated cardiomyopathy. FAMILY HISTORY: Positive for heart disease and hypertension. SOCIAL HISTORY: No tobacco. No alcohol. HOME MEDICATIONS: Metformin, sertraline, metoprolol, atorvastatin, aspirin, hydrochlorothiazide, amlodipine, lisinopril. ALLERGIES: NKDA. REVIEW OF SYSTEMS:CONSTITUTIONAL: No complaints of fever or chills.ENMT: No complaints of headache.EYES: No complaints of blurred vision.RESPIRATORY: Shortness of breath associated with chest pain.CARDIOVASCULAR: Chest pain as noted above, which is now resolved.GASTROINTESTINAL: No complaints of nausea or vomiting.GENITOURINARY: No complaints of urinary frequency or dysuria.MUSCULOSKELETAL: No complaints of joint pain.SKIN: No complaints of skin rash.NEUROLOGIC: No complaints of focal weakness. PHYSICAL EXAMINATION:GENERAL: Well-nourished male in no acute distress. PATIENT NAME: NICHOLAS RUIZ VITAL SIGNS: Temperature 98.4, blood pressure 136/90, pulse 95, respiratory rate 14, O2 sats 96%.ENMT: Atraumatic, normocephalic.RESPIRATORY: Normal effort. Clear to auscultation bilaterally.CARDIOVASCULAR: Normal S1 and S2. No S3 or S4.NECK: JVP is normal. No carotid bruits.EXTREMITIES: No edema.NEUROLOGIC: Cranial nerves II through XII are intact. No focal motor deficits noted. LABORATORY AND DIAGNOSTIC DATA: Sodium 134, potassium 4, chloride 99, CO2 of 26, BUN 20, creatinine 0.9, glucose 273. Troponin 0.039. NT-proBNP 875. Chest x-ray, no acute cardiopulmonary abnormality noted. IMPRESSION:1. Chest pain. No clear evidence of myocardial infarction. The patient is asymptomatic now.2. Hypertension.3. Diabetes.4. Chronic systolic heart failure, status post Medtronic biventricular pacing AICD. RECOMMENDATIONS:1. Continue current medications and titrate up carvedilol as tolerated.2. A 2D echocardiogram.3. Further recommendations after above. Dictated By: Geoff Hollins MD Date Dictated: 05/13/2022 20:45:43Date Transcribed: 05/14/2022 01:30:08MAXX/Dayday #: [id number] ID: [id number] by Geoff Hollins MD On 05/17/2022 05:52:45 AM at 0552 PATIENT NAME: NICHOLAS RUIZ :30:00Z.[facility] [id number] for patient ihyrIFRURJTKHUIIYS6558-58-06P12:53:18 [facility] 2022-05-13 16:17:00 [id number] R7Kf7TzT4h H1BPvnYIkN9f8q+FCSxC7c1/l16724-99-65J33:17:698128- [address] [address] PATIENT NAME: NICHOLAS RUIZ ADMIT DATE: 05/13/22ACCOUNT NO: [id number] ROOM NO: Rust AGE: 61 REPORT TYPE: ELECTROCARDIOGRAM SEX: M ADMITTING PHYSICIAN:Emmett Escalera MD ATTENDING PHYSICIAN:Emmett Escalera MD Order:[id number] Reason : CHF/AICD Test Date/Time Stamp:FriMay 13 2022 16:17:53Blood Pressure : / mmHGVent. Rate : 099 BPM Atrial Rate : 099 BPM P-R Int : 136 ms QRS Dur : 130 ms QT Int : 384 ms P-R-T Axes : 050 -50 090 degrees QTc Int : 492 ms Atrial-sensed ventricular-paced rhythmAbnormal ECGWhen compared with ECG of 13-MAY-2022 16:16,No significant change was foundConfirmed by YUE LEWIS ([id number]) on 05/14/2022 7:10:13 AM Referred By: Concha Castaneda Confirmed by:YUE LEWIS at 0710 PATIENT NAME: NICHOLAS RUIZ .[id number] VAvailable for patient mebsWYDHCJRDBOHSFG8473-62-10U38:10:44 [facility] 2022-05-13 16:16:00 [id number]/NjBLWrCFnUUFWyHUPv mKVgPD8d9T fLgwzChjbDmDgsq7ZlcIG4Jtqg2087-11-99P31:16:251960- [address] [place] [address] PATIENT NAME: NICHOLAS RUIZ ADMIT DATE: 05/13/22ACCOUNT NO: [id number] ROOM NO: Rust AGE: 61 REPORT TYPE: ELECTROCARDIOGRAM SEX: M ADMITTING PHYSICIAN:Concha Castaneda MD ATTENDING PHYSICIAN:Concha Castaneda MD Order:[id number] Reason : TACHYCARDIA AND CHEST PAIN Test Date/Time Stamp:FriMay 13 2022 16:16:53Blood Pressure : / mmHGVent. Rate : 100 BPM Atrial Rate : 100 BPM P-R Int : 136 ms QRS Dur : 128 ms QT Int : 382 ms P-R-T Axes : 051 -58 085 degrees QTc Int : 492 ms Atrial-sensed ventricular-paced rhythmAbnormal ECGWhen compared with ECG of 24-SEP-2021 08:50,Vent. rate has increased BY 34 BPMConfirmed by YUE LEWIS ([id number]) on 05/13/2022 5:35:23 PM Referred By: Concha Castaneda Confirmed by:YUE LEWIS at 1735 PATIENT NAME: NICHOLAS RUIZ .[id number] VAvailable for patient lpnbNQYUXWOGZDSJNG8696-01-71I93:35:46 [facility] 2022-05-13 15:40:00 [id number]/8BZw3dxwVsMPx+7isY8QX 9Qmf3800xD GkSEa5IsBvlu7FqZvAf1I0kjO41711-53-00H71:40:00 [facility] ([facility])Hospitalist History PhysicalREPORT#:[id number] REPORT STATUS: SignedDATE:05/13/22 TIME: 1540 PATIENT: NICHOLAS RUIZ UNIT #: [id number]#: [id number] [facility]: [facility] AGE: 61 SEX: M ATTEND: Emmett Escalera MDADM AUTHOR: ERWIN CLARKE DPM R1 * ALL edits or amendments must be made on the electronic/computer document * Erwin Clarke 05/13/22 1540:History of Present Illness HPIChief complaint:SOB/ Chest painHPI:Mr. Ruiz is a 61 year old male who presented to the ED this morning for chest pain and shortness of breath that has been ongoing for the past 3 days and worsened last night and this morning. Patient states he was unable to sleep and was unable to go to work due to the discomfort. He reports he has been having a mucus buildup in his throat for the past month but hasn't been able to cough it out in addition to having left calf wallace horses 1 month ago that were relieved by a small pill he cannot recall. He reports fatigue and SOB in addition to stress from his job, but currently denies any constitutional symptoms. He has a PMH of CHF, DM2, cardiomyopathy, pacemaker placed in September of 2021 and in 2009. He reports he had a back fusion (DOS:02/14/1997), left ankle fusion (1971), B/L carpal tunnel release (1988). 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 Has been vaccinated against COVID including booster and reports he has never had the virus. History Past Medical Surgical HxAdditional medical history:HTN,CHF, DM2, dilated cardiomyopathyAdditional surgical history:Back fusion (1996)Ankle Fusion (1971)Bilateral carpal tunnel release (1988) Family HistoryFamily history:Reports: Heart disease, Hypertension. Social HistoryAlcohol use: Denies EtOH useDrug use: Denies recreational drugsSmoking status for patients 13 years old or older: Never Smoker Medication/Allergy-Vaccine HxMedications:Home Medications:metFORMIN (GLUCOPHAGE) SERTRALINE (ZOLOFT) 50 MG PO DAILY METOPROLOL SUCC XL (TOPROL XL) 100 MG PO DAILY ATORVASTATIN (LIPITOR) 40 MG PO DAILY ASPIRIN EC (ECOTRIN) 81 MG PO DAILY HYDROCHLOROTHIAZIDE (HCTZ) 12.5 MG PO DAILY amLODIPine (NORVASC) 5 MG PO DAILY LISINOPRIL (ZESTRIL) 20 MG PO DAILY CEPHALEXIN (KEFLEX) 500 MG PO TID Allergies:Coded Allergies:No Known Allergies (02/22/19) Review of SystemsConstitutional:Reports: fatigue, generalized weakness, lethargy. Denies: chills, fever. Respiratory:Reports: SOB, wheezing. Physical ExamVS/I O:Vital Signs Date Temp Pulse Resp B/P B/P Mean Pulse Ox FiO2 05/13 37.0 97 17 156/105 121.7 97 Last Documented: Result Date Time Pulse Ox 97 05/13 1514 B/P 156/105 05/13 1514 B/P Mean 121.7 05/13 151 O2 Delivery Room air 05/13 1514 Temp 37.0 05/13 151 Pulse 97 05/13 151 Resp 17 05/13 151 Patient Weight and BMI Weight (kg): BMI: General appearance: alert, awake, orientedHead/Eyes: atraumatic, clear corneaCardiovascular: irregular rhythm, tachycardicRespiratory: decreased breath soundsAbdomen: non-tender, no distentionGenitourinary: no bladder distention, no flank painExtremities: normal capillary refill, normal range of motion, no edema Vascular pulse assessment:palpated: R posterior tibialis, L posterior tibialis, R dorsalis pedis, L dorsalis pedis. Musculoskeletal: normal inspectionNeuro/PEER EDUCATOR: alert, oriented X 3Skin: intact, normal color, normal temperature, no rashPsychiatry: normal judgment/insight, normal mood ResultsFindings/Data:Laboratory Tests: 05/13 1512 Chemistry POC Glucose (60 - 99 MG/DL) 194 H Results: labs reviewed, vital signs reviewed, current med profile rev'd Diagnosis, Assessment PlanFree Text A P:61 yoM with known h/o CAD and CMP s/p AICD who's been noncompliant with medications for the past year, transfered from [facility] with c/o worsening dyspnea, orthopnea, and decreased exercise tolerance. Today, pt also reports chest pressure with his dyspnea, which promted him to seek medical attention. Ptwas given IV lasix in ED and is feeling better. He will be admitted for treatment of acute on chronic systolic CHF exacerbation due to meds noncompliance. Plan - Acute on chronic systolic CHF exacerbation due to meds noncompliance -Check serial troponins to r/o ACS -Echo to re-eval LVEF - Mildly elevated troponin, likely due to demand ischemia -Start diuretic with IV lasix, fluid restriction, asa, metoprolol, and statin -Cardio eval - HTN and DM2, uncontrolled due to medications noncompliance. -Start low dose basal insulin for DM2 controll -Re-emphasize importance of medication compliance Diet: Cardiac dietDVT prophylaxis: LovenoxCode status: FullDispo: D/C home 61 yoM with known h/o CAD and CMP s/p AICD who's been noncompliant with medications for the past year, transfered from [facility] with c/o worsening dyspnea, orthopnea, and decreased exercise tolerance. Today, pt also reports chest pressure with his dyspnea, which promted him to seek medical attention. Ptwas given IV lasix in ED and is feeling better. He will be admitted for treatment of acute on chronic systolic CHF exacerbation due to meds noncompliance. - Acute on chronic systolic CHF exacerbation due to meds noncompliance - Mildly elevated troponin, likely due to demand ischemia - HTN and DM2, uncontrolled due to medications noncompliance. Check serial troponins to r/o ACSEcho to re-eval LVEFStart diuretic with IV lasix, fluid restriction, asa, metoprolol, and statinStart low dose basal insulin for DM2 controllRe-emphasize importance of medication complianceCardiology eval Quality: Gen Med Crit Care VTE ProphylaxisVTE prophylaxis initiated: yes Current MedicationsCurrent medication review:I attest that the foregoing medication list in the medical record is true, accurate, and complete to the best of my knowledge. Emmett Escalera 05/13/221932:Attestations Teaching Physician Hfdkbwlwapg3nm visit w/ resident:I was present with the resident during the history and exam. I discussed the case with the resident Dr Valles PGY1 and . . . agree with the findings and nixon documented in the resident's note. 61 yoM with known h/o CAD and CMP s/p AICD who's been noncompliant with medications for the past year, transfered from [facility] with c/o worsening dyspnea, orthopnea, and decreased exercise tolerance. Today, pt also reports chest pressure with his dyspnea, which promted him to seek medical attention. Ptwas given IV lasix in ED and is feelign better. He will be admitted for treatment of acute on chronic systolic CHF exacerbation due to meds noncompliance. - Acute on chronic systolic CHF exacerbation due to meds noncompliance - Mildly elevated troponin, likely due to demand ischemia - HTN and DM2, uncontrolled due to medications noncompliance. Check serial troponins to r/o ACSEcho to re-eval LVEFStart diuretic with IV lasix, fluid restriction, asa, metoprolol, and statinStart low dose basal insulin for DM2 controllRe-emphasize importance of medication complianceCardiology eval at 2041 at [facility] [facility] #:[id number] OF REPORTHPHistory and physical yxxjzttbkym9957-67-95O25:40:00Z.GYTG70467385-8892T VAvailable for patient syomINIUFBLJXNLTJB3673-06-44X58:41:20 [facility] 2021-[facility] 06:53:00 [id number]nVI4 XCharleszzy cFlanE4RliqjxaWr3Sxs67iPUU0147-53-43C20:53:00 [facility] ([facility]ITALCard[facility] Progress NoteREPORT#:[id number] REPORT STATUS: SignedDATE:09/25/21 TIME: 0653 PATIENT: NICHOLAS RUIZ UNIT #: [id number]#: [id number] [facility] AGE: 61 SEX: M ATTEND: Geoff Hollins [facility] AUTHOR: Geoff Hollins MD * ALL edits or amendments must be made on the electronic/computer document * SubjectiveChief complaint:AICD lead malfunction.Patient reports:No: chest pain, palpitations, shortness of breath. Objective GeneralVS/I O:24 hour I O ending at 0700: 09/25 0700 09/24 1900 Intake Total 100 Output Total Balance 100 Intake, Oral 100 Number 1 Bowel Movements Number Voids 2 Output, Urine Vital Signs: Date Time Temp Pulse Resp B/P B/P Pulse O2 O2 Flow FiO2 Mean Ox Delivery Rate 09/25 0504 84 18 144/90 107.8 95 09/25 0014 97.7 09/25 0008 67 18 101/63 75.5 94 09/24 2353 74 18 156/91 112.6 98 09/24 1908 97.5 09/24 1843 81 18 178/105 129.4 99 PATIENT WEIGHT: Weight (lb): Weight (oz): Weight (kg): Physical ExamGeneral appearance: alert, awake, orientedHead/Eyes: atraumatic, normocephalicENT: moist mucosal membranesNeck: no JVDCardiovascular: CV assessment: regular rate and rhythmRespiratory: clear to auscultation, no distressLower extremity: LE assessment: no edemaNeuro/PEER EDUCATOR: alert, oriented X 3, CN II-XII intactSkin: dry, intactWound/incision: Location:Left precordium. Site condition: dressing clean dryPsychiatry: normal affect, normal judgment/insight, normal mood ResultsFindings/Data:Laboratory Tests 09/25 09/24 09/24 09/24 0507 2018 1542 0827 Chemistry Sodium (137 - 145 MMOL/L) 134 L 135 L Potassium (3.5 - 5.1 MMOL/L) 4.6 5.3 H Chloride (98 - 107 MMOL/L) 101 98 Carbon Dioxide (22 - 30 MMOL/L) 28 31 H Anion Gap (14 - 24 MMOL/L) 10 L BUN (9 - 20 MG/DL) 24 H 18 Creatinine (0.66 - 1.25 MG/DL) 1.00 0.90 Glomerular Filtr Rate > 60 > 60 Glucose (74 - 106 MG/DL) 195 H 258 H POC Glucose (60 - 99 MG/DL) 311 *H 268 H Calcium (8.4 - 10.2 MG/DL) 9.2 10.0 Magnesium (1.6 - 2.3 MG/DL) 1.8 Laboratory Tests 09/24 0827 Coagulation INR (0.86 - 1.14) 1.0 APTT (25.1 - 36.5 SECONDS) 38.9 H PT Patient/Control Mix (9.5 - 12.7 SECONDS) 11.1 Laboratory Tests 09/25 09/24 0507 0827 Hematology WBC (3.8 - 9.8 K/MM3) 9.8 8.6 RBC (3.95 - 5.67 M/MM3) 5.01 5.38 Hgb (12.4 - 16.7 G/DL) 15.0 15.9 Hct (35.9 - 49.5 %) 43.1 46.7 MCV (81.7 - 96.1 fL) 86 87 MCH (27.6 - 33.2 pg) 29.9 29.6 MCHC (32.9 - 35.5 %) 34.8 34.0 RDW (12.1 - 15.2 %) 13.2 13.0 Plt Count (129 - 368 K/MM3) 223 228 MPV (7.4 - 10.4 fl) 10.3 10.3 Neut % (Auto) (43 - 75 %) 79.1 H 75.9 H Lymph % (Auto) (14 - 44 %) 11.7 L 14.8 [place] % (Auto) (4 - 13 %) 6.9 6.5 Eos % (Auto) (0 - 6 %) 1.3 1.3 Baso % (Auto) (0 - 2 %) 0.7 1.1 Neut # (Auto) (2.0 - 7.6 K/mm3) 7.72 H 6.51 Lymph # (Auto) (1.0 - 3.8 K/mm3) 1.14 1.27 [place] # (Auto) (0.1 - 0.8 K/mm3) 0.67 0.56 Eos # (Auto) (0.0 - 0.2 K/mm3) 0.13 0.11 Baso # (Auto) (0.0 - 0.2 K/mm3) 0.07 0.09 Immature Gran % (0.0 - 2.0 %) 0.3 0.4 Nucleated RBC % (0 - 1.0 %) 0.0 0.0 Nucleated RBCs # (Man) (0.0 - 0.1 K/mm3) 0.00 0.00 Laboratory Tests 09/24 0827 Chemistry Magnesium (1.6 - 2.3 MG/DL) 1.8 Laboratory Tests 09/24 0827 Coagulation APTT (25.1 - 36.5 SECONDS) 38.9 H Radiology data:Recent Impressions:RADIOLOGY - XR CHEST 1V 09/24 1310 Report Impression - Status: SIGNED Entered: 09/24/2021 1358 IMPRESSION:No acute cardiopulmonary abnormality.Impression By: Rikki Giang MD Diagnosis, Assessment Plan Free Text DxA P NotesFree Text DxA P Notes:IMP: AICD lead malfunction. s/p AICD lead revision PLAN: AICD interrogation. d/c planning. at 0[address] [facility] #:[id number] OF REPORTPRProgress dhbk0730-76-51P33:53:00Z.WRNU28991126-8407ZPJoznhq ble for patient kecnUZLIENTGKKMEIR9525-73-80J32:42:04 [facility] 2021-09-24 13:15:00 [id number]3USe tCUQHbSSRd hFbU222hHCxL3Cq+/m8bIbyZ4n7027-49-95A05:15:514117- [address] [place] [address] PATIENT NAME: NICHOLAS RUIZ ADMIT DATE: 09/24/21ACCOUNT NO: [id number] [facility] AGE: 61 REPORT TYPE: CARDIAC CATHETERIZATION REPORT SEX: M ADMITTING PHYSICIAN:Geoff Hollins MD ATTENDING PHYSICIAN:Geoff Hollins MD PROCEDURE DATE: 09/24/2021 PROCEDURES:1. Left subclavian venogram.2. Insertion of right ventricular AICD lead.3. Defibrillation threshold testing. PREOPERATIVE DIAGNOSES:1. Ischemic dilated cardiomyopathy with a history of ejection fraction lessthan 35%.2. Right ventricular AICD lead malfunction with impedance out of range and highpacing threshold.3. Diabetes. POSTPROCEDURE DIAGNOSES:1. Ischemic dilated cardiomyopathy with a history of ejection fraction lessthan 35%.2. Right ventricular AICD lead malfunction with impedance out of range and highpacing threshold.3. Diabetes. SURGEON: Geoff Hollins MD JOY LOADING MACHINE OPERATOR: None. ANESTHESIA: Local anesthesia with 1% lidocaine and moderate and deep sedationusing intravenous Versed and etomidate. PROCEDURE DETAILS: After informed consent was obtained explaining to thepatient the risks, benefits, and alternatives, the patient was brought to thecardiac catheterization lab in the fasting postabsorptive state. He was preppedand draped in sterile fashion. Local anesthesia was applied over the existingpocket in the infraclavicular area with 1% lidocaine. Following a leftsubclavian venogram, access to left subclavian vein was obtained using modifiedSeldinger technique with micropuncture kit. A J-wire was placed in low rightatrium. The pocket was entered with sharp and blunt dissection as well aselectrocautery. The generator was removed from the pocket. The stitch securingthe generator was cut. The pocket was flushed with antibiotic-containingsolution. The wire was brought in the pocket. A long 7-Georgian sheath wasadvanced over the wire and left subclavian vein. The dilator and wire wereremoved. An active fixation right ventricular lead was advanced via the sheathunder fluoroscopic guidance and secured in the right ventricular apex in a PATIENT NAME: NICHOLAS RUIZ slightly septal position. The lead was peeled away. The lead was secured inthe pocket with 0 Ethibond suture around the suture sleeve. The pocket wasagain flushed with antibiotic-containing solution. The existing AICD lead wasremoved from the AICD. The prior lead was capped and the cap was secured inplace with an 0 Ethibond suture. The new lead was cleaned and connected to theexisting generator. The pocket was again flushed with antibiotic-containingsolution. Two pieces of Surgicel were applied to the pocket. A Tyrx sleeve wasapplied around the AICD after further flushing. The AICD and Tyrx sleeve wereplaced in the pocket and secured in the pocket with 0 Ethibond suture. Thepocket was closed in 3 layers using 2-0 Vicryl with subcutaneous layers and 4-0Vicryl for the skin. Steri-Strips were applied to wound externally. Thepatient tolerated the procedure well with no complications. DEFIBRILLATION THRESHOLD TESTING: Induction with DC fibber, energy 26.2 joules,impedance 73 ohms, charge time 6.3 seconds, result sinus rhythm. The patienttolerated the procedure well with no complications. IMPLANT DATA:1. Pulse generator: [employer] Lul model 3357-40Q, serial #[id number], implant date02/25/2019.2. Right atrial lead: [employer] Lul model 2088/46, serial #[id number], implant date06/25/2011.3. Left ventricular lead: [employer] Lul model 1258T/75, serial #[id number], implantdate 06/25/2011.4. Right ventricular lead: [employer] Lul, model 7122Q/58, serial #[id number],implant date 09/24/2021.5. Capped right ventricular lead: St[employer] Lul model 7121Q/58, serial #[id number]. STIMULATION THRESHOLD DATA:1. Right ventricle 16.3 millivolt R waves, impedance 676 ohms, threshold 0.5volts at 0.4 milliseconds.2. Right atrium greater than 5 millivolt P waves, impedance 480 ohms, threshold0.5 volts at 0.5 milliseconds.3. Right ventricle 11.9 millivolt R waves, impedance 660 ohms, threshold 0.5volts at 0.5 milliseconds.4. Left ventricle 590 ohms, threshold 1.25 volts at 1 millisecond. CONCLUSIONS: Successful non-thoracotomy AICD lead revision. ESTIMATED BLOOD LOSS: 10 mL. COMPLICATIONS: No complications. Dictated By: Geoff Hollins MD WT: CATH:GIORGI/PEPGR/NTSDD: 09/24/2021 13:15:25DT: 09/24/2021 14:14:11Conf#: [id number]/DID#: [id number] Authenticated by Geoff Hollins MD On 09/24/2021 05:28:33 PM PATIENT NAME: NICHOLAS RUIZ at 0528 PATIENT NAME: NICHOLAS RUIZ hlxc2761-80-10K62:14:00Z.[id number] le for patient jtlePNQSZFSALXKGJE4096-51-31L25:29:20 [facility] 2021-09-24 08:50:00 [id number]/fyMvNZjJDaKB08 PgTPcbx99b aE6NwTzQgxZJ4mw03SZWlmdoL93354-09-34H47:50:252549- [address] [address] PATIENT NAME: NICHOLAS RUIZ ADMIT DATE: 09/24/21ACCOUNT NO: [id number] ROOM NO: [facility] AGE: 61 REPORT TYPE: ELECTROCARDIOGRAM SEX: M ADMITTING PHYSICIAN:Geoff Hollins MD ATTENDING PHYSICIAN:Geoff Hollins MD Order:[id number] Reason : PRE OP Test Date/Time Stamp:FriSep 24 2021 08:50:13Blood Pressure : / mmHGVent. Rate : 066 BPM Atrial Rate : 066 BPM P-R Int : 144 ms QRS Dur : 130 ms QT Int : 442 ms P-R-T Axes : 039 -37 108 degrees QTc Int : 463 ms Electronic ventricular pacemakerWhen compared with ECG of 25-FEB-2019 11:09,Electronic ventricular pacemaker has replaced Sinus rhythmConfirmed by YUE LEWIS ([id number]) on 09/24/2021 5:13:37 PM Referred By: Self Referred Confirmed by:YUE LEWIS at 1713 PATIENT NAME: NICHOLAS RIUZ .[id number] VAvailable for patient etgpKXHVUTCGFTHYZU9504-09-70P57:14:01 [facility] 2019-02-26 00:40:00 [id number]+BrgOyzJ0p xdxL6RzWOh rN/zZX15VvjcvD/DV1edbDshgNr1e9H+17300-87-70K77:40: [id number] [place] [id number] PATIENT NAME: NICHOLAS RUIZ ADMIT DATE: 02/25/19ACCOUNT NO: [id number] ROOM NO: AGE: 58 REPORT TYPE: CARDIAC CATHETERIZATION REPORT SEX: M ADMITTING PHYSICIAN: ATTENDING PHYSICIAN:Geoff Hollins MD PROCEDURE DATE: 02/25/2019 PROCEDURES:1. Nonthoracotomy biventricular pacing AICD generator change.2. Left ventricular lead repair. PREOPERATIVE DIAGNOSES:1. Chronic systolic heart failure.2. History of [employer] class III congestive heart failure.3. [employer] Lul biventricular pacing AICD elective replacement. POSTPROCEDURE DIAGNOSES:1. Chronic systolic heart failure.2. History of [employer] class III congestive heart failure.3. St[employer] Lul Biventricular pacing AICD elective replacement. SURGEON: Geoff Hollins M.D. JOY LOADING MACHINE OPERATOR: None ANESTHEIA: Local with sedation. PROCEDURE DETAILS: After informed consent was obtained explaining to thepatient risks, benefits, and alternatives, the patient was brought to thecardiac catheterization lab in the fasting postabsorptive state. He was preppedand draped in sterile fashion. Local anesthesia was applied over the existingpocket with 1% lidocaine. Access to the pocket was obtained with sharp andblunt dissection as well as electrocautery. The generator was removed from thepocket. The pocket was flushed with antibiotic-containing solution. The pocketwas debrided with a significant existing scar tissue. The leads were dissectedfree with the plasma blade. The leads were inspected. The left ventricularlead showed several areas with what appeared to be an outer insulation breech.The left ventricular lead was repaired with silicone adhesive and suture sleevessecured around the area repaired with the adhesive with 0 Ethibond suture. Thepocket was again flushed with antibiotic-containing solution. The old generatorwas disconnected from the leads. The new generator was connected to the leadsand placed in the pocket. The generator was secured in the pocket with 0Ethibond suture. Flori was applied to the pocket prior to placement of thegenerator. The pocket was closed in 3 layers using 2-0 Vicryl with subcutaneouslayers and 4-0 Vicryl for the skin. Steri-Strips were applied to woundexternally. The patient tolerated the procedure well with no complications. PATIENT NAME: NICHOLAS RUIZ IMPLANT DATA:1. Pulse generator: [employer] Lul model CD 3357-40Q, serial #[id number], implant date02/25/2019.2. Right atrial lead; St[employer] Lul model 2088-46, serial number [id number]. Implantdate 06/25/2011.3. Right ventricular lead; St[employer] Lul model 7121Q-58, serial number #[id number].Implant date 06/25/2011.4. Left ventricular lead; St[employer] Lul model 38583-46, serial number [id number],implant date 06/25/2011.5. Explanted generator; [employer] Lul model 3231-40Q, serial number [id number]. Implantdate 06/25/2011 and explant 02/25/2019. STIMULATION THRESHOLD DATA:1. Right atrium 4.8 millivolt P waves, impedance 460 ohms, threshold 0.5 voltsat 0.5 milliseconds.2. Right ventricle 11.9 millivolt R waves, impedance 1100 ohms, threshold 1.37volts at 0.5 milliseconds.3. Left ventricle 530 ohms, threshold 1.62 volts at 1.0 msec. CONCLUSIONS:1. Successful nonthoracotomy biventricular pacing AICD generator change.2. Successful left ventricular lead repair.3. Estimated blood loss 5 mL.4. No complications. Dictated By: Geoff Hollins MD WT: CATH:GIORGI/PEPGR/NTSDD: 02/26/2019 00:40:32DT: 02/26/2019 01:26:14Conf#: [id number]/DID#: [id number] Authenticated and Edited by Geoff Hollins MD On 02/26/19 6:40:50 AM at 0643 PATIENT NAME: NICHOLAS RUIZ Ytyp4763-63-07V72:26:00Z.[id number] for patient qfzmFGMQDEVEDSCEBL2975-79-80T80:43:44 [facility] 2019-02-25 11:09:00 VVwsbpuufum14487175gQRz5OWNltS9mZYAdYwtR 0LcrwZtfJL FbOGKqEQ7aAFCP0nT0eyP+1tQKR5F3ctL3768-74-83C42:09: [id number] [place] [address] PATIENT NAME: NICHOLAS RUIZ ADMIT DATE: 02/25/19ACCOUNT NO: [id number] ROOM NO: AGE: 58 REPORT TYPE: ELECTROCARDIOGRAM SEX: M ADMITTING PHYSICIAN: ATTENDING PHYSICIAN:Geoff Hollins MD Order:[id number] Reason : CAD Test Date/Time Stamp:FriFeb 25 2019 11:09:55Blood Pressure : / mmHGVent. Rate : 062 BPM Atrial Rate : 062 BPM P-R Int : 126 ms QRS Dur : 124 ms QT Int : 432 ms P-R-T Axes : 038 045 194 degrees QTc Int : 438 ms Normal sinus rhythmPossible Left atrial enlargementSeptal infarct (cited on or before 25-JUN-2011)Possible Lateral infarct (cited on or before 25-JUN-2011)T wave abnormality, consider inferior ischemiaAbnormal ECGWhen compared with ECG of 25-JUN-2011 17:43,Significant changes have occurredConfirmed by MD AN, DUSTY HANSEN ([id number]) on 02/28/2019 7:56:16 AM Referred By: Geoff Hollins Confirmed by:DUSTY JEAN MD at 0756 PATIENT NAME: NICHOLAS RUIZ .[id number] VAvailable for patient ekdfBIWJRVHJWTLLSM9610-75-76N78:56:43 [facility]
--- NOTE | 2023-12-21 10:43 | EDPHYS ---
Physician Documentation [facility] Name: Nicholas Ruiz Jr Age: 63 yrs Sex: Male : 1960 Arrival Date: 12/21/2023 Time: 10:33 Bed IW1 Private MD: ED Physician Ubaldo Seth HPI: 12/20 10:43 This 63 yrs old Male presents to ER via Unassigned with complaints of Facial ec2 Droop, Slurred Speech. 10:43 Patient arrives today after leaving AGAINST MEDICAL ADVICE less than 24 hours ago. ec2 Patient reports that he was at hospital in [place], subsequently transferred to [facility], was told that he had a stroke and needed an MRI and subsequently left AGAINST MEDICAL ADVICE from their facility 24 hours ago. Is unclear what diagnostics were done, he states that he was told they were concerned he had a stroke but did not MRI. Patient states that he was given "a whole bunch of meds "however it is unclear whether he was prescribed meds or is currently supposed to be taking medications. He states that what prompted evaluation here in the emergency department was he had a blood pressure of 180 systolic. Patient reports that he initially had symptoms of left arm numbness and left leg numbness. I pressed further in terms of these were his presenting symptoms with a stroke, if they had resolved during the recent hospital visits or if these are new. It is unclear.. ROS: 10:43 Constitutional: as per hpi ec2 Exam: 10:43 Constitutional: GEN: NAD Head: atraumatic Eyes: EOMI Ears: External ears are ec2 normal. CV: regular rate LUNGS: no respiratory distress SKIN: no evidence of rashes MSK: no evidence of trauma NEURO: moves all extremities equally, ambulatory, notable slurred sounding speech. MDM: 10:35 Patient medically screened. ec2 10:43 Data reviewed: nurses notes. ED course: Patient arrives today for evaluation of high ec2 blood pressure and recent diagnosis of a stroke. My examination shows an ambulatory individual who has obvious slurred speech. Patient noted to have become visibly and verbally frustrated upon asking additional information regarding the recent hospitalization and recent possible stroke diagnosis. It is unclear whether the numbness is new compared to ba. 10:48 ED course: Patient arrives today for evaluation of high blood pressure and recent ec2 diagnosis of a stroke. My examination shows an ambulatory individual who has obvious slurred speech. Patient noted to have become visibly and verbally frustrated upon asking additional information regarding the recent hospitalization and recent possible stroke diagnosis. It is unclear whether the numbness is new since patient's recent AMA. Additionally patient also with obvious slurred speech, he states that this was ongoing since /Friday however this is also unclear whether this resolved and returned or has been persistent. With clarifying questions, patient became upset and left the hospital.. Administered Medications: No medications were administered Disposition Summary: 12/21/23 10:43 Left Against Medical Advice Notes: Location: Home ec2 Problem: an ongoing problem ec2 Symptoms: are unchanged ec2 Condition: Stable ec2 Diagnosis - High Blood Pressure ec2 - Recent Diagnosis of Stroke ec2 Followup: ec2 - With: Private Physician - When: - Reason: Re-evaluation by your physician Signatures: Ubaldo Seth MD MD ec2
--- NOTE | 2023-12-21 10:52 | ER ---
Nurse's Notes [facility] Name: Nicholas Ruiz Jr Age: 63 yrs Sex: Male : 1960 Arrival Date: 12/21/2023 Time: 10:33 Bed IW1 Private MD: Diagnosis: High Blood Pressure;Recent Diagnosis of Stroke Presentation: 12/20 10:46 Chief complaint: Patient states: they told me i had a stroke and I needed an MRI but I iw have a pacemaker so they sent me to [facility] on Friday and they wouldn't feed me and so I left, today I have the same symptoms , numbness in my left hand and leg numbness and slurred speech, and my BP is high. Coronavirus screen: At this time, the client does not indicate any symptoms associated with coronavirus-19. Ebola Screen: Patient negative for fever greater than or equal to 101.5 degrees Fahrenheit, and additional compatible Ebola Virus Disease symptoms Patient denies exposure to infectious person. Patient denies travel to an Ebola-affected area in the 21 days before illness onset. No symptoms or risks identified at this time. 10:46 Method Of Arrival: Ambulatory iw 10:49 Acuity: DAVID 3 iw 10:[address] Seth was gathering more information pt states "man you know what, forget iw it, I'm leaving, don't even worry about it", pt then put his shirt back on and walked out the department. Assessment: 10:50 Reassessment:. iw ED Course: 10:34 Patient arrived in ED. im 10:35 Ubaldo Seth MD is Attending Physician. ec2 10:50 Triage completed. iw 10:50 Ciera Lundberg RN is Primary Nurse. iw Administered Medications: No medications were administered Outcome: 10:52 Patient left the ED. iw Signatures: Ciera Lundberg RN RN iw Ayleen Taylor im Ubaldo Seth MD MD ec2
== END 2023-12-21 10:52 | disposition left against medical advice (07) ==
LOC: ER 10:33
DX: I10 Essential (primary) hypertension (principal); I63.9 Cerebral infarction, unspecified
CPT/HCPCS: 99281

== ENCOUNTER 2024-08-21 17:48 | Inpatient (IN) | payer BC ==
--- OUTSIDE RECORDS SUMMARY | 2024-08-21 17:52 | XMS REPORT | Continuity of Care Document ---
Author Name Unknown Address [address] [facility] [place] [address] [facility] Address 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 Role Phone Michelle Coleman Primary Care Physician + [phone] Nicolasa Metz RN Attending Clinician [phone] DINESH BALDWIN Attending Clinician UnavailClary Mo DO Attending Clinician [phone] Dinesh Baldwin MD Attending Clinician [phone] Stephanie Bell Attending Clinician Unavailable Rocky Francis Attending Clinician UnavailMichelle Quintana Attending Clinician [phone] Lab, Ang - Db Attending Clinician Unavailable MICHELLE VAZQUEZ Attending Clinician Unavailable Doctor Unassigned, [place] Attending Clinician U navailable ALEXANDRA LACEY Attending Clinician Unavailable Alexandra Lacey NP Attending Clinician [phone] Emmett Escalera Attending Clinician Unavailable GEOFF MAURER Attending Clinician Unavailable Geoff Maurer MD Attending Clinician [phone] Kanika Ha MD Attending Clinician + [phone] Susan Yee RN Attending Clinician Unavailab Geoff Abdul Attending Clinician UnavailKANIKA Bhatia Attending Clinician Unavai lable Provider, [facility] Attending Clinician Un available AneStacey Morris Attending Clinician [phone] Lab, Adc Fam Pob I Attending Clinician Unavailab le Only, Adc Test Attending Clinician Unavailable Alycia Panda MD Attending Clinician [phone] BROOKS LINCOLN Attending Clinician Unavailable DINESH BALDWIN Admitting Clinician UnavailDinesh Bustos MD Admitting Clinician [phone] Beba Fuentes Admitting Clinician Unavailable Geoff Hollins Admitting Clinician UnavailALEXANDRA Kelly Admitting Clinician Unavailable Emmett Escalera Admitting Clinician Unavailable GEOFF MAURER Admitting Clinician Unavailable Payers Payer Name Policy Type Policy Number Effective Date Expirati on Date Source Problems Condition Name Condition Details Condition Category Status Onset Date Resolution Date Last Treatment Date Treating Clinician Comments Source Chest pain, unspecifie d type Chest pain, unspecifie d type Disease Active 2023-08 00:00: 00 [facility] Elevated troponin I level Elevated troponin I level Disease Active 2023-08 00:00: 00 [facility] Elevated brain natriureti c peptide (BNP) level Elevated brain natriureti c peptide (BNP) level Disease Active 2023-08 00:00: 00 [facility] Nonischemi c cardiomyop athy Nonischemi c cardiomyop athy Disease Active 2023-08 00:00: 00 [facility] Nonobstruc tive atheroscle rosis of coronary artery Nonobstruc tive atheroscle rosis of coronary artery Disease Active 2023-08 00:00: 00 [facility] Dyslipidem ia Dyslipidem ia Disease Active 2023-08 00:00: 00 [facility] Type 2 diabetes mellitus with microalbum inuria, without long-term current use of insulin Type 2 diabetes mellitus with microalbum inuria, without long-term current use of insulin Disease Active 2017-08 00:00: 00 [facility] Other depression Other depression Disease Active 2017-08 00:00: 00 [facility] Essential hypertensi on Essential hypertensi on Disease Active 2017-08 00:00: 00 [facility] Laceration of left middle finger without damage to nail, foreign body presence unspecifie d, initial encounter Laceration of left middle finger without damage to nail, foreign body presence unspecifie d, initial encounter Disease Active 2017-08 00:00: 00 [facility] Onychomyco sis Onychomyco sis Disease Active 2017-08 00:00: 00 [facility] Uncontroll ed hypertensi on Uncontroll ed hypertensi on Disease Active 2017-08 00:00: 00 [facility] Laceration of left middle finger without damage to nail, foreign body presence unspecifie d, initial encounter Laceration of left middle finger without damage to nail, foreign body presence unspecifie d, initial encounter Disease Active 2017-08 00:00: 00 [facility] Screening for colorectal cancer Screening for colorectal cancer Disease Active 04-01 00:00: 00 Overview: Formattin g of this note might be different from the original. Added automatic ally from request for surgery [id number] [facility] Allergies, Adverse Reactions, Alerts Allergy Name Allergy Type Status Severity Reaction(s) Onset Date Inactive Date Treating Clinician Comments Source No Known Allergie s DA Active U 02-22 00:00: 00 [facility] No Known Allergie s DA Active U 02-22 00:00: 00 [facility] NKDA DA Active U 2010-08 00:00: 00 [facility] NO KNOWN ALLERGIE S Drug Class Active [facility] Social History Social Habit Start Date Stop Date Quantity Comments Source Gender identity [facility] Alcoholic beverage intake 2024-07-17 00:00:00 2024-07-17 00:00:00 Current non-drinker of alcohol (finding) [facility] Alcohol intake 2023-04-04 00:00:00 2023-04-04 00:00:00 Current non-drinker of alcohol (finding) [facility] History of Social function 2023-04-04 00:00:00 2023-04-04 00:00:00 [facility] Tobacco use and exposure 2023-04-04 00:00:00 2023-04-04 00:00:00 Smokeless tobacco non-user [facility] Exposure to SARS-CoV-2 (event) 2022-05-03 00:00:00 2022-05-13 07:21:00 Not sure [facility] Sex assigned at 1960 00:00:00 1960 00:00:00 [facility] Smoking Status Start Date Stop Date Source Never smoked tobacco [facility] Medications Ordered Medication Name Filled Medication Name Start Date Stop Date Current Medication? Ordering Clinician Indication Dosage Frequency Signature (SIG) Comments Components Source aspirin 81 mg chewable tablet 2023-08 00:00: 00 08-19 05:59 :00 Yes [id number] 81mg Take 1 tablet by mouth in the morning for 30 days. [facility] furosemide 40 mg tablet 2023-08 00:00: 00 08-19 05:59 :00 Yes [id number] 40mg Take 1 tablet by mouth in the morning for 30 days. [facility] spironolact one 25 mg tablet 2023-08 00:00: 00 08-19 05:59 :00 Yes [id number] 25mg Take 1 tablet by mouth in the morning for 30 days. [facility] codeine-gua ifenesin (ROBITUSSIN AC) 10-100 mg/5 mL oral solution 10 mL 2023-08 19:45: 00 07-18 20:25 :00 No 10mL 10 mL, Oral, ONCE, 1 dose, On 07/18/24 at 1345, Routine [facility] levalbutero l (XOPENEX) nebulizer solution 1.25 mg 2023-08 19:45: 00 07-18 19:46 :00 No 1.25mg 1.25 mg, Inhalation , ONCE, 1 dose, On 07/18/24 at 1345, Routine [facility] acetylcyste ine (MUCOMYST) 200 mg/mL (20 %) inhalation solution 800 mg 2023-08 19:45: 00 07-18 19:46 :00 No 4mL 800 mg (4 mL), Inhalation , ONCE, 1 dose, On 07/18/24 at 1345, Routine [facility] guaiFENesin (FENESIN IR) tablet 400 mg 2023-08 18:00: 00 07-18 22:41 :39 No 400mg 400 mg, Oral, Q4H, First dose on 07/18/24 at 1200, Until Discontinu ed, Routine [facility] sulfur hexafluorid e microsphr (LUMASON) injection 5 mL 2023-08 16:00: 00 07-18 15:58 :00 No [id number] 5mL 5 mL, Intravenou s, ONCE, 1 dose, On 07/18/24 at 1000, Routine [facility] aspirin chewable tablet 81 mg 2023-08 15:00: 00 Yes 81mg 81 mg, Oral, DAILY, First dose on 07/18/24 at 0900, Until Discontinu ed, Routine [facility] atorvastati n (LIPITOR) tablet 40 mg 2023-08 03:00: 00 Yes 40mg 40 mg, Oral, QHS, First dose on 07/17/24 at 2100, Until Discontinu ed, Routine, service member approving Restricted medication : OMAR HELMS [facility] losartan (COZAAR) tablet 50 mg 2023-08 02:00: 00 Yes 50mg 50 mg, Oral, BID, First dose (after last modificati on) on 07/17/24 at 2000, Until Discontinu ed, Routine [facility] metoprolol tartrate (LOPRESSOR) tablet 12.5 mg 2023-08 02:00: 00 Yes 12.5mg 12.5 mg, Oral, BID, First dose on 07/17/24 at 2000, Until Discontinu ed, Routine [facility] famotidine (PEPCID AC) tablet 20 mg 2023-08 02:00: 00 07-18 22:41 :39 No 20mg 20 mg, Oral, BID, First dose on 07/17/24 at 1999, Until Discontinu ed, Routine [facility] predniSONE (DELTASONE) tablet 20 mg 2023-08 02:00: 00 07-18 22:41 :39 No 20mg 20 mg, Oral, BID, First dose on 07/17/24 at 1999, Until Discontinu ed, Routine [facility] furosemide (LASIX) tablet 40 mg 2023-08 00:00: 00 Yes 40mg 40 mg, Oral, DAILY, First dose on 07/17/24 at 1800, Until Discontinu ed, Routine [facility] atorvastati n 40 mg tablet 2023-08 00:00: 00 08-18 05:59 :00 Yes [id number] 40mg Take 1 tablet by mouth at bedtime for 30 days. [facility] losartan 50 mg tablet 2023-08 00:00: 00 08-18 05:59 :00 Yes [id number] 50mg Take 1 tablet by mouth in the morning and 1 tablet in the evening. Do all this for 30 days. [facility] metoprolol tartrate 25 mg tablet 2023-08 00:00: 00 08-18 05:59 :00 Yes [id number] 12.5mg Take 0.5 tablets by mouth in the morning and 0.5 tablets in the evening. Do all this for 30 days. [facility] cefdinir 300 mg capsule 2023-08 00:00: 00 07-24 05:59 :00 Yes [id number] 300mg Take 1 capsule by mouth every 12 (twelve) hours for 5 days. [facility] montelukast (SINGULAIR) tablet 10 mg 2023-08 00:00: 00 07-18 22:41 :39 No 10mg 10 mg, Oral, DAILY, First dose on 07/17/24 at 1800, Until Discontinu ed, Routine [facility] spironolact one (ALDACTONE) tablet 25 mg 2023-08 16:00: 00 Yes 25mg 25 mg, Oral, DAILY, First dose on 07/17/24 at 1000, Until Discontinu ed, Routine [facility] losartan (COZAAR) tablet 50 mg 2023-08 16:00: 00 07-17 22:49 :40 No 50mg 50 mg, Oral, DAILY, First dose on 07/17/24 at 1000, Until Discontinu ed, Routine [facility] pantoprazol e (PROTONIX) EC tablet 40 mg 2023-08 15:00: 00 07-18 22:41 :39 No 40mg 40 mg, Oral, DAILY, First dose on 07/17/24 at 0900, Until Discontinu ed, Routine [facility] cefTRIAXone (ROCEPHIN) 1,000 mg in water for injection, sterile 10 mL IV Push 2023-08 14:30: 00 07-18 22:41 :39 No 1000mg 1,000 mg, Intravenou s, Q24H ABX, 5 doses, First dose on 07/17/24 at 0830, Last dose on Fri07/21/24 at 0830, 10 mL, Reason for Anti-Infec tive: Empiric Therapy for Suspected Infection, Empiric Therapy Site: Respirator y, Duration of therapy: 5 days [facility] NaCl 0.9% (NS) IV infusion 1,000 mL 2023-08 14:30: 00 07-17 23:29 :02 No 1000mL at 70 mL/hr, IV Infusion, CONTINUOUS , Starting on 07/17/24 at 0830, Until 07/17/24 at 1729, Routine [facility] ipratropium -albuteroL (DUONEB) 0.5 mg-3 mg(2.5 mg base)/3 mL nebulizer solution 3 mL 2023-08 14:15: 52 07-18 22:41 :39 No 3mL 3 mL, Inhalation , Q6HPRN, Starting on 07/17/24 at 0815, Until 07/18/24 at 1641, Routine, Wheezing [facility] ondansetron (ZOFRAN (PF)) injection 4 mg 2023-08 14:14: 04 07-18 22:41 :39 No 4mg 4 mg, Slow IV Push, Q6HPRN, Starting on 07/17/24 at 0814, Until 07/18/24 at 1641, Administer over 2-5 Minutes, 2 mL [facility] morphine (2 mg/mL) injection 2 mg 2023-08 14:13: 58 07-18 14:12 :58 No 2mg 2 mg, Slow IV Push, Q4HPRN, Starting on 07/17/24 at 0813, Until 07/18/24 at 0812, Routine, Pain (scale 7-10) [facility] HYDROcodone -acetaminop hen (NORCO 5) tablet 1 tablet 2023-08 14:13: 56 07-18 22:41 :39 No 1{tbl} 1 tablet, Oral, Q6HPRN, Starting on 07/17/24 at 0813, Until 07/18/24 at 1641, Routine, Pain (scale 4-6) [facility] acetaminoph en (TYLENOL) tablet 650 mg 2023-08 14:13: 54 07-18 22:41 :39 No 650mg 650 mg, Oral, Q6HPRN, Starting on 07/17/24 at 0813, Until 07/18/24 at 1641, Routine, Pain (scale 1-3) [facility] heparin 25,000 Units/250 mL (Premixed Bag) in 0.45 % NS 2023-08 14:00: 00 07-17 19:45 :59 No 0U/h 0-1,600 Units/hr (0-16 mL/hr), IV Infusion, CONTINUOUS , Starting on 07/17/24 at 0800, Initiate infusion at 950 Units/hr (calculate d at 12 units/kg/h r, rounded to the closest 50 units) DO NOT Exceed the MAXIMUM 1,000 units/hr for initiation of heparin infusion. CAUTION - If LMWH given in ER, AVOID bolus and start next dose/drip 12 hrs after ER dosage. Must program rate using programmab le infusion pump. Check with the ordering provider first prior to any administra tion should the patient be on existing/a dditional anticoagul ant therapy. Range, Dosing and Testing - aPTT < 40: Bolus 3000 units, increase rate 100 units/hr. - aPTT 40-49: Increase rate 50 units/hr. - aPTT 50-70: NO CHANGE. - aPTT 71-85: Decrease rate 50 units/hr. - aPTT 86-100: Hold 30 minutes, decrease rate 100 units/hr. - aPTT 101-150: Hold 60 minutes, decrease rate 150 units/hr. - aPTT > 150: Hold 60 minutes, decrease rate 300 units/hr. Check aPTT 6 hours after initiation , then Q6H after every change, aPTT Q12H once therapeuti c levels are reached. DO NOT ADJUST INITIAL BOLUS OR INITIAL INFUSION RATE. [facility] HEPARIN SODIUM (PORCINE) 1,000 UNIT/ML BOLUS ACS ORDER SET 2023-08 14:00: 00 07-17 14:14 :00 No 4000U 4,000 Units, IV Push, ONCE, 1 dose, On 07/17/24 at 0800, SANGEETHA [facility] aspirin chewable tablet 324 mg 2023-08 12:15: 00 07-17 11:21 :00 No 324mg 324 mg, Oral, ONCE, 1 dose, On 07/17/24 at 0615, Routine [facility] methylpredn isolone sod succ (SOLU-MEDRO L) injection 125 mg 2023-08 11:30: 00 07-17 10:42 :00 No 125mg 125 mg, Slow IV Push, ONCE NOW, 1 dose, On 07/17/24 at 0530, SANGEETHA [facility] ipratropium (ATROVENT) 0.02 % nebulizer solution 0.5 mg 2023-08 11:30: 00 07-17 10:41 :00 No .5mg 0.5 mg, Inhalation , ONCE, 1 dose, On 07/17/24 at 0530, [facility] albuterol (PROVENTIL) 2.5 mg /3 mL (0.083 %) nebulizer solution 5 mg 2023-08 11:30: 00 07-17 10:41 :00 No 5mg 5 mg, Inhalation , ONCE, 1 dose, On 07/17/24 at 0530, [facility] atorvastati n calcium (LIPITOR ORAL) 2023-08 09:42: 43 07-17 00:00 :00 No Take by mouth. [facility] metFORMIN 500 mg tablet 04-10 00:00: 00 07-17 00:00 :00 No [id number] 500mg Take 1 tablet by mouth in the morning and 1 tablet in the evening. Take with meals. [facility] LISINOPRIL ORAL 04-04 12:53: 01 Yes Take by mouth. [facility] KCL 20 mEq tablet 04-04 12:37: 38 04-04 00:00 :00 No [facility] lisinopril 20 mg tablet 04-04 12:37: 28 04-04 00:00 :00 No 20mg Take 20 mg by mouth daily. [facility] losartan 25 mg tablet 04-04 12:37: 13 04-04 00:00 :00 No [facility] furosemide 40 mg tablet 04-04 12:36: 15 04-04 00:00 :00 No [facility] glipiZIDE 5 mg tablet 04-04 12:36: 00 04-04 00:00 :00 No [facility] carvediloL 12.5 mg tablet 04-04 12:35: 29 04-04 00:00 :00 No [facility] aspirin (ASPIRIN LOW DOSE) 81 mg EC tablet 04-04 12:35: 20 04-04 00:00 :00 No 81mg Take 81 mg by mouth daily. [facility] atorvastati n 40 mg tablet 04-04 12:35: 11 04-04 00:00 :00 No 40mg Take 40 mg by mouth at bedtime. [facility] amLODIPine 5 mg tablet 04-04 12:35: 02 04-04 00:00 :00 No 5mg Take 1 tablet by mouth in the morning. [facility] naproxen (NAPROSYN) tablet 500 mg 02-20 19:15: 00 02-20 18:33 :00 No 500mg 500 mg, Oral, ONCE NOW, 1 dose, On [facility] 02/20/23 at 1415, Routine [facility] methocarbam oL (ROBAXIN) tablet 1,000 mg 02-20 18:30: 00 02-20 18:33 :00 No 1000mg 1,000 mg, Oral, ONCE, 1 dose, On [facility] 02/20/23 at 1330, SANGEETHA [facility] amLODIPine 5 mg tablet 02-20 16:27: 32 Yes 5mg Take 1 tablet by mouth in the morning. [facility] carvediloL 12.5 mg tablet 02-20 16:27: 32 Yes [facility] furosemide 40 mg tablet 02-20 16:27: 32 Yes [facility] glipiZIDE 5 mg tablet 02-20 16:27: 32 Yes [facility] losartan 25 mg tablet 02-20 16:27: 32 Yes [facility] KCL 20 mEq tablet 02-20 16:27: 32 Yes [facility] gabapentin 300 mg capsule 02-20 00:00: 00 04-04 00:00 :00 No [id number] 300mg Take 1 capsule by mouth 3 (three) times daily as needed for Pain (scale 4-6) or Pain (scale 7-10). [facility] naproxen 500 mg tablet 02-20 00:00: 00 02-26 04:59 :00 No [id number] 500mg Take 1 tablet by mouth in the morning and 1 tablet in the evening. Take with meals. Do all this for 5 days. [facility] methocarbam oL 500 mg tablet 02-20 00:00: 00 02-24 04:59 :00 No [id number] 1000mg Take 2 tablets by mouth 4 (four) times daily for 3 days. [facility] HEPARIN SODIUM (PORCINE) 1,000 UNIT/ML BOLUS ACS ORDER SET 2021-08 14:15: 05-13 14:15 :00 No 4000U 4,000 Units, IV Push, ONCE, 1 dose, On Fri05/13/22 at 0915, SANGEETHA [facility] furosemide (LASIX) injection 20 mg 2021-08 14:15: 00 05-13 14:34 :00 No 20mg 20 mg, IV Push, ONCE, 1 dose, On Fri05/13/22 at 0915, SANGEETHA [facility] heparin (1,000 unit/mL, 10 mL vial) for Rebolusing 2021-08 14:10: 06 Yes 3000U FOR REBOLUSING , Starting on Fri05/13/22 at 0910, Until Discontinu ed, Routine
Dosing based on aPPT testing parameters (refer to continuous heparin drip order).
[facility] heparin 25,000 Units/250 mL (Premixed Bag) in 0.45 % NS 2021-08 14:10: 06 Yes 12U/kg/ h 12 Units/kg/h [...] Rang e, Dosing and Testing: &nbs p;FOR [facility], AND [facility] &nbs p; - aPTT [...] ADJUST INITIAL BOLUS OR INITIAL INFUSION RATE.
[facility] aspirin tablet 325 mg 2021-08 14:00: 00 Yes 325mg 325 mg, Oral, DAILY, First dose on Fri05/13/22 at 0900, Until Discontinu ed, Routine [facility] SERTRALINE 100 mg tablet 12-24 00:00: 00 04-04 00:00 :00 No [id number] Take 1 tablet by mouth once daily [facility] atorvastati n 40 mg tablet 02-06 15:36: 51 Yes 40mg Take 40 mg by mouth at bedtime. [facility] aspirin (ASPIRIN LOW DOSE) 81 mg EC tablet 02-06 15:36: 51 Yes 81mg Take 81 mg by mouth daily. [facility] lisinopril 20 mg tablet 02-06 15:36: 51 Yes 20mg Take 20 mg by mouth daily. [facility] atorvastati n 40 mg tablet 02-06 10:36: 51 Yes 40mg Take 40 mg by mouth at bedtime. [facility] aspirin (ASPIRIN LOW DOSE) 81 mg EC tablet 02-06 10:36: 51 Yes 81mg Take 81 mg by mouth daily. [facility] lisinopril 20 mg tablet 02-06 10:36: 51 Yes 20mg Take 20 mg by mouth daily. [facility] SERTraline 100 mg tablet 02-06 00:00: 00 12-24 00:00 :00 No [id number] 100mg Take 1 tablet by mouth daily. [facility] fluconazole (DIFLUCAN) 150 mg tablet 02-06 00:00: 00 02-07 04:59 :00 No [id number] 150mg Take 1 tablet by mouth once now for 1 dose. Repeat dose in 7 days [facility] SERTraline (ZOLOFT) 50 mg tablet 02-24 00:00: 00 02-06 00:00 :00 No [id number] 50mg Take 1 tablet by mouth daily. Follow-up for refills [facility] lisinopril 20 mg tablet 2017-08 19:10: 33 Yes 20mg Take 20 mg by mouth daily. [facility] ciclopirox 8 % solution 2017-08 00:00: 00 04-04 00:00 :00 No [id number] Apply to area(s) at bedtime. Apply to Nails at night. On day 7 clean with alcohol pad/trim nails. [facility] empaglifloz in (JARDIANCE) 10 mg Tab 2017-08 00:00: 00 04-04 00:00 :00 No [id number] 10mg Take 10 mg by mouth daily. [facility] metFORMIN 1,000 mg tablet 2017-08 00:00: 00 04-04 00:00 :00 No [id number] 1000mg Take 1 tablet by mouth 2 (two) times daily with meals. [facility] mupirocin 2 % ointment 2017-08 00:00: 00 04-04 00:00 :00 No [id number] Apply to area(s) 3 (three) times daily. [facility] atorvastati n 40 mg tablet 04-21 16:02: 12 Yes 40mg Take 40 mg by mouth at bedtime. [facility] aspirin (ASPIRIN LOW DOSE) 81 mg EC tablet 04-21 16:02: 12 Yes 81mg Take 81 mg by mouth daily. [facility] metoprolol succinate XL 50 mg 24 hr tablet 2016-08 00:00: 00 04-04 00:00 :00 No 50mg Take 1 tablet by mouth daily. [facility] Immunizations Ordered Immunization Name Filled Immunization Name Date Status Comments Source TDAP 2023-04-04 00:00:00 Completed [facility] TDAP 2023-04-04 00:00:00 Completed [facility] TDAP 2023-04-04 00:00:00 Completed [facility] SARS-COV-2 COVID-19 PFIZER VACCINE 2020-10-28 00:00:00 Completed [facility] SARS-COV-2 COVID-19 PFIZER VACCINE 2020-10-28 00:00:00 Completed [facility] SARS-COV-2 COVID-19 PFIZER VACCINE 2020-10-28 00:00:00 Completed [facility] SARS-COV-2 COVID-19 PFIZER VACCINE 2020-10-28 00:00:00 Completed [facility] SARS-COV-2 COVID-19 PFIZER VACCINE 2020-10-28 00:00:00 Completed [facility] SARS-COV-2 COVID-19 PFIZER VACCINE 2020-10-28 00:00:00 Completed [facility] SARS-COV-2 COVID-19 PFIZER VACCINE 2020-10-28 00:00:00 Completed [facility] SARS-COV-2 COVID-19 PFIZER VACCINE 2020-10-28 00:00:00 Completed [facility] SARS-COV-2 COVID-19 PFIZER VACCINE 2020-10-28 00:00:00 Completed [facility] SARS-COV-2 COVID-19 PFIZER VACCINE 2020-10-28 00:00:00 Completed [facility] SARS-COV-2 COVID-19 PFIZER VACCINE 2020-10-07 00:00:00 Completed [facility] SARS-COV-2 COVID-19 PFIZER VACCINE 2020-10-07 00:00:00 Completed [facility] SARS-COV-2 COVID-19 PFIZER VACCINE 2020-10-07 00:00:00 Completed [facility] SARS-COV-2 COVID-19 PFIZER VACCINE 2020-10-07 00:00:00 Completed [facility] SARS-COV-2 COVID-19 PFIZER VACCINE 2020-10-07 00:00:00 Completed [facility] SARS-COV-2 COVID-19 PFIZER VACCINE 2020-10-07 00:00:00 Completed [facility] SARS-COV-2 COVID-19 PFIZER VACCINE 2020-10-07 00:00:00 Completed [facility] SARS-COV-2 COVID-19 PFIZER VACCINE 2020-10-07 00:00:00 Completed [facility] SARS-COV-2 COVID-19 PFIZER VACCINE 2020-10-07 00:00:00 Completed [facility] SARS-COV-2 COVID-19 PFIZER VACCINE 2020-10-07 00:00:00 Completed [facility] SARS-COV-2 COVID-19 PFIZER VACCINE Unknown Completed [facility] TDAP Unknown Completed [facility] Vital Signs Vital Name Observation Time Observation Value Comments S ource Systolic blood pressure 2024-07-18 21:30:00 162 mm[Hg] [facility] Diastolic blood pressure 2024-07-18 21:30:00 105 mm[Hg] [facility] Heart rate 2024-07-18 21:30:00 99 /min [facility] [facility] Body temperature 2024-07-18 21:30:00 36.06 Karon [facility] Respiratory rate 2024-07-18 21:30:00 18 /min [facility] Oxygen saturation in Arterial blood by Pulse oximetry 2024-07-18 21:30:00 96 /min [facility] Body weight 2024-07-18 09:18:00 79.969 kg [facility] BMI 2024-07-18 09:18:00 30.26 kg/m2 [facility] Body height 2024-07-17 15:47:00 162.6 cm [facility] Systolic blood pressure 2023-04-04 17:33:00 151 mm[Hg] [facility] Diastolic blood pressure 2023-04-04 17:33:00 104 mm[Hg] [facility] Heart rate 2023-04-04 17:27:00 93 /min [facility] Body temperature 2023-04-04 17:27:00 36.89 [facility] Body height 2023-04-04 17:27:00 162.6 cm [facility] Body weight 2023-04-04 17:27:00 79.833 kg [facility] BMI 2023-04-04 17:27:00 30.21 kg/m2 [facility] Oxygen saturation in Arterial blood by Pulse oximetry 2023-04-04 17:27:00 97 /min [facility] Systolic blood pressure 2023-02-20 21:00:00 138 mm[Hg] [facility] Diastolic blood pressure 2023-02-20 21:00:00 85 mm[Hg] [facility] Heart rate 2023-02-20 21:00:00 82 /min [facility] Body temperature 2023-02-20 21:00:00 36.78 Karon [facility] Respiratory rate 2023-02-20 21:00:00 20 /min [facility] Oxygen saturation in Arterial blood by Pulse oximetry 2023-02-20 21:00:00 100 /min [facility] Body height 2023-02-20 17:35:00 162.6 cm [facility] Body weight 2023-02-20 17:35:00 74.844 kg [facility] BMI 2023-02-20 17:35:00 28.32 kg/m2 [facility] Systolic blood pressure 2022-05-13 17:00:00 160 mm[Hg] [facility] Diastolic blood pressure 2022-05-13 17:00:00 117 mm[Hg] [facility] Heart rate 2022-05-13 17:00:00 98 /min [facility] Respiratory rate 2022-05-13 17:00:00 15 /min [facility] Oxygen saturation in Arterial blood by Pulse oximetry 2022-05-13 17:00:00 96 /min [facility] Body temperature 2022-05-13 12:23:00 36.89 Karon [facility] Body height 2022-05-13 12:23:00 162.6 cm [facility] Body weight 2022-05-13 12:23:00 79.379 kg [facility] BMI 2022-05-13 12:23:00 30.04 kg/m2 [facility] Systolic blood pressure 2021-02-06 15:32:00 128 mm[Hg] [facility] Diastolic blood pressure 2021-02-06 15:32:00 79 mm[Hg] [facility] Heart rate 2021-02-06 15:32:00 75 /min [facility] Body temperature 2021-02-06 15:32:00 36.89 [facility] Body height 2021-02-06 15:32:00 162.6 cm [facility] Body weight 2021-02-06 15:32:00 84.823 kg [facility] BMI 2021-02-06 15:32:00 32.10 kg/m2 [facility] Systolic blood pressure 2020-08-25 20:10:00 181 mm[Hg] [facility] Diastolic blood pressure 2020-08-25 20:10:00 115 mm[Hg] [facility] Heart rate 2020-08-25 20:06:00 96 /min [facility] Body temperature 2020-08-25 20:06:00 37.17 [facility] Body height 2020-08-25 20:06:00 162.6 cm [facility] Body weight 2020-08-25 20:06:00 88.905 kg [facility] BMI 2020-08-25 20:06:00 33.64 kg/m2 [facility] Oxygen saturation in Arterial blood by Pulse oximetry 2020-08-25 20:06:00 97 /min [facility] Systolic blood pressure 2020-08-25 20:10:00 181 mm[Hg] [facility] Diastolic blood pressure 2020-08-25 20:10:00 115 mm[Hg] [facility] Heart rate 2020-08-25 20:06:00 96 /min [facility] Body temperature 2020-08-25 20:06:00 37.17 Karon [facility] Body height 2020-08-25 20:06:00 162.6 cm [facility] Body weight 2020-08-25 20:06:00 88.905 kg [facility] BMI 2020-08-25 20:06:00 33.64 kg/m2 [facility] Oxygen saturation in Arterial blood by Pulse oximetry 2020-08-25 20:06:00 97 /min [facility] Procedures Procedure Date / Time Performed Performing Clinician Source TRANSTHORACIC ECHO (TTE) COMPLETE W/ CONTRAST 2024-07-18 16:08:00 Dinesh Baldwin [facility] MAGNESIUM 2024-07-18 10:50:00 [facility] 2024-07-18 10:50:00 [facility] BASIC METABOLIC PANEL (NA, K, CL, CO2, GLUCOSE, BUN, CREATININE, CA) 2024-07-18 10:50:00 Dinesh Baldwin [facility] CBC WITH DIFF 2024-07-18 10:50:00 [facility] N-TERMINAL PRO-BNP 2024-07-18 10:50:00 Omar Helms [facility] PROCALCITONIN 2024-07-18 10:50:00 [facility] I 2024-07-18 05:51:00 Omar Helms [facility] TROPONIN I 2024-07-17 23:30:00 Omar Helms [facility] TROPONIN I 2024-07-17 17:56:00 Omar Helms [facility] GLYCOSYLATED HEMOGLOBIN (A1C) 2024-07-17 17:56:00 Omar Helms [facility] ACTIVATED PARTIAL THRMPLAS HOMERO 2024-07-17 17:56:00 Dinesh Baldwin [facility] PROTHROMBIN TIME / INR 2024-07-17 14:11:00 Alix Granado [facility] ACTIVATED PARTIAL THRMPLAS HOMERO 2024-07-17 14:11:00 Johnathan Granado [facility] TROPONIN I 2024-07-17 12:39:00 Dinesh Baldwin [facility] LIPID PANEL (07594)(TOTAL CHOLESTEROL, TRIGLYCERIDES, HDL) 2024-07-17 12:39:00 Dinesh Baldwin [facility] INFLUENZA A/B RSV COVID NAAT 2024-07-17 12:39:00 Dinesh Baldwin [facility] N-TERMINAL PRO-BNP 2024-07-17 12:39:00 Omar Helms [facility] XR CHEST 1 VW 2024-07-17 10:59:34 Clary Doshi [facility] TROPONIN I 2024-07-17 10:28:00 Clary Doshi [facility] COMP. METABOLIC PANEL (61019) 2024-07-17 10:28:00 Clary Doshi [facility] LIPID PANEL (14929)(TOTAL CHOLESTEROL, TRIGLYCERIDES, HDL) 2024-07-17 10:28:00 Omar Helms [facility] CBC WITH DIFF 2024-07-17 10:28:00 Clary Doshi [facility] N-TERMINAL PRO-BNP 2024-07-17 10:28:00 Alem Doshi [facility] HB ECG ROUTINE & RHYTHM STRIP 2024-07-17 10:15:47 Clary Doshi [facility] TDAP VACCINE, >11 YRS, IM 2023-04-04 18:04:36 Michelle Vazquez [facility] ASSIGNMENT OF BENEFITS 2023-04-04 15:13:26 Docto r Unassigned, [place] [facility] XR CHEST 1 VW 2023-02-20 19:29:[address] [facility] XR SKULL <4 VW 2023-02-20 19:29:00 Alexandra Lacey [facility] XR STERNUM PA AND LATERAL 2023-02-20 19:29:00 Alexandra Lacey [facility] XR LUMBAR SPINE 2 VW 2023-02-20 19:29:00 Raj Lacey [facility] XR SPINE THORACIC 2 VW 2023-02-20 19:29:00 Yasmin Lacey ala [facility] XR CERVICAL SPINE 3 VW 2023-02-20 19:29:00 Yasmin Lacey ala [facility] XR SHOULDER 2+ VW BILATERAL 2023-02-20 19:29:00 Alexandra Lacey [facility] ASSIGNMENT OF BENEFITS 2023-02-20 19:28:19 Docto r Unassigned, [place] [facility] CONSENT/REFUSAL FOR DIAGNOSIS AND TREATMENT 2023-02-20 17:24:33 Doctor Unassigned, [place] [facility] EKG-12 LEAD 2022-05-13 17:12:42 Geoff Maurer [facility] PROTHROMBIN TIME / INR 2022-05-13 14:18:00 Migeul Maurer [facility] ACTIVATED PARTIAL THRMPLAS HOMERO 2022-05-13 14:18:00 Geoff Maurer [facility] XR CHEST 2 VW 2022-05-13 13:22:[address] [facility] TROPONIN I 2022-05-13 12:36:00 Geoff Maurer [facility] COMP. METABOLIC PANEL (15744) 2022-05-13 12:36:00 Geoff Maurer [facility] CBC WITH DIFF 2022-05-13 12:36:[address] [facility] RAPID INFLUENZA A/B 2022-05-13 12:36:00 Geoff Maurer [facility] N-TERMINAL PRO-BNP 2022-05-13 12:36:00 Geoff Maurer [facility] COVID-19 (ID NOW RAPID TESTING) 2022-05-13 12:36:00 Geoff Maurer [facility] CONSENT/REFUSAL FOR DIAGNOSIS AND TREATMENT 2022-05-13 12:15:35 Doctor Unassigned, [place] [facility] ASSIGNMENT OF BENEFITS 2020-06-21 15:09:24 Docto r Unassigned, [place] [facility] REFERRAL- REQUEST/RESPONSE 2020-03-03 05:01:00 Doctor Unassigned, [place] [facility] Encounters Start Date/Time End Date/Time Encounter Type Admission Type Attending Clinicians Care Facility Care Department Encounter ID Source 2024-07-20 00:00:00 2024-07-20 16:31:46 Transition of Care Nicolasa Metz Marisa M [address] ..840.114 350.1.13.10 4.2.7.2.686 [id number] [facility] 2024-07-17 04:25:00 2024-07-18 16:38:00 Inpatient X D[facility]ESH [facility] [id number] [facility] 2024-07-17 04:25:00 2024-07-18 16:38:00 Hospital Encounter Clary Doshi [facility] AT [facility] ..840.114 350.1.13.10 4.2.7.2.686 [id number] [facility] 2023-12-19 11:48:00 2023-12-20 15:17:00 Inpatient EM Arabella Stephanie [facility] MEDI.01 [id number] [facility] 2023-12-19 06:22:00 2023-12-19 11:06:00 Emergency EM Rocky Francis [facility] [id number] [facility] 2023-05-09 00:00:00 2023-05-09 00:00:00 Telephone [facility] 1.2.840.114 350.1.13.10 4.2.7.2.686 [id number] [facility] 2023-04-10 00:00:00 2023-04-10 00:00:00 Telephone [facility] BU[facility] 1.2.840.114 350.1.13.10 4.2.7.2.686 [id number] [facility] 2023-04-04 13:15:00 2023-04-04 13:22:39 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114 350.1.13.10 4.2.7.2.686 [id number] [facility] 2023-04-04 00:00:00 2023-04-04 00:00:00 Orders Only Doctor Unassigned, [place] [facility] 1.2.840.114 350.1.13.10 4.2.7.2.686 [id number] [facility] 2023-02-20 12:36:00 2023-02-20 16:34:00 Emergency X ALEXANDRA LACEY [facility] ERT [id number] [facility] 2023-02-20 12:36:00 2023-02-20 16:34:00 Emergency Alexandra Lacey [facility] 1.2.840.114 350.1.13.10 4.2.7.2.686 [id number] [facility] 2022-05-13 13:36:00 2022-05-15 19:42:00 Inpatient UR Emmett Escalera [facility] [id number] [facility] 2022-05-13 07:20:00 2022-05-13 14:02:00 Emergency X GEOFF MAURER [facility] ERT [id number] [facility] 2022-05-13 07:20:00 2022-05-13 14:02:00 Emergency Geoff Maurer [facility] 1.2.840.114 350.1.13.10 4.2.7.2.686 [id number] [facility] 2021-12-24 00:00:00 2021-12-24 00:00:00 Kanika Domingo [facility] PROFESSIO ON LICENSE OF [facility] BUILDING 1.2.840.114 350.1.13.10 4.2.7.2.686 [id number] [facility] 2021-10-03 00:00:00 2021-10-03 00:00:00 Telephone Susan Yee [facility] 1.2.840.114 350.1.13.10 4.2.7.2.686 [id number] [facility] 2021-09-24 08:08:00 2021-09-25 11:25:[address] [facility] [id number] [facility] 2021-03-08 09:00:00 2021-03-08 09:00:00 Outpatient KANIKA FERNANDEZ [facility] [id number] [facility] 2021-02-06 10:45:00 2021-02-06 10:45:00 Outpatient KANIKA FERNANDEZ [facility] [id number] [facility] 2021-02-06 10:24:24 2021-02-06 10:39:24 Office Visit Kanika Ha [facility] Office Building [facility] .840.114 350.1.13.10 4.2.7.2.686 [id number] [facility] 2020-10-28 12:40:00 2020-10-28 12:40:00 Outpatient [facility] [id number] [facility] 2020-10-07 13:45:00 2020-10-07 13:45:00 Outpatient [facility] [id number] [facility] 2020-08-25 13:49:03 2020-08-25 14:28:29 Urgent Care Provider, [facility] .84.114 350.1.13.10 4.2.7.2.686 [id number] 2020-08-25 13:49:03 2020-08-25 14:28:29 Urgent Care Provider, [facility] Stacey Holman [facility] .84.114 350.1.13.10 4.2.7.2.686 [id number] [facility] 2020-08-25 14:00:00 2020-08-25 14:00:00 Outpatient R [facility] [id number] [facility] 2020-06-29 09:59:06 2020-06-29 10:19:06 Laboratory Only Lab, Adc Fam Pob I [facility] 1.840.114 350.1.13.10 4.2.7.2.686 [id number] 2020-06-29 09:59:06 2020-06-29 10:19:06 Laboratory Only Lab, Adc Fam Pob I Michelle Vazquez [facility] 1..114 350.1.13.10 4.2.7.2.686 [id number] [facility] 2020-06-29 10:00:00 2020-06-29 10:00:00 Outpatient R TAYLOR, MICHELLE [facility] [id number] [facility] 2020-06-29 00:00:00 2020-06-29 00:00:00 Letter (Out) Doctor Unassigned, [place] [facility] 1.840.114 350.1.13.10 4.2.7.2.686 [id number] 2020-06-29 00:00:00 2020-06-29 00:00:00 Letter (Out) Doctor Unassigned, [place] [facility] 1.2.840.114 350.1.13.10 4.2.7.2.686 [id number] [facility] 2020-06-21 09:06:45 2020-06-21 09:21:45 Laboratory Only Only, Adc Test [facility] 1.2840.114 350.1.13.10 4.2.7.2.686 [id number] 2020-06-21 09:06:45 2020-06-21 09:21:45 Laboratory Only Only, Adc Test Alycia Panda [facility] 1.2840.114 350.1.13.10 4.2.7.2.686 [id number] [facility] 2020-06-21 09:15:00 2020-06-21 09:15:00 Outpatient R [facility] [id number] [facility] 2020-06-21 00:00:00 2020-06-21 00:00:00 Orders Only Doctor Unassigned, [place] [facility] 1.2.840.114 350.1.13.10 4.2.7.2.686 [id number] [facility] 2020-03-06 00:00:00 2020-03-06 00:00:00 [facility] 1.2.840.114 350.1.13.10 4.2.7.2.686 [id number] [facility] 2020-03-03 00:00:00 2020-03-03 00:00:00 Orders Only Doctor Unassigned, [place] [facility] 1.2840.114 350.1.13.10 4.2.7.2.686 [id number] [facility] 2018-08-20 08:30:00 2018-08-20 08:30:00 Outpatient R BROOKS LINCOLN [facility] [id number] [facility] Results Test Description Test Time Test Comments Results Result Co mments Source [facility] [id number] 17:52:38* Test Item Value Reference Range Interpretation Comme [facility] NT-proBNP (test code = 69234-2) 1940 pg/mL <=125 H LILLIAN (test code = LILLIAN) Positive: Heart Failure Likely Lab Interpretation (test code = 67966-1) Abnormal [facility] (Total Cholesterol, Triglycerides, HDL)2024-07-17 17:42:37* Test Item Value Reference Range Interpretation Comme nts CHOL (test code = 8279804315) 180 mg/dL 120-200 HDL (test code = 7151382919) 30 mg/dL >=40 L HDLC RATIO (test code = 0665186420) 6.0 <=5.0 H TRIG (test code = 1157061288) 131 mg/dL 30-170 LDL CHOL (test code = 24606-6) 124 mg/dL <=160 VLDL (test code = 4337715127) 26 mg/dL 5-60 Lab Interpretation (test cod e = 67713-0) Abnormal [facility] Time / [id number] 14:59:06* Test Item Value Reference Range Interpretation Comme [facility] PROTIME PATIENT (test code = 5964-2) 13.7 10.1-12.6 H INR (test code = 6301-6) 1.2 Normal INR <1.1; Warfarin Therapeutic range 2.0 to 3.0 or 2.5 to 3.5, depending upon the indications. Lab Interpretation (test code = 86161-4) Abnormal [facility] CenterAct[facility] Partial Thrmplas [id number] 14:59:06* Test Item Value Reference Range Interpretation Comme [facility] APTT Patient (test code = 3173-2) 34 26-36 LILLIAN (test code = LILLIAN) The [facility] patient population mean normal value for aPTT is 30 seconds. Lab Interpretation (test code = 67705-1) Normal [facility] CenterTroponin [id number] 13:45:06* Test Item Value Reference Range Interpretation Comme [facility] TROPONIN I (test code = 2661579764) 0.025 ng/mL <=0.034 LILLIAN (test code = LILLIAN) Reference (Normal) [...] of biotin. Lab Interpretation (test code = 42738-9) Normal [facility] 1 [id number] 11:21:07ORDERING PHYSICIAN: ALISON DOSHI CLINICAL HISTORY: Shortness of breath, chest pain TECHNIQUE:Frontal view of chest COMPARISON: 02/20/2023 FINDINGS: The cardiac silhouette is mildly enlarged, stable. ?Mild bilateral centralvascular congestion is identified. No confluent infiltrates or pleuraleffusions are identified. Left chest wall pacemaker is well-positioned. Osseous structures are normal.[facility] CenterHGBA1C%2023-12-20 09:28:00* Test Item Value Reference Range Interpretation Comme nts HGBA1C% (test code = HGBA1C%) 8.4 %A1C 4.8-6.0 H LIPID PROFILE (CORONARY RISK)2023-12-20 09:24:00* Test Item Value Reference Range Interpretation Comme nts TRIGLYCERIDES (test code = TRIG) 180 mg/dL 40-150 H CHOLESTEROL (test code = CHOL) 276 mg/dL <200 H CHOLESTEROL/HDL RATIO (test code = CHOLHDL) 5.43 RATIO 3.43-4.97 H RISK ASSOCIATED WITH CHOL/HDL RATIOS: RISK MALE FEMALE1/2 AVERAGE 3.43 3.27AVERAGE 4.97 4.442X AVERAGE 9.55 7.053X AVERAGE 23.39 11.04 NOTE THAT THE REFERENCE VALUE IS RELATEDTO RISK LEVELS RECOMMENDED BY THE NATL.HEART, LUNG, AND BLOOD INST. HDL CHOLESTEROL (test code = HDL) 50.8 MG/DL 40-60 N HDL Interpreta tion < 40.0 mg/dL Low (undesirable, high risk)> 60.0 mg/dL High (desirable, low risk) Reference interval for healthy adults was established by theNational Cholesterol Education Program (NCEP). LIPOPROTEIN LDL (test code = LDL) 209.0 mg/dL 0-100 H <100 [id number] 0-129 NEAR OPTIMAL/ABOVE [id number] HIGH>DA=678 VERY HIGH*Guidelines provided by the National Cholesterol EducationProgram Adult Treatment Panel III Comment: Fasting in AM- CT HEAD/BRAIN W/O [id number] 08:40:00 [facility] 1960 Sex: M Name: NICHOLAS RUIZ [facility] : 1960 Age/S: 63 / M [address] [place] [address] Unit #: [id number] Loc: [place] [address] Phys: Courtney Morales APRNNP Acct: [id number] Dis Date: Status: ADM IN PHONE #: [phone] Exam Date: 12/20/2023 0736 FAX #: [phone] Reason: LEFT-SIDED WEAKNESS EXAMS: CPT CODE: [id number] CT HEAD/BRAIN W/O CONT 06189 EXAM: - CT HEAD/BRAIN W/O CONT HISTORY: [...] sulci are Prominent most consistent with generalized c erebral atrophy.. Stable small arachnoid cyst in the posterior fossa. There is no evidence of acuteinfarction. There is decreased attenuation in the periventricular [...] 0840 Reported and signed by: Suzie Thomas M.D.PAGE 1 Signed Report (CONTINUED) Name: NICHOLAS RUIZ [facility] : 1960 Age/S: 63 / M [address] [place] [address] Unit #: [id number] Loc: [place] [address] Phys: Courtney Morales Acct: [id number] Dis Date: Status: ADM IN PHONE #: [phone] Exam Date: 12/20/2023735 FAX #: Reason: LEFT-SIDED WEAKNESS EXAMS: CPT CODE: [id number] CT HEAD/BRAIN W/O CONT 32606 (Continued) CC: Courtney Morales; Geoff Hollins MD; Beba Fuentes MD Technologist:Jose Yuen, RT(R); Tesha Cunningham CTDI: DLP: Trnscb Date/Time: 12/20/2023 (839) [id number] Orig Print D/T: S: 12/20/2023 (7106) PAGE 2 Signed ReportLIPOPROTEIN [id number] 23:15:00* Test Item Value Reference Range Interpretation Comme nts LIPOPROTEIN LDL (test code = LDL) 210.0 mg/dL 0-100 H <100 [id number] 0-129 NEAR OPTIMAL/ABOVE [id number] [id number] HIGH>AT=067 VERY HIGH*Guidelines provided by the National Cholesterol EducationProgram Adult Treatment Panel III TROP-I HIGH [id number] 22:30:00* Test Item Value Reference Range Interpretation Comme nts TROP-I HIGH SENSITIVITY (test code = TROPIHS) 62 ng/L 0-54 H CAUTION: Units o f the current test methodology (ng/L) differfrom the prior test methodology (ng/mL) by a factor of 1000. 99th Percentile Upper Reference Limit (URL): Females: 34 ng/LMales: 54 ng/L In order to distinguish acute elevations of high sensitivitytroponin from other clinical conditions, the FourthUniversal Definition of Myocardial Infarction stressesclinical assessment and the demonstration of a rise and/orfall in serial troponin results above the URL. These results were obtained using Siemens Casab[employer] IM TnIHreagent. Results from different methodologies should not becompared to one another as quantitative results and URLs mayvary by method. TROP-I HIGH [id number] 15:34:00* Test Item Value Reference Range Interpretation Comme nts TROP-I HIGH SENSITIVITY (test code = TROPIHS) 53 ng/L 0-54 N CAUTION: Units o f the current test methodology (ng/L) differfrom the prior test methodology (ng/mL) by a factor of 1000. 99th Percentile Upper Reference Limit (URL): Females: 34 ng/LMales: 54 ng/L In order to distinguish acute elevations of high sensitivitytroponin from other clinical conditions, the FourthUniversal Definition of Myocardial Infarction stressesclinical assessment and the demonstration of a rise and/orfall in serial troponin results above the URL. These results were obtained using [employer] TnIHreClipboardt. Results from different methodologies should not becompared to one another as quantitative results and URLs mayvary by method. BASIC METABOLIC [id number] 07:31:00* Test Item Value Reference Range Interpretation Comme nts SODIUM (test code = NA) 139 mmol/L 136-145 N POTASSIUM (test code = K) 4.2 mmol/L 3.4-5.0 N CHLORIDE (test code = CL) 104 mmol/L 98-107 N CARBON DIOXIDE (test code = CO2) 28 mmol/L 21-32 N ANION GAP (test code = GAP) 7 GAP calc 4-15 N GLUCOSE (test code = GLU) 152 MG/DL 70-110 H BLOOD UREA NITROGEN (test code = BUN) 29 MG/DL 7-18 H GLOMERULAR FILTRATION RATE (test code = GFR) >=60 max estimate estGFR >60 The Glomerular Filtration Rate is a calculated parameterbased on serum Creatinine, patient age and sex. GFR valuesless than 60 mL/min/1.73 square meters are indicative ofChronic Kidney Disease. Values less than 15 mL/min/1.73square meters indicate Kidney failure. The calculation forGFR is based on the CKD-EPI (2020) calculation. This formulais race indifferent and is the recommended formula for GFRby the National Kidney Foundation for Adults.The GFR will not calculate if the sex is unknown or if thepatient's age is <18 years. CREATININE (test code = CREAT) 1.1 MG/DL 0.6-1.0 H CALCIUM (test code = CA) 8.7 MG/DL 8.5-10.1 N TROP-I HIGH [id number] 07:31:00* Test Item Value Reference Range Interpretation Comme [facility] TROP-I HIGH SENSITIVITY (test code [...] and URLs may varyby method. THROMBOPLASTIN TIME [id number] 07:25:00* Test Item Value Reference Range [facility]ation [facility] PARTIAL (test code = PTT) 36.5 SECONDS 26-35 H PROTHROMBIN [id number] 07:25:00* Test Item Value Reference Range Interpretation [facility] PT PATIENT (test code = PTP) 12.0 [...] Infarction (to prevent recurrent infarct). CBC W/AUTO [id number] 06:57:00* Test Item Value Reference Range Interpretation [...] NRBC#) 0.0 K/mm3 0.00-0.01 N - CTA [id number] 06:56:00 [facility] 1960 Sex: M Name: NICHOLAS RUIZ [facility] : 1960 Age/S: 63 / M [address] [address] Unit #: [id number] Loc: [place] [address] Phys: Rocky Francis MD Acct: [id number] Dis Date: Status: REG ER PHONE #: [phone] Exam Date: 12/19/2023 0646 FAX #: Reason: cva EXAMS: CPT: [id number] CTA HEAD 80461 H ISTORY: CVA Technique: Axial tomograms through [...] carotid arteries are patent throughout the course bilater ally. On the right the carotid bifurcation is patent with mild atherosclerotic changes. No significant stenosis demonstrated. The right internal carotid artery is patent throughout its course to the neck. On the left carotid bifurcation is patent [...] without PAGE 1 Signed Report (CONTINUED) Name: NCIHOLAS RUIZ [facility]Meaghan Sahu : Age/S: 63 / M [address] [address] Unit #: [id number] Loc: [place] [address] Phys: Rocky Francis MD Acct: [id number] Dis Date: Status: REG ER PHONE #: [phone] Exam Date: 12/19/2023 0646 FAX #: Reason: cva EXAMS: CPT: [id number] CTA HEAD 35081 (Continued) CTA BRAIN: The visualizedintracranial internal carotid arteries are patent. Carotid siphon calcifications are present. The anterior cerebral arteries and middle cerebral arteries are patent bilaterally. No aneurysm identified. No no intracranial large vessel occlusion. Scattered areas of narrowing are demonstrated involving the anterior cerebral arteries and middle cerebral arteries bilaterally most compatible with intrac ranial atherosclerotic disease. An anterior communicating artery is demonstrated. The distal vertebral arteries, basilar artery, and posterior cerebral arteries are patent. The major intracranial venous sinuses are patent. IMPRESSION: 1. Scattered atherosclerotic plaque. No area of high-grade steno sis. No intracranial large vessel occlusion. at 0656 Reported and signed by: Javier Montesinos M.D. CC: Rocky Francis MD; Geoff Hollins MD Technologist:Alycia Doshi, RT(R)(CT) CTDI: DLP: Trnscb Date/Time: 12/19/2023 (0656) [email or web address] Orig Print D/T: S: 12/19/2023 (0659) PAGE 2 Signed Report- CTA [id number] 06:56:00[facility] : 1960 Sex: M Name: NICHOLAS RUIZ [facility] : 1960 Age/S: 63 / M [address] [address] Unit #: [id number] Loc: [place] [address] Phys: Rocky Francis MD Acct: [id number] Dis Date: Status: REG ER PHONE #: [phone] Exam Date: 12/19/2023 0646 FAX #: Reason: cva EXAMS: CPT: [id number] CTA NECK 66871 HISTORY: CVA Technique: Axial tomograms through the neck and brain were obtained after intravenous contrast utilizing a CTA protocol. Three-dimensional and multiplanar reformatted images are provided. Degree of stenosis is calculated based on NASCET [...] carotid arteries are patent throughout the course bilatera lly. On the right the carotid bifurcation is patent with mild atherosclerotic changes. No significant stenosis demonstrated. The right internal carotid artery is patent throughout its course to the neck. On the left carotid bifurcation is patent [...] 1 Signed Report (CONTINUED) Name: NICHOLAS RUIZ [facility] : 1959 Age/S: 63 / M [address] [address] Unit #: [id number] Loc: [place] [address] Phys: Rocky Francis MD Acct: [id number] Dis Date: Status: REG ER PHONE #: [phone] Exam Date: 12/19/2023 0646 FAX #: Reason: cva EXAMS: CPT: [id number] CTA NECK 29612 (Continued) CTA BRAIN: The visualized intracranial internal carotid arteries are patent. Carotid siphon calcifications are present. The anterior cerebral arteries and middle cerebral arteries are patent bilaterally. No aneurysm identified. Nono intracranial large vessel occlusion. Scattered areas of narrowing are demonstrated involving theanterior cerebral arteries and middle cerebral arteries bilaterally most compatible with intracranial atherosclerotic disease. An anterior communicating artery is demonstrated. The distal vertebral arteries, basilar artery, and posterior cerebral arteries are patent. The major intracranial venous sinuses are patent. IMPRESSION: 1. Scattered atherosclerotic plaque. No area of high-grade stenosis. No intracranial large vessel occlusion. at 0656 Reported and signed by: Javier Montesinos M.D. CC: Rocky Francis MD; Geoff Hollins MD Technologist:Alycia Doshi, RT(R)(CT) CTDI: DLP: Trnscb Date/Time: 12/19/2023 (655)t.[email or web address] Orig Print D/T: S: 12/19/2023 (0659) PAGE 2 Signed Report- XR CHEST 1 V 2023-12-19 06:53:00 [facility] : 1960 Sex: M Name: NICHOLAS RUIZ [place] : 1960 Age/S: 63 / M [address] [address] Unit #: [id number] Loc: [place] [address] Phys: Rocky Francis MD Acct: [id number] Dis Date: Status: PRE ER PHONE #:[phone] Exam Date: 12/19/2023 0650 FAX #: Reason: Code Stroke EXAMS: CPT: [id number] XR CHEST 1 V 54659 Fluoro Time: DAP (Gy m2): Air Kerma (mGy): HISTORY: CVA Location: C3 COMPARISON:09/24/2021FINDINGS: Aortic calcifications are present. Left subclavian pacemaker/AICD is present. Heart size and vascularity are within normal limits. The lungs are clear of focal consolidation. No effusion, pneumothorax, or acute osseous abnormality. IMPRESSION: 1. No focal consolidation. No other acute abno rmalities. at 0653 Reported and signed by: Javier Montesinos M.D. CC: Rocky Francis MD; Geoff Hollins MD PAGE 1 Signed Report Name: NICHOLAS RUIZ [place] : 1960 Age/S: 63 / M [address] Unit #: [id number] Loc: [place] [address] Phys: Rocky Francis MD Acct: [id number] Dis Date: Status: PRE ERPHONE #: [phone] Exam Date: 12/19/2023 0650 FAX #: Reason: Code Stroke EXAMS: CPT: [id number] XR CHEST 1 V 40665 Fluoro Time: DAP (Gy m2): Air Kerma (mGy): (Continued) Technologist: David Alvarado RT(R)(CT) Trnscb Date/Time: 12/19/2023 (0653) [email or web address] Orig Print D/T: S: 12/19/2023 (0656) CRISTOBAL ARREOLA 2 Signed Report- CT HEAD/BRAIN W/O [id number] 06:40:00 [facility] : 1960 Sex: M Name: NICHOLAS RUIZ [facility] : 1960 Age/S: 63 / M [address] [address] Unit #: [id number] Loc: [place] [address] Phys: Rocky Francis MD Acct: [id number] Dis Date: Status: PRE ER PHONE #: [phone] Exam Date: 12/19/2023628 FAX #: Reason: cva EXAMS: CPT: [id number] CT HEAD/BRAIN W/O CONT 14381 EXAM: - CT HEAD/BRAIN W/O CONT Location code:C3 HISTORY: 63 years -old Male with cva TECHNIQUE: Axial CT images from the skull base to the vertex without intravenous contrast. Coronal andsagittal reformatted images were created from the data [...] abnormal extra-axial fluid collection. The ventricular system and sulci are prominent compatible cerebral volume loss. There is mild diminished attenuation involving the periventricular and subcortical white matter compatible with mild microvascular chronic ischemicchanges. The density in the larger dural sinuses is grossly normal. Bones: There is no evidence of acute displaced calvarial fracture. Sinuses: The visualized portions of the paranasal sinuses demonstrate no significant opacification.The mastoid air cells are clear. Orbits/Soft Tissues: The visualized orbits show no significant abnormalities. The visualized soft tissues are unremarkable. IMPRESSION: 1. Cerebral volume loss and mild microvascular chronic white matter ischemic changes. No intracranial hemorrhage. No acute intracranial abnormality. PAGE 1 Signed Report (CONTINUED) Name: NICHOLAS RUIZ [facility] : 1960 Age/S: 63 / M [address] [address] Unit #: [id number] Loc: [place] [address] Phys: Rocky Francis MD Acct: [id number] Dis Date: Status: PRE ER PHONE #: [phone] Exam Date: 12/19/2023628 FAX #: Reason: cva EXAMS: CPT: [id number] CT HEAD/BRAIN W/O CONT 69422 (Continued) at 0640 Reported and signed by: Javier Montesinos M.D. CC: Rocky Francis MD; Geoff Hollins MD Technologist:Alycia Doshi, RT(R)(CT) CTDI: DLP: Trnscb Date/Time: 12/19/2023 (639) [email or web address] Orig Print D/T: S: 12/19/2023 (0643) PAGE 2 Signed ReportGLUCOSE BEDSIDE [id number] 12:23:00* Test Item Value Reference Range Interpretation Comme nts GLUCOSE BEDSIDE TESTING (lorraine t code = GLUBED) 223 MG/DL 60-99 H GLUCOSE BEDSIDE [id number] 07:07:00* Test Item Value Reference Range Interpretation Comme nts GLUCOSE BEDSIDE TESTING (lorraine t code = GLUBED) 187 MG/DL 60-99 H BASIC METABOLIC [id number] 05:42:00* Test Item Value Reference Range Interpretation [...] code = CA) 10.0 MG/DL 8.4-10.2 N [id number] 05:42:00* Test Item Value Reference Range Interpretation Comme nts MAGNESIUM (test code = MAG) 2.0 MG/DL 1.6-2.3 N GLUCOSE BEDSIDE [id number] 19:04:00* Test Item Value Reference Range Interpretation Comme nts GLUCOSE BEDSIDE TESTING (lorraine t code = GLUBED) 286 MG/DL 60-99 H GLUCOSE BEDSIDE [id number] 17:13:00* Test Item Value Reference Range Interpretation Comme nts GLUCOSE BEDSIDE TESTING (lorraine t code = GLUBED) 162 MG/DL 60-99 H GLUCOSE BEDSIDE [id number] 15:12:00* Test Item Value Reference Range Interpretation Comme nts GLUCOSE BEDSIDE TESTING (lorraine t code = GLUBED) 80 MG/DL 60-99 N GLUCOSE BEDSIDE [id number] 11:21:00* Test Item Value Reference Range Interpretation Comme nts GLUCOSE BEDSIDE TESTING (lorraine t code = GLUBED) 262 MG/DL 60-99 H GLUCOSE BEDSIDE [id number] 09:03:00* Test Item Value Reference Range Interpretation Comme nts GLUCOSE BEDSIDE TESTING (lorraine t code = GLUBED) 336 MG/DL 60-99 HH COMPREHENSIVE METABOLIC [id number] 05:29:00* Test Item Value Reference Range Interpretation [...] and aplastic anemia) with specific assayson the Doctor kinetics 5600 of which Total Protein is one [...] code = ALKP) 117 UNITS/L 38-126 N [id number] 05:29:00* Test Item Value Reference Range Interpretation Comme nts TROPONIN-I (test code = TROPI) 0.042 NG/ML 0.012-0.033 H GLYCOSYLATED HEMOGLOBIN [id number] 05:17:00* Test Item Value Reference Range Interpretation [...] MBG) 266 MG/DL 70-110 H CBC W/AUTO [id number] 05:04:00* Test Item Value Reference Range Interpretation [...] code = NRBC#) 0.00 K/mm3 0.0-0.1 N [id number] 23:00:00* Test Item Value Reference Range Interpretation Comme nts TROPONIN-I (test code = TROPI) 0.042 NG/ML 0.012-0.033 H GLUCOSE BEDSIDE [id number] 22:05:00* Test Item Value Reference Range Interpretation Comme nts GLUCOSE BEDSIDE TESTING (lorraine t code = GLUBED) 243 MG/DL 60-99 H BASIC METABOLIC [id number] 18:14:00* Test Item Value Reference Range Interpretation [...] code = CA) 8.8 MG/DL 8.4-10.2 N [id number] 18:14:00* Test Item Value Reference Range Interpretation Comme nts MAGNESIUM (test code = MAG) 1.7 MG/DL 1.6-2.3 N NT PRO-BRAIN NATRIURETIC [id number] 18:14:00* Test Item Value Reference Range Interpretation Comme nts NT PRO-BRAIN NATRIURETIC PEP TI (test code = PROBNP) 875.0 pg/mL 0-125 H [id number] 18:14:00* Test Item Value Reference Range Interpretation Comme nts TROPONIN-I (test code = TROPI) 0.039 NG/ML 0.012-0.033 H GLUCOSE BEDSIDE [id number] 15:14:00* Test Item Value Reference Range Interpretation Comme nts GLUCOSE BEDSIDE TESTING (lorraine t code = GLUBED) 194 MG/DL 60-99 H N-TERMINAL [id number] 14:06:02* Test Item Value Reference Range Interpretation Comme nts NT-proBNP (test code = 9301023117) 900 pg/mL See_Comment H [Automated message] The system which generated this result transmitted reference range: <=125. The reference range was not used to interpret this result as normal/abnormal. LILLIAN (test code = LILLIAN) Biotin has been reported to cause a negative bias, interpret results relative to patient's use of biotin. Lab Interpretation (test code = 51867-7) [facility]normal [facility] [id number] 13:29:24* Test Item Value Reference Range Interpretation Comments TROPONIN I (test code = 9751978572) 0.047 ng/mL See_Comment H [Automated message] The [...] of biotin. Lab Interpretation (test code = 02914-1) [facility]normal [facility] Center[facility]OLIC PANEL (37337)2022-05-13 13:24:24* Test Item Value Reference Range Interpretation Comme nts NA (test code = 8638405208) 135 mmol/L 135-145 K (test code = 9470404675) 4.7 mmol/L 3.5-5 CL (test code = 7004575391) 100 mmol/L 98-108 CO2 TOTAL (test code = 3114259246) 25 mmol/L 23-31 AGAP (test code = 5336824540) 2-16 BUN (test code = 2051809043) 21 mg/dL 7-23 GLUCOSE (test code = 4884524291) 284 mg/dL 70-110 H CREATININE (test code = 1842245049) 0.89 mg/dL 0.6-1.25 TOTAL BILI (test code = 5252109367) 0.8 mg/dL 0.1-1.1 CALCIUM (test code = 0255547409) 8.9 mg/dL 8.6-10.6 T PROTEIN (test code = 1801623468) 6.9 g/dL 6.3-8.2 ALBUMIN (test code = 4990661242) 4.2 g/dL 3.5-5 ALK PHOS (test code = 0108395226) 131 U/L 34-122 H ALTv (test code = 1742-6) 65 U/L 5-50 H AST(SGOT) (test code = 7860094290) 43 U/L 13-40 H eGFR (test code = 8926142136) mL/min/1.73m2 LILLIAN (test code = LILLIAN) Association [...] imaging tests). Lab Interpretation (test code = 14090-9) [facility]normal [facility] [id number] 12:58:44* Test Item Value Reference Range Interpretation Comme nts WBC (test code = 6690-2) See_Comment [Yodo1] The system which generated this result transmitted reference range: 4.20 - 10.70 10*3/?L. The reference range was not used to interpret this result as normal/abnormal. RBC (test code = 789-8) See_Comment [Yodo1] The system which generated this result transmitted [...] 34.4 g/dL 31.2-35 RDW-SD (test code = 10248-4) 39.0 fL 38.5-51.6 RDW-CV (test code = 788-0) 12.3 % 12.1-15.4 PLT (test code = 777-3) See_Comment [Automated messa ge] The system which generated this result transmitted reference range: 150 - 328 10*3/?L. The reference range was not used to interpret this result as normal/abnormal. MPV (test code = 73705-0) 10.3 fL 9.8-13 NRBC/100 WBC (test code = 0582814304) See_Comment [Automated me ssage] The system which generated this result transmitted reference range: 0.0 - 10.0 /100 WBCs. The reference range was not used to interpret this result as normal/abnormal. NRBC x10^3 (test code = 0046616943) See_Comment [Automated me ssage] The system which generated this result transmitted reference range: 10*3/?L. The reference range was not used to interpret this result as normal/abnormal. GRAN MAT (NEUT) % (test code = 770-8) 77.0 % IMM GRAN % (test code = 1913948025) 0.20 % LYMPH % (test code = 736-9) 14.8 % MONO % (test code = 5905-5) 5.3 % EOS % (test code = 713-8) 1.6 % BASO % (test code = 706-2) 1.1 % GRAN MAT x10^3(ANC) (test code = 0340959736) 6.36 10*3/uL 1.99-6.95 IMM GRAN x10^3 (test code = 4725507205) 0-0.06 LYMPH x10^3 (test code = 731-0) 1.22 10*3/uL 1.09-3.23 MONO x10^3 (test code = 742-7) 0.44 10*3/uL 0.36-1.02 EOS x10^3 (test code = 711-2) 0.13 10*3/uL 0.06-0.53 BASO x10^3 (test code = 704-7) 0.09 10*3/uL 0.01-0.09 [facility] [id number] 07:21:00* Test Item Value Reference Range Interpretation Comme nts GLUCOSE BEDSIDE TESTING (lorraine t code = GLUBED) 271 MG/DL 60-99 H BASIC METABOLIC [id number] 06:36:00* Test Item Value Reference Range Interpretation [...] CA) 9.2 MG/DL 8.4-10.2 N CBC W/AUTO [id number] 05:51:00* Test Item Value Reference Range Interpretation [...] NRBC#) 0.00 K/mm3 0.0-0.1 N GLUCOSE BEDSIDE [id number] 20:19:00* Test Item Value Reference Range Interpretation Comme nts GLUCOSE BEDSIDE TESTING (lorraine t code = GLUBED) 311 MG/DL 60-99 HH GLUCOSE BEDSIDE [id number] 15:43:00* Test Item Value Reference Range Interpretation Comme nts GLUCOSE BEDSIDE TESTING (lorraine t code = GLUBED) 268 MG/DL 60-99 H - XR CHEST [id number] 13:54:00 [facility] 1960 Sex: M Patient Name: NICHOLAS RUIZ Unit No: [id number] EXAMS: CPT CODE: [id number] XR CHEST 1V 81018 B2 EXAM: - XR CHEST 1V DATE: [...] Sammie Lanza, RT (R) Transcrpt Date/Tm/Trnsp: 09/24/2021 (5648) t.SDR.MOP Orig Print D/T: S: 09/24/2021 (7131) [facility] NAME: NICHOLAS RUIZ [address] [address] PHYS: [place] [address] : 1960 AGE: 61 SEX: M LOC: Z.DC5 A PHONE #: [phone] EXAM DATE: 09/24/2021 STATUS: ADM IN FAX #: [phone] RADIOLOGY NO: PAGE 1 Signed ReportCBC W/AUTO [id number] 09:06:00* Test Item Value Reference Range Interpretation [...] = NRBC#) 0.00 K/mm3 0.0-0.1 N PROTHROMBIN [id number] 08:59:00* Test Item Value Reference Range Interpretation [...] recurrent systemic embolism. 3.0 - 4.5 PTT [id number] 08:59:00* Test Item Value Reference Range Interpretation Comme nts PTT ACTIVATED (test code = APTT) 38.9 SECONDS 25.1-36.5 H BASIC METABOLIC [id number] 08:59:00* Test Item Value Reference Range Interpretation [...] code = CA) 10.0 MG/DL 8.4-10.2 N [id number] 08:59:00* Test Item Value Reference Range Interpretation Comme nts MAGNESIUM (test code = MAG) 1.8 MG/DL 1.6-2.3 N COVID 19 Asymptomatic IH [id number] 06:59:00* Test Item Value Reference Range Interpretation [...] in the sample." Spec Comments: PRE-OPBASIC METABOLIC [id number] 11:36:00* Test Item Value Reference Range Interpretation [...] code = CA) 9.5 MG/DL 8.4-10.2 N [id number] 11:36:00* Test Item Value Reference Range Interpretation Comme nts MAGNESIUM (test code = MAG) 1.9 MG/DL 1.6-2.3 N PROTHROMBIN [id number] 11:21:00* Test Item Value Reference Range Interpretation [...] recurrent systemic embolism. 3.0 - 4.5 PTT [id number] 11:21:00* Test Item Value Reference Range Interpretation Comme nts PTT ACTIVATED (test code = APTT) 29.4 SECONDS 22.0-33.0 N CBC W/AUTO [id number] 11:07:00* Test Item Value Reference Range Interpretation [...] code = NRBC#) 0.00 K/mm3 0.0-0.1 N Consult Notes Date/Time Note Provider Source 2024-07-17 09:02:19 Associated Order(s): CONSULT CARDIOLOGY [facility] Cardiology Consult Note Patient: Nicholas Ruiz Jr. Date of : 1960 Date of service: 07/17/2024 Primary Care Physician: Michelle Vazquez CHIEF COMPLAINT: Chief Complaint Patient presents with Chest Pain HISTORY OF PRESENT ILLNESS: Nicholas Ruiz Jr. is a 64 year old male presented to the ER for evaluation for cough and chest pain. History from patient. Patient seen and examined in the room. Pertinent cardiac related history reviewed from chart Presented to ER with upper respiratory symptoms. Patient states he has been visiting his sister in the intensive care unit and she was admitted with pulmonary issues. He has been at the hospital a lot with her and he started feeling poorly a few days ago. He started having a cough and congestion. He woke up this morning with chest pain. He decided to come into the ER for further evaluation. In the ER his chest x-ray suggested bilateral pulmonary congestion. Patient's chest pain has pretty much resolved. Cardiology consulted for chest pain evaluation. CROWE NYHA class II. No chest pain at rest. No PND or orthopnea. No pedal edema. No exertional palpitations or palpitations at rest. No syncopal attacks. PAST MEDICAL HISTORY Past Medical History: Diagnosis Date Atrial fibrillation well managed by Dr. Lewis Chronic back pain Sees pain management in [place]. Diabetes mellitus Hypertension Other depression 08/07/2018 Pacemaker 2009. last interogated October 2017 (every 6 months) Type 2 diabetes mellitus with microalbuminuria, without long-term current use of insulin 08/07/2018 Past Surgical History: Procedure Laterality Date COLONOSCOPY N/A 04/21/2018 Surgeon: Sebastian Moncada MD; [place] [facility] [place]LE [place] PROC UNLISTED SPINE SURGERY L4-5 fusion, 1996 Family History Problem Relation Age of Onset Cancer Mother stomach Cancer Father stomach SOCIAL HISTORY Social History Socioeconomic History Marital status: Tobacco Use Smoking status: Never Smokeless tobacco: Never Substance and Sexual Activity Alcohol use: No Drug use: No Social History Narrative Lives at home with 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 LISINOPRIL ORAL Take by mouth. METFORMIN 500 MG TABLET Take 1 tablet by mouth in the morning and 1 tablet in the evening. Take with meals. START taking Modified Medications as Prescribed No medications on file STOP taking these medications No medications on file Current Facility-Administered Medications: acetaminophen (TYLENOL) tablet 650 mg, 650 mg, Oral, Q6HPRN, Dinesh Baldwin MD [START ON 07/18/2024] aspirin chewable tablet 81 mg, 81 mg, Oral, DAILY, Dinesh Baldwin MD cefTRIAXone (ROCEPHIN) 1,000 mg in water for injection, sterile 10 mL IV Push, 1,000 mg, Intravenous, Q24H ABX, Dinesh Baldwin MD, 1,000 mg at 07/17/24 0830 heparin 25,000 Units/250 mL (Premixed Bag) in 0.45 % NS, 0-1,600 Units/hr, IV Infusion, CONTINUOUS, Dinesh Baldwin MD, Last Rate: 9.5 mL/hr at 07/17/24 0819, 950 Units/hr at 07/17/24 0819 HYDROcodone-acetaminophen (NORCO 5) tablet 1 tablet, 1 tablet, Oral, Q6HPRN, Dinesh Baldwin MD ipratropium-albuteroL (DUONEB) 0.5 mg-3 mg(2.5 mg base)/3 mL nebulizer solution 3 mL, 3 mL, Inhalation, Q6HPHumaN, Dinesh Baldwin MD metoprolol tartrate (LOPRESSOR) tablet 12.5 mg, 12.5 mg, Oral, BID, Dinesh Baldwin MD morphine (2 mg/mL) injection 2 mg, 2 mg, Slow IV Push, Q4HPRN, Dinesh Baldwin MD NaCl 0.9% (NS) IV infusion 1,000 mL, 1,000 mL, IV Infusion, CONTINUOUS, Dinesh Baldwin MD, Last Rate: 70 mL/hr at 07/17/24 0829, 1,000 mL at 07/17/24 0829 ondansetron (ZOFRAN (PF)) injection 4 mg, 4 mg, Slow IV Push, Q6HPRN, Dinesh Baldwin MD pantoprazole (PROTONIX) EC tablet 40 mg, 40 mg, Oral, DAILY, Dinesh Baldwin MD, 40 mg at 07/17/24 0834 predniSONE (DELTASONE) tablet 20 mg, 20 mg, Oral, BID, Dinesh Baldwin MD Current Outpatient Medications: metFORMIN 500 mg tablet, Take 1 tablet by mouth in the morning and 1 tablet in the evening. Take with meals., Disp: 180 tablet, Rfl: 1 atorvastatin calcium (LIPITOR ORAL), Take by mouth., Disp: , Rfl: LISINOPRIL ORAL, Take by mouth., Disp: , Rfl: REVIEW OF SYSTEMS: Comprehensive 10-system review was conducted and were negative except for what's noted in the HPI. The following systems were reviewed: Constitutional, cardiovascular, respiratory, gastrointestinal, genitourinary, musculoskeletal, neurologic, psychiatric, endocrinological, and hematological. PHYSICAL EXAMINATION: Vitals: 07/17/24 0458 07/17/24 0527 07/17/24 0600 07/17/24 0751 BP: (!) 157/98 (!) 152/93 (!) 161/100 Pulse: 102 105 94 79 Resp: 22 20 16 16 Temp: TempSrc: SpO2: 100% 96% 95% 100% Weight: Height: General: no apparent distress HEENT: normocephalic atraumatic Neck: supple, no lymphadenopathy, no bruits, no JVD Lungs: clear to auscultation bilaterally. No wheezes or rhonchi. No increased work of breathing. Cardio: Regular rate and rhythm, S1&S2 normal, no murmurs, rubs or gallops Abdomen: soft; non-tender; non-distended; normoactive bowel sounds. : not examined Rectal: not examined Extremities: no clubbing, cyanosis, or edema. Skin: no rashes, no visible lesions. Neuro: no gross focal deficits LABS - Reviewed pertinent labs as below: CBC BMP PT/INR WBC (10*3/?L) Date Value 07/17/2024 8.57 NA (mmol/L) Date Value 07/17/2024 140 No results found for: "PT" PLT (10*3/?L) Date Value 07/17/2024 280 K (mmol/L) Date Value 07/17/2024 3.8 INR (no units) Date Value 07/17/2024 1.2 HGB (g/dL) Date Value 07/17/2024 14.9 BUN (mg/dL) Date Value 07/17/2024 24 (H) HCT (%) Date Value 07/17/2024 45.1 CREATININE (mg/dL) Date Value 07/17/2024 1.02 LIPID PROFILE GLUCOSE (mg/dL) Date Value 07/17/2024 191 (H) No results found for: "CHOL" TSH No results found for: "LDL" TSH (mIU/L) Date Value 04/04/2023 2.21 CARDIAC ENZYMES No results found for: "HDL" No results found for: "CK" No results found for: "TRIG" LFTs No results found for: "CKMB" AST(SGOT) (U/L) Date Value 07/17/2024 38 TROPONIN I (ng/mL) Date Value 07/17/2024 0.025 ALT(SGPT) (U/L) Date Value 08/07/2018 38 ALTv (U/L) Date Value 07/17/2024 78 (H) No results found for: "BNP" No results found for: "LDL" Recent Labs 07/17/24 0639 TROPNI 0.025 There are no current results on file for these tests and/or test for 1 year. No results found for: "LDL" NT-proBNP (pg/mL) Date Value 05/13/2022 900 (H) ASSESSMENT/PLAN Principal Problem: Chest pain, unspecified type Active Problems: Type 2 diabetes mellitus with microalbuminuria, without long-term current use of insulin Uncontrolled hypertension Elevated troponin I level Elevated brain natriuretic peptide (BNP) level Nonischemic cardiomyopathy Nonobstructive atherosclerosis of coronary artery Dyslipidemia Outside records reviewed from patient's primary manager commodities Dr. Lewis. Seen by him dated 05/22/2023. Her seen for dilated cardiomyopathy, mitral regurgitation, arctic regurgitation, paroxysmal SVT hypertensive heart disease with heart failure with dyslipidemia. Patient was noted to have severe sleep apnea also. Noted to have dilated cardiomyopathy with a EF of 31 to 40% initially, nonobstructive coronary disease, then recent echocardiogram showing presence of EF 41 to 50%.. Noted to have chronic diastolic/systolic heart failure. Coronary angiogram dated 01/28/2009 shows nonobstructive CAD with cardiomyopathy. EKG shows AV paced rhythm. ICD check dated 02/25/2023 last 1. Nonsustained VT noted. Echocardiogram dated 12/2022 shows mild LVH mild to moderate mitral regurgitation, trace mitral regurgitation, moderate to mild tricuspid regurgitation noted. He recent EF noted to be 25 to 30%. PA pressure noted to be 30-40. Stress test dated 05/22/2023 shows negative for ischemia. Elevated troponins: Indeterminate range: Repeat troponin within normal limits. Likely type II MN No evidence of any ACS noted. Currently on IV heparin drip. If recurrent troponins negative, may DC IV heparin drip. Continue with aspirin 81 daily. Recent Labs 07/17/24 0428 07/17/24 0639 TROPNI 0.038* 0.025 Elevated NT BNP: Chronic systolic diastolic heart failure: Nonischemic cardiomyopathy: Status post BiV ICD Patient reports seen by primary cardiology team at least more than a year ago. Currently not on medication at least for the last 1 year duration. Recommended restarting Lasix 40 mg daily. Recommended restarting heart failure medications in terms of starting losartan 50 twice daily, spironolactone 25 mg daily. Recommended restarting Lopressor 12.5 twice daily. Repeat NT-proBNP to be done today. NT-proBNP (pg/mL) Date Value 05/13/2022 900 (H) Hypertension: Not optimally controlled: Uncontrolled. Recommended restarting Lopressor 12.5 twice daily. Recommended restarting Lasix 40 mg daily. Recommended restarting heart failure medications in terms of starting losartan 50 twice daily, spironolactone 25 mg daily. Dyslipidemia: Recommended starting Lipitor 40 mg daily. Recommended goal LDL less than 70. T2DM: Rx/workup as primary team. Primary manager commodities: Dr Lewis. Last seen by him 05/2023. Unable to follow-up due to life related issues. Total Visit Time: 60 mins The total Visit time for today's visit with Nicholas Ruiz JrWinifrde encompassed 60 minutes. Time was spent reviewing the chart before, during and after the visit, reviewing laboratory results, taking interval history, performing the documented physical examination, completing and "cleaning up" the electronic medical record as well as addressing any questions and concerns. The time spent for patient care includes: PreCharting (eg, review of tests, notes, etc.), Obtaining and/or reviewing separately obtained history (Care Everywhere or paper records), Counseling and educating the patient/family/caregiver, Ordering medications, tests, or procedures, Ordering referrals and/or communicating with other health weekend caregiver (when not separately reported), Documenting clinical information in the electronic or other health record, and Independently interpreting results (not separately reported) and/or communicating results to the patient/family/caregiver. This report was dictated using [employer] and is subject to voice recognition errors. Please excuse any unusual inaccuracies. My diagnostic impression and treatment plans were discussed at length with the patient. All side effects as well as drug-drug interactions and risks discussed at length. Ample opportunity was offered and encouraged to ask questions during this visit and patient appreciated the answers given by me and verbzalised statisfcation in the answers given. Thank you for allowing us to participate in the care of Nicholas Joseph Deleon. If you have any questions or concerns please feel free to call our office at [phone]. I would be happy to be of further assistance for Nicholas Joseph Deleon wellbeing. Voice recognition software has been used to create portions of this document. An attempt to proofread has been made to minimize errors. Please do not hesitate to call with any questions. Omar Helms MD 07/17/2024 9:02 AM Casket Trimmer, Division of Cardiology [facility] - Health History and Physical Notes Date/Time Note Provider Source 2024-07-17 07:45:44 [facility] Hospitalist Admission H&P Date of Service: 07/17/2024 CHIEF COMPLAINT: Cough congestion with chest discomfort HISTORY OF PRESENT ILLNESS Nicholas Ruiz Jr. is a 64 year old male who presents with upper respiratory symptoms. Patient states he has been visiting his sister in the intensive care unit and she was admitted with pulmonary issues. He has been at the hospital a lot with her and he started feeling poorly a few days ago. He started having a cough and congestion. He was taken some [id number] medication but was not get any relief. He woke up this morning with chest pain. He decided to come into the ER for further evaluation. In the ER his chest x-ray suggested bilateral pulmonary congestion. His troponin also came back slightly elevated. This was around 4:30 AM. I repeated his troponin and the labs stated they received it around 7:00. In the meantime, I was able to speak with Dr. Helms, manager commodities. He advised waiting for the repeat troponin to come back prior to making a decision on admission. He was able to get the repeat troponin which came back within normal limits. Patient's chest pain has pretty much resolved. He stated that he does not have any chest discomfort at this time. We started patient on a heparin drip for now. Cardiology evaluation pending. Patient will be admitted for inpatient hospitalization. PAST MEDICAL HISTORY Past Medical History: Diagnosis Date Atrial fibrillation well managed by Dr. Lewis Chronic back pain Sees pain management in [place]. Diabetes mellitus Hypertension Other depression 08/07/2018 Pacemaker 2009. last interogated October 2017 (every 6 months) Type 2 diabetes mellitus with microalbuminuria, without long-term current use of insulin 08/07/2018 PAST SURGICAL HISTORY Past Surgical History: Procedure Laterality Date COLONOSCOPY N/A 04/21/2018 Surgeon: Sebastian Moncada MD; [place] [facility] [place]LE [place] PROC UNLISTED SPINE SURGERY L4-5 fusion, 1996 ALLERGIES No Known Allergies MEDICATIONS Current home medication list reviewed: Patient's Medications START taking these medications No medications on file CONTINUE taking these medications which have NOT CHANGED ATORVASTATIN CALCIUM (LIPITOR ORAL) Take by mouth. LISINOPRIL ORAL Take by mouth. METFORMIN 500 MG TABLET Take 1 tablet by mouth in the morning and 1 tablet in the evening. Take with meals. 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 General: No acute distress HEENT: Normal oral mucosa, anicteric sclerae, NCAT Cardiovascular: RRR Lungs: Symmetric expansion, clear bilaterally Abdomen: Soft, NTND Musculoskeletal: No synovitis, normal muscle mass Genitourinary: Deferred Skin: No rash, no skin lesions Extremities: No clubbing, no cyanosis, no lower extremity edema Neuro: AAOx3, no focal deficits Psych: Normal affect LABS - reviewed pertinent labs as below: CBC BMP PT/INR WBC (10*3/?L) Date Value 07/17/2024 8.57 NA (mmol/L) Date Value 07/17/2024 140 No results found for: "PT" RBC (10*6/?L) Date Value 07/17/2024 4.99 K (mmol/L) Date Value 07/17/2024 3.8 INR (no units) Date Value 05/13/2022 1.1 PLT (10*3/?L) Date Value 07/17/2024 280 CALCIUM (mg/dL) Date Value 07/17/2024 8.8 HGB (g/dL) Date Value 07/17/2024 14.9 CL (mmol/L) Date Value 07/17/2024 104 aPTT HCT (%) Date Value 07/17/2024 45.1 BUN (mg/dL) Date Value 07/17/2024 24 (H) APTT Patient (Seconds) Date Value 05/13/2022 26 CREATININE (mg/dL) Date Value 07/17/2024 1.02 IMAGING - reviewed, pertinent results as below: Hospital Encounter on 07/17/24 XR CHEST 1 VW Narrative ORDERING PHYSICIAN: CLARY DOSHI CLINICAL HISTORY: Shortness of breath, chest pain TECHNIQUE: Frontal view of chest COMPARISON: 02/20/2023 FINDINGS: The cardiac silhouette is mildly enlarged, stable. Mild bilateral central vascular congestion is identified. No confluent infiltrates or pleural effusions are identified. Left chest wall pacemaker is well-positioned. Osseous structures are normal. Impression Mild bilateral central vascular congestion is identified. No confluent infiltrates or pleural effusions are identified. RL: [id number] SSMENT: 1. Type II myocardial infarction with chest discomfort; spoke with cardiology and at this time starting heparin drip. Continue with antiplatelet therapy and statin therapy. Monitor hemodynamics closely. Patient admitted to [facility] on a heparin drip and will repeat troponin later today. Second troponin has been negative. Echocardiogram pending. Appreciate cardiology input. 2. Upper respiratory infection; continue with nebs as needed along with prednisone and antibiotic therapy. Chest x-ray with bilateral pulmonary infiltrates or edema. Will reassess in AM. 3. Type 2 diabetes; strict blood sugar control 4. History of hypertension; resume antihypertensives 5. GI DVT prophylaxis DVT prophylaxis: enoxaparin Stress ulcer prophylaxis: pantoprazole Code status: FULL Advanced Care Planning (Z71.89) Above assessment and plan discussed at length with patient, patient expressed full understanding. Questions and concerned addressed. Surrogate decision maker: NO Level of care expected after discharge: HOME Time spent: 3 minutes discussing the advanced care plan Smoking Cessation: (Z71.6) Tobacco user?: NO Patient will require inpatient stay of 2 midnights or more given high risk of morbidity and mortality. [place] BALL THREAD MACHINE TENDER was verified during stay Dinesh Baldwin MD [facility]
--- NOTE | 2024-08-21 19:02 | RAD REPORT ---
EXAMINATION: ONE VIEW CHEST XR CLINICAL INDICATION: Male, 64 years old.,CHEST PAIN TECHNIQUE: Frontal chest projection is submitted. Examination is limited by patient positioning and t echnique. COMPARISON: 05/17/2023 FINDINGS: The lungs are well inflated and clear. No pneumothorax or sizable effusion. Stable cardiomegaly. Lef t chest wall pacer/AICD in place. Mediastinal contours are unremarkable. IMPRESSION: No acute pulmonary process. Stable cardiomegaly
[2024-08-21 19:46] LABS: Absolute Basophils 0.1 K/uL (0-0.5); Absolute Eosinophils 0.1 K/uL (0-0.5); Absolute Lymphocytes (CBC) 1.7 K/uL (0.7-4.9); Absolute Monocytes 0.5 K/uL (0.1-1.3); Absolute Neutrophil 6.4 K/uL (1.8-8.0); Basophils % 0.9 % (0-1.3); Eosinophils % 1.6 % (0-4.4); Hematocrit 42.6 % (39.6-49.0); Hemoglobin 14.4 g/dL (13.6-17.9); Lymphocytes % 18.9 % (15.3-44.8); MCH 29.9 pg (27.0-35.0); MCHC 33.8 g/dL (32.0-36.0); MCV 88.3 fL (80-100); MPV 8.2 fL (7.6-11.3); Monocytes % 5.9 % (3.3-12.3); Neutrophils % 72.7 % (41.7-73.7); Nucleated Red Blood Cells % 0.1 % (0-0); Platelets 238 thou/uL (152-406); RBC Red Blood Cell Count 4.82 M/uL (4.33-5.43); Red Cell Distribution Width 13.1 % (12.1-15.2)
[2024-08-21 19:51] LABS: PT Prothrombin Time 11.8 SECONDS (9.4-12.5); Protime INR 1.06
[2024-08-21 19:54] LABS: Specific Gravity 1.007 (1.005-1.030); Sqamous Epithelial <5 /HPF (None Seen); Urine Bacteria <20 /HPF (<20); Urine Bilirubin NEGATIVE (Negative); Urine Blood Negative (Negative); Urine Clarity Clear (Clear); Urine Color Colorless (Yellow); Urine Culture Reflex Order NOT NEEDED; Urine Glucose NEGATIVE (Negative); Urine Ketones NEGATIVE (Negative); Urine Micro Reflex YN NO BILL MICROSCOPIC; Urine Nitrite NEGATIVE (Negative); Urine Protein NEGATIVE (Negative); Urine RBC <5 /HPF (None Seen); Urine Urobilinogen Normal (Normal); Urine WBC <5 /HPF (<5)
[2024-08-21 20:07] LABS: ALT/SGPT 155 U/L (16-61); AST/SGOT 191 U/L (15-37); Albumin 3.8 g/dL (3.4-5.0); Albumin/Globulin Ratio 1.1 (1.1-1.8); Alkaline Phosphatase 149 U/L (45-117); Anion Gap 8.1 mEq/L (5.0-15.0); BUN Blood Urea Nitrogen 30 mg/dL (7-18); Bicarbonate 28 mEq/L (21-32); Bilirubin Total 0.4 mg/dL (0.2-1.0); Globulin 3.6 g/dL (2.3-3.5); Glomerular Filtration Rate 71 ml/min (=/>90); Glucose Level 157 mg/dL (74-106); NT PRO-BNP 4982 pg/mL (<125); Potassium 4.1 mEq/L (3.5-5.1); Protein, Total 7.4 g/dL (6.4-8.2); Sodium Level 138 mEq/L (136-145)
[2024-08-21 20:11] LABS: Bilirubin Direct < 0.2 mg/dL (0-0.2); Bilirubin Indirect, Calculated 0.2 mg/dL (0.2-0.8)
[2024-08-21 20:12] LABS: Troponin High Sensitivity 178.6 pg/mL (<58.9)
--- NOTE | 2024-08-21 20:34 | EDPHYS ---
Physician Documentation [facility] Name: Nicholas Ruiz Jr Age: 64 yrs Sex: Male : 1960 Arrival Date: 08/21/2024 Time: 17:48 Bed 3 Private MD: ED Physician Mandi Oquendo HPI: 08/21 20:33 This 64 yrs old Male presents to ER via Ambulatory with complaints of Chest kb Pain. 20:33 Pt is a 64 year old male who presents for chest pain that started yesterday and has kb progressively gotten worse. Reports intermittent shortness of breath. No alleviating or aggravating factors. . Historical: - Allergies: 18:03 No Known Allergies; ll1 - PMHx: 18:03 Atrial Fib; Diabetes - NIDDM; High Cholesterol; Hypertension; ll1 - PSHx: 18:03 pacemaker; ll1 - Immunization history:: Adult Immunizations up to date. - Infectious Disease History:: Denies. - Social history:: Smoking status: Patient/guardian denies using tobacco, the patient reports quitting approximately 21 years ago. ROS: 20:32 Constitutional: As per HPI kb Exam: 18:04 Constitutional: This is a well developed, well nourished patient who is awake, alert, kb and in no acute distress. Head/Face: Normocephalic, atraumatic. ENT: Moist Mucous membranes Cardiovascular: Regular rate Respiratory: Respirations even and unlabored. No increased work of breathing. Talking in full sentences Abdomen/GI: Soft, non-tender. No distention Skin: Warm, dry with normal turgor. Normal color. MS/ Extremity: Pulses equal, no cyanosis. Neurovascular intact. Full, normal range of motion. Neuro: Awake and alert, GCS 15, oriented to person, place, time, and situation. 18:04 ECG was reviewed by the Attending Physician. Vital Signs: 18:01 BP 136 / 99; Pulse 95; Resp 17; Temp 97.5; Pulse Ox 100% ; Weight 79.38 kg; Height 5 ll1 ft. 4 in. ; Pain 8/10; 20:54 BP 130 / 90; Pulse 85; Resp 18; Pulse Ox 98% on R/A; al5 21:00 BP 139 / 89; Pulse 87; Resp 18; Pulse Ox 99% on R/A; al5 21:15 BP 153 / 89; Pulse 81; Resp 16; Pulse Ox 97% on R/A; al5 21:30 BP 116 / 91; Pulse 83; Resp 16; Pulse Ox 98% on R/A; al5 21:45 BP 107 / 80; Pulse 79; Resp 15; Pulse Ox 98% on R/A; al5 22:00 BP 118 / 68; Pulse 70; Resp 18; Pulse Ox 98% ; al5 18:01 Body Mass Index 30.04 (79.38 kg, 162.56 cm) ll1 18:01 Pain Scale: Adult ll1 MDM: 17:54 Medical Screening Exam initiated kb 20:32 Differential diagnosis: acute OH, arrhythmia, pulmonary edema. Data reviewed: vital kb signs, nurses notes. Consideration of Admission/Observation Patient was admitted/placed on observation. Escalation of care including admission/observation considered. Management of patient was discussed with the following: Hospitalist: Dr Bob accepts pt for admission. Network Systems Integrator: Dr Alfonso accepts pt for consult. Counseling: I had a detailed discussion with the patient and/or guardian regarding the historical points, exam findings, and any diagnostic results supporting the discharge/admit diagnosis, lab results, radiology results, the need for further work-up and treatment in the hospital. 08/21 17:55 Order name: Basic Metabolic Panel; Complete Time: 20:24 sp3 08/21 17:55 Order name: CBC with Diff; Complete Time: 19:59 sp3 08/21 17:55 Order name: LFT's; Complete Time: 20:24 sp3 08/21 17:55 Order name: Magnesium; Complete Time: 20:24 sp3 08/21 17:55 Order name: NT PRO-BNP; Complete Time: 20:24 sp3 08/21 17:55 Order name: PT-INR; Complete Time: 19:54 sp3 08/21 17:55 Order name: Troponin HS; Complete Time: 20:24 sp3 08/21 19:35 Order name: Urine W/Microscopic (UAM); Complete Time: 19:54 lg3 08/21 21:00 Order name: Urinalysis w/ reflexes EDMS 08/21 21:00 Order name: CBC with Automated Diff EDMS 08/21 21:00 Order name: CBC with Automated Diff EDMS 08/21 21:00 Order name: Comprehensive Metabolic Panel EDMS 08/21 21:00 Order name: Comprehensive Metabolic Panel [facility] 08/21 21:00 Order name: Lipid Profile [facility] 08/21 21:00 Order name: Lipid Profile [facility] 08/21 21:00 Order name: Magnesium [facility] 08/21 21:00 Order name: Magnesium [facility] 08/21 21:00 Order name: Phosphorus [facility] 08/21 21:00 Order name: Phosphorus [facility] 08/21 21:00 Order name: Troponin High Sensitivity [facility] 08/21 21:00 Order name: Troponin High Sensitivity [facility] 08/21 21:00 Order name: Troponin High Sensitivity [facility] 08/21 21:00 Order name: Troponin High Sensitivity [facility] 08/21 17:55 Order name: XRAY Chest (1 view); Complete Time: 19:05 3 08/21 17:55 Order name: EKG; Complete Time: 17:55 3 08/21 21:00 Order name: CONS Physician Consult [facility] 08/21 17:55 Order name: Cardiac monitoring; Complete Time: 20:47 3 08/21 17:55 Order name: EKG - Nurse/Tech; Complete Time: 18:01 3 08/21 17:55 Order name: IV Saline Lock; Complete Time: 19:36 3 08/21 17:55 Order name: Labs collected and sent; Complete Time: 19:36 3 08/21 17:55 Order name: O2 Per Protocol; Complete Time: 19:43 3 08/21 17:55 Order name: O2 Sat Monitoring; Complete Time: 19:43 sp3 EC:04 Rate is 95 beats/min. Rhythm is regular. QRS [place] is Normal. AR interval is normal at kb 136 msec. QRS interval is normal at 126 msec. QT interval is normal at 477 msec. Administered Medications: 20:55 Drug: Aspirin PO Chewable Tablet 324 mg PO once; 81 mg tablets x 4 Route: PO; al5 21:34 Follow up: Response: No adverse reaction al5 21:33 Drug: Heparin (OH Drip) 12 units/kg/[place] - ([place] [address] units, D5W IV 500 ml) IV at al5 calculated rate Per protocol; Max initial rate 1000 units/hr {Co-Signature: bm8 (Luis Wilson RN).} Route: IV; Rate: calculated rate; Site: right antecubital; 22:28 Follow up: Response: No adverse reaction; IV Status: Infusion continued upon admission al5 Disposition Summary: 08/21/24 20:34 Hospitalization Ordered Notes: Hospitalization Status: Inpatient Admission kb Provider: Stanford Bob Location: Telemetry/MedSurg (Inpatient) kb Condition: Stable kb Problem: new kb Symptoms: are unchanged kb Bed/Room Type: Standard Room Assignment: 225(08/21/24 21:02) rv1 Diagnosis - NSTEMI kb Forms: - Medication Reconciliation Form kb - SBAR form kb - Leadership Thank You Letter kb Signatures: Dispatcher [employer] EDAlyssa Horvath, LEAD DATA ENTRY OPERATOR-C NICOLE-Mavis Hannah RN RN ll1 Mandi Oquendo MD MD sp3 Gloria Wang rv1 Rosita Leblanc RN RN al5 Luis Wilson RN bm8 Corrections: (The following items were deleted from the chart) 21:02 20:34 kb rv1
--- NOTE | 2024-08-21 20:34 | ER ---
Nurse's Notes [facility] Name: Nicholas Ruiz Jr Age: 64 yrs Sex: Male : 1960 Arrival Date: 08/21/2024 Time: 17:48 Bed 3 Private MD: Diagnosis: NSTEMI Presentation: 08/21 18:01 Chief complaint: Patient states: CP, slight cough, weakness for 2 days. Coronavirus ll1 screen: Client denies travel out of the [place] in the last 14 days. cough unrelated to allergies, fatigue, Client presents with at least one sign or symptom that may indicate coronavirus-19. Standard/surgical mask placed on the client. Ebola Screen: Patient denies travel to an Ebola-affected area in the 21 days before illness onset. Initial Sepsis Screen: Does the patient meet any 2 criteria? No. Patient's initial sepsis screen is negative. Does the patient have a suspected source of infection? No. Patient's initial sepsis screen is negative. Risk Assessment: Do you want to hurt yourself or someone else? Patient reports no desire to harm self or others. Onset of symptoms was August 20, 2024. 18:01 Method Of Arrival: Ambulatory ll1 18:01 Acuity: DAVID 3 ll1 Triage Assessment: 18:03 General: Appears uncomfortable, Behavior is calm, cooperative, appropriate for age. ll1 Pain: Complains of pain in chest Quality of pain is described as pressure. Cardiovascular: Reports chest pain, shortness of breath. Respiratory: Reports cough that is slight cough. 18:03 Neuro: Reports weakness. ll1 Historical: - Allergies: 18:03 No Known Allergies; ll1 - PMHx: 18:03 Atrial Fib; Diabetes - NIDDM; High Cholesterol; Hypertension; ll1 - PSHx: 18:03 pacemaker; ll1 - Immunization history:: Adult Immunizations up to date. - Infectious Disease History:: Denies. - Social history:: Smoking status: Patient/guardian denies using tobacco, the patient reports quitting approximately 21 years ago. Screenin:56 [facility] ED Fall Risk Assessment (Adult) History of falling in the last 3 months, al5 including since admission No falls in past 3 months (0 pts) Confusion or Disorientation No (0 pts) Intoxicated or Sedated No (0 pts) Impaired Gait No (0 pts) Mobility Assist Device Used No (0 pt) Altered Elimination No (0 pt) Score/Fall Risk Level 0 - 2 = Low Risk Oriented to surroundings, Maintained a safe environment, Hourly rounding (assess needs \T\ fall precautionary measures) done. Abuse screen: Denies threats or abuse. Denies injuries from another. Nutritional screening: No deficits noted. Tuberculosis screening: No symptoms or risk factors identified. Assessment: 20:55 General: Appears in no apparent distress. comfortable, Behavior is calm, cooperative. al5 Pain: Complains of pain in chest Pain does not radiate. Pain began 2-3 days ago. Neuro: Level of Consciousness is awake, alert, obeys commands, Oriented to person, place, time, situation. Cardiovascular: Capillary refill < 3 seconds Patient's skin is warm and dry. Cardiovascular: Rhythm is sinus rhythm. Respiratory: Reports cough that is Airway is patent Respiratory effort is even, unlabored, Respiratory pattern is regular, symmetrical. GI: No signs and/or symptoms were reported involving the gastrointestinal system. : No signs and/or symptoms were reported regarding the genitourinary system. EENT: No signs and/or symptoms were reported regarding the EENT system. Derm: Skin is intact, is healthy with good turgor, Skin is pink, warm \T\ dry. normal. Musculoskeletal: No signs and/or symptoms reported regarding the musculoskeletal system. 22:29 Reassessment: Patient appears in no apparent distress at this time. No changes from al5 previously documented assessment. Patient and/or family updated on plan of care and expected duration. Pain level reassessed. Patient is alert, oriented x 3, equal unlabored respirations, skin warm/dry/pink. Vital Signs: 18:01 BP 136 / 99; Pulse 95; Resp 17; Temp 97.5; Pulse Ox 100% ; Weight 79.38 kg; Height 5 ll1 ft. 4 in. ; Pain 8/10; 20:54 BP 130 / 90; Pulse 85; Resp 18; Pulse Ox 98% on R/A; al5 21:00 BP 139 / 89; Pulse 87; Resp 18; Pulse Ox 99% on R/A; al5 21:15 BP 153 / 89; Pulse 81; Resp 16; Pulse Ox 97% on R/A; al5 21:30 BP 116 / 91; Pulse 83; Resp 16; Pulse Ox 98% on R/A; al5 21:45 BP 107 / 80; Pulse 79; Resp 15; Pulse Ox 98% on R/A; al5 22:00 BP 118 / 68; Pulse 70; Resp 18; Pulse Ox 98% ; al5 18:01 Body Mass Index 30.04 (79.38 kg, 162.56 cm) ll1 18:01 Pain Scale: Adult ll1 ED Course: 17:49 Patient arrived in ED. am2 17:54 Alyssa Echevarria FNP-C is PHCP. kb 17:54 Mandi Oquendo MD is Attending Physician. kb 18:00 Alyssa Echevarria FNP-C is PHCP. kb 18:01 EKG completed in triage. Results shown to MD. ll1 18:02 Triage completed. ll1 18:03 Arm band placed on. ll1 18:25 XRAY Chest (1 view) In Process Unspecified. EDMS 19:36 Inserted saline lock: 22 gauge in right antecubital area, using aseptic technique. f Blood collected. Flushed with 10 mL NS. 19:36 Initial lab(s) drawn, by me, sent to lab. kmf 19:36 Basic Metabolic Panel Sent. kmf 19:36 CBC with Diff Sent. kmf 19:36 LFT's Sent. kmf 19:36 Magnesium Sent. kmf 19:36 NT PRO-BNP Sent. kmf 19:36 PT-INR Sent. kmf 19:36 Troponin HS Sent. kmf 19:43 Basic Metabolic Panel Sent. lg3 19:43 CBC with Diff Sent. lg3 19:43 LFT's Sent. lg3 19:43 Magnesium Sent. lg3 19:43 NT PRO-BNP Sent. lg3 19:43 PT-INR Sent. lg3 19:43 Troponin HS Sent. lg3 20:34 Stanford Bob MD is Hospitalizing Provider. kb 20:44 Rosita Leblanc, RN is Primary Nurse. al5 20:56 Patient has correct armband on for positive identification. Placed in gown. Bed in low al5 position. Call light in reach. Side rails up X2. Provided Education on: plan of care. Client placed on continuous cardiac and pulse oximetry monitoring. NIBP monitoring applied. surgical nurse practitioner on. Moved to private room. Warm blanket given. PO fluids given. Diet: Patient given snack. 20:56 No provider procedures requiring assistance completed. Patient admitted, IV remains in al5 place. Patient maintains SpO2 saturation greater than 95% on room air. Administered Medications: 20:55 Drug: Aspirin PO Chewable Tablet 324 mg PO once; 81 mg tablets x 4 Route: PO; al5 21:34 Follow up: Response: No adverse reaction al5 21:33 Drug: Heparin (LA Drip) 12 units/kg/hr - ([place] [address] units, D5W IV 500 ml) IV at al5 calculated rate Per protocol; Max initial rate 1000 units/hr {Co-Signature: bm8 (Luis Wilson RN).} Route: IV; Rate: calculated rate; Site: right antecubital; 22:28 Follow up: Response: No adverse reaction; IV Status: Infusion continued upon admission al5 Medication: 20:57 VIS not applicable for this client. al5 Outcome: 20:34 Decision to Hospitalize by Provider. kb 22:29 Admitted to Med/surg accompanied by tech, via wheelchair, room 225, with chart, al5 22:29 Condition: stable 22:29 Instructed on the need for admit, 22:29 Patient left the ED. al5 Signatures: Dispatcher [employer] EDMS Alyssa Echevarria, [employer] TYPEWRITER [employer]SEMBLY AND PARTS INSPECTOR-Rosita Whitney Lacie, RN RN lg3 Mavis Hamm RN RN ll1 Madelyn Gan [facility] Rosita Leblanc RN RN al5 Luis Wilson RN bm8 Corrections: (The following items were deleted from the chart) 18:53 18:03 Cardiovascular: Reports chest pain, shortness of breath, ll1 ll1
[2024-08-21] MEDS ORDERED: ASPIRIN 81 MG CHEWABLE TABLET ONE (20:52)
--- NOTE | 2024-08-21 20:52 | P.HP ---
Certification for Inpatient Patient admitted to: Inpatient With expected LOS: >2 Midnights Practitioner: I am a practitioner with admitting privileges, knowledge of patient current condition, hospital course, and medical plan of care. Services: Services provided to patient in accordance with Admission requirements found in Title 42 Section 412.3 of the Code of Federal Regulations Patient History Date of Service: 08/21/24 Reason for admission: Chest Pain History of Present Illness: 64 year old male with past medical history of diabetes, hypertension, hyperlipidemia, atrial fibrillation status post pacemaker brought to ER with chest pain which started yesterday. Pain is retrosternal, radiating to the left side of the chest. 4 out of 10 in severity at the time of interview. Pressure- like feeling. No association with fever or chills. Denies any diaphoresis. Associated with intermittent shortness of breath. No relationship with exercise. No sick contacts. Patient was assessed in the ER and is admitted for further management of NSTEMI Allergies No Known Allergies Allergy (Verified 08/21/24 21:18) Home medications list reviewed: Yes - Past Medical/Surgical History Past Medical History: Reviewed- Non-Contributory -: Diabetes, hypertension, hyperlipidemia, atrial fibrillation Past Surgical History: Reviewed- Non-Contributory -: Pacemaker - Social History Smoking Status: Never smoker Review of Systems 10-point ROS is otherwise unremarkable Respiratory: SOB with Excertion Cardiovascular: Chest Pain Physical Examination - Physical Exam General: Alert, Oriented x3 HEENT: Atraumatic, Normocephalic Neck: Supple, No Thyromegaly Respiratory: Clear to auscultation bilaterally, Normal air movement Cardiovascular: Regular rate/rhythm, Normal S1 S2 Capillary refill: <2 Seconds Gastrointestinal: Soft and benign, W/out hepatosplenomegaly Musculoskeletal: No clubbing, No swelling Integumentary: No rashes, No tenderness/swelling Neurological: Normal speech, Normal strength at 5/5 x4 extr, Cranial nerves 3-12 intact Lymphatics: No axilla or inguinal lymphadenopathy - Studies Laboratory Data (last 24 hrs) 08/21/24 08/21/24 08/21/24 19:30 19:30 19:30 WBC 8.80 Hgb 14.4 Hct 42.6 Plt Count 238 PT 11.8 INR 1.06 Sodium 138 Potassium 4.1 BUN 30 H Creatinine 1.16 Glucose 157 H Magnesium 2.0 Total Bilirubin 0.4 AST 191 H ALT 155 H Alkaline Phosphatase 149 H Assessment and Plan - Plan NSTEMI Will trend cardiac enzymes Will monitor telemetry Started on aspirin and statin Will get an echocardiogram Cardiology consult Started on heparin drip Hypertension Antihypertensives titrated Continue home medications and titrate as needed Hyperlipidemia Continue statin CKD stage II Monitor renal parameters Electrolytes monitor and replace accordingly Diabetes Insulin sliding scale Accu-Chek before every meal and at bedtime Elevated LFTs Trend liver enzymes INR normal GI/DVT prophylaxis Advanced directive full code Discharge Plan: Home Plan to discharge in: 48 Hours - Advance Directives Does patient have a Living Will: No Does patient have a Durable POA for Healthcare: No - Code Status/Comfort Care Code Status: Full Code Time Spent Managing Pts Care (In Minutes): 48
[2024-08-21] MEDS ORDERED: ONDANSETRON 4 MG/2 ML VIAL IV PRN (20:54)
[2024-08-21] MEDS ORDERED: HEPARIN/D5W 25,000 UNIT/500 ML BAG IV ONE (21:29)
[2024-08-22 06:04] LABS: Absolute Basophils 0.1 K/uL (0-0.5); Absolute Eosinophils 0.2 K/uL (0-0.5); Absolute Lymphocytes (CBC) 1.2 K/uL (0.7-4.9); Absolute Monocytes 0.5 K/uL (0.1-1.3); Absolute Neutrophil 4.4 K/uL (1.8-8.0); Basophils % 0.9 % (0-1.3); Eosinophils % 3.2 % (0-4.4); Hematocrit 39.1 % (39.6-49.0); Hemoglobin 13.4 g/dL (13.6-17.9); Lymphocytes % 19.3 % (15.3-44.8); MCH 30.2 pg (27.0-35.0); MCHC 34.2 g/dL (32.0-36.0); MCV 88.2 fL (80-100); Monocytes % 7.7 % (3.3-12.3); Neutrophils % 68.9 % (41.7-73.7); Nucleated Red Blood Cells % 0.1 % (0-0); Platelets 224 thou/uL (152-406); RBC Red Blood Cell Count 4.43 M/uL (4.33-5.43)
[2024-08-22 06:23] LABS: Albumin 3.1 g/dL (3.4-5.0); Bilirubin Total 0.5 mg/dL (0.2-1.0); Globulin 3.2 g/dL (2.3-3.5); Phosphorus 3.7 mg/dL (2.5-4.9); Protein, Total 6.3 g/dL (6.4-8.2)
[2024-08-22 06:28] LABS: Troponin High Sensitivity 282.6 pg/mL (<58.9)
[2024-08-22] MEDS: ENOXAPARIN 80 MG/0.8 ML SQ SCH (09:16)
[2024-08-22] MEDS: ASPIRIN 81 MG CHEWABLE TABLET PO SCH (09:16)
[2024-08-22] MEDS: SPIRONOLACTONE 25 MG TABLET PO SCH (09:17)
[2024-08-22] MEDS: FUROSEMIDE 40 MG TABLET PO SCH (09:17)
[2024-08-22] MEDS: LOSARTAN POTASSIUM 50 MG TABLET PO SCH (09:17)
[2024-08-22] MEDS: METOPROLOL TAR 25 MG TAB PO SCH (09:17)
[2024-08-22] MEDS ORDERED: INFLUENZA VACCINE (for 6+ mo) 0.5 ML DOSE IMVAC ONE (12:00)
--- NOTE | 2024-08-22 12:36 | P.CNS ---
Date of Consult: 08/22/24 Chief Complaint: Chest Pain History of Present Illness: Patient with PMH of heart failure s/p ICD, presented with worsening SOB and chest pain, pressure in nature that has been going on for few days, denies any other cardiac symptoms. Allergies No Known Allergies Allergy (Verified 08/21/24 21:18) Home medications list reviewed: Yes Home Medications: Aspirin Chewable [Aspirin Chewable*] 1 tab PO DAILY 08/21/24 Atorvastatin Calcium 1 tab PO DAILY 08/21/24 Furosemide 1 tab PO DAILY 08/21/24 Losartan Potassium 1 tab PO BID 08/21/24 Metoprolol Tartrate 0.5 tab PO BID 08/21/24 Spironolactone 1 tab PO DAILY 08/21/24 - Past Medical/Surgical History -: Diabetes, hypertension, hyperlipidemia, atrial fibrillation -: Pacemaker - Social History Smoking Status: Unknown if ever smoked Alcohol use: No CD- Drugs: No Caffeine use: Yes Place of Residence: Home Review of Systems 10-point ROS is otherwise unremarkable Physical Examination Temp Pulse Resp BP Pulse Ox 97.8 F 83 16 144/94 H 99 08/22/24 08:00 08/22/24 09:17 08/22/24 08:00 08/22/24 09:17 08/22/24 08:00 General: Alert, In no apparent distress HEENT: Atraumatic, PERRLA, Mucous membr. moist/pink, EOMI, Sclerae nonicteric Neck: Supple, 2+ carotid pulse no bruit, No LAD, Without JVD or thyroid abnormality Respiratory: Clear to auscultation bilaterally, Normal air movement Cardiovascular: Regular rate/rhythm, Normal S1 S2 Gastrointestinal: Normal bowel sounds, No tenderness Musculoskeletal: No tenderness Integumentary: No rashes Neurological: Normal gait, Normal speech, Normal tone, Normal affect Lymphatics: No axilla or inguinal lymphadenopathy Laboratory Data (last 24 hrs) 08/21/24 08/21/24 08/21/24 19:30 19:30 19:30 WBC 8.80 Hgb 14.4 Hct 42.6 Plt Count 238 PT 11.8 INR 1.06 Sodium 138 Potassium 4.1 BUN 30 H Creatinine 1.16 Glucose 157 H Magnesium 2.0 Total Bilirubin 0.4 AST 191 H ALT 155 H Alkaline Phosphatase 149 H - Problems (1) NSTEMI (non-ST elevated myocardial infarction) Current Visit: Yes Status: Acute Plan: NPO for coronary angiogram in am ASA 81 mg daily Therapeutic Lovneox Lipitor 40 mg daily (2) Chronic heart failure Current Visit: Yes Status: Acute Plan: Continue Metoprolol 12.5 mg po BID Continue Losartan 50 mg daily Continue Spirnolactone 25 mg daily Continue Lasix 40 mg po daily
--- NOTE | 2024-08-22 14:22 | P.PN ---
Subjective Date of Service: 08/22/24 Chief Complaint: Chest Pain Patient is complaining of intermittent chest pain. Troponin elevated but trended flat. He denies shortness of breath. Physical Examination - Vital Signs Temperature: 97.9 F Blood Pressure: 137/84 Pulse: 77 Respirations: 14 Pulse Ox (%): 97 - Studies Laboratory Data (last 24 hrs) 08/21/24 08/21/24 08/21/24 19:30 19:30 19:30 WBC 8.80 Hgb 14.4 Hct 42.6 Plt Count 238 PT 11.8 INR 1.06 Sodium 138 Potassium 4.1 BUN 30 H Creatinine 1.16 Glucose 157 H Magnesium 2.0 Total Bilirubin 0.4 AST 191 H ALT 155 H Alkaline Phosphatase 149 H Assessment And Plan - Plan Physical examination General: Alert and oriented x3, NAD, HEENT: Anicteric sclera Neck: Supple, no elevated JVD Heart: Heart sounds 1 and 2 normal, regular rhythm, normal rate, no pedal edema Lungs: Clear to auscultation bilaterally, adequate breath sounds bilaterally, no rhonchi or crackles. Abdomen: Soft, nondistended, nontender, normal bowel sounds. Extremities: No tenderness, no deformity Skin: Normal skin turgor, no rash, no nodules or ulcers. Neuro: No focal motor deficit. Normal speech. Psychiatry: Normal mood, no agitation. Assessment and plan NSTEMI CAD Troponin elevated but trended flat Continue aspirin and statin Metoprolol 12.5 mg twice daily Full dose Lovenox. Echocardiogram is pending Cardiology Dr. Alfonso's input appreciated Dr. Alfonso is planning cardiac catheterization tomorrow. Hypertension Continue antihypertensives-metoprolol and losartan Continue home medications and titrate as needed Hyperlipidemia LDL is 90 Increase home dose Lipitor from 40 mg to 80 mg at bedtime. Diabetes melitis type II Insulin sliding scale Accu-Chek before every meal and at bedtime Elevated LFTs LFTs trended down Check liver ultrasound. GI/DVT prophylaxis: Lovenox Advanced directive full code
--- NOTE | 2024-08-22 18:48 | RAD REPORT ---
EXAMINATION: US Liver Only CLINICAL HISTORY: [facility] Elevated LFT COMPARISON: CT chest 05/11/2023. TECHNIQUE: Limited upper abdominal grayscale and color flow sonographic images. FINDINGS: Gallbladder: Normal. Bile ducts: No intrahepatic or extrahepatic biliary dilatation. Common bile duct measures 6 mm. Liver: Upper left liver lobe subcapsular lobulated thin-walled anechoic 3.9 x 3.2 x 3.1 cm cyst. No s olid components. Remainder of the hepatic parenchyma demonstrates homogeneous texture and normal echogenicity. Preserved hepatopedal flow. Spleen: Normal in size, measuring 7.3 cm in length. No focal lesions. Fluid: No ascites. IMPRESSION: No suspicious abnormalities on right upper quadrant ultrasound. Incidentally noted left liver lobe 3.9 cm cyst, probably stable, benign in appearance.
[2024-08-22] MEDS: ATORVASTATIN 40 MG TAB PO SCH (20:44)
[2024-08-22] MEDS: ACETAMINOPHEN 325 MG TABLET PO PRN (20:49)
[2024-08-22] MEDS ORDERED: ATORVASTATIN 40 MG TAB PO SCH (21:00)
[2024-08-23 05:25] LABS: Albumin 3.4 g/dL (3.4-5.0); Anion Gap 9.2 mEq/L (5.0-15.0); Bilirubin Total 0.7 mg/dL (0.2-1.0); Globulin 3.4 g/dL (2.3-3.5); Potassium 4.2 mEq/L (3.5-5.1); Protein, Total 6.8 g/dL (6.4-8.2)
[2024-08-23 05:55] LABS: Specific Gravity 1.028 (1.005-1.030); Sqamous Epithelial None Seen /HPF (None Seen); Urine Bacteria None Seen /HPF (<20); Urine Bilirubin NEGATIVE (Negative); Urine Blood Negative (Negative); Urine Clarity Clear (Clear); Urine Color Yellow (Yellow); Urine Culture Reflex Order NOT NEEDED; Urine Glucose NEGATIVE (Negative); Urine Ketones NEGATIVE (Negative); Urine Microscopic Reflex YN ORDER UMIC; Urine Mucus Slight /HPF (None Seen); Urine Nitrite NEGATIVE (Negative); Urine Protein 1+ (Negative); Urine RBC <5 /HPF (None Seen); Urine Urobilinogen Normal (Normal); Urine WBC <5 /HPF (<5)
[2024-08-23] MEDS ORDERED: FLU (Fluarix Triv) TS24-25(6MOS UP)/PF 45 MCG/0.5 ML Syringe IM ONE (07:45)
[2024-08-23] MEDS ORDERED: NA CHLORIDE 0.9% 500 ML ONE (07:57)
[2024-08-23] MEDS ORDERED: HEPARIN 10,000 UNIT/10 ML VIAL IV ONE (08:47)
[2024-08-23] MEDS ORDERED: HEPA 1000U/500MLS 2,000 UNIT/1,000 ML BAG IV ONE (08:47)
[2024-08-23] MEDS ORDERED: ATROPINE SULF 1 MG/10 ML SYR IV ONE (08:48)
[2024-08-23] MEDS ORDERED: LIDOCAINE 1% 20 ML MDV ONE (08:48)
[2024-08-23] MEDS ORDERED: HEPARIN 5000 UNIT/ML 1 ML VIAL ONE (08:48)
[2024-08-23] MEDS ORDERED: CLOPIDOGREL 75 MG TABLET ONE (08:48)
[2024-08-23] MEDS ORDERED: MIDAZOLAM HCL 2 MG/2 ML INJ ONE (08:48)
[2024-08-23] MEDS ORDERED: FENTANYL CITR 100 MCG/2 ML ONE (08:49)
[2024-08-23] MEDS ORDERED: TICAGRELOR 90 MG TABLET PO ONE (08:49)
[2024-08-23] MEDS ORDERED: ASPIRIN 325 MG TAB ONE (08:49)
--- NOTE | 2024-08-23 10:06 | P.PN ---
Subjective Date of Service: 08/23/24 Chief Complaint: Chest Pain Subjective: No new changes, No C/O voiced, Tolerating diet, Ambulating, Improving Review of Systems 10-point ROS is otherwise unremarkable Physical Examination - Vital Signs Temperature: 98.1 F Blood Pressure: 126/79 Pulse: 83 Respirations: 16 Pulse Ox (%): 97 - Physical Exam General: Alert, In no apparent distress HEENT: Atraumatic, PERRLA, EOMI Neck: Supple, JVD not distended Respiratory: Clear to auscultation bilaterally, Normal air movement Cardiovascular: Regular rate/rhythm, Normal S1 S2 Gastrointestinal: Normal bowel sounds, No tenderness Musculoskeletal: No tenderness Integumentary: No rashes Neurological: Normal speech, Normal tone, Normal affect Lymphatics: No axilla or inguinal lymphadenopathy - Studies Medications List Reviewed: Yes Assessment And Plan - Current Problems (Diagnosis) (1) NSTEMI (non-ST elevated myocardial infarction) Current Visit: Yes Status: Acute Plan: Coronary angiogram done and shows multivessel CAD, transfer to [facility] for inpatient CABG. ASA 81 mg daily Therapeutic Lovneox Lipitor 40 mg daily (2) Chronic heart failure Current Visit: Yes Status: Acute Plan: Patideannn is s/p DIRECTOR EMERGENCY SERVICES-D Continue Metoprolol 12.5 mg po BID Continue Losartan 50 mg daily Continue Spirnolactone 25 mg daily Continue Lasix 40 mg po daily
--- NOTE | 2024-08-23 15:41 | P.DS ---
Admission Date: 08/21/24 Discharge Date: 08/23/24 Disposition: TRANSFER TO [facility] Discharge Condition: FAIR Reason for Admission: Chest Pain Brief History of Present Illness: 64 year old male with past medical history of diabetes, hypertension, hyperlipidemia, atrial fibrillation status post pacemaker presented to ER with retrosternal chest pain of 1 day duration. Chest pain associated with intermittent shortness of breath. No relationship with exercise. No sick contacts. Patient was assessed in the ER and noted to have elevated troponin. Chest x-ray unremarkable. Patient was admitted for further management of NSTEMI Hospital Course: Patient admitted to the medical floor and the following medical problems addressed: NSTEMI CAD Troponin elevated but trended flat. Of note, patient presented with chest pain Treated with aspirin, statin and metoprolol Also treated with full dose Lovenox. Cardiology Dr. Alfonso's evaluated patient and performed cardiac catheterization which showed multivessel disease. Dr. Alfonso recommend transfer to [facility] to be evaluated for CABG Hypertension Continued antihypertensives-metoprolol and losartan Hyperlipidemia LDL is 90 Increased home dose Lipitor from 40 mg to 80 mg at bedtime. Diabetes melitis type II Managed with insulin sliding scale Elevated LFTs LFTs trended down Liver ultrasound was unremarkable except left lobe cyst Vital Signs/Physical Exam: Temp Pulse Resp BP Pulse Ox 97.9 F 86 18 152/88 H 98 08/23/24 12:00 08/23/24 13:35 08/23/24 12:00 08/23/24 13:35 08/23/24 12:00 General: Alert, In no apparent distress, Oriented x3 HEENT: Mucous membr. moist/pink Neck: Supple, JVD not distended Respiratory: Clear to auscultation bilaterally, Normal air movement Cardiovascular: No edema, Regular rate/rhythm, Normal S1 S2 Gastrointestinal: Soft and benign, Non-distended, No tenderness Musculoskeletal: No swelling Integumentary: No rashes, No cyanosis Neurological: Normal strength at 5/5 x4 extr Laboratory Data at Discharge: WBC 6.30 thou/uL (4.3-10.9) 08/22/24 05:39 Hgb 13.4 g/dL (13.6-17.9) L 08/22/24 05:39 Hct 39.1 % (39.6-49.0) L 08/22/24 05:39 Plt Count 224 thou/uL (152-406) 08/22/24 05:39 PT 11.8 SECONDS (9.4-12.5) 08/21/24 19:30 INR 1.06 08/21/24 19:30 Sodium 138 mEq/L (136-145) 08/23/24 04:51 Potassium 4.2 mEq/L (3.5-5.1) 08/23/24 04:51 BUN 32 mg/dL (7-18) H 08/23/24 04:51 Creatinine 1.30 mg/dL (0.70-1.30) 08/23/24 04:51 Glucose 196 mg/dL (74-106) H 08/23/24 04:51 Phosphorus 3.7 mg/dL (2.5-4.9) 08/22/24 05:39 Magnesium 2.0 mg/dL (1.6-2.4) 08/22/24 05:39 Total Bilirubin 0.7 mg/dL (0.2-1.0) 08/23/24 04:51 AST 30 U/L (15-37) 08/23/24 04:51 ALT 83 U/L (16-61) H 08/23/24 04:51 Alkaline Phosphatase 112 U/L (45-117) 08/23/24 04:51 Triglycerides 138 mg/dL (<150) 08/22/24 05:39 Cholesterol 170 mg/dL (<200) 08/22/24 05:39 HDL Cholesterol 52 mg/dL (40-60) 08/22/24 05:39 Cholesterol/HDL Ratio 3.27 08/22/24 05:39 Home Medications: Aspirin Chewable [Aspirin Chewable*] 1 tab PO DAILY 08/21/24 Furosemide 1 tab PO DAILY 08/21/24 Losartan Potassium 1 tab PO BID 08/21/24 Metoprolol Tartrate 0.5 tab PO BID 08/21/24 Spironolactone 1 tab PO DAILY 08/21/24 Atorvastatin Calcium [Lipitor] 80 mg PO BEDTIME tab 08/23/24 Followup: NONE,NONE [Primary Care Provider] - Time spent managing pt's care (in minutes): 35
--- NOTE | 2024-08-23 21:23 | OP ---
Date of Procedure: 08/23/2024 Surgeon: Jordan Alfonso Procedures Performed: 1.Left heart catheterization. 2.Selective coronary angiogram. Indication For Procedure: [id number]. Complications: None. Estimated Blood Loss: Less than 50 cc. Sedation Time: 20 minutes with 1 of Versed and 25 fentanyl. Description Of Procedure: After risks, benefits, and alternatives were explained to the patient, the patient agreed to proceed with the procedure and signed informed consent. The patient was brought [facility] to the oven laborer, prepped and draped in a sterile fashion. Time-out was performed. Sedation was administered. Next, right radial access was obtained using ultrasound-guided micropuncture technique . [place] 4 catheter was advanced over J-wire to the LV cavity. LVEDP was obtained. Pullback did not show any gradient. Same catheter was used for selective angiogram of the left and right coronary sy stems. Findings: 1.Left main normal. 2.LAD large with proximal 40% disease, then mid 90% to 95% disease, then mid to distal mild luminal irregularities. 3.Diagonal comes off the radial to LAD as a large artery with a proximal 80% disease, then bifurcate s into 2 large branches, each one of them got 80% disease proximally. 4.Left circumflex dominant with mid 50% disease. 5.Left PDA with proximal to mid diffuse 80% disease. 6.RCA, small, nondominant, mid 100% occluded. Assessment And Plan: 1.Significant LAD, diagonal 1, diagonal 2, and left PDA disease. 2.The plan is to transfer for CT surgery evaluation. SATYA Voice ID: [id number] Report ID: [id number]
[2024-08-24 15:39] VITALS: BP 139/84; TEMP 98; O2SAT 99
--- NOTE | 2024-08-26 12:14 | EKG ---
Test Date: 2024-08-21 Test Time: 18:00:22 Rate Marker: JANETL MEASUREMENT RESULTS: Intervals: Rate: 95 NE: 136 QRSD: 126 QT: 380 QTc: 477 [place]: P: 46 NE: 136 QRS: -36 T: 102 INTERPRETIVE STATEMENTS: Electronic ventricular pacemaker Compared to ECG 05/17/2023 18:29:59 No significant changes Electronically Signed On 08-26-24 12:10:59 QUALITY ASSURANCE NURSE by Jordan Alfonso
== END 2024-08-23 16:26 | disposition short-term general hospital (02) | DRG 281 ==
LOC: ER 17:48 → ERHOLD 20:54 → 2ND 21:32
PROVIDERS: ADMIT Family Medicine; ATTEND Internal Medicine
PROC: 4A023N7 Measurement of Cardiac Sampling and Pressure, Left Heart, Percutaneous Approach (ICD-10-PCS; principal; 2024-08-23)
PROC: B2111ZZ Fluoroscopy of Multiple Coronary Arteries using Low Osmolar Contrast (ICD-10-PCS; 2024-08-23)
DX: I21.4 Non-ST elevation (NSTEMI) myocardial infarction (principal); I13.0 Hypertensive heart and chronic kidney disease with heart failure and stage 1 through stage 4 chronic kidney disease, or unspecified chronic kidney disease; I50.9 Heart failure, unspecified; N18.2 Chronic kidney disease, stage 2 (mild); E11.22 Type 2 diabetes mellitus with diabetic chronic kidney disease; I48.91 Unspecified atrial fibrillation; E78.00 Pure hypercholesterolemia, unspecified; K76.89 Other specified diseases of liver; I25.10 Atherosclerotic heart disease of native coronary artery without angina pectoris; R79.89 Other specified abnormal findings of blood chemistry; Z79.82 Long term (current) use of aspirin; Z87.891 Personal history of nicotine dependence; Z95.810 Presence of automatic (implantable) cardiac defibrillator; Z79.899 Other long term (current) drug therapy
CPT/HCPCS: 36415; 71045; 76705; 76937; 80048; 80053; 80061; 80076; 81001; 82947; 83735; 83880; 84100; 84484; 85025; 85610; 93005; 93458; 94760; 96365; 99152; 99153; 99285; C1893; J0461; J1644; J2003; J2250; J3010; J7040; Q9966